=== PATIENT | male | born 1935 | race Caucasian/White ===

== ENCOUNTER 2016-04-28 08:12 | Inpatient (IN) | payer MEDICARE, OTHER ==
[~2016-04-28] VITALS: Ht 182.9 cm; Wt 115.0 kg
[2016-04-28] VITALS (12 sets, daily range): BP systolic 90–122; BP diastolic 45–64; PULSE 76–130; RESP 22–26; TEMP 98.2–99.9; O2SAT 93–100
[~2016-04-28 08:12] MED LIST: ATEN100T7 PO; BACL10TA PO; GLIP5TAB8 PO
[2016-04-28] MEDS ORDERED: SODIUM CHLOR 0.9% 1000 ML INJ 700 ML IV ONE (08:19)
[2016-04-28] MEDS ORDERED: VANCOMYCIN INJ 1,250 MG in SODIUM CHLOR 0.9% 250 ML INJ 250 ML IV STA (08:19)
[2016-04-28] MEDS ORDERED: SODIUM CHLOR 0.9% 1000 ML INJ 1,000 ML IV ONE ×4 (08:19→21:00)
[2016-04-28] MEDS ORDERED: PIPERACIL-TAZO 4.5 GM PREMIX 100 ML IV STA (08:19)
[2016-04-28] MEDS ORDERED: DIGO0.12 PO (08:24)
[2016-04-28] MEDS ORDERED: HYDR2.5%T RECTAL (08:24)
--- NOTE | 2016-04-28 08:36 | PD ---
HPI Chief Complaint: General Weakness Time Seen by Provider: 08:19 Travel History International Travel<30 days: No Contact w/Intl Traveler<30days: No Traveled to known affect area: No History of Present Illness HPI 80-year-old male came to the emergency room with history of dizziness, lightheadedness, generalized weakness and right buttock pain. Patient says that he fell one week ago and since then his right buttock is hurting. He did go to see his primary care about 5 days ago for weakness and his medications were changed. Couple of his oral medications were stopped and he was started on couple new medications. He has been taking all his medications like he supposed to. Patient is a diabetic. Denies any fever or chills. Today he called 911 since he was very lightheaded when he stood up. As per EMS his blood pressure was below 90 upon their arrival. He received 1 L of normal saline bolus en route after which his blood pressure has stayed above 90. He is awake and answering questions appropriately but is in significant discomfort when he tries to move. He prefers to lay on his left side due to the pain in his right buttock. His rectal temperature was 99.9. [facility] Past Medical History Narrative Medical List of his past medical history is reviewed from the nursing note. Atrial Fibrillation: Yes Diabetes: Yes Patient Takes Glucophage: No Hypertension: Yes Past Surgical History Joint Replacement: Yes (HIP REPLACEMENT) Neurologic Surgery: Yes (PITUIT[facility] GLAND) Social History Alcohol Use: Yes (FEW TIMES PER WEEK) Tobacco Use: No Substance Use: No Allergies-Medications (Allergen,Severity, Reaction): Coded Allergies: No Known Allergies (Verified , 03/09/16) Comments No known drug allergies. Reported Meds & Prescriptions Reported Meds & Active Scripts Active Reported Digoxin 0.125 Mg Tab 0.125 Mg PO DAILY Anusol-Hc Rectal (Hydrocortisone Rectal) 2.5% Cream 1 Applic RECTAL BID PRN Glipizide 5 Mg Tab 5 Mg PO BID Take 30 minutes before a meal Narrative Medication List of his home medications reviewed from the nursing note. Review of Systems Except as stated in HPI: all other systems reviewed are Neg Physical Exam Narrative GENERAL: Awake, alert, obese, moderate distress SKIN: Warm and dry. Right gluteus janny indurated and tender and warm to touch. No significant fluctuance is felt. Crepitus was felt. Right groin has erythematous rash and poor skin hygiene. HEAD: Atraumatic. Normocephalic. EYES: Pupils equal and round. No scleral icterus. No injection or drainage. ENT: No nasal bleeding or discharge. Mucous membranes pink and moist. NECK: Trachea midline. No JVD. CARDIOVASCULAR: Regular rate and rhythm. No murmur appreciated. RESPIRATORY: No accessory muscle use. Clear to auscultation. Breath sounds equal bilaterally. GASTROINTESTINAL: Abdomen soft, non-tender, nondistended. Hepatic and splenic margins not palpable. MUSCULOSKELETAL: No obvious deformities. No clubbing. No cyanosis. No edema. NEUROLOGICAL: Awake and alert. No obvious cranial nerve deficits. Motor grossly within normal limits. Normal speech. PSYCHIATRIC: Appropriate mood and affect; insight and judgment normal. Data Data Last Documented VS Vital Signs Date Time Temp Pulse Resp B/P Pulse Ox O2 Delivery O2 Flow Rate FiO2 04/28/16 09:30 85 26 105/63 93 Nasal Cannula 3 04/28/16 08:16 99.9 Orders Complete Blood Count With Diff (04/28/16 08:19) Comprehensive Metabolic Panel (04/28/16 08:19) Lactic Acid Sepsis Protocol (04/28/16 08:19) Urinalysis - C+S If Indicated (04/28/16 08:19) Blood Culture (04/28/16 08:19) Chest, Single Ap (04/28/16 08:19) Blood Glucose (04/28/16 08:19) Ecg Monitoring (04/28/16 08:19) Iv Access Insert/Monitor (04/28/16 08:19) Oximetry (04/28/16 08:19) Oxygen Administration (04/28/16 08:19) Ct Abd/Pel W/O Iv Contrast (04/28/16 08:19) Piperacil-Tazo 4.5 Gm Premix (Zosyn 4.5 (04/28/16 08:19) Vancomycin Inj (Vancomycin Inj) (04/28/16 08:19) Sodium Chlor 0.9% 1000 Ml Inj (Ns 1000 M (04/28/16 08:19) Sodium Chlor 0.9% 1000 Ml Inj (Ns 1000 M (04/28/16 08:19) Sodium Chlor 0.9% 1000 Ml Inj (Ns 1000 M (04/28/16 08:19) Digoxin (04/28/16 08:54) Urinary Catheter Insert/Apply (04/28/16 08:58) Potassium Chloride (Kcl) (04/28/16 09:15) Ct Femur W/O Iv Contrast (04/28/16 ) Urine Culture (04/28/16 09:01) Admit Order (Ed Use Only) (04/28/16 09:38) Labs Laboratory Tests Test 04/28/16 04/28/16 08:25 09:01 White Blood Count 23.7 TH/MM3 Red Blood Count 3.64 MIL/MM3 Hemoglobin 11.2 GM/DL Hematocrit 33.3 % Mean Corpuscular Volume 91.6 FL Mean Corpuscular Hemoglobin 30.8 PG Mean Corpuscular Hemoglobin 33.6 % Concent Red Cell Distribution Width 14.1 % Platelet Count 168 TH/MM3 Mean Platelet Volume 10.3 FL Neutrophils (%) (Auto) % Lymphocytes (%) (Auto) % Monocytes (%) (Auto) % Eosinophils (%) (Auto) % Basophils (%) (Auto) % Neutrophils # (Auto) TH/MM3 Lymphocytes # (Auto) TH/MM3 Monocytes # (Auto) TH/MM3 Eosinophils # (Auto) TH/MM3 Basophils # (Auto) TH/MM3 CBC Comment AUTO DIFF Differential Total Cells 100 Counted Neutrophils % (Manual) 72 % Band Neutrophils % 17 % Lymphocytes % 2 % Monocytes % 6 % Basophils % 1 % Neutrophils # (Manual) 21.6 TH/MM3 Metamyelocytes 1 % Myelocytes 1 % Differential Comment FINAL DIFF MANUAL Platelet Estimate NORMAL Platelet Morphology Comment NORMAL Red Cell Morphology Comment NORMAL Sodium Level 131 MEQ/L Potassium Level 3.4 MEQ/L Chloride Level 95 MEQ/L Carbon Dioxide Level 22.4 MEQ/L Anion Gap 14 MEQ/L Blood Urea Nitrogen 46 MG/DL Creatinine 2.34 MG/DL Estimat Glomerular Filtration 27 ML/MIN Rate Random Glucose 174 MG/DL Lactic Acid Level 3.9 mmol/L Calcium Level 7.8 MG/DL Total Bilirubin 0.6 MG/DL Aspartate Amino Transf 32 U/L (AST/SGOT) Alanine Aminotransferase 25 U/L (ALT/SGPT) Alkaline Phosphatase 76 U/L Total Creatine Kinase 440 U/L Creatine Kinase MB 4.5 NG/ML Creatine Kinase MB % 1.0 % Total Protein 6.4 GM/DL Albumin 2.4 GM/DL Digoxin Level 0.2 NG/ML Urine Color YELLOW Urine Turbidity HAZY Urine pH 5.0 Urine Specific [place] 1.019 Urine Protein TRACE mg/dL Urine Glucose (UA) TRACE mg/dL Urine Ketones NEG mg/dL Urine Occult Blood SMALL Urine Nitrite NEG Urine Bilirubin NEG Urine Urobilinogen LESS THAN 2.0 MG/DL Urine Leukocyte Esterase NEG Urine RBC 4 /hpf Urine WBC 3 /hpf Urine Squamous Epithelial <1 /hpf Cells Urine Bacteria RARE /hpf Urine Hyaline Casts 22 /lpf Urine Mucus FEW /lpf Microscopic Urinalysis Comment CATH-CULTURE IND MDM Medical Decision Making Medical Screen Exam Complete: Yes Emergency Medical Condition: Yes Medical Record Reviewed: Yes Differential Diagnosis Sepsis, Nikhil's gangrene, cellulitis, abscess, necrotizing fasciitis Narrative Course 8:53 AM awaiting for the blood test results and the CAT scan to be done and resulted. I started the patient on sepsis protocol for the fluid and antibiotic. Patient definitely will require admission and I would prefer him to be admitted to the ICU given the potential of deterioration of his condition. 9:17 AM blood test results are back and patient's white count is significantly elevated with bandemia. His potassium is slightly low which I have ordered for a replacement but his lactic acid is significantly elevated as well. I was just called from CT and they wanted me to include a CT of his right femur since they noticed gas in the soft tissue. I put a call out for the surgeon since the patient needs to go stat to the OR for debridement given this finding. Patient is getting IV fluid and antibiotics. I put a call out for the shovel handle assembler as well. He has a Han catheter that I had ordered. I've updated his regarding his condition and the fact that he will require to go to the OR. She confirmed that his fall was 2-3 days ago and mostly because of the weakness. 9:41 AM I looked at the CT and there is gas all the way from the gluteus till the lower thigh into the deep tissue and muscles. I've expressed to the surgeon that patient will need to go to the OR as soon as possible for debridement. The shovel handle assembler Dr. Collins is down here seeing the patient and will admit him. 9:53 AM I discussed the case with Dr. Pena from orthopedics upon general surgeon Dr. Marcos this request and he said it would be general surgery who needs to take the patient to the OR and debride him. However if there is any orthopedic issue in the operating room general surgery can consult him and he' ll be happy to see the patient. Critical Care Narrative Aggregate critical care time was 60 minutes. Time to perform other separately billable procedures was not included in the critical care time. My time did not include minutes spent treating any other patients simultaneously or on activities that did not directly contribute to the patient's treatment. The services I provided to this patient were to treat and/or prevent clinically significant deterioration that could result in: Severe sepsis, gas gangrene, acute renal failure I provided critical care services requiring my management, as noted below: Chart data review, documentation time, medication orders and management, vital sign assessments/reviewing monitor data, ordering and reviewing lab tests, ordering and interpreting/reviewing x-rays and diagnostic studies, care of the patient and discussion of the patient with the admitting physicians. Procedures EKG Prior to Arrival: No Sepsis Criteria SIRS Criteria (2 or more): WBC > 97492, < 4000 or > 10% bands Sepsis Criteria (SIRS+source): Infect source susp/known Severe Sepsis (+one): Organ Dysfunction, Hypotension, Lactate >2 Physician Communication Physician Communication Dr. Marcos, Dr. Collins, Dr. Dey Diagnosis Primary Impression: Severe sepsis Additional Impressions: Gas gangrene of lower extremity Acute renal failure Qualified Code: N17.9 - Acute renal failure, unspecified acute renal failure type Admitting Information Admitting Physician Requests: it Emanuel Oquendo MD Apr 28, 2016 08:35
[2016-04-28 08:37] LABS: HEMATOCRIT 33.3 % (39.0-51.0); MEAN CELL VOLUME 91.6 FL (80.0-100.0); MEAN CORPUSCULAR HEMOGLOBIN 30.8 PG (27.0-34.0); MEAN CORPUSCULAR HGB CONC 33.6 % (32.0-36.0); PLATELET COUNT 168 TH/MM3 (150-450); RED BLOOD COUNT 3.64 MIL/MM3 (4.50-5.90); RED CELL DISTRIBUTION WIDTH 14.1 % (11.6-17.2); WHITE BLOOD COUNT 23.7 TH/MM3 (4.0-11.0)
[2016-04-28 08:39] LABS: HEMO FLAGS AUTO DIFF
--- NOTE | 2016-04-28 08:50 | RADRPT ---
EXAM DATE/TIME: 04/28/2016 08:21 [facility] COMPARISON: No previous studies available for comparison. INDICATIONS : Short of Breath, Cough. MEDICAL HISTORY : None. SURGICAL HISTORY : None. ENCOUNTER: Initial ACUITY: 1 day PAIN SCORE: 0/10 LOCATION: Bilateral chest FINDINGS: A single view of the chest demonstrates the lungs to be symmetrically aerated without evidence of mas s, infiltrate or effusion. The cardiomediastinal contours are unremarkable. Osseous structures are intact. CONCLUSION: Normal examination. Lawson Howard MD on April 28, 2016 at 8:49 Board Certified Radiologist. This report was verified electronically.
[2016-04-28 09:03] LABS: ALKALINE PHOSPHATASE 76 U/L (45-117); ALT (GPT) 25 U/L (12-78); ANION GAP 14 MEQ/L (5-15); AST (GOT) 32 U/L (15-37); BICARBONATE 22.4 MEQ/L (21.0-32.0); BLOOD UREA NITROGEN 46 MG/DL (7-18); CHLORIDE 95 MEQ/L (98-107); GLOMERULAR FILTRATION RATE 27 ML/MIN (>89); POTASSIUM 3.4 MEQ/L (3.5-5.1); SODIUM (NA) 131 MEQ/L (136-145); TOTAL BILIRUBIN ADULT 0.6 MG/DL (0.2-1.0)
[2016-04-28 09:07] LABS: BANDS 17 % (0-6); BASOPHILS 1 % (0-2); METAMYELOCYTES 1 % (0-1); MYELOCYTES 1 % (0-0); NEUTROPHIL # MANUAL DIFF 21.6 TH/MM3 (1.8-7.7); PLATELET ESTIMATE SMEAR NORMAL (NORMAL); PLATELET MORPHOLOGY NORMAL (NORMAL); POLYS (SEG NEUTROPHILS) 72 % (16-70); WBC DIFF SAMPLE 100
[2016-04-28 09:08] LABS: SCAN/DIFF FINAL DIFF MANUAL
[2016-04-28] MEDS ORDERED: POTASSIUM CHLORIDE 10 MEQ CONTROLLED RELEASE TAB PO ONE (09:15)
[2016-04-28 09:16] LABS: BACTERIA, URINE RARE /hpf; BLOOD, URINE SMALL (NEG); COMMENT (UR) CATH-CULTURE IND; CULTURE IF INDICATED CATH CULTURE IND; GLUCOSE,URINE TRACE mg/dL (NEG); HYALINE CAST, URINE 22 /lpf (RARE); KETONE, URINE NEG (NEG); MUCUS URINE FEW /lpf (OCC); NITRITE,URINE NEG (NEG); SQUAMOUS EPITHELIAL CELL URINE <1 /hpf (0-5); URINE COLOR YELLOW (YELLW/STRAW)
--- NOTE | 2016-04-28 09:39 | RADRPT ---
EXAM DATE/TIME: 04/28/2016 09:05 [facility] COMPARISON: No previous studies available for comparison. INDICATIONS : Large right buttock induration, pelvic pain, right hip pain. RADIATION DOSE: 10.73 CTDIvol (mGy) MEDICAL HISTORY : Diabetes mellitus type 2. Cardiovascular disease SURGICAL HISTORY : Left hip replacement. ENCOUNTER: Initial ACUITY: 1 day PAIN SCALE: 8/10 LOCATION: Left hip TECHNIQUE: Volumetric scanning of the femur was performed. Using automated exposure control and adjustment of t he mA and/or kV according to patient size, radiation dose was kept as low as reasonably achievable to obtain optimal diagnostic quality images. FINDINGS: BONES: No evidence of fracture. Alignment is within normal limits. JOINTS: No evidence of joint narrowing or effusion. SOFT TISSUES: There is extensive dissecting air throughout the gluteus janny muscle also dissecting into the lowe r posterior thigh. There is air within the semi-tendinosis semimembranosus and biceps femoris muscles . There is also tiny amount of air along the abductor longus muscle. I don't see any drainable absces s or fluid collection. There is a small amount of fluid between the subcutaneous fat in the muscular fascia not an unusual finding in patient's with soft tissue edema CONCLUSION: There is extensive dissecting air throughout the gluteus janny muscle also dissecting into the lowe r posterior RIGHT thigh. There is air within the semi-tendinosis, semimembranosus, and biceps femori s muscles. There is also tiny amount of air along the abductor longus muscle. I don't see any drainab le abscess or fluid collection. There is a small amount of fluid between the subcutaneous fat in the muscular fascia not an unusual finding in patient's with soft tissue edema. Lawson Howard MD on April 28, 2016 at 9:36 Board Certified Radiologist. This report was verified electronically.
--- NOTE | 2016-04-28 09:47 | RADRPT ---
EXAM DATE/TIME: 04/28/2016 09:05 [facility] COMPARISON: No previous studies available for comparison. INDICATIONS : Large right buttock induration, pelvic pain, right hip pain. ORAL CONTRAST: No oral contrast ingested. RADIATION DOSE: 17.03 CTDIvol (mGy) MEDICAL HISTORY : Diabetes mellitus type 2. Hypertension. Cardiovascular disease SURGICAL HISTORY : None. Left hip replacement. ENCOUNTER: Initial ACUITY: 3 days PAIN SCALE: 8/10 LOCATION: Right buttock TECHNIQUE: Volumetric scanning of the abdomen and pelvis was performed. Using automated exposure control and adjustment of the mA and/or kV according to patient size, radiation dose was kept as low as reasonably achievable to obtain optimal diagnostic quality images. FINDINGS: CT of the abdomen and pelvis was performed without contrast. There is a significant amount of air and inflammation in the right buttock region. The tiny locules of air extended to the ischiorectal fossa. There is a collection in the ischiorectal fossa on the ri ght measuring approximately 2.3 cm x 4.6 cm. It could be a perirectal abscess. More posterolaterall y on the left, there is an additional small collection with fluid and air measuring 3.3 cm x 1.7 cm a cross. The tiny locules of air also extend just lateral to the rectum anterior to the iliococcygeal ligaments. The right side of the perirectal fat is indurated even superiorly. There is some sludge or small stones within the gallbladder without evidence of acute gallbladder wal l thickening. The unenhanced liver, spleen, adrenal glands and pancreas are unremarkable. Large cys ts lower pole right kidney. There is no evidence of bowel obstruction. There is a Han catheter wi thin the bladder. The tiny locules of air extend throughout the gluteus janny muscle. CONCLUSION: 1. Significant inflammation, presumed infection, in the right gluteal region including numerous tiny locules of air not only in the gluteus janny muscle but extending anterior into the ischiorectal f eduard on the right. There are two distinct collections around the rectum suspicious for a perirectal abscess both right anteriorly and left posterolaterally. 2. Gallstones versus sludge. Lawson Howard MD on April 28, 2016 at 9:32 Board Certified Radiologist. This report was verified electronically.
[2016-04-28] MEDS ORDERED: METOCLOPRAMIDE HCL 10 MG/2 ML VIAL IV PRN (10:00)
[2016-04-28] MEDS ORDERED: ONDANSETRON HCL 4 MG/2 ML VIAL IV PRN (10:00)
[2016-04-28] MEDS ORDERED: ACETAMINOPHEN 325 MG TAB PO PRN (10:00)
[2016-04-28] MEDS ORDERED: LORazepam 2 MG/ML VIAL IV PRN (10:00)
[2016-04-28] MEDS ORDERED: MISCELLANEOUS NURSING INFORMATION XX SCH (10:00)
[2016-04-28] MEDS ORDERED: RESP: ALBUTEROL 2.5 MG/3 ML NEB (PRN) INH (10:00)
[2016-04-28] MEDS ORDERED: MORPHINE SULFATE 4 MG/ML INJ IV PRN (10:00)
[2016-04-28] MEDS: SODIUM CHLORIDE 0.9% FLUSH 5 ML FLUSH IV FLUSH SCH ×2 (10:00→20:23)
[2016-04-28] MEDS ORDERED: CHLORHEXIDINE GLUCONATE 2 % 1 PACK (2 CLOTHS) TOP PRN (10:00)
[2016-04-28 10:31] LABS: LACTIC ACID GHOST NOT REPORTABLE
[2016-04-28] MEDS: PANTOPRAZOLE SODIUM 40 MG VIAL IV SCH (12:00)
[2016-04-28] MEDS: SODIUM CHLOR 0.9% 1000 ML INJ 1,000 ML IV SCH ×3 (12:00→22:05)
[2016-04-28] MEDS ORDERED: PHENYLEPH/NS 1000 MCG/10 ML SYR IV ONE (12:00)
[2016-04-28] MEDS ORDERED: LACTATED RINGER'S 1000 ML INJ 2,000 ML IV ONE (12:00)
[2016-04-28] MEDS: HEPARIN SODIUM - SQ 10,000 UNITS/ML VIAL SQ SCH ×2 (12:00→22:29)
[2016-04-28] MEDS: DOCUSATE SODIUM 100 MG/10 ML UDC G-TUBE SCH ×2 (12:00→22:29)
[2016-04-28] MEDS ORDERED: VASOPRESSIN INJ 20 UNITS/ML VIAL IV ONE (12:00)
[2016-04-28] MEDS ORDERED: ePHEDrine/NS 50 MG/5 ML SYR IV ONE (12:00)
[2016-04-28] MEDS ORDERED: PROPOFOL 200 MG/20 ML AMP IV ONE (12:00)
[2016-04-28 12:28] LABS: LACTIC ACID GHOST NOT REPORTABLE
[2016-04-28 13:36] LABS: CKMB 4.5 NG/ML (0.5-3.6)
[2016-04-28] MEDS ORDERED: PIPERACIL-TAZO 3.375 GM PREMIX 50 ML IV ONE (14:00)
[2016-04-28] MEDS ORDERED: GENTAMICIN SULFATE 80 MG/2 ML VIAL ONE (14:24)
[2016-04-28] MEDS ORDERED: ceFAZolin INJ 1,000 MG VIAL ONE (14:24)
--- NOTE | 2016-04-28 14:58 | EKG ---
Date Performed: 04/28/2016 Time Performed: 08:27:03 PTAGE: 80 years EKG: ATRIAL FIBRILLATION NONSPECIFIC T-WAVE ABNORMALITY Atrial fibrillation is new since prior t racing ABNORMAL RHYTHM ECG PREVIOUS TRACING : 04/28/2016 08.23 DOCTOR: Yakov Vásquez Interpretating Date/Time 04/28/2016 14:57:37
[2016-04-28] MEDS ORDERED: PROPOFOL 1000 MG/100 ML INJ 100 ML ONE (15:14)
[2016-04-28] MEDS ORDERED: Vancomycin Consult Pharmacy 1 EA IV SCH (15:15)
--- NOTE | 2016-04-28 15:16 | HHI.PR ---
Immediate Post Op Note Procedure Date: Apr 28, 2016 Pre Op Diagnosis: necrotic soft tissues infection of right buttock and right posterior thigh Post Op Diagnosis: same Surgeon: Trey Marcos MD Supervisor Quilting(s): Dr. Fitch Procedure: incision and wide debridement of right buttock and right posterior thigh with vac placement Findings: necrotic muscle and fascia, perirectal tracking Complications: none Specimen(s) removed: tissues, purulent fluid Estimated blood loss: 350 Anesthesia: General Drains: Other (vac) IVF (1600) Patient to: PACU Patient Condition: Critical Trey Marcos MD Apr 28, 2016 15:16
[2016-04-28] MEDS ORDERED: PHENYLEPHRINE HCL 10 MG/ML VIAL ONE ×2 (15:35→15:40)
--- NOTE | 2016-04-28 15:37 | PD.ID.CON ---
History of Present Illness Service ID Consult Requested By Dr Collins Reason for Consult perirectal abscess and gas gangrene Primary Care Physician Wade Shaikh MD Diagnoses: History of Present Illness Pt was seen in ER around 1200 before surgery 80 yo diabetic male developped malaise , R bottock and perirectal pain , fivers and chills for almost 2 weeks (since April 16) He presented to the hospital today after he got dizzy and fell on his bottom He was hypotensive, febrile tachycardic in ER with WBC of 23 K+ and bands of 17% His CT showed Significant inflammation, presumed infection, in the right gluteal region including numerous tiny locules of air not only in the gluteus janny muscle but extending anterior into the ischiorectal fossa on the right with two distinct collections around the rectum suspicious for a perirectal abscess both right anteriorly and left posterolaterally Review of Systems Constitutional: COMPLAINS OF: Fatigue, Fever, Chills, Dizziness, Change in appetite Gastrointestinal: COMPLAINS OF: Constipation, Diarrhea Neurologic: COMPLAINS OF: Poor Balance Other as per history of present illness, the rest of 12 point review is otherwise negative Past Family Social History Allergies: Coded Allergies: *MDRO Multi-Drug Resistant Organism (Verified Adverse Reaction, Unknown, ) MRSA PCR Screeen POSITIVE - 04/28/2016 Past Medical History DM HTN Past Surgical History hip replacement pituatry grland sx Active Ordered Medications Medications where reviewed in EMR Antibiotics Include: zosyn vanco Family History Non-Contributory. Social History No Tobacco. social ETOH. No Illicit Drugs. Physical Exam Vital Signs Vital Signs Date Time Temp Pulse Resp B/P Pulse Ox O2 Delivery O2 Flow Rate FiO2 04/28/16 12:28 99 22 100/59 97 Nasal Cannula 3 04/28/16 10:30 98.2 92 24 122/64 97 Nasal Cannula 3 04/28/16 09:30 85 26 105/63 93 Nasal Cannula 3 04/28/16 08:44 76 26 90/50 94 Nasal Cannula 2 04/28/16 08:16 99.9 97 26 117/62 96 Physical Exam CONSTITUTIONAL/GENERAL: ill appearing elderly male in mild apparent distress. TUBES/LINES/DRAINS: SKIN: No jaundice, rashes.Skin temperature appropriate. Not diaphoretic. STATUS LOCALIS: severe erythema, edema induration and severe tenderness of R buttock and upper thigh and R perirectal area no crepitus on pllpation, no fluctuance HEAD: Atraumatic. Normocephalic. EYES: Pupils equal and round and reactive. Extraocular motions intact. No scleral icterus. No injection or drainage. Fundi not examined. ENT: Hearing grossly normal. Nose without bleeding or purulent drainage. Oral mucossae very dry NECK: Trachea midline. Supple, nontender. CARDIOVASCULAR: Regular rate and rhythm without murmurs, gallops, or rubs. No JVD. Peripheral pulses symmetric. RESPIRATORY/CHEST: Symmetric, unlabored respirations. Clear to auscultation. Breath sounds equal bilaterally. No wheezes, rales, or rhonchi. GASTROINTESTINAL: Abdomen soft, non-tender,mildly distended. No hepato- splenomegaly, or palpable masses. No guarding. Bowel sounds present. GENITOURINARY: Without palpable bladder distension. Some erythema of R inguinal fold cw superficial fungal inx No edema or skin changes of penis or scrotum MUSCULOSKELETAL: Extremities without clubbing, + mild cyanosis, + trace edema. + mottling b/l feet LYMPHATICS: No palpable cervical or supraclavicular adenopathy. NEUROLOGICAL: Awake and alert. Motor and sensory grossly within normal limits. Follows commands. Normal speech. Moves all extremities. PSYCHIATRIC: calm, cooperative Laboratory Laboratory Tests Test 04/28/16 04/28/16 04/28/16 04/28/16 08:25 09:01 10:25 12:45 White Blood Count 23.7 Red Blood Count 3.64 Hemoglobin 11.2 Hematocrit 33.3 Mean Corpuscular Volume 91.6 Mean Corpuscular Hemoglobin 30.8 Mean Corpuscular Hemoglobin 33.6 Concent Red Cell Distribution Width 14.1 Platelet Count 168 Mean Platelet Volume 10.3 Neutrophils (%) (Auto) Lymphocytes (%) (Auto) Monocytes (%) (Auto) Eosinophils (%) (Auto) Basophils (%) (Auto) Neutrophils # (Auto) Lymphocytes # (Auto) Monocytes # (Auto) Eosinophils # (Auto) Basophils # (Auto) CBC Comment AUTO DIFF Differential Total Cells 100 Counted Neutrophils % (Manual) 72 Band Neutrophils % 17 Lymphocytes % 2 Monocytes % 6 Basophils % 1 Neutrophils # (Manual) 21.6 Metamyelocytes 1 Myelocytes 1 Differential Comment FINAL DIFF MANUAL Platelet Estimate NORMAL Platelet Morphology Comment NORMAL Red Cell Morphology Comment NORMAL Sodium Level 131 Potassium Level 3.4 Chloride Level 95 Carbon Dioxide Level 22.4 Anion Gap 14 Blood Urea Nitrogen 46 Creatinine 2.34 Estimat Glomerular Filtration 27 Rate Random Glucose 174 Lactic Acid Level 3.9 2.8 4.0 Calcium Level 7.8 Total Bilirubin 0.6 Aspartate Amino Transf 32 (AST/SGOT) Alanine Aminotransferase 25 (ALT/SGPT) Alkaline Phosphatase 76 Total Creatine Kinase 440 Creatine Kinase MB 4.5 Creatine Kinase MB % 1.0 Total Protein 6.4 Albumin 2.4 Digoxin Level 0.2 Urine Color YELLOW Urine Turbidity HAZY Urine pH 5.0 Urine Specific [place] 1.019 Urine Protein TRACE Urine Glucose (UA) TRACE Urine Ketones NEG Urine Occult Blood SMALL Urine Nitrite NEG Urine Bilirubin NEG Urine Urobilinogen LESS THAN 2.0 Urine Leukocyte Esterase NEG Urine RBC 4 Urine WBC 3 Urine Squamous Epithelial <1 Cells Urine Bacteria RARE Urine Hyaline Casts 22 Urine Mucus FEW Microscopic Urinalysis Comment CATH-CULTURE IND Test 04/28/16 14:16 Blood Type A POSITIVE Date/Time Procedure Status Source Growth 04/28/16 09:01 Urine Culture Received Urine Catheterized Urine Pending 04/28/16 08:25 Aerobic Blood Culture Received Blood Peripheral Pending 04/28/16 08:25 Anaerobic Blood Culture Received Blood Peripheral Pending Result Diagram: 04/28/1682404/28/16824 Imaging Last Impressions Chest X-Ray 04/28/16818 Signed Impressions: Service Date/Time: Thursday, April 28, 2016 08:21 - CONCLUSION: Normal examination. Lawson Howard MD Abdomen/Pelvis CT 04/28/16818 Signed Impressions: Service Date/Time: Thursday, April 28, 2016 09:05 - CONCLUSION: 1. Significant inflammation, presumed infection, in the right gluteal region including numerous tiny locules of air not only in the gluteus janny muscle but extending anterior into the ischiorectal fossa on the right. There are two distinct collections around the rectum suspicious for a perirectal abscess both right anteriorly and left posterolaterally. 2. Gallstones versus sludge. Lawson Howard MD Lower Extremity CT 04/28/16 0000 Signed Impressions: Service Date/Time: Thursday, April 28, 2016 09:05 - CONCLUSION: There is extensive dissecting air throughout the gluteus janny muscle also dissecting into the lower posterior RIGHT thigh. There is air within the semi-tendinosis , semimembranosus, and biceps femoris muscles. There is also tiny amount of air along the abductor longus muscle. I don't see any drainable abscess or fluid collection. There is a small amount of fluid between the subcutaneous fat in the muscular fascia not an unusual finding in patient's with soft tissue edema. Lawson Howard MD Course Shortly after I examined the pt he was taken to OR and underwent extensive debridement by Dr Jaime. I dw him the pop findings: extensive necrosis extending to popliteal fossa Assessment and Plan Assessment and Plan perirectal abscess and gas gangrene R buttock Necrotising fascitis R buttock Sepsis 2/2 above: leukocytosis, bandemia, fever, lactic acidosis (4.0), hypotension, tachycardia and ARF Critically ill - sp debridement - cont vanco, zosyn - both need to be renally adjusted - fu op cultures Discussed Condition With Addison Dey Alexandra A. MD Apr 28, 2016 15:37
[2016-04-28] MEDS: PIPERACIL-TAZO 2.25 GM PREMIX 50 ML IV SCH (15:49)
[2016-04-28] MEDS ORDERED: fentaNYL CITRATE 250 MCG/5 ML AMP ONE (15:50)
[2016-04-28] MEDS ORDERED: MORPHINE SULFATE 4 MG/ML INJ ONE (15:51)
[2016-04-28] MEDS ORDERED: TERBUTALINE INJ 1 MG/ML AMP SQ PRN (16:00)
[2016-04-28] MEDS ORDERED: DO NOT ADM ANY ANTICOAGULANT DRUGS XX PRN (16:15)
[2016-04-28] MEDS ORDERED: MIDAZOLAM HCL 5 MG/ML VIAL (1 ML) ONE (16:22)
[2016-04-28] MEDS ORDERED: MIDAZOLAM HCL 2 MG/2 ML VIAL IV PUSH ONE (16:30)
--- NOTE | 2016-04-28 16:31 | RADRPT ---
EXAM DATE/TIME: 04/28/2016 15:44 [facility] COMPARISON: CT ABDOMEN & PELVIS W/O CONTRAST, April 28, 2016, 9:05. CHEST SINGLE AP, J anuary 2016, 8:21. INDICATIONS : Post intubation. MEDICAL HISTORY : None. SURGICAL HISTORY : None. ENCOUNTER: Initial ACUITY: 1 day PAIN SCORE: Non-responsive. LOCATION: Bilateral chest FINDINGS: ET tube and nasogastric tube are in good position. There are increasing bibasilar parenchymal change s evident, worse on the left than right. The heart is enlarged. CONCLUSION: 1. Support apparatus in good position. 2. Nasogastric tube is across the GE junction. Chandan Foley MD FACR on April 28, 2016 at 16:28 Board Certified Radiologist. This report was verified electronically.
[2016-04-28] MEDS ORDERED: NOREPINEPHRINE-DEXTROSE DRIP 250 ML IV ONE (16:44)
[2016-04-28] MEDS ORDERED: PHENYLEPHRINE 40 MG/D5W 496 ML ADMIX IV SCH ×2 (17:00)
[2016-04-28] MEDS ORDERED: VANCOMYCIN 0 MG/NS 250 ML IV ONE ×2 (17:00)
--- NOTE | 2016-04-28 17:13 | RADRPT ---
EXAM DATE/TIME: 04/28/2016 16:50 [facility] COMPARISON: CHEST SINGLE AP, April 28, 2016, 15:44. INDICATIONS : Right sided central placement. MEDICAL HISTORY : None. SURGICAL HISTORY : None. ENCOUNTER: Initial ACUITY: 1 day PAIN SCORE: Non-responsive. LOCATION: Bilateral chest FINDINGS: ET tube nasogastric tube in good position. Right-sided central line in good position of pneumothorax . The heart is enlarged. Mild interstitial edema is present. CONCLUSION: Line in good position without pneumothorax. Chandan Foley MD FACR on April 28, 2016 at 17:10 Board Certified Radiologist. This report was verified electronically.
--- NOTE | 2016-04-28 17:27 | HHI.HP ---
HPI Service Critical Care Medicine Primary Care Physician Wade Shaikh MD Admission Diagnosis sepsis, gas gangrene Diagnosis: Travel History International Travel<30 Days: No Contact w/Intl Traveler <30 Da: No Traveled to Known Affected Are: No History of Present Illness 80-year-old male came to the emergency room with history of dizziness, lightheadedness, generalized weakness and right buttock pain. CT scan revealed soft tissue gas gangrene originated most probably as a perirectal abscess. He wa taken emergently to OR for debridement. Review of Systems ROS Unable to obtain, patient is sedated and intubated Past Family Social History Allergies: Coded Allergies: No Known Allergies (Verified , 03/09/16) Past Medical History Atrial Fibrillation: Yes Diabetes: Yes Hypertension: Yes Past Surgical History Joint Replacement: Yes (HIP REPLACEMENT) Neurologic Surgery: Yes (PIT[facility] GLAND) Reported Medications Digoxin 0.125 Mg Tab 0.125 Mg PO DAILY Anusol-Hc Rectal (Hydrocortisone Rectal) 2.5% Cream 1 Applic RECTAL BID PRN Glipizide 5 Mg Tab 5 Mg PO BID Active Ordered Medications Current Medications Medications (Trade) Dose Ordered Sig/Jeff Route PRN Reason Start Time Stop Time Status Last Admin Dose Admin Sodium Chloride (NS 1000 ml Inj) 1,000 ml @ 150 mls/hr Q6H40M IV 04/28/16 11:00 04/28/16 15:40 IV Flush (NS Flush) 2 ml UNSCH PRN IV FLUSH FLUSH AFTER USING IV ACCESS 04/28/16 10:00 IV Flush (NS Flush) 2 ml BID IV FLUSH 04/28/16 10:00 Acetaminophen (Tylenol) 650 mg Q6H PRN PO PAIN 1-10 AND/OR FEVER >101F 04/28/16 10:00 Oxycodone/ Acetaminophen (Percocet 5-325 Mg) 1 tab Q4H PRN PO PAIN SCALE 1 TO 5 04/28/16 10:00 Morphine Sulfate (Morphine Inj) 2 mg Q2H PRN IV PAIN SCALE 6 TO 10 04/28/16 10:00 Pantoprazole Sodium (Protonix Inj) 40 mg DAILY IV 04/28/16 12:00 04/28/16 12:00 Lorazepam (Ativan Inj) 1 mg Q1H PRN IV Agitation/Sedation 04/28/16 10:00 Ondansetron HCl (Zofran Inj) 4 mg Q6H PRN IV NAUSEA OR VOMITING 04/28/16 10:00 Metoclopramide HCl (Reglan Inj) 10 mg Q6H PRN IV NAUSEA OR VOMITING 04/28/16 10:00 Docusate Sodium (Colace Liq) 100 mg Q12H G-TUBE 04/28/16 12:00 Heparin Sodium (Porcine) (Heparin Inj) 5,000 units Q12H SQ 04/28/16 12:00 Miscellaneous Information 1 Q361D XX 04/28/16 10:00 Chlorhexidine Gluconate (Chlorhexidine 2% Cloth) 3 pack Taper DAILY@04 TOP 04/29/16 04:00 04/25/17 03:59 Chlorhexidine Gluconate 3 pack 3 pack UNSCH PRN TOP HYGIENIC CARE 04/28/16 10:00 Piperacillin Sod/ Tazobactam Sod 50 ml @ 100 mls/hr Q6H IV 04/28/16 16:00 04/28/16 15:49 Pharmacy Profile Note (Vancomycin Consult Pharmacy) 0 ml @ 0 mls/hr UNSCH IV 04/28/16 15:15 Terbutaline Sulfate (Brethine Inj) 1 mg UNSCH PRN SQ FOR EXTRAVASATION PROTOCOL 04/28/16 16:00 Miscellaneous Information ALL NURSING DEPARTME... UNSCH PRN XX SEE LABEL COMMENTS 04/28/16 16:15 04/29/16 16:14 Norepinephrine Bitartrate 250 ml @ 0 mls/hr TITRATE IV 04/28/16 17:15 04/28/16 17:50 Phenylephrine HCl 40 mg/Dextrose 500 ml @ 0 mls/hr TITRATE IV 04/28/16 18:45 Dobutamine HCl/ Dextrose 250 ml @ 0 mls/hr TITRATE IV 04/28/16 18:45 04/28/16 19:26 Fentanyl Citrate (fentaNYL DRIP) 250 ml @ 0 mls/hr TITRATE IV 04/28/16 18:45 04/28/16 19:00 Morphine Sulfate (Morphine Inj) 4 mg Q3H PRN IV PUSH any pain 04/28/16 18:45 Family History Noncontributory Social History Alcohol Use: Yes (FEW TIMES PER WEEK) Tobacco Use: No Substance Use: No Physical Exam Vital Signs Vital Signs Date Time Temp Pulse Resp B/P Pulse Ox O2 Delivery O2 Flow Rate FiO2 04/28/16 15:50 116 19 86/49 99 Mechanical Ventilator 40 04/28/16 15:40 113 19 152/72 97 Mechanical Ventilator 40 04/28/16 15:39 97 60 04/28/16 15:30 129 19 82/54 97 Mechanical Ventilator 40 04/28/16 15:25 97.0 122 19 79/43 98 Mechanical Ventilator 60 04/28/16 15:19 Nasal Cannula 3.00 04/28/16 12:28 99 22 100/59 97 Nasal Cannula 3 04/28/16 10:30 98.2 92 24 122/64 97 Nasal Cannula 3 04/28/16 09:30 85 26 105/63 93 Nasal Cannula 3 04/28/16 08:44 76 26 90/50 94 Nasal Cannula 2 04/28/16 08:16 99.9 97 26 117/62 96 Physical Exam GENERAL: Well-nourished, well-developed patient. SKIN: Warm and dry. HEAD: Normocephalic. EYES: No scleral icterus. No injection or drainage. NECK: Supple, trachea midline. No JVD or lymphadenopathy. CARDIOVASCULAR: Regular rate and rhythm without murmurs, gallops, or rubs. RESPIRATORY: Breath sounds equal bilaterally. No accessory muscle use. GASTROINTESTINAL: Abdomen soft, non-tender, nondistended. MUSCULOSKELETAL: No cyanosis, or edema. BACK: Nontender without obvious deformity. No CVA tenderness. Laboratory Laboratory Tests Test 04/28/16 04/28/16 04/28/16 04/28/16 08:25 09:01 10:25 12:45 White Blood Count 23.7 Red Blood Count 3.64 Hemoglobin 11.2 Hematocrit 33.3 Mean Corpuscular Volume 91.6 Mean Corpuscular Hemoglobin 30.8 Mean Corpuscular Hemoglobin 33.6 Concent Red Cell Distribution Width 14.1 Platelet Count 168 Mean Platelet Volume 10.3 Neutrophils (%) (Auto) Lymphocytes (%) (Auto) Monocytes (%) (Auto) Eosinophils (%) (Auto) Basophils (%) (Auto) Neutrophils # (Auto) Lymphocytes # (Auto) Monocytes # (Auto) Eosinophils # (Auto) Basophils # (Auto) CBC Comment AUTO DIFF Differential Total Cells 100 Counted Neutrophils % (Manual) 72 Band Neutrophils % 17 Lymphocytes % 2 Monocytes % 6 Basophils % 1 Neutrophils # (Manual) 21.6 Metamyelocytes 1 Myelocytes 1 Differential Comment FINAL DIFF MANUAL Platelet Estimate NORMAL Platelet Morphology Comment NORMAL Red Cell Morphology Comment NORMAL Sodium Level 131 Potassium Level 3.4 Chloride Level 95 Carbon Dioxide Level 22.4 Anion Gap 14 Blood Urea Nitrogen 46 Creatinine 2.34 Estimat Glomerular Filtration 27 Rate Random Glucose 174 Lactic Acid Level 3.9 2.8 4.0 Calcium Level 7.8 Total Bilirubin 0.6 Aspartate Amino Transf 32 (AST/SGOT) Alanine Aminotransferase 25 (ALT/SGPT) Alkaline Phosphatase 76 Total Creatine Kinase 440 Creatine Kinase MB 4.5 Creatine Kinase MB % 1.0 Total Protein 6.4 Albumin 2.4 Digoxin Level 0.2 Urine Color YELLOW Urine Turbidity HAZY Urine pH 5.0 Urine Specific [place] 1.019 Urine Protein TRACE Urine Glucose (UA) TRACE Urine Ketones NEG Urine Occult Blood SMALL Urine Nitrite NEG Urine Bilirubin NEG Urine Urobilinogen LESS THAN 2.0 Urine Leukocyte Esterase NEG Urine RBC 4 Urine WBC 3 Urine Squamous Epithelial <1 Cells Urine Bacteria RARE Urine Hyaline Casts 22 Urine Mucus FEW Microscopic Urinalysis Comment CATH-CULTURE IND Test 04/28/16 04/28/16 14:16 14:40 Blood Type A POSITIVE A POSITIVE Antibody Screen NEGATIVE Crossmatch Leukocyte-Reduced Red Blood Cells Blood Bank Comment Date/Time Procedure Status Source Growth 04/28/16 14:30 Gram Stain Received Wound Buttock Pending 04/28/16 14:30 Wound Culture Received Wound Buttock Pending 04/28/16 14:30 Fungal Smear Received Wound Buttock Pending 04/28/16 14:30 Fungal Culture Received Wound Buttock Pending 04/28/16 14:30 Acid Fast Stain Received Wound Buttock Pending 04/28/16 14:30 Mycobacterial Culture Received Wound Buttock Pending 04/28/16 09:01 Urine Culture Received Urine Catheterized Urine Pending 04/28/16 08:25 Aerobic Blood Culture Received Blood Peripheral Pending 04/28/16 08:25 Anaerobic Blood Culture Received Blood Peripheral Pending Result Diagram: 04/28/1682404/28/16824 Imaging Last 24 hours Impressions Chest X-Ray 04/28/16818 Signed Impressions: Service Date/Time: Thursday, April 28, 2016 08:21 - CONCLUSION: Normal examination. Lawson Howard MD Abdomen/Pelvis CT 04/28/16818 Signed Impressions: Service Date/Time: Thursday, April 28, 2016 09:05 - CONCLUSION: 1. Significant inflammation, presumed infection, in the right gluteal region including numerous tiny locules of air not only in the gluteus janny muscle but extending anterior into the ischiorectal fossa on the right. There are two distinct collections around the rectum suspicious for a perirectal abscess both right anteriorly and left posterolaterally. 2. Gallstones versus sludge. Lawson Howard MD Lower Extremity CT 04/28/16 0000 Signed Impressions: Service Date/Time: Thursday, April 28, 2016 09:05 - CONCLUSION: There is extensive dissecting air throughout the gluteus janny muscle also dissecting into the lower posterior RIGHT thigh. There is air within the semi-tendinosis , semimembranosus, and biceps femoris muscles. There is also tiny amount of air along the abductor longus muscle. I don't see any drainable abscess or fluid collection. There is a small amount of fluid between the subcutaneous fat in the muscular fascia not an unusual finding in patient's with soft tissue edema. Lawson Howard MD Assessment and Plan Problem List: (1) Severe sepsis ICD Code: A41.9 Status: Acute (2) Gas gangrene of lower extremity ICD Code: A48.0 Status: Acute (3) Acute renal failure ICD Code: N17.9 Status: Acute Assessment and Plan Sepsis - due to perirectal abscess - debridement in the OR - broad spectrum TWYLA - ID consult - aggressive fluid resuscitation Soft tissue gas gangrene - due to above - broad spectrum ATB - debridement Perirectal abscess - ATB per ID - surgical intervention per GS Respiratory failure - post op - return to OR today - will attempt to wean and extubate if hemodynamically stable BRAYDON - dehydration - volume loss - aggressive i.v. fluids resuscitation - strict I&O DM - hold p.o. meds while in the ICU - ISS if needed A.Fib - rate controlled - telemetry Critical Care: The total critical care time was 35 minutes. Time to perform other separately billable procedures was not included in the critical care time. Problem Qualifiers (1) Acute renal failure: Qualified Code: N17.9 - Acute renal failure, unspecified acute renal failure type Den Collins MD Apr 28, 2016 17:27
[2016-04-28] MEDS: NOREPINEPHRINE 4 MG/D5W 250 ML IV SCH ×2 (17:50→20:23)
[2016-04-28] MEDS ORDERED: SODIUM BICARBONATE 8.4% INJ 50 ML ONE (18:39)
[2016-04-28 18:43] LABS: BLOOD GAS VENOUS BASE EXCESS -8.4 mmol/L (-2-2); BLOOD GAS VENOUS HCO3 17 mmol/L (22-26); BLOOD GAS VENOUS O2 CONTENT 11.9 Vol % (9.0-17.0); BLOOD GAS VENOUS O2 HGB SAT 74 % (70-76); BLOOD GAS VENOUS PCO2 35 mmHg (44-48); BLOOD GAS VENOUS PO2 49 mmHg (35-40); BLOOD GAS VENOUS pH 7.31 (7.360-7.400); TEMP CORR TO 98.6
[2016-04-28 18:44] LABS: CRITICAL VALUE YES; OXYGEN DEVICE VENTILATOR; VENT SETTINGS 500/16/+7/10PS
[2016-04-28 18:45] LABS: DRAW SITE LINE; FIO2 40 %; STAT NO
[2016-04-28] MEDS ORDERED: MORPHINE SULFATE 4 MG/ML INJ IV PUSH PRN (18:45)
[2016-04-28] MEDS ORDERED: DIGOXIN 0.5 MG/2 ML VIAL IV PUSH ONE (18:45)
[2016-04-28] MEDS ORDERED: SODIUM BICARBONATE 8.4% INJ 50 MEQ/50 ML SYR IV PUSH ONE (18:45)
[2016-04-28] MEDS: fentaNYL DRIP 250 ML IV SCH (19:00)
[2016-04-28] MEDS: DOBUTamine PREMIX DRIP 250 ML IV SCH ×2 (19:26→20:23)
--- NOTE | 2016-04-28 20:14 | MB ---
cc: BING ESCALONA MD DATE OF CONSULTATION: 04/28/2016. REASON FOR CONSULTATION: Necrotizing soft tissue infection of the right buttock and right thigh. HISTORY OF PRESENT ILLNESS: The patient is a 80-year-old male who presented with complaints of right buttock and right thigh pain. The patient has noted recent dizziness, lightheadedness, and weakness and underwent a fall approximately one week ago and complained of pain to this area. He was seen by his primary care physician and given pain medications and sent home. He came to the emergency department due to progressive worsening pain. He did have evaluation including a CT scan showing significant gas in his soft tissues and muscle compartments and fascia. Therefore, general surgery was called for further evaluation. On my exam the patient is resting. He is stating 8/10 pain to the right buttock area that is sharp, radiating down his leg and worse with movement and better with lying still. He has some subjective low grade fever of 99.9 and states this has gotten progressive worse. He has never had anything quite like this before. The patient is diabetic. He states poor compliance with medications. PAST MEDICAL HISTORY: 1. Diabetes. 2. Atrial fibrillation. 3. Hypertension. PAST SURGICAL HISTORY: 1. Left hip replacement. 2. Pituitary brain surgery. SOCIAL HISTORY: Occasional EtOH and denies smoking or IV drug abuse. ALLERGIES: The patient has no known drug allergies. MEDICATIONS: See EMR. FAMILY HISTORY: The patient denies hypertension, diabetes in parents. REVIEW OF SYSTEMS: GENERAL: Low grade fevers. HEAD, EYES, EARS, NOSE, THROAT: Denies eye pain, ear pain. NECK: Denies pain or swelling. RESPIRATORY: Denies cough or wheeze. CHEST: Denies palpitations. Complained of low blood pressure. GASTROINTESTINAL: Denies nausea or vomiting. MUSCULOSKELETAL: Complains of right buttock and right thigh pain. NEUROLOGIC: Denies any numbness or tingling. PSYCHIATRIC: Denies altered mood and affect. GENITOURINARY: Denies dysuria or hematuria. PHYSICAL EXAMINATION: GENERAL: The patient in mild distress. VITAL SIGNS: Temperature 98.3, pulse 113, respiration 19, saturation 97% on room air blood pressure of 152/72. HEAD, EYES, EARS, NOSE, THROAT: Pupils equal, round and reactive to light and accommodation. Extraocular muscles intact. Dry mucous membranes. NECK: The neck is supple and nontender. HEART: S1 and S2 regular rhythm. LUNGS: Bilateral expansion. Clear. ABDOMEN: The abdomen is soft, nontender and nondistended. BACK: Right buttock area with significant diffuse erythema and crepitus to posterior thigh and right buttock 2+. EXTREMITIES: Pulses all extremities. NEUROLOGIC: GCS of 15. Alert and oriented times four. Moving all extremities with difficulty and pain with the right side. SKIN: As above with erythema and crepitus. GENITOURINARY: Han in place within normal limits. LABORATORY AND DIAGNOSTIC DATA: WBCs 23.7, hemoglobin 11.2, hematocrit 33.3, platelets 168,000. Sodium 131, potassium 2.4, chloride 95, BUN 46, creatinine 2.3, total bilirubin 0.6, AST 32, ALT 25, alkaline phosphatase 76, creatinine 440. Albumin 2.4. IMAGING STUDIES: CT scan of the abdomen and pelvis reviewed by myself showing extensive marked gas, significant inflammation right gluteal region, numerous tiny gas bubbles in gluteus janny extending into ischial fossa on the right. Collections of the rectum and perirectal abscess noted. CT lower extremity right: Extensive area dissecting through gluteus janny as above, semimembranous biceps femoris, adductor longus. ASSESSMENT: 80-year-old with poorly controlled diabetes and necrotizing soft tissue infection of right buttock and posterior thigh. PLAN: After full radiologic, clinical and laboratory workup, the patient with above-named issue including necrotizing soft tissue infection. We will plan for emergent operative intervention including wide debridement, irrigation and incision of all necrotic tissue involved. We will likely placed a VAC to this area. The patient will likely need multiple operative debridements and VAC changes. This was discussed with the patient and family including at bedside and they state understanding, agree and would like to proceed. Will keep the patient n.p.o. The patient will maybe go to the ICU postoperatively with IV antibiotics, pain control and fluid resuscitation. MD ARUN Jenkins/MADDIE /7:43 PM /7:57 PM CLIFF
[2016-04-28] MEDS: PHENYLEPHRINE INJ 40 MG in DEXTROSE 5% IN WATE 500 ML INJ 496 ML IV SCH ×4 (20:23→23:50)
[2016-04-28] MEDS: PROPOFOL 1000 MG/100 ML IV SCH ×2 (20:52→23:42)
[2016-04-29] VITALS (18 sets, daily range): BP systolic 100–137; BP diastolic 53–66; PULSE 92–169; RESP 16–24; TEMP 97.5–99.1; O2SAT 95–100
[2016-04-29] MEDS: CHLORHEXIDINE GLUCONATE 2 % 1 PACK (2 CLOTHS) TOP SCH (02:22)
[2016-04-29] MEDS: NOREPINEPHRINE 4 MG/D5W 250 ML IV SCH (02:22)
[2016-04-29] MEDS: PROPOFOL 1000 MG/100 ML IV SCH ×4 (02:22→20:43)
[2016-04-29] MEDS: SODIUM CHLOR 0.9% 1000 ML INJ 1,000 ML IV SCH ×2 (02:22→13:40)
[2016-04-29] MEDS: PHENYLEPHRINE INJ 40 MG in DEXTROSE 5% IN WATE 500 ML INJ 496 ML IV SCH ×12 (02:32→22:08)
--- NOTE | 2016-04-29 05:03 | RADRPT ---
EXAM DATE/TIME: 04/29/2016 04:12 [facility] COMPARISON: CHEST SINGLE AP, April 28, 2016, 16:50. INDICATIONS : Respiratory failure. MEDICAL HISTORY : None. SURGICAL HISTORY : None. ENCOUNTER: Subsequent ACUITY: 2 days PAIN SCORE: Non-responsive. LOCATION: Bilateral chest FINDINGS: The cardiac silhouette is enlarged in transverse diameter. Support lines and tubes are in satisfactor y position. There is subsegmental atelectasis in the left base. The right lung is free of acute paren chymal opacity. CONCLUSION: 1. Cardiomegaly. Subsegmental atelectasis left base. There has been no significant change when compar ed to the prior exam. Ezio Hatfield MD on April 29, 2016 at 5:01 Board Certified Radiologist. This report was verified electronically.
[2016-04-29 05:11] LABS: BLOOD GAS BASE EXCESS -7.7 mmol/L (-2-2); BLOOD GAS CARBOXYHEMOGLOBIN 0.6 % (0-4); BLOOD GAS HCO3 16 mmol/L (22-26); BLOOD GAS METHEMOGLOBIN 0.9 % (0-2); BLOOD GAS O2 HGB SATURATION 97 % (90-100); BLOOD GAS OXYGEN CONTENT 17.3 Vol % (12.0-20.0); BLOOD GAS PCO2 28 mmHg (38-42); BLOOD GAS PO2 165 mmHg (61-120); BLOOD GAS TOTAL HGB 12.5 G/DL (12.0-16.0); TEMP CORR TO 98.6
[2016-04-29 05:12] LABS: OXYGEN DEVICE VENTILATOR
[2016-04-29 05:15] LABS: CRITICAL VALUE YES
[2016-04-29 05:16] LABS: DRAW SITE ART LINE; FIO2 40 %; VENT SETTINGS SIMV/IMV
[2016-04-29 05:17] LABS: STAT NO
[2016-04-29] MEDS: PIPERACIL-TAZO 2.25 GM PREMIX 50 ML IV SCH ×5 (05:28→22:01)
[2016-04-29] MEDS ORDERED: SODIUM BICARBONATE 8.4% SOLN 50 MEQ/50 ML VIAL SLOW IVP ONE (05:45)
[2016-04-29 05:48] LABS: HEMATOCRIT 28.3 % (39.0-51.0); MEAN CORPUSCULAR HEMOGLOBIN 31.3 PG (27.0-34.0); MEAN CORPUSCULAR HGB CONC 33.6 % (32.0-36.0); PLATELET COUNT 133 TH/MM3 (150-450); RED BLOOD COUNT 3.04 MIL/MM3 (4.50-5.90); RED CELL DISTRIBUTION WIDTH 14.2 % (11.6-17.2); WHITE BLOOD COUNT 20.4 TH/MM3 (4.0-11.0)
[2016-04-29 05:57] LABS: HEMO FLAGS AUTO DIFF
[2016-04-29 05:58] LABS: APTT (PATIENT) 36.5 SEC (24.3-30.1); INTERNATIONAL NORMALIZED RATIO 1.3 RATIO
[2016-04-29 06:12] LABS: BICARBONATE 18.3 MEQ/L (21.0-32.0); CALCIUM-PROTEIN CORRECTED 7.6 MG/DL (8.5-10.1); MAGNESIUM 1.4 MG/DL (1.5-2.5); POTASSIUM 3.3 MEQ/L (3.5-5.1); TOTAL BILIRUBIN ADULT 0.4 MG/DL (0.2-1.0)
[2016-04-29] MEDS: CHLORHEXIDINE 0.12% (ORAL KIT) 15 ML CUP MT SCH ×2 (08:00→20:44)
[2016-04-29] MEDS: DOBUTamine PREMIX DRIP 250 ML IV SCH ×3 (08:23→20:42)
[2016-04-29] MEDS: PANTOPRAZOLE SODIUM 40 MG VIAL IV SCH (08:23)
--- NOTE | 2016-04-29 08:24 | HHI.CCPN ---
Subjective Remarks/Hospital Course 80-year-old male came to the emergency room with history of dizziness, lightheadedness, generalized weakness and right buttock pain. CT scan revealed soft tissue gas gangrene originated most probably as a perirectal abscess. He wa taken emergently to OR for debridement. Objective Vital Signs Date Time Temp Pulse Resp B/P Pulse Ox O2 Delivery O2 Flow Rate FiO2 04/29/16 07:41 99 40 04/29/16 06:00 107 04/29/16 04:00 98.8 20 116/55 04/28/16 15:50 Mechanical Ventilator 04/28/16 15:19 3.00 Intake and Output 04/28/16 04/28/16 04/29/16 08:00 16:00 00:00 Intake Total 2000 ml 4953 ml Output Total 1050 ml 450 ml Balance 950 ml 4503 ml Result Diagram: 04/29/16 0530 04/29/16 0530 Other Results Laboratory Tests Test 04/28/16 04/29/16 18:29 05:02 Blood Gas Puncture Site LINE ART LINE Blood Gas Patient Temperature 98.6 98.6 Venous Blood pH 7.31 (7.360-7.400) Venous Blood Partial Pressure 35 mmHg (44-48) CO2 Venous Blood Partial Pressure 49 mmHg (35-40) O2 Venous Blood HCO3 17 mmol/L (22-26) Venous Blood Oxygen Saturation 74 % (70-76) Venous Blood Oxygen Content 11.9 Vol % (9.0-17.0) Venous Blood Base Excess -8.4 mmol/L (-2-2) Oxygen Delivery Device VENTILATOR VENTILATOR Blood Gas Ventilator Setting 500/16/+7/10PS SIMV/IMV Blood Gas Inspired Oxygen 40 % 40 % Blood Gas HCO3 16 mmol/L (22-26) Blood Gas Base Excess -7.7 mmol/L (-2-2) Blood Gas Oxygen Saturation 97 % (90-100) Arterial Blood pH 7.38 (7.380-7.420) Arterial Blood Partial 28 mmHg (38-42) Pressure CO2 Arterial Blood Partial 165 mmHg Pressure O2 (61-120) Arterial Blood Oxygen Content 17.3 Vol % (12.0-20.0) Arterial Blood 0.6 % (0-4) Carboxyhemoglobin Arterial Blood Methemoglobin 0.9 % (0-2) Blood Gas Hemoglobin 12.5 G/DL (12.0-16.0) Imaging Last 24 hours Impressions Chest X-Ray 04/28/16818 Signed Impressions: Service Date/Time: Thursday, April 28, 2016 08:21 - CONCLUSION: Normal examination. Lawson Howard MD Abdomen/Pelvis CT 04/28/16818 Signed Impressions: Service Date/Time: Thursday, April 28, 2016 09:05 - CONCLUSION: 1. Significant inflammation, presumed infection, in the right gluteal region including numerous tiny locules of air not only in the gluteus janny muscle but extending anterior into the ischiorectal fossa on the right. There are two distinct collections around the rectum suspicious for a perirectal abscess both right anteriorly and left posterolaterally. 2. Gallstones versus sludge. Lawson Howard MD Lower Extremity CT 04/28/16 0000 Signed Impressions: Service Date/Time: Thursday, April 28, 2016 09:05 - CONCLUSION: There is extensive dissecting air throughout the gluteus janny muscle also dissecting into the lower posterior RIGHT thigh. There is air within the semi-tendinosis , semimembranosus, and biceps femoris muscles. There is also tiny amount of air along the abductor longus muscle. I don't see any drainable abscess or fluid collection. There is a small amount of fluid between the subcutaneous fat in the muscular fascia not an unusual finding in patient's with soft tissue edema. Lawson Hoawrd MD Objective Remarks GENERAL: Well-nourished, well-developed patient. SKIN: Warm and dry. HEAD: Normocephalic. EYES: No scleral icterus. No injection or drainage. NECK: Supple, trachea midline. No JVD or lymphadenopathy. CARDIOVASCULAR: Regular rate and rhythm without murmurs, gallops, or rubs. RESPIRATORY: Breath sounds equal bilaterally. No accessory muscle use. GASTROINTESTINAL: Abdomen soft, non-tender, nondistended. MUSCULOSKELETAL: No cyanosis, or edema. BACK: Nontender without obvious deformity. No CVA tenderness. A/P Problem List: (1) Severe sepsis ICD Code: A41.9 Status: Acute (2) Gas gangrene of lower extremity ICD Code: A48.0 Status: Acute (3) Acute renal failure ICD Code: N17.9 Status: Acute Assessment and Plan Sepsis - due to perirectal abscess - debridement in the OR - broad spectrum vanco, zosyn - ID consult - aggressive fluid resuscitation Soft tissue gas gangrene - due to above - broad spectrum ATB - vanco, zosyn - debridement Perirectal abscess - ATB per ID - surgical intervention per GS Respiratory failure - post op - return to OR today - will attempt to wean and extubate if hemodynamically stable post op today BRAYDON - dehydration - volume loss - aggressive i.v. fluids resuscitation - strict I&O - Dobutamine renal dose DM - hold p.o. meds while in the ICU - ISS if needed A.Fib - rate controlled - telemetry Critical Care: The total critical care time was 35 minutes. Time to perform other separately billable procedures was not included in the critical care time. Problem Qualifiers (1) Acute renal failure: Qualified Code: N17.9 - Acute renal failure, unspecified acute renal failure type Den Collins MD Apr 29, 2016 08:24
[2016-04-29] MEDS ORDERED: VANCOMYCIN INJ 2,000 MG in SODIUM CHLORID 0.9% 500 ML INJ 500 ML IV SCH (10:00)
[2016-04-29 10:23] LABS: BANDS 29 % (0-6); METAMYELOCYTES 3 % (0-1); NEUTROPHIL # MANUAL DIFF 18.8 TH/MM3 (1.8-7.7); POLYS (SEG NEUTROPHILS) 60 % (16-70); WBC DIFF SAMPLE 100
[2016-04-29 10:24] LABS: DOHLE BODIES PRESENT (NONE SEEN); PLATELET ESTIMATE SMEAR LOW (NORMAL); PLATELET MORPHOLOGY NORMAL (NORMAL); SCAN/DIFF FINAL DIFF MANUAL
[2016-04-29] MEDS ORDERED: DEXTROSE 50% IN WATER 50 ML VIAL(D50) IV PUSH PRN ×2 (11:45→18:00)
[2016-04-29] MEDS ORDERED: GLUCAGON 1 MG/ML VIAL OTHER PRN (11:45)
[2016-04-29] MEDS: DOCUSATE SODIUM 100 MG/10 ML UDC G-TUBE SCH ×2 (12:00→22:07)
[2016-04-29] MEDS: HEPARIN SODIUM - SQ 10,000 UNITS/ML VIAL SQ SCH ×2 (12:00→22:07)
[2016-04-29 13:19] LABS: BICARBONATE 21.5 MEQ/L (21.0-32.0)
[2016-04-29 13:37] LABS: CALCIUM-PROTEIN CORRECTED 7.5 MG/DL (8.5-10.1)
[2016-04-29] MEDS ORDERED: ceFAZolin INJ 1,000 MG VIAL ONE (14:05)
[2016-04-29] MEDS ORDERED: MIDAZOLAM HCL 2 MG/2 ML VIAL ONE (15:13)
--- NOTE | 2016-04-29 15:34 | HHI.PR ---
cc: Lior Carmona MD Immediate Post Op Note Procedure Date: Apr 29, 2016 Pre Op Diagnosis: Necrotizing fasciitis Post Op Diagnosis: Same Surgeon: Lior Carmona Utility System Operator(s): Socrates Navarro CFA Procedure: Irrigation and debridement perirectal and right posterior thigh, 25 cm2 Complications: None Specimen(s) removed: Tiisue debrided and discarded Estimated blood loss: 50 ml Anesthesia: General Drains: None IVF (300 ml) Patient to: ISC Patient Condition: Fair Date/Time of Procedure: SEE SURGICAL CARE RECORD Lior Carmona MD Apr 29, 2016 15:34
[2016-04-29] MEDS ORDERED: MAGNESIUM SULFATE 1 GM PREMIX 100 ML ONE (15:48)
[2016-04-29] MEDS ORDERED: POTASSIUM CHLOR 40 MEQ PREMIX 100 ML IV ONE (16:00)
[2016-04-29] MEDS ORDERED: MAGNESIUM SULFATE 1 GM PREMIX 100 ML IV SCH (16:00)
[2016-04-29] MEDS ORDERED: LACTATED RINGER'S 1000 ML INJ 1,000 ML IV ONE ×2 (16:00)
[2016-04-29] MEDS ORDERED: ALBUMIN HUMAN 5% 25 GM/500 ML BOTTLE IV ONE (17:15)
[2016-04-29 17:28] LABS: BLOOD GAS CARBOXYHEMOGLOBIN 0.7 % (0-4); BLOOD GAS HCO3 20 mmol/L (22-26); BLOOD GAS METHEMOGLOBIN 0.8 % (0-2); BLOOD GAS O2 HGB SATURATION 94 % (90-100); BLOOD GAS OXYGEN CONTENT 11.7 Vol % (12.0-20.0); BLOOD GAS PCO2 44 mmHg (38-42); BLOOD GAS PO2 90 mmHg (61-120); BLOOD GAS TOTAL HGB 8.8 G/DL (12.0-16.0); CRITICAL VALUE YES; DRAW SITE ALINE; FIO2 40 %; OXYGEN DEVICE VENTILATOR; STAT YES; TEMP CORR TO 98.6; VENT SETTINGS SIMV16/500/+7/PS10
--- NOTE | 2016-04-29 17:48 | PD.PROCEDR ---
Procedure Note Procedure Central Venous Catheter (CVC, Central Line) Placement Date: 04/28 Time: 1545 Indication: Hemodynamic monitoring/Intravenous access A time-out was completed verifying correct patient, procedure, site, positioning , and special equipment if applicable. The patient was placed in a dependent position appropriate for central line placement based on the vein to be cannulated. The patients <right shoulder was prepped and draped in sterile fashion. 1% Lidocaine was used to anesthetize the surrounding skin area. A triple lumen <9-Green[place]ic> Cordis catheter was introduced into the the <subclavian/ vein> using the Seldinger technique>. The catheter was threaded smoothly over the guide wire and appropriate blood return was obtained. Each lumen of the catheter was evacuated of air and flushed with sterile saline. The catheter was then sutured in place to the skin and a sterile dressing applied. Perfusion to the extremity distal to the point of catheter insertion was checked and found to be adequate. <Attending/Resident> was present for the entire procedure. Estimated Blood Loss: 5 ml The patient tolerated the procedure well and there were no complications. Den Collins MD Apr 29, 2016 17:48
--- NOTE | 2016-04-29 17:49 | PD.PROCEDR ---
Procedure Note Procedure ARTERIAL LINE (A-Line) PLACEMENT Date: 04/28 Time: 1625 Indication: Hemodynamic monitoring A time-out was completed verifying correct patient, procedure, site, positioning , and special equipment if applicable. Allens test was performed to ensure adequate perfusion. The patients <right/left> wrist was prepped and draped in sterile fashion. 1% Lidocaine was used to anesthetize the area. A <18G Arrow arterial line was introduced into the <brachiall> artery. The catheter was threaded over the guide wire and the needle was removed with appropriate pulsatile blood return. The catheter was then sutured in place to the skin and a sterile dressing applied. Perfusion to the extremity distal to the point of catheter insertion was checked and found to be adequate. Estimated Blood Loss: <5ml> The patient tolerated the procedure well and there were no complications. Den Collins MD Apr 29, 2016 17:49
[2016-04-29] MEDS ORDERED: INSULIN REGULAR (IV INFUSION) 100 UNITS in SODIUM CHLORIDE 0.9% INJ 99 ML IV SCH (18:00)
[2016-04-29] MEDS ORDERED: MISC INFORMATION XX ONE (18:00)
[2016-04-29] MEDS ORDERED: SODIUM BICARBONATE 8.4% INJ 50 MEQ/50 ML SYR IV PUSH ONE (18:00)
[2016-04-29] MEDS: SODIUM BICARBONATE 8.4% INJ 150 MEQ in SODIUM CHLOR 0.45% 1000 ML INJ 1,000 ML IV SCH (20:01)
[2016-04-29] MEDS: SODIUM CHLORIDE 0.9% FLUSH 5 ML FLUSH IV FLUSH SCH (20:43)
[2016-04-29] MEDS: INSULIN ASPART SUPPLEMENTAL SCALE SQ SCH (22:01)
[2016-04-30] VITALS (19 sets, daily range): BP systolic 107–128; BP diastolic 44–70; PULSE 99–130; RESP 15–21; TEMP 97.5–98.5; O2SAT 95–100
[2016-04-30] MEDS: PROPOFOL 1000 MG/100 ML IV SCH ×6 (01:06→22:34)
[2016-04-30] MEDS: NOREPINEPHRINE 4 MG/D5W 250 ML IV SCH ×5 (01:06→22:35)
--- NOTE | 2016-04-30 01:31 | PD.PROCEDR ---
Procedure Note Procedure DX: Severe Sepsis. OP: Insertion Left radial Artery Line (11846) Procedure: Allent test intact left hand. Left wrist supinated, prepped and draped. Left radial artery cannulated with 20 gauge needle and cannula advanced into artery. Good waveform observed. Dressing applied. CXR intact left hand after procedure. Zi Mustafa MD Apr 30, 2016 01:31
[2016-04-30] MEDS: PHENYLEPHRINE INJ 40 MG in DEXTROSE 5% IN WATE 500 ML INJ 496 ML IV SCH ×4 (02:33→22:37)
[2016-04-30] MEDS: CHLORHEXIDINE GLUCONATE 2 % 1 PACK (2 CLOTHS) TOP SCH (02:33)
[2016-04-30] MEDS: SODIUM BICARBONATE 8.4% INJ 150 MEQ in SODIUM CHLOR 0.45% 1000 ML INJ 1,000 ML IV SCH ×2 (02:33→14:24)
[2016-04-30] MEDS: PIPERACIL-TAZO 2.25 GM PREMIX 50 ML IV SCH ×4 (04:20→20:43)
[2016-04-30] MEDS: DOBUTamine PREMIX DRIP 250 ML IV SCH ×2 (04:20→19:52)
[2016-04-30 04:21] LABS: BLOOD GAS BASE EXCESS -0.2 mmol/L (-2-2); BLOOD GAS CARBOXYHEMOGLOBIN 0.7 % (0-4); BLOOD GAS HCO3 24 mmol/L (22-26); BLOOD GAS METHEMOGLOBIN 1.1 % (0-2); BLOOD GAS O2 HGB SATURATION 96 % (90-100); BLOOD GAS OXYGEN CONTENT 17.7 Vol % (12.0-20.0); BLOOD GAS PCO2 39 mmHg (38-42); BLOOD GAS PO2 112 mmHg (61-120); CRITICAL VALUE NO; OXYGEN DEVICE VENTILATOR; TEMP CORR TO 98.6
[2016-04-30 04:23] LABS: DRAW SITE ALINE; FIO2 40 %; STAT NO; VENT SETTINGS SEE COMMENTS
--- NOTE | 2016-04-30 05:18 | RADRPT ---
EXAM DATE/TIME: 04/30/2016 04:11 [facility] COMPARISON: CHEST SINGLE AP, April 29, 2016, 4:12. INDICATIONS : Please evaluate after respiratory failure. MEDICAL HISTORY : None. SURGICAL HISTORY : None. ENCOUNTER: Subsequent ACUITY: 3 days PAIN SCORE: Non-responsive. LOCATION: Bilateral chest FINDINGS: Endotracheal tube is present with tip 4-5 cm above the eloise. Nasogastric tube descends into the sto mach area right subclavian central line is present in satisfactory position with tip overlying SVC. T here has been slight worsening in left base aeration with increasing confluence of airspace disease. Mild perihilar parenchymal opacities present on the right. CONCLUSION: Satisfactory support line and tube positioning. Slight interval worsening in aeration Davon Stokes MD on April 30, 2016 at 5:15 Board Certified Radiologist. This report was verified electronically.
[2016-04-30 05:29] LABS: HEMATOCRIT 24.9 % (39.0-51.0); MEAN CELL VOLUME 92.5 FL (80.0-100.0); MEAN CORPUSCULAR HEMOGLOBIN 30.9 PG (27.0-34.0); MEAN CORPUSCULAR HGB CONC 33.5 % (32.0-36.0); PLATELET COUNT 90 TH/MM3 (150-450); RED BLOOD COUNT 2.69 MIL/MM3 (4.50-5.90); WHITE BLOOD COUNT 14.7 TH/MM3 (4.0-11.0)
[2016-04-30 05:32] LABS: HEMO FLAGS AUTO DIFF
[2016-04-30 05:38] LABS: BICARBONATE 25.4 MEQ/L (21.0-32.0); CALCIUM-PROTEIN CORRECTED 7.9 MG/DL (8.5-10.1); MAGNESIUM 1.6 MG/DL (1.5-2.5); TOTAL BILIRUBIN ADULT 0.5 MG/DL (0.2-1.0)
[2016-04-30 05:44] LABS: POTASSIUM 2.7 MEQ/L (3.5-5.1)
[2016-04-30] MEDS ORDERED: POTASSIUM CHLOR 40 MEQ PREMIX 100 ML IV ONE (06:00)
[2016-04-30] MEDS ORDERED: SODIUM BICARBONATE 8.4% INJ 50 MEQ/50 ML SYR IV ONE (06:00)
[2016-04-30] MEDS ORDERED: SODIUM BICARBONATE 8.4% INJ 50 ML ONE (06:02)
[2016-04-30] MEDS: INSULIN ASPART SUPPLEMENTAL SCALE SQ SCH ×4 (06:04→20:44)
[2016-04-30 07:26] LABS: BANDS 7 % (0-6); CORRECTED NUCLEATED RBC 1 /100 WBC (0-0); METAMYELOCYTES 4 % (0-1); MYELOCYTES 1 % (0-0); NEUTROPHIL # MANUAL DIFF 12.9 TH/MM3 (1.8-7.7); POLYS (SEG NEUTROPHILS) 76 % (16-70); WBC DIFF SAMPLE 100
[2016-04-30 07:27] LABS: PLATELET ESTIMATE SMEAR LOW (NORMAL); PLATELET MORPHOLOGY NORMAL (NORMAL); SCAN/DIFF FINAL DIFF MANUAL
[2016-04-30] MEDS: fentaNYL DRIP 250 ML IV SCH ×2 (08:02→14:32)
[2016-04-30] MEDS: SODIUM CHLORIDE 0.9% FLUSH 5 ML FLUSH IV FLUSH SCH ×2 (08:03→19:53)
[2016-04-30] MEDS: CHLORHEXIDINE 0.12% (ORAL KIT) 15 ML CUP MT SCH ×2 (08:03→19:53)
[2016-04-30] MEDS: PANTOPRAZOLE SODIUM 40 MG VIAL IV SCH (08:03)
[2016-04-30] MEDS ORDERED: POTASSIUM PHOSPHATE MONOBASIC 500 MG TAB PO/TUBE PRN (08:30)
[2016-04-30] MEDS ORDERED: POTASSIUM PHOSPHATE MONOBASIC 500 MG TAB PO PRN (08:30)
[2016-04-30] MEDS ORDERED: POTASSIUM CHLOR 20 MEQ PREMIX 100 ML IV PRN ×2 (08:30→09:00)
[2016-04-30] MEDS ORDERED: SODIUM PHOSPHATE INJ 30 MMOL in SODIUM CHLOR 0.9% 250 ML INJ 240 ML IV PRN (08:30)
[2016-04-30] MEDS ORDERED: POTASSIUM CL 40 MEQ/30 ML LIQ UDC PO/TUBE PRN (08:30)
[2016-04-30] MEDS ORDERED: MAGNESIUM SULFATE INJ 4 GM in SODIUM CHLORIDE 0.9% INJ 92 ML IV PRN (08:30)
[2016-04-30] MEDS ORDERED: MAGNESIUM OXIDE 400 MG TAB PO PRN (08:30)
--- NOTE | 2016-04-30 08:31 | HHI.CCPN ---
Subjective Remarks/Hospital Course 80-year-old male came to the emergency room with history of dizziness, lightheadedness, generalized weakness and right buttock pain. CT scan revealed soft tissue gas gangrene originated most probably as a perirectal abscess. He was taken emergently to OR for debridement. Objective Vital Signs Date Time Temp Pulse Resp B/P Pulse Ox O2 Delivery O2 Flow Rate FiO2 04/30/16 07:34 98 Ventilator 40 04/30/16 06:00 104 04/30/16 04:00 97.5 17 118/46 04/28/16 15:19 3.00 Intake and Output 04/29/16 04/29/16 04/30/16 08:00 16:00 00:00 Intake Total 3153 ml 4200 ml 5119 ml Output Total 1950 ml 2550 ml 2525 ml Balance 1203 ml 1650 ml 2594 ml Result Diagram: 04/30/16 0445 04/30/16 0445 Other Results Laboratory Tests Test 04/29/16 04/30/16 17:18 04:11 Blood Gas Puncture Site [facility] Blood Gas Patient Temperature 98.6 98.6 Blood Gas HCO3 20 mmol/L 24 mmol/L (22-26) (22-26) Blood Gas Base Excess -6.0 mmol/L -0.2 mmol/L (-2-2) (-2-2) Blood Gas Oxygen Saturation 94 % (90-100) 96 % (90-100) Arterial Blood pH 7.27 7.40 (7.380-7.420) (7.380-7.420) Arterial Blood Partial 44 mmHg (38-42) 39 mmHg (38-42) Pressure CO2 Arterial Blood Partial 90 mmHg 112 mmHg Pressure O2 (61-120) (61-120) Arterial Blood Oxygen Content 11.7 Vol % 17.7 Vol % (12.0-20.0) (12.0-20.0) Arterial Blood 0.7 % (0-4) 0.7 % (0-4) Carboxyhemoglobin Arterial Blood Methemoglobin 0.8 % (0-2) 1.1 % (0-2) Blood Gas Hemoglobin 8.8 G/DL 13.0 G/DL (12.0-16.0) (12.0-16.0) Oxygen Delivery Device VENTILATOR VENTILATOR Blood Gas Ventilator Setting SIMV16/500/+7/PS10 SEE COMMENTS Blood Gas Inspired Oxygen 40 % 40 % Imaging Last 24 hours Impressions Chest X-Ray 04/28/16818 Signed Impressions: Service Date/Time: Thursday, April 28, 2016 08:21 - CONCLUSION: Normal examination. Lawson Howard MD Abdomen/Pelvis CT 04/28/16818 Signed Impressions: Service Date/Time: Thursday, April 28, 2016 09:05 - CONCLUSION: 1. Significant inflammation, presumed infection, in the right gluteal region including numerous tiny locules of air not only in the gluteus janny muscle but extending anterior into the ischiorectal fossa on the right. There are two distinct collections around the rectum suspicious for a perirectal abscess both right anteriorly and left posterolaterally. 2. Gallstones versus sludge. Lawson Howard MD Lower Extremity CT 04/28/16 0000 Signed Impressions: Service Date/Time: Thursday, April 28, 2016 09:05 - CONCLUSION: There is extensive dissecting air throughout the gluteus janny muscle also dissecting into the lower posterior RIGHT thigh. There is air within the semi-tendinosis , semimembranosus, and biceps femoris muscles. There is also tiny amount of air along the abductor longus muscle. I don't see any drainable abscess or fluid collection. There is a small amount of fluid between the subcutaneous fat in the muscular fascia not an unusual finding in patient's with soft tissue edema. Lawson Howard MD Objective Remarks GENERAL: Well-nourished, well-developed patient. SKIN: Warm and dry. HEAD: Normocephalic. EYES: No scleral icterus. No injection or drainage. NECK: Supple, trachea midline. No JVD or lymphadenopathy. CARDIOVASCULAR: Regular rate and rhythm without murmurs, gallops, or rubs. RESPIRATORY: Breath sounds equal bilaterally. No accessory muscle use. GASTROINTESTINAL: Abdomen soft, non-tender, nondistended. MUSCULOSKELETAL: No cyanosis, or edema. BACK: Nontender without obvious deformity. No CVA tenderness. A/P Problem List: (1) Severe sepsis ICD Code: A41.9 Status: Acute (2) Gas gangrene of lower extremity ICD Code: A48.0 Status: Acute (3) Acute renal failure ICD Code: N17.9 Status: Acute Assessment and Plan Sepsis - perirectal abscess - debridement in the OR 04/28, 04/29 - broad spectrum vanco, zosyn - ID consult appreciated - aggressive fluid resuscitation Soft tissue gas gangrene - due to above - broad spectrum ATB - vanco, zosyn - debridement per Gen Surg Perirectal abscess - ATB per ID - surgical debridement Respiratory failure - post op - may return to OR today - will attempt to wean and extubate when hemodynamically more stable and off pressors BRAYDON - dehydration - volume loss - aggressive i.v. fluids resuscitation - strict I&O - Dobutamine renal dose - Good urine output - Electrolyte protocol DM - hold p.o. meds while in the ICU - ISS - Insulin gtt A.Fib - rate controlled - telemetry Critical Care: The total critical care time was 35 minutes. Time to perform other separately billable procedures was not included in the critical care time. Problem Qualifiers (1) Acute renal failure: Qualified Code: N17.9 - Acute renal failure, unspecified acute renal failure type Den Collins MD Apr 30, 2016 08:31
[2016-04-30] MEDS ORDERED: LACTATED RINGER'S 1000 ML INJ 1,000 ML IV ONE ×2 (09:00→10:00)
[2016-04-30] MEDS: POTASSIUM PHOSPHATE INJ 30 MMOL in SODIUM CHLOR 0.9% 250 ML INJ 250 ML IV PRN (09:36)
[2016-04-30] MEDS: MAGNESIUM SULFATE INJ 2 GM in SODIUM CHLORIDE 0.9% INJ 96 ML IV PRN (09:36)
[2016-04-30] MEDS: HEPARIN SODIUM - SQ 10,000 UNITS/ML VIAL SQ SCH (11:20)
[2016-04-30] MEDS: DOCUSATE SODIUM 100 MG/10 ML UDC G-TUBE SCH ×2 (11:20→22:35)
[2016-04-30] MEDS ORDERED: VANCOMYCIN INJ 2,000 MG in SODIUM CHLORID 0.9% 500 ML INJ 500 ML IV SCH (12:00)
--- NOTE | 2016-04-30 16:15 | HHI.PR ---
Subjective Subjective Notes Intubated/Sedated Objective Vitals/I&O Vital Signs Date Time Temp Pulse Resp B/P Pulse Ox O2 Delivery O2 Flow Rate FiO2 04/30/16 14:00 110 04/30/16 12:00 40 04/30/16 12:00 97.6 15 107/57 99 115/44 04/30/16 07:34 Ventilator 04/28/16 15:19 3.00 Labs Laboratory Tests Test 04/29/16 04/30/16 04/30/16 17:18 04:11 04:45 Blood Gas Puncture Site [facility] Blood Gas Patient Temperature 98.6 98.6 Blood Gas HCO3 20 24 Blood Gas Base Excess -6.0 -0.2 Blood Gas Oxygen Saturation 94 96 Arterial Blood pH 7.27 7.40 Arterial Blood Partial 44 39 Pressure CO2 Arterial Blood Partial 90 112 Pressure O2 Arterial Blood Oxygen Content 11.7 17.7 Arterial Blood 0.7 0.7 Carboxyhemoglobin Arterial Blood Methemoglobin 0.8 1.1 Blood Gas Hemoglobin 8.8 13.0 Oxygen Delivery Device VENTILATOR VENTILATOR Blood Gas Ventilator Setting SIMV16/500/+7/PS10 SEE COMMENTS Blood Gas Inspired Oxygen 40 40 White Blood Count 14.7 Red Blood Count 2.69 Hemoglobin 8.3 Hematocrit 24.9 Mean Corpuscular Volume 92.5 Mean Corpuscular Hemoglobin 30.9 Mean Corpuscular Hemoglobin 33.5 Concent Red Cell Distribution Width 14.0 Platelet Count 90 Mean Platelet Volume 10.5 Neutrophils (%) (Auto) Lymphocytes (%) (Auto) Monocytes (%) (Auto) Eosinophils (%) (Auto) Basophils (%) (Auto) Neutrophils # (Auto) Lymphocytes # (Auto) Monocytes # (Auto) Eosinophils # (Auto) Basophils # (Auto) CBC Comment AUTO DIFF Differential Total Cells 100 Counted Neutrophils % (Manual) 76 Band Neutrophils % 7 Lymphocytes % 8 Monocytes % 4 Neutrophils # (Manual) 12.9 Metamyelocytes 4 Myelocytes 1 Nucleated Red Blood Cells 1 Differential Comment FINAL DIFF MANUAL Platelet Estimate LOW Platelet Morphology Comment NORMAL Sodium Level 138 Potassium Level 2.7 Chloride Level 103 Carbon Dioxide Level 25.4 Anion Gap 10 Blood Urea Nitrogen 19 Creatinine 1.55 Estimat Glomerular Filtration 43 Rate Random Glucose 301 Calcium Level 6.5 Protein Corrected Calcium 7.9 Phosphorus Level 1.4 Magnesium Level 1.6 Total Bilirubin 0.5 Aspartate Amino Transf 35 (AST/SGOT) Alanine Aminotransferase 34 (ALT/SGPT) Alkaline Phosphatase 56 Total Protein 4.4 Albumin 1.6 Random Vancomycin Level 16.4 Date/Time Procedure Status Source Growth 04/28/16 14:30 Gram Stain - Final Complete Wound Buttock 04/28/16 14:30 Wound Culture - Final Complete Escherichia Coli Strep Not A,B D 04/28/16 14:30 Fungal Smear - Final Resulted Wound Buttock NO FUNGAL ELEMENTS SEEN. 04/28/16 14:30 Fungal Culture Resulted Wound Buttock Pending 04/28/16 14:30 Acid Fast Stain Received Wound Buttock Pending 04/28/16 14:30 Mycobacterial Culture Received Wound Buttock Pending 04/28/16 09:01 Urine Culture - Final Complete Urine Catheterized Urine NO GROWTH IN 48 HOURS. 04/28/16 08:25 Aerobic Blood Culture - Preliminary Resulted Blood Peripheral NO GROWTH IN 2 DAYS 04/28/16 08:25 Anaerobic Blood Culture - Preliminary Resulted Blood Peripheral NO GROWTH IN 2 DAYS Cardiovascular: Regular Lungs: Clear Abdomen: Other (obese, soft ) Narrative Exam perirectal and right posterior thigh wound vac in place with good seal A/P Assessment and Plan 80 year old male with NF with soft tissue gas gangrene; ?? origin perirectal abscess -POD1 Irrigation and debridement perirectal and right posterior thigh, 25 cm2 -Start TF today; NPO after MN -Signed consents on chart by Dr. Marcos for OR tomorrow -Vent per CCM -Continue antibiotics Attending Statement Patient see at bedside or tomorrow discussed with family Attestation The exam, history, and the medical decision-making described in the above note were completed with the assistance of the mid-level provider. I reviewed and agree with the findings presented. I attest that I had a [id number] encounter with the patient on the same day, and personally performed and documented my assessment and findings in the medical record. Roula Grayson Apr 30, 2016 16:15 Trey Marcos MD May 08, 2016 10:59
[2016-05-01] VITALS (18 sets, daily range): BP systolic 101–152; BP diastolic 52–92; PULSE 72–126; RESP 8–17; TEMP 97.7–98.5; O2SAT 95–100
[2016-05-01] MEDS: PHENYLEPHRINE INJ 40 MG in DEXTROSE 5% IN WATE 500 ML INJ 496 ML IV SCH ×6 (01:25→20:37)
[2016-05-01] MEDS: SODIUM BICARBONATE 8.4% INJ 150 MEQ in SODIUM CHLOR 0.45% 1000 ML INJ 1,000 ML IV SCH ×2 (01:26→08:20)
[2016-05-01] MEDS: DOBUTamine PREMIX DRIP 250 ML IV SCH (01:32)
[2016-05-01] MEDS: PROPOFOL 1000 MG/100 ML IV SCH ×6 (01:32→23:49)
[2016-05-01] MEDS: NOREPINEPHRINE 4 MG/D5W 250 ML IV SCH ×4 (01:32→20:07)
[2016-05-01] MEDS: CHLORHEXIDINE GLUCONATE 2 % 1 PACK (2 CLOTHS) TOP SCH (02:22)
[2016-05-01] MEDS: PIPERACIL-TAZO 2.25 GM PREMIX 50 ML IV SCH ×4 (02:22→20:06)
[2016-05-01] MEDS: INSULIN ASPART SUPPLEMENTAL SCALE SQ SCH ×4 (05:03→22:12)
[2016-05-01 05:20] LABS: BLOOD GAS BASE EXCESS 3.2 mmol/L (-2-2); BLOOD GAS CARBOXYHEMOGLOBIN 0.8 % (0-4); BLOOD GAS HCO3 28 mmol/L (22-26); BLOOD GAS METHEMOGLOBIN 0.8 % (0-2); BLOOD GAS O2 HGB SATURATION 97 % (90-100); BLOOD GAS OXYGEN CONTENT 12.5 Vol % (12.0-20.0); BLOOD GAS PCO2 45 mmHg (38-42); BLOOD GAS PO2 135 mmHg (61-120); CRITICAL VALUE NO; OXYGEN DEVICE VENTILATOR; TEMP CORR TO 98.6
[2016-05-01 05:21] LABS: DRAW SITE ART LINE; FIO2 40 %; NUMBER OF ARTERIAL PUNCTURES 0
[2016-05-01 05:22] LABS: STAT NO; ULNAR PULSE PRESENT
[2016-05-01 05:54] LABS: HEMATOCRIT 27.5 % (39.0-51.0); MEAN CELL VOLUME 92.5 FL (80.0-100.0); MEAN CORPUSCULAR HEMOGLOBIN 31.7 PG (27.0-34.0); MEAN CORPUSCULAR HGB CONC 34.3 % (32.0-36.0); PLATELET COUNT 78 TH/MM3 (150-450); RED BLOOD COUNT 2.97 MIL/MM3 (4.50-5.90); RED CELL DISTRIBUTION WIDTH 14.1 % (11.6-17.2); WHITE BLOOD COUNT 21.5 TH/MM3 (4.0-11.0)
[2016-05-01 05:58] LABS: HEMO FLAGS AUTO DIFF
[2016-05-01 06:07] LABS: BICARBONATE 30.3 MEQ/L (21.0-32.0); CALCIUM-PROTEIN CORRECTED 7.6 MG/DL (8.5-10.1); MAGNESIUM 1.6 MG/DL (1.5-2.5); POTASSIUM 3.1 MEQ/L (3.5-5.1); TOTAL BILIRUBIN ADULT 0.9 MG/DL (0.2-1.0)
--- NOTE | 2016-05-01 06:28 | RADRPT ---
EXAM DATE/TIME: 05/01/2016 05:35 [facility] COMPARISON: CHEST SINGLE AP, April 30, 2016, 4:11. INDICATIONS : Respiratory failure. MEDICAL HISTORY : None. SURGICAL HISTORY : None. ENCOUNTER: Subsequent ACUITY: 4 - 6 days PAIN SCORE: Non-responsive. LOCATION: Bilateral chest FINDINGS: Endotracheal tube, nasogastric tube right subclavian central line are stable. Dense consolidation at the left base is grossly stable. Slight improvement in right base aeration. Cardiac contours are unch anged. CONCLUSION: Slight improvement in aeration. Davon Stokes MD on May 01, 2016 at 6:26 Board Certified Radiologist. This report was verified electronically.
--- NOTE | 2016-05-01 06:30 | HHI.CCPN ---
Subjective Remarks/Hospital Course 80-year-old male came to the emergency room with history of dizziness, lightheadedness, generalized weakness and right buttock pain. CT scan revealed soft tissue gas gangrene originated most probably as a perirectal abscess. He was taken emergently to OR for debridement. 05/01: Ongoing septic shock. Requires additional debridement today for source control. Objective Vital Signs Date Time Temp Pulse Resp B/P Pulse Ox O2 Delivery O2 Flow Rate FiO2 05/01/16 06:00 124 05/01/16 04:02 97 40 05/01/16 04:00 98.5 17 112/52 04/30/16 07:34 Ventilator 04/28/16 15:19 3.00 Intake and Output 04/30/16 04/30/16 05/01/16 08:00 16:00 00:00 Intake Total 2258 ml 5202 ml 1774 ml Output Total 2325 ml 2250 ml 650 ml Balance -67 ml 2952 ml 1124 ml Result Diagram: 05/01/16 0540 05/01/16 0540 Other Results Microbiology Date/Time Procedure Status Source Growth 04/28/16 09:01 Urine Culture - Final Complete Urine Catheterized Urine NO GROWTH IN 48 HOURS. 04/28/16 14:00 Gram Stain - Final Complete Wound Buttock 04/28/16 14:00 Wound Culture - Final Complete Escherichia Coli Strep Not A,B D 04/28/16 14:30 Gram Stain - Final Complete Wound Buttock 04/28/16 14:30 Wound Culture - Final Complete Escherichia Coli Strep Not A,B D Laboratory Tests Test 05/01/16 05:08 Blood Gas Puncture Site [facility] Blood Gas Patient Temperature 98.6 Blood Gas HCO3 28 mmol/L (22-26) Blood Gas Base Excess 3.2 mmol/L (-2-2) Blood Gas Oxygen Saturation 97 % (90-100) Arterial Blood pH 7.40 (7.380-7.420) Arterial Blood Partial 45 mmHg (38-42) Pressure CO2 Arterial Blood Partial 135 mmHg Pressure O2 (61-120) Arterial Blood Oxygen Content 12.5 Vol % (12.0-20.0) Arterial Blood 0.8 % (0-4) Carboxyhemoglobin Arterial Blood Methemoglobin 0.8 % (0-2) Blood Gas Hemoglobin 9.0 G/DL (12.0-16.0) Oxygen Delivery Device VENTILATOR Blood Gas Ventilator Setting [facility]/AC16/500/5/1.0 Blood Gas Inspired Oxygen 40 % Imaging Last 24 hours Impressions Chest X-Ray 04/28/16818 Signed Impressions: Service Date/Time: Thursday, April 28, 2016 08:21 - CONCLUSION: Normal examination. Lawson Howard MD Abdomen/Pelvis CT 04/28/16818 Signed Impressions: Service Date/Time: Thursday, April 28, 2016 09:05 - CONCLUSION: 1. Significant inflammation, presumed infection, in the right gluteal region including numerous tiny locules of air not only in the gluteus janny muscle but extending anterior into the ischiorectal fossa on the right. There are two distinct collections around the rectum suspicious for a perirectal abscess both right anteriorly and left posterolaterally. 2. Gallstones versus sludge. Lawson Howard MD Lower Extremity CT 04/28/16 0000 Signed Impressions: Service Date/Time: Thursday, April 28, 2016 09:05 - CONCLUSION: There is extensive dissecting air throughout the gluteus janny muscle also dissecting into the lower posterior RIGHT thigh. There is air within the semi-tendinosis , semimembranosus, and biceps femoris muscles. There is also tiny amount of air along the abductor longus muscle. I don't see any drainable abscess or fluid collection. There is a small amount of fluid between the subcutaneous fat in the muscular fascia not an unusual finding in patient's with soft tissue edema. Lawson Howard MD Objective Remarks GENERAL: Ill-appearing, poorly perfused. SKIN: Damp HEAD: Normocephalic. NECK: Supple, No JVD. Orally intubated. CARDIOVASCULAR: Irreg Irreg, rate 120s RESPIRATORY: Good adriel air entry on vent. Few crackles. GASTROINTESTINAL: Abdomen soft, non-tender, nondistended. BS quiet. MUSCULOSKELETAL: Tepid, marginal perfusion toes. NEURO: Largely obtunded, mode sedation. A/P Problem List: (1) Septic shock ICD Code: A41.9 Status: Acute (2) Gas gangrene of lower extremity ICD Code: A48.0 Status: Acute (3) Acute renal failure ICD Code: N17.9 Status: Acute (4) Encephalopathy, metabolic ICD Code: G93.41 Status: Acute Assessment and Plan Sepsis - perirectal abscess with extension to thigh - debridement in the OR 04/28, 04/29 - broad spectrum vanco, zosyn - ID consult appreciated - aggressive fluid resuscitation -still don't have source control as of 05/01 Soft tissue gas gangrene - due to above - broad spectrum ATB - vanco, zosyn - debridement today per Gen Surg Perirectal abscess - ATB per ID - surgical debridement repeat 05/01 Respiratory failure - post op - may return to OR today - unable to wean ventilator. BRAYDON - dehydration resolved - volume loss - aggressive i.v. fluids resuscitation - strict I&O - Dobutamine - Good urine output - Electrolyte protocol NUTRITION - Start Glucerna, add benepro TFs DM - hold p.o. meds while in the ICU - ISS - Insulin gtt A.Fib - rate poorly controlled - telemetry -Add digoxin for rate control Overall impression: Remains critically ill with overwhelming septic shock and incomplete infection source control. Increasing doses of neosynephrine and levophed nilda poorly for survival. Critical Care 38 mins Problem Qualifiers (1) Acute renal failure: Qualified Code: N17.9 - Acute renal failure, unspecified acute renal failure type Zi Mustafa MD May 01, 2016 06:30
[2016-05-01] MEDS ORDERED: DIGOXIN 0.5 MG/2 ML VIAL IV PUSH ONE (06:45)
[2016-05-01] MEDS: MAGNESIUM SULFATE INJ 2 GM in SODIUM CHLORIDE 0.9% INJ 96 ML IV PRN (08:07)
[2016-05-01] MEDS: POTASSIUM PHOSPHATE INJ 30 MMOL in SODIUM CHLOR 0.9% 250 ML INJ 250 ML IV PRN (08:10)
[2016-05-01] MEDS: PANTOPRAZOLE SODIUM 40 MG VIAL IV SCH (08:17)
[2016-05-01] MEDS: SODIUM CHLORIDE 0.9% FLUSH 5 ML FLUSH IV FLUSH SCH ×2 (08:20→20:07)
[2016-05-01] MEDS: fentaNYL DRIP 250 ML IV SCH (08:22)
[2016-05-01] MEDS ORDERED: DIGOXIN 0.5 MG/2 ML VIAL IV PUSH SCH (09:00)
[2016-05-01] MEDS: BENEPROTEIN POWDER 1 PACK G-TUBE SCH ×3 (09:00→18:00)
[2016-05-01 09:07] LABS: BANDS 22 % (0-6); METAMYELOCYTES 5 % (0-1); MYELOCYTES 7 % (0-0); NEUTROPHIL # MANUAL DIFF 18.3 TH/MM3 (1.8-7.7); POLYS (SEG NEUTROPHILS) 51 % (16-70); WBC DIFF SAMPLE 100
[2016-05-01] MEDS: CHLORHEXIDINE 0.12% (ORAL KIT) 15 ML CUP MT SCH ×2 (09:08→20:07)
[2016-05-01 09:09] LABS: PLATELET ESTIMATE SMEAR LOW (NORMAL); PLATELET MORPHOLOGY NORMAL (NORMAL); SCAN/DIFF FINAL DIFF MANUAL
[2016-05-01] MEDS ORDERED: LACTATED RINGER'S 1000 ML INJ 1,000 ML IV ONE (10:40)
[2016-05-01] MEDS: DOCUSATE SODIUM 100 MG/10 ML UDC G-TUBE SCH ×2 (11:28→22:12)
[2016-05-01] MEDS ORDERED: ePHEDrine/NS 50 MG/5 ML SYR IV ONE (12:00)
[2016-05-01] MEDS ORDERED: PROPOFOL 200 MG/20 ML AMP IV ONE (12:00)
[2016-05-01] MEDS ORDERED: PHENYLEPHRINE HCL 10 MG/ML VIAL IV ONE (12:00)
[2016-05-01] MEDS ORDERED: PHENYLEPHRINE HCL 10 MG/ML VIAL ONE (12:15)
[2016-05-01] MEDS ORDERED: EPINEPHrine HCL (1:10,000) 1 MG/10 ML SYRINGE ONE (12:17)
[2016-05-01] MEDS ORDERED: ATROPINE SULFATE 1 MG/10 ML SYRINGE ONE (12:17)
[2016-05-01] MEDS ORDERED: LIDOCAINE HCL 2% 100 MG/5 ML SYRINGE ONE (12:18)
[2016-05-01] MEDS ORDERED: ceFAZolin INJ 1,000 MG VIAL ONE (13:59)
[2016-05-01] MEDS ORDERED: GENTAMICIN SULFATE 80 MG/2 ML VIAL ONE (13:59)
--- NOTE | 2016-05-01 14:48 | HHI.PR ---
Addendum to Inpatient Note Additional Information Ateptepted to see the pt He is in OR Records reviewed cont current abx Cici Espinoza MD May 01, 2016 14:48
--- NOTE | 2016-05-01 15:07 | HHI.PR ---
Immediate Post Op Note Procedure Date: May 01, 2016 Pre Op Diagnosis: necrotizing soft tissues infection of the right buttock and leg Post Op Diagnosis: same Surgeon: Trey Marcos MD Scientific Database Curator(s): Roula Grayson Procedure: I and Wide debridement of right buttock and right thigh with vac change Findings: scant necrotic debris, fluid in dependent sides Complications: none Specimen(s) removed: none Estimated blood loss: 20cc Anesthesia: General Drains: None IVF (300) Patient to: [facility] Patient Condition: Fair Trey Marcos MD May 01, 2016 15:07
[2016-05-02] VITALS (18 sets, daily range): BP systolic 114–138; BP diastolic 55–74; PULSE 65–78; RESP 16; TEMP 97.6–98.3; O2SAT 96–100
[2016-05-02] MEDS: NOREPINEPHRINE 4 MG/D5W 250 ML IV SCH ×3 (02:13→13:12)
[2016-05-02] MEDS: PROPOFOL 1000 MG/100 ML IV SCH ×7 (02:13→23:36)
[2016-05-02] MEDS: PHENYLEPHRINE INJ 40 MG in DEXTROSE 5% IN WATE 500 ML INJ 496 ML IV SCH ×8 (02:13→18:32)
[2016-05-02] MEDS: PIPERACIL-TAZO 2.25 GM PREMIX 50 ML IV SCH ×2 (02:16→10:08)
[2016-05-02] MEDS: CHLORHEXIDINE GLUCONATE 2 % 1 PACK (2 CLOTHS) TOP SCH (02:16)
[2016-05-02] MEDS: INSULIN ASPART SUPPLEMENTAL SCALE SQ SCH ×4 (05:08→21:00)
--- NOTE | 2016-05-02 06:07 | HHI.CCPN ---
Subjective Remarks/Hospital Course 80-year-old male came to the emergency room with history of dizziness, lightheadedness, generalized weakness and right buttock pain. CT scan revealed soft tissue gas gangrene originated most probably as a perirectal abscess. He was taken emergently to OR for debridement. 05/01: Ongoing septic shock. Requires additional debridement today for source control. 05/02: Back from OR after debridement right buttocks and thigh last night. Minimal necrotic tissue found. Vac in place. Clearly still septic, but vasopresors requirements are decreasing. Objective Vital Signs Date Time Temp Pulse Resp B/P Pulse Ox O2 Delivery O2 Flow Rate FiO2 05/02/16 04:00 40 05/02/16 04:00 97.6 68 16 126/55 98 05/01/16 08:01 Ventilator 04/28/16 15:19 3.00 Intake and Output 05/01/16 05/01/16 05/02/16 08:00 16:00 00:00 Intake Total 2679 ml 2344 ml 2143 ml Output Total 900 ml 1350 ml 2850 ml Balance 1779 ml 994 ml -707 ml Result Diagram: 05/01/16 0540 05/01/16 0540 Imaging Last 24 hours Impressions Chest X-Ray 04/28/16818 Signed Impressions: Service Date/Time: Thursday, April 28, 2016 08:21 - CONCLUSION: Normal examination. Lawson Howard MD Abdomen/Pelvis CT 04/28/1619 Signed Impressions: Service Date/Time: Thursday, April 28, 2016 09:05 - CONCLUSION: 1. Significant inflammation, presumed infection, in the right gluteal region including numerous tiny locules of air not only in the gluteus janny muscle but extending anterior into the ischiorectal fossa on the right. There are two distinct collections around the rectum suspicious for a perirectal abscess both right anteriorly and left posterolaterally. 2. Gallstones versus sludge. Lawson Howard MD Lower Extremity CT 04/28/16 0000 Signed Impressions: Service Date/Time: Thursday, April 28, 2016 09:05 - CONCLUSION: There is extensive dissecting air throughout the gluteus janny muscle also dissecting into the lower posterior RIGHT thigh. There is air within the semi-tendinosis , semimembranosus, and biceps femoris muscles. There is also tiny amount of air along the abductor longus muscle. I don't see any drainable abscess or fluid collection. There is a small amount of fluid between the subcutaneous fat in the muscular fascia not an unusual finding in patient's with soft tissue edema. Lawson Howard MD Objective Remarks GENERAL: Ill-appearing, edematous. SKIN: Warm. HEAD: Normocephalic. NECK: Supple, Orally intubated. CARDIOVASCULAR: Irreg Irreg, rate 70s. No JVD. RESPIRATORY: Good adriel air entry on vent. Few crackles. Vent dependent. GASTROINTESTINAL: Abdomen soft, non-tender, nondistended. BS quiet. MUSCULOSKELETAL: Warm, acceptable perfusion toes. NEURO: Largely obtunded, moderate sedation. A/P Problem List: (1) Septic shock ICD Code: A41.9 Status: Acute (2) Gas gangrene of lower extremity ICD Code: A48.0 Status: Acute (3) Acute renal failure ICD Code: N17.9 Status: Acute (4) Encephalopathy, metabolic ICD Code: G93.41 Status: Acute Assessment and Plan Sepsis - perirectal abscess with extension to right thigh - debridement in the OR 04/28, 04/29 - broad spectrum vanco, zosyn - adjust per ID. - ID consult appreciated - maintain fluid resuscitation -improved source control as of 05/02 -Add stress dose steroids Soft tissue gas gangrene - due to above - broad spectrum ATB - vanco, zosyn - debridement again 05/01 per Gen Surg Perirectal abscess - ATB per ID - surgical debridement repeat 05/01 Respiratory failure - post op - unable to wean ventilator. BRAYDON - dehydration resolved - volume loss - aggressive i.v. fluids resuscitation - strict I&O - d/c Dobutamine - Good urine output - Electrolyte protocol NUTRITION - Start Glucerna and benepro TFs DM - hold p.o. meds while in the ICU - ISS - Insulin gtt A.Fib - rate now controlled with digoxin - telemetry Overall impression: Remains critically ill with overwhelming septic shock but improved infection source control. Unable to wean neosynephrine. Fails vent weaning. Critical Care 35 mins Problem Qualifiers (1) Acute renal failure: Qualified Code: N17.9 - Acute renal failure, unspecified acute renal failure type Zi Mustafa MD May 02, 2016 06:07
[2016-05-02 06:17] LABS: HEMATOCRIT 30.2 % (39.0-51.0); MEAN CELL VOLUME 93.5 FL (80.0-100.0); MEAN CORPUSCULAR HEMOGLOBIN 30.4 PG (27.0-34.0); MEAN CORPUSCULAR HGB CONC 32.5 % (32.0-36.0); PLATELET COUNT 63 TH/MM3 (150-450); RED BLOOD COUNT 3.23 MIL/MM3 (4.50-5.90); RED CELL DISTRIBUTION WIDTH 14.3 % (11.6-17.2); WHITE BLOOD COUNT 28.3 TH/MM3 (4.0-11.0)
[2016-05-02 06:20] LABS: HEMO FLAGS AUTO DIFF
[2016-05-02 06:45] LABS: BICARBONATE 29.6 MEQ/L (21.0-32.0); POTASSIUM 3.2 MEQ/L (3.5-5.1)
[2016-05-02 06:58] LABS: CALCIUM-PROTEIN CORRECTED 7.9 MG/DL (8.5-10.1); DIGOXIN 0.9 NG/ML (0.8-2.0)
[2016-05-02] MEDS: CHLORHEXIDINE 0.12% (ORAL KIT) 15 ML CUP MT SCH ×2 (08:00→19:45)
[2016-05-02 08:01] LABS: BANDS 10 % (0-6); METAMYELOCYTES 1 % (0-1); MYELOCYTES 5 % (0-0); NEUTROPHIL # MANUAL DIFF 25.5 TH/MM3 (1.8-7.7); PLATELET ESTIMATE SMEAR LOW (NORMAL); PLATELET MORPHOLOGY NORMAL (NORMAL); POLYS (SEG NEUTROPHILS) 74 % (16-70); SCAN/DIFF FINAL DIFF MANUAL; WBC DIFF SAMPLE 100
--- NOTE | 2016-05-02 08:03 | HHI.PR ---
Subjective Subjective Notes Intubated/Sedated Objective Vitals/I&O Vital Signs Date Time Temp Pulse Resp B/P Pulse Ox O2 Delivery O2 Flow Rate FiO2 05/02/16 07:12 100 40 05/02/16 06:00 74 05/02/16 04:00 97.6 16 126/55 05/01/16 08:01 Ventilator 04/28/16 15:19 3.00 Labs Laboratory Tests Test 05/01/16 05/01/16 05/02/16 09:45 12:00 05:55 Blood Bank Comment Blood Type A POSITIVE Antibody Screen NEGATIVE White Blood Count 28.3 Red Blood Count 3.23 Hemoglobin 9.8 Hematocrit 30.2 Mean Corpuscular Volume 93.5 Mean Corpuscular Hemoglobin 30.4 Mean Corpuscular Hemoglobin 32.5 Concent Red Cell Distribution Width 14.3 Platelet Count 63 Mean Platelet Volume 10.9 Neutrophils (%) (Auto) Lymphocytes (%) (Auto) Monocytes (%) (Auto) Eosinophils (%) (Auto) Basophils (%) (Auto) Neutrophils # (Auto) Lymphocytes # (Auto) Monocytes # (Auto) Eosinophils # (Auto) Basophils # (Auto) CBC Comment AUTO DIFF Sodium Level 139 Potassium Level 3.2 Chloride Level 100 Carbon Dioxide Level 29.6 Anion Gap 9 Blood Urea Nitrogen 10 Creatinine 1.47 Estimat Glomerular Filtration 46 Rate Random Glucose 290 Calcium Level 6.6 Protein Corrected Calcium 7.9 Total Protein 4.6 Digoxin Level 0.9 Date/Time Procedure Status Source Growth 04/28/16 14:30 Gram Stain - Final Complete Wound Buttock 04/28/16 14:30 Wound Culture - Final Complete Escherichia Coli Strep Not A,B D 04/28/16 14:30 Fungal Smear - Final Resulted Wound Buttock NO FUNGAL ELEMENTS SEEN. 04/28/16 14:30 Fungal Culture Resulted Wound Buttock Pending 04/28/16 14:30 Acid Fast Stain - Final Resulted Wound Buttock NO ACID FAST BACILLI SEEN 04/28/16 14:30 Mycobacterial Culture Resulted Wound Buttock Pending 04/28/16 09:01 Urine Culture - Final Complete Urine Catheterized Urine NO GROWTH IN 48 HOURS. 04/28/16 08:25 Aerobic Blood Culture - Preliminary Resulted Blood Peripheral NO GROWTH IN 3 DAYS 04/28/16 08:25 Anaerobic Blood Culture - Preliminary Resulted Blood Peripheral NO GROWTH IN 3 DAYS Cardiovascular: Regular Lungs: Clear Abdomen: Non-distended, Non-tender Extremities: Other (generalized edema ) Narrative Exam perirectal and right posterior thigh wound vac in place with good seal A/P Assessment and Plan 80 year old male with NF with soft tissue gas gangrene; ?? origin perirectal abscess -POD1 Irrigation and wide debridement of right buttock and right thigh with vac change -Tolerating TF -Vent per CCM -Continue antibiotics -Seal check on Wound Vac shows no leak -Plan for repeat I&D and wound vac change on Saturday Attending Statement Patient see at bedside intubated sedated pt will need continued debridements with progressive closure Attestation The exam, history, and the medical decision-making described in the above note were completed with the assistance of the mid-level provider. I reviewed and agree with the findings presented. I attest that I had a [id number] encounter with the patient on the same day, and personally performed and documented my assessment and findings in the medical record. Roula Grayson May 02, 2016 08:03 Trey Marcos MD May 08, 2016 11:13
[2016-05-02] MEDS: BENEPROTEIN POWDER 1 PACK G-TUBE SCH ×3 (09:00→17:31)
[2016-05-02] MEDS: SODIUM CHLORIDE 0.9% FLUSH 5 ML FLUSH IV FLUSH SCH ×2 (09:00→21:00)
[2016-05-02] MEDS: PANTOPRAZOLE SODIUM 40 MG VIAL IV SCH (09:44)
[2016-05-02] MEDS: DIGOXIN 0.5 MG/2 ML VIAL IV PUSH SCH (09:45)
[2016-05-02] MEDS: HYDROCORTISONE SOD SUCCINATE 100 MG VIAL IV PUSH SCH ×4 (10:08→23:37)
[2016-05-02] MEDS: DOCUSATE SODIUM 100 MG/10 ML UDC G-TUBE SCH ×2 (13:12→23:37)
[2016-05-02] MEDS: fentaNYL DRIP 250 ML IV SCH ×2 (13:13→20:59)
[2016-05-02] MEDS: POTASSIUM CHLOR 40 MEQ PREMIX 100 ML IV PRN ×2 (13:14→16:37)
--- NOTE | 2016-05-02 13:17 | MP ---
cc: BING MARCOS MD DATE OF SURGERY: 04/28/2016 PREOPERATIVE DIAGNOSIS Necrotizing soft tissue infection of the right buttock and right posterior thigh. POSTOPERATIVE DIAGNOSIS Necrotizing soft tissue infection of the right buttock and right posterior thigh. PROCEDURE PERFORMED Incision and wide debridement of right buttock and right posterior thigh and ischiorectal fossa with negative pressure VAC placement. SURGEON Dr. Bing Marcos ATTENDING SURGEON Dr. Harvey Jaime ANESTHESIA General endotracheal. IV FLUIDS 1600 cc. URINE OUTPUT 600 cc. ESTIMATED BLOOD LOSS 350 cc. DRAINS VAC. WOUND CLASSIFICATION Dirty, contaminated. FINDINGS Severely necrotic soft tissues with infected and necrotic gluteus janny and gluteal musculature along with necrotic fascia. Dimensions of the wound were 45 cm x 16 cm. SPECIMENS 1. Infected purulent drainage sent for cultures. 2. Tissue biopsy sent for cultures. COMPLICATIONS None. INDICATION The patient is a 80-year-old with uncontrolled diabetes who presented after a reported fall on the right buttock. He complained of severe pain and difficulty ambulating due to pain in the right buttock area. He was noted to have erythema and crepitus to this area. He underwent CT scan showing necrotizing soft tissue in connection with gas within the posterior buttock and posterior thigh fascia and ischiorectal fossa along with gluteal muscle bellies. The decision was made for emergent operative intervention including incision and wide debridement of this area. DETAILS OF PROCEDURE The patient was taken to the operating suite, placed in the prone position. He was prepped and draped in the usual sterile fashion after induction of general endotracheal anesthesia. A brief timeout was done stating correct patient, procedure and surgical site, and all were in agreement. Attention was directed to the right buttock area. A vertical incision was made starting about the level of the coccyx laterally and continued down past the posterior thigh before the popliteal fossa. This was done with a 10 blade scalpel. Further dissection was done with Bovie electrocautery. On dissecting down there was noted to be black/mai necrotic infected tissue. This had an extremely foul odor. This tissue was dissected down to the fascial and muscle bellies. The fascia was noted again to be frankly necrotic and infected. Flaps were mobilized both medially and laterally in attempt to conserve some subcutaneous and skin. The muscle was debrided sharply to all necrotic areas that were noted. Also some deep fascial muscle did appear viable which was left intact. Medially exploration was done and noted dissection down to ischiorectal fascia and near rectum. There was noted to be perirectal cavities extending. Also the cavity appeared to extend past the midline to the medial left side. Pulse lavage irrigation was obtained and the entire wound was thoroughly pulse lavaged with six liters of normal saline with antibiotic solution. Hemostasis was obtained with Bovie electrocautery. VAC sponges were obtained and placed deep in the perirectal area and transverse across midline deep to the subcutaneous tissues. Further sponge was cut to appropriate dimension and placed in the wound bed. [place] were done to help secure the sponge in place and for tissue approximation. A plastic drape was placed over the wound. Track pad was then placed. The patient tolerated the procedure. The patient is in critical condition. The patient will be taken to [facility] for further resuscitation and management. All lap and instrument counts were correct at the end of the procedure. MD ARUN Jenkins/WARNER /6:35 AM /12:52 PM MTDSocrates
[2016-05-02 14:04] LABS: HEPARIN AB OD 0.105 O.D. (0.000-0.300); HEPARIN INDUCED PLATELET AB NEGATIVE (NEGATIVE)
[2016-05-02] MEDS: PIPERACIL-TAZO 3.375 GM PREMIX 50 ML IV SCH ×2 (16:00→21:00)
--- NOTE | 2016-05-02 16:19 | MP ---
cc: CISCO CARMONA M.D. DATE OF SURGERY: 04/29/2016 PROCEDURE: Irrigation and debridement of right perirectal and posterior thigh wound, with excision of 25 square cm, subcutaneous tissue and muscle. PREOPERATIVE DIAGNOSIS: Necrotizing fasciitis, right perirectal and posterior thigh area. POSTOPERATIVE DIAGNOSIS: Necrotizing fasciitis, right perirectal and posterior thigh area. ANESTHESIA: General endotracheal anesthesia SURGEON: Zoraida Carmona MD. ESTIMATED BLOOD LOSS: 50 mL FLUIDS: 300 mL Crystalloid COMPLICATIONS: None. DRAINS: None. SPECIMEN: None. PROCEDURE IN DETAIL: The patient was taken to the operating room and placed on the operating room table in the prone position directly from intensive care. The previous wound dressing was removed and the patient had the posterior thigh and perirectal region prepped and draped in usual fashion. Time-out was taken confirming the correct patient, site and procedure to be performed. The wound was examined and three areas were debrided. An area in the upper thigh had muscle and subcutaneous tissue that was sharply excised. An area in the upper thigh laterally was debrided with fatty tissue removed and the perirectal region was further debrided as was the skin on the medial side of the wound. The subcutaneous tissue and muscular tissue was debrided from these areas as well sharply. When this was accomplished, a total of approximately 25 square centimeters of tissue was removed and two small bleeding points were controlled with electrocautery. The ischiorectal region had a sponge reapplied within it after a total of six liters of irrigation was utilized with three liters of saline and three liters of antibiotic irrigation. When this had been completed, the wound was redressed with a Vac dressing. The patient was taken back to intensive care in critical but stable condition. The patient tolerated the procedure well. Sponge, needle and instrument counts were reported to be correct. Cisco Carmona MD [facility]/KJ /3:24 PM /3:58 PM
--- NOTE | 2016-05-02 18:09 | HHI.IDPN ---
Subjective Subjective Remarks Still critical Sp debridement of necrotic R buttock x 3 still on pressors on vent afebrile + UOP adequate Growing gram viaribale org in 2/ admission clx, anaerobic bottles only Antibiotics zosyn Past Medical History morbid obesity and diebetes Allergies: Coded Allergies: *MDRO Multi-Drug Resistant Organism (Verified Adverse Reaction, Unknown, ) MRSA PCR Screeen POSITIVE - 04/28/2016 Objective . Vital Signs Date Time Temp Pulse Resp B/P Pulse Ox O2 Delivery O2 Flow Rate FiO2 05/02/16 16:11 97 40 05/02/16 16:00 40 05/02/16 16:00 77 05/02/16 16:00 98.3 77 16 119/63 98 05/02/16 14:00 66 05/02/16 12:00 97.8 78 16 122/58 98 05/02/16 12:00 40 05/02/16 12:00 74 05/02/16 11:18 97 40 05/02/16 10:00 71 05/02/16 08:00 40 05/02/16 08:00 72 05/02/16 08:00 98.3 74 16 114/56 100 05/02/16 07:12 100 40 05/02/16 06:00 74 05/02/16 04:23 98 40 05/02/16 04:00 40 05/02/16 04:00 97.6 68 16 126/55 98 05/02/16 04:00 68 05/02/16 02:00 72 05/02/16 01:18 98 40 05/02/16 00:00 72 05/02/16 00:00 97.7 72 16 124/58 98 05/02/16 00:00 40 05/01/16 22:00 72 05/01/16 20:32 98 40 05/01/16 20:00 40 05/01/16 20:00 76 05/01/16 20:00 97.8 76 16 119/71 98 134/56 05/01/16 18:00 73 05/01/16 05/01/16 05/02/16 15:00 23:00 07:00 Intake Total 2344 ml 2143 ml 1625 ml Output Total 1350 ml 2850 ml 2100 ml Balance 994 ml -707 ml -475 ml Intake Oral 0 ml IV Total 2118 ml 2143 ml 1501 ml Tube Feeding 74 ml Platelets 226 ml Tube Irrigant 50 ml Output Urine Total 1100 ml 2200 ml 1500 ml Stool Total 0 ml 0 ml 0 ml Drainage Total 250 ml 650 ml 600 ml . Laboratory Tests Test 05/01/16 05/02/16 05:40 05:55 White Blood Count 21.5 TH/MM3 28.3 TH/MM3 Red Blood Count 2.97 MIL/MM3 3.23 MIL/MM3 Hemoglobin 9.4 GM/DL 9.8 GM/DL Hematocrit 27.5 % 30.2 % Mean Corpuscular Volume 92.5 FL 93.5 FL Mean Corpuscular Hemoglobin 31.7 PG 30.4 PG Mean Corpuscular Hemoglobin 34.3 % 32.5 % Concent Red Cell Distribution Width 14.1 % 14.3 % Platelet Count 78 TH/MM3 63 TH/MM3 Mean Platelet Volume 11.0 FL 10.9 FL Neutrophils (%) (Auto) % % Lymphocytes (%) (Auto) % % Monocytes (%) (Auto) % % Eosinophils (%) (Auto) % % Basophils (%) (Auto) % % Neutrophils # (Auto) TH/MM3 TH/MM3 Lymphocytes # (Auto) TH/MM3 TH/MM3 Monocytes # (Auto) TH/MM3 TH/MM3 Eosinophils # (Auto) TH/MM3 TH/MM3 Basophils # (Auto) TH/MM3 TH/MM3 CBC Comment AUTO DIFF AUTO DIFF Differential Total Cells 100 100 Counted Neutrophils % (Manual) 51 % 74 % Band Neutrophils % 22 % 10 % Lymphocytes % 3 % 5 % Monocytes % 12 % 5 % Neutrophils # (Manual) 18.3 TH/MM3 25.5 TH/MM3 Metamyelocytes 5 % 1 % Myelocytes 7 % 5 % Differential Comment FINAL DIFF FINAL DIFF MANUAL MANUAL Platelet Estimate LOW LOW Platelet Morphology Comment NORMAL NORMAL Red Cell Morphology Comment NORMAL Laboratory Tests Test 05/01/16 05/02/16 05:40 05:55 Sodium Level 138 MEQ/L 139 MEQ/L Potassium Level 3.1 MEQ/L 3.2 MEQ/L Chloride Level 99 MEQ/L 100 MEQ/L Carbon Dioxide Level 30.3 MEQ/L 29.6 MEQ/L Anion Gap 9 MEQ/L 9 MEQ/L Blood Urea Nitrogen 13 MG/DL 10 MG/DL Creatinine 1.50 MG/DL 1.47 MG/DL Estimat Glomerular Filtration 45 ML/MIN 46 ML/MIN Rate Random Glucose 306 MG/DL 290 MG/DL Calcium Level 6.4 MG/DL 6.6 MG/DL Protein Corrected Calcium 7.6 MG/DL 7.9 MG/DL Phosphorus Level 1.9 MG/DL Magnesium Level 1.6 MG/DL Total Bilirubin 0.9 MG/DL Aspartate Amino Transf 35 U/L (AST/SGOT) Alanine Aminotransferase 35 U/L (ALT/SGPT) Alkaline Phosphatase 73 U/L Total Protein 4.6 GM/DL 4.6 GM/DL Albumin 1.5 GM/DL Imaging Last Impressions Chest X-Ray 05/01/16 0600 Signed Impressions: Service Date/Time: Sunday, May 01, 2016 05:35 - CONCLUSION: Slight improvement in aeration. Davon Stokes MD Abdomen/Pelvis CT 04/28/16 0819 Signed Impressions: Service Date/Time: Thursday, April 28, 2016 09:05 - CONCLUSION: 1. Significant inflammation, presumed infection, in the right gluteal region including numerous tiny locules of air not only in the gluteus janny muscle but extending anterior into the ischiorectal fossa on the right. There are two distinct collections around the rectum suspicious for a perirectal abscess both right anteriorly and left posterolaterally. 2. Gallstones versus sludge. Lawson Howard MD Lower Extremity CT 04/28/16 0000 Signed Impressions: Service Date/Time: Thursday, April 28, 2016 09:05 - CONCLUSION: There is extensive dissecting air throughout the gluteus janny muscle also dissecting into the lower posterior RIGHT thigh. There is air within the semi-tendinosis , semimembranosus, and biceps femoris muscles. There is also tiny amount of air along the abductor longus muscle. I don't see any drainable abscess or fluid collection. There is a small amount of fluid between the subcutaneous fat in the muscular fascia not an unusual finding in patient's with soft tissue edema. Lawson Howard MD Physical Exam CONSTITUTIONAL/GENERAL: ill appearing elderly male sedated, int'd an d on vent TUBES/LINES/DRAINS: SKIN: No jaundice, rashes.Skin temperature appropriate. Not diaphoretic. VAC in place R buttock with serosang dc EYES: No scleral icterus. ENT: Oral mucossae mioit orally intubated CARDIOVASCULAR: Regular rate and rhythm without murmurs, gallops, or rubs. No JVD. Peripheral pulses symmetric. RESPIRATORY/CHEST:Clear to auscultation. Breath sounds equal bilaterally. No wheezes, rales, or rhonchi. GASTROINTESTINAL: Abdomen soft, non-tender,mildly distended. No hepato- splenomegaly, or palpable masses. No guarding. Bowel sounds present. GENITOURINARY: baxter in place with clear yellow urine MUSCULOSKELETAL: Extremities without clubbing, + 4+ edema NEUROLOGICAL: sedated and intubated Assessment & Plan Remarks perirectal abscess and gas gangrene R buttock Necrotising fascitis R buttock Sepsis 2/2 above: leukocytosis, bandemia, fever, lactic acidosis (4.0), hypotension, tachycardia and ARF Critically ill - sp multiplwe debridements ? ANaerobic sepsis - from presenting condition - cont , zosyn - fu blood cultures Cici Espinoza MD May 02, 2016 18:09
[2016-05-03] VITALS (18 sets, daily range): BP systolic 117–135; BP diastolic 58–65; PULSE 54–86; RESP 16; TEMP 97.5–98.1; O2SAT 95–100
[2016-05-03] MEDS: CHLORHEXIDINE GLUCONATE 2 % 1 PACK (2 CLOTHS) TOP SCH (04:00)
[2016-05-03] MEDS: PIPERACIL-TAZO 3.375 GM PREMIX 50 ML IV SCH ×4 (04:25→21:11)
[2016-05-03] MEDS: PROPOFOL 1000 MG/100 ML IV SCH ×4 (04:25→20:00)
[2016-05-03] MEDS: HYDROCORTISONE SOD SUCCINATE 100 MG VIAL IV PUSH SCH ×4 (05:44→23:06)
[2016-05-03] MEDS: INSULIN ASPART SUPPLEMENTAL SCALE SQ SCH ×2 (05:45→11:00)
[2016-05-03] MEDS: PHENYLEPHRINE INJ 40 MG in DEXTROSE 5% IN WATE 500 ML INJ 496 ML IV SCH ×4 (05:46→10:06)
[2016-05-03 06:02] LABS: HEMATOCRIT 28.3 % (39.0-51.0); MEAN CORPUSCULAR HEMOGLOBIN 30.5 PG (27.0-34.0); MEAN CORPUSCULAR HGB CONC 32.5 % (32.0-36.0); PLATELET COUNT 46 TH/MM3 (150-450); RED BLOOD COUNT 3.01 MIL/MM3 (4.50-5.90); WHITE BLOOD COUNT 25.7 TH/MM3 (4.0-11.0)
[2016-05-03 06:19] LABS: BICARBONATE 28.7 MEQ/L (21.0-32.0); POTASSIUM 4.1 MEQ/L (3.5-5.1)
[2016-05-03 06:22] LABS: HEMO FLAGS AUTO DIFF
[2016-05-03 06:36] LABS: CALCIUM-PROTEIN CORRECTED 7.9 MG/DL (8.5-10.1)
[2016-05-03] MEDS: CHLORHEXIDINE 0.12% (ORAL KIT) 15 ML CUP MT SCH ×2 (08:01→20:00)
[2016-05-03 08:29] LABS: BANDS 14 % (0-6); METAMYELOCYTES 6 % (0-1); MYELOCYTES 9 % (0-0); NEUTROPHIL # MANUAL DIFF 23.1 TH/MM3 (1.8-7.7); POLYS (SEG NEUTROPHILS) 61 % (16-70); WBC DIFF SAMPLE 100
[2016-05-03 08:32] LABS: PLATELET ESTIMATE SMEAR LOW (NORMAL); PLATELET MORPHOLOGY ENLARGED (NORMAL); SCAN/DIFF FINAL DIFF MANUAL
[2016-05-03] MEDS: DIGOXIN 0.5 MG/2 ML VIAL IV PUSH SCH (09:00)
[2016-05-03] MEDS: SODIUM CHLORIDE 0.9% FLUSH 5 ML FLUSH IV FLUSH SCH ×2 (09:00→21:00)
[2016-05-03] MEDS: PANTOPRAZOLE SODIUM 40 MG VIAL IV SCH (09:54)
[2016-05-03] MEDS: BENEPROTEIN POWDER 1 PACK G-TUBE SCH ×3 (09:54→17:03)
--- NOTE | 2016-05-03 10:43 | HHI.PR ---
Subjective Subjective Notes Intubated/Sedated Family at bedside Objective Vitals/I&O Vital Signs Date Time Temp Pulse Resp B/P Pulse Ox O2 Delivery O2 Flow Rate FiO2 05/03/16 07:51 97 40 05/03/16 06:00 65 05/03/16 04:00 98.0 16 135/65 05/01/16 08:01 Ventilator Labs Laboratory Tests Test 05/02/16 05/03/16 22:30 05:35 Potassium Level 4.3 4.1 White Blood Count 25.7 Red Blood Count 3.01 Hemoglobin 9.2 Hematocrit 28.3 Mean Corpuscular Volume 94.0 Mean Corpuscular Hemoglobin 30.5 Mean Corpuscular Hemoglobin 32.5 Concent Red Cell Distribution Width 14.0 Platelet Count 46 Mean Platelet Volume 11.5 Neutrophils (%) (Auto) Lymphocytes (%) (Auto) Monocytes (%) (Auto) Eosinophils (%) (Auto) Basophils (%) (Auto) Neutrophils # (Auto) Lymphocytes # (Auto) Monocytes # (Auto) Eosinophils # (Auto) Basophils # (Auto) CBC Comment AUTO DIFF Differential Total Cells 100 Counted Neutrophils % (Manual) 61 Band Neutrophils % 14 Lymphocytes % 10 Neutrophils # (Manual) 23.1 Metamyelocytes 6 Myelocytes 9 Differential Comment FINAL DIFF MANUAL Platelet Estimate LOW Platelet Morphology Comment ENLARGED Red Cell Morphology Comment NORMAL Sodium Level 138 Chloride Level 101 Carbon Dioxide Level 28.7 Anion Gap 8 Blood Urea Nitrogen 12 Creatinine 1.55 Estimat Glomerular Filtration 43 Rate Random Glucose 301 Calcium Level 6.7 Protein Corrected Calcium 7.9 Total Protein 4.7 Date/Time Procedure Status Source Growth 04/28/16 14:30 Gram Stain - Final Complete Wound Buttock 04/28/16 14:30 Wound Culture - Final Complete Escherichia Coli Strep Not A,B D 04/28/16 14:30 Fungal Smear - Final Resulted Wound Buttock NO FUNGAL ELEMENTS SEEN. 04/28/16 14:30 Fungal Culture Resulted Wound Buttock Pending 04/28/16 14:30 Acid Fast Stain - Final Resulted Wound Buttock NO ACID FAST BACILLI SEEN 04/28/16 14:30 Mycobacterial Culture Resulted Wound Buttock Pending Cardiovascular: Regular Lungs: Clear Abdomen: Non-distended, Non-tender Narrative Exam perirectal and right posterior thigh wound vac in place with good seal A/P Assessment and Plan 80 year old male with NF with soft tissue gas gangrene; ?? origin perirectal abscess -POD2 Irrigation and wide debridement of right buttock and right thigh with vac change -Tolerating TF; NPO after MN for OR tomorrow -Vent per CCM -Continue antibiotics -Seal check on Wound Vac shows no leak -Plan for repeat I&D and wound vac change on tomorrow Attending Statement patient seen at bedside vac change tomorrow Attestation The exam, history, and the medical decision-making described in the above note were completed with the assistance of the mid-level provider. I reviewed and agree with the findings presented. I attest that I had a [id number] encounter with the patient on the same day, and personally performed and documented my assessment and findings in the medical record. Roula Grayson May 03, 2016 10:43 Trey Marcos MD May 12, 2016 21:25
[2016-05-03] MEDS: DOCUSATE SODIUM 100 MG/10 ML UDC G-TUBE SCH ×2 (11:37→23:06)
[2016-05-03] MEDS ORDERED: PHARMACY ORDERED LAB XX ONE (11:45)
--- NOTE | 2016-05-03 11:51 | HHI.IDPN ---
Note Infectious Disease Note ID COVERAGE: Still critical Sp debridement of necrotic R buttock x 3 still on pressors. Levophed. on vent afebrile D/W RN and family at bedside. Growing gram viaribale org in 2/ admission clx, anaerobic bottles only Antibiotics zosyn Past Medical History morbid obesity and diebetes Allergies: Coded Allergies: *MDRO Multi-Drug Resistant Organism (Verified Adverse Reaction, Unknown, ) MRSA PCR Screeen POSITIVE - 04/28/2016 Objective Vital Signs Date Time Temp Pulse Resp B/P Pulse Ox O2 Delivery O2 Flow Rate FiO2 05/03/16 07:51 97 40 05/03/16 06:00 65 05/03/16 04:32 98 40 05/03/16 04:00 55 05/03/16 04:00 98.0 56 16 135/65 97 05/03/16 04:00 40 05/03/16 02:00 56 05/03/16 01:01 97 40 05/03/16 00:00 40 05/03/16 00:00 62 05/03/16 00:00 98.1 62 16 117/62 97 05/02/16 22:00 65 05/02/16 20:00 40 05/02/16 20:00 65 05/02/16 20:00 97.9 65 16 138/74 96 05/02/16 19:36 99 40 05/02/16 18:00 69 05/02/16 16:11 97 40 05/02/16 16:00 40 05/02/16 16:00 77 05/02/16 16:00 98.3 77 16 119/63 98 05/02/16 14:00 66 05/02/16 12:00 97.8 78 16 122/58 98 05/02/16 12:00 40 05/02/16 12:00 74 05/02/16 05/02/16 05/03/16 15:00 23:00 07:00 Intake Total 2225 ml 1664 ml 1544 ml Output Total 1950 ml 1250 ml 1400 ml Balance 275 ml 414 ml 144 ml IV Total 2076 ml 1512 ml 1400 ml Tube Feeding 89 ml 92 ml 84 ml Tube Irrigant 60 ml 60 ml 60 ml Output Urine Total 1300 ml 900 ml 950 ml Stool Total 0 ml 0 ml Drainage Total 650 ml 350 ml 450 ml Laboratory Tests Test 05/02/16 05/03/16 05:55 05:35 White Blood Count 28.3 TH/MM3 25.7 TH/MM3 Red Blood Count 3.23 MIL/MM3 3.01 MIL/MM3 Hemoglobin 9.8 GM/DL 9.2 GM/DL Hematocrit 30.2 % 28.3 % Mean Corpuscular Volume 93.5 FL 94.0 FL Mean Corpuscular Hemoglobin 30.4 PG 30.5 PG Mean Corpuscular Hemoglobin 32.5 % 32.5 % Concent Red Cell Distribution Width 14.3 % 14.0 % Platelet Count 63 TH/MM3 46 TH/MM3 Mean Platelet Volume 10.9 FL 11.5 FL Neutrophils (%) (Auto) % % Lymphocytes (%) (Auto) % % Monocytes (%) (Auto) % % Eosinophils (%) (Auto) % % Basophils (%) (Auto) % % Neutrophils # (Auto) TH/MM3 TH/MM3 Lymphocytes # (Auto) TH/MM3 TH/MM3 Monocytes # (Auto) TH/MM3 TH/MM3 Eosinophils # (Auto) TH/MM3 TH/MM3 Basophils # (Auto) TH/MM3 TH/MM3 CBC Comment AUTO DIFF AUTO DIFF Differential Total Cells 100 100 Counted Neutrophils % (Manual) 74 % 61 % Band Neutrophils % 10 % 14 % Lymphocytes % 5 % 10 % Monocytes % 5 % Neutrophils # (Manual) 25.5 TH/MM3 23.1 TH/MM3 Metamyelocytes 1 % 6 % Myelocytes 5 % 9 % Differential Comment FINAL DIFF FINAL DIFF MANUAL MANUAL Platelet Estimate LOW LOW Platelet Morphology Comment NORMAL ENLARGED Red Cell Morphology Comment NORMAL Laboratory Tests Test 05/02/16 05/02/16 05/03/16 05:55 22:30 05:35 Sodium Level 139 MEQ/L 138 MEQ/L Potassium Level 3.2 MEQ/L 4.3 MEQ/L 4.1 MEQ/L Chloride Level 100 MEQ/L 101 MEQ/L Carbon Dioxide Level 29.6 MEQ/L 28.7 MEQ/L Anion Gap 9 MEQ/L 8 MEQ/L Blood Urea Nitrogen 10 MG/DL 12 MG/DL Creatinine 1.47 MG/DL 1.55 MG/DL Estimat Glomerular Filtration 46 ML/MIN 43 ML/MIN Rate Random Glucose 290 MG/DL 301 MG/DL Calcium Level 6.6 MG/DL 6.7 MG/DL Protein Corrected Calcium 7.9 MG/DL 7.9 MG/DL Total Protein 4.6 GM/DL 4.7 GM/DL Imaging Chest X-Ray 05/01/16 0600 Signed Impressions: Service Date/Time: Sunday, May 01, 2016 05:35 - CONCLUSION: Slight improvement in aeration. Davon Stokes MD Abdomen/Pelvis CT 04/28/16 0819 Signed Impressions: Service Date/Time: Thursday, April 28, 2016 09:05 - CONCLUSION: 1. Significant inflammation, presumed infection, in the right gluteal region including numerous tiny locules of air not only in the gluteus janny muscle but extending anterior into the ischiorectal fossa on the right. There are two distinct collections around the rectum suspicious for a perirectal abscess both right anteriorly and left posterolaterally. 2. Gallstones versus sludge. Lawson Howard MD Lower Extremity CT 04/28/16 0000 Signed Impressions: Service Date/Time: Thursday, April 28, 2016 09:05 - CONCLUSION: There is extensive dissecting air throughout the gluteus janny muscle also dissecting into the lower posterior RIGHT thigh. There is air within the semi-tendinosis , semimembranosus, and biceps femoris muscles. There is also tiny amount of air along the abductor longus muscle. I don't see any drainable abscess or fluid collection. There is a small amount of fluid between the subcutaneous fat in the muscular fascia not an unusual finding in patient's with soft tissue edema. Lawson Howard MD Physical Exam CONSTITUTIONAL/GENERAL: Sedated and unresponsive on the vent. VAC in place R buttock with serosang dc EYES: No scleral icterus. ENT: Oral mucosa moist. CARDIOVASCULAR: Regular rate and rhythm without murmurs, gallops, or rubs. RESPIRATORY/CHEST: Clear to auscultation. Breath sounds equal bilaterally, decreased. GASTROINTESTINAL: Abdomen soft, non-tender,mildly distended. No hepato- splenomegaly, or palpable masses. No guarding. Bowel sounds present. GENITOURINARY: baxter in place with clear yellow urine MUSCULOSKELETAL: Extremities without clubbing, 4+ edema SKIN: No jaundice, rashes. Warm and moist. NEUROLOGICAL: sedated and intubated Assessment & Plan Assessment & Plan Remarks Perirectal abscess and gas gangrene R buttock Necrotizing fascitis R buttock Severe sepsis - leukocytosis, bandemia, fever, lactic acidosis (4.0), hypotension, tachycardia and ARF, Source abscess, gas gangrene. Critically ill - sp multiple debridements ? Anaerobic sepsis - from presenting condition - Continue Zosyn - Fu blood cultures. ID of organism. - Obtain new blood cultures. Ordered. Ha Pelaez MD May 03, 2016 11:51
--- NOTE | 2016-05-03 12:16 | HHI.CCPN ---
Subjective Remarks/Hospital Course 80-year-old male came to the emergency room with history of dizziness, lightheadedness, generalized weakness and right buttock pain. CT scan revealed soft tissue gas gangrene originated most probably as a perirectal abscess. He was taken emergently to OR for debridement. 05/01: Ongoing septic shock. Requires additional debridement today for source control. 05/02: Back from OR after debridement right buttocks and thigh last night. Minimal necrotic tissue found. Vac in place. Clearly still septic, but vasopresors requirements are decreasing. 05/03: Persistent septic picture. Objective Vital Signs Date Time Temp Pulse Resp B/P Pulse Ox O2 Delivery O2 Flow Rate FiO2 05/03/16 07:51 97 40 05/03/16 06:00 65 05/03/16 04:00 98.0 16 135/65 05/01/16 08:01 Ventilator Intake and Output 05/02/16 05/02/16 05/03/16 08:00 16:00 00:00 Intake Total 1625 ml 2225 ml 1664 ml Output Total 2100 ml 1950 ml 1250 ml Balance -475 ml 275 ml 414 ml Result Diagram: 05/03/16 0535 05/03/16 0535 Imaging Last 24 hours Impressions Chest X-Ray 04/28/16818 Signed Impressions: Service Date/Time: Thursday, April 28, 2016 08:21 - CONCLUSION: Normal examination. Lawson Howard MD Abdomen/Pelvis CT 04/28/16 0819 Signed Impressions: Service Date/Time: Thursday, April 28, 2016 09:05 - CONCLUSION: 1. Significant inflammation, presumed infection, in the right gluteal region including numerous tiny locules of air not only in the gluteus janny muscle but extending anterior into the ischiorectal fossa on the right. There are two distinct collections around the rectum suspicious for a perirectal abscess both right anteriorly and left posterolaterally. 2. Gallstones versus sludge. Lawson Howard MD Lower Extremity CT 04/28/16 0000 Signed Impressions: Service Date/Time: Thursday, April 28, 2016 09:05 - CONCLUSION: There is extensive dissecting air throughout the gluteus janny muscle also dissecting into the lower posterior RIGHT thigh. There is air within the semi-tendinosis , semimembranosus, and biceps femoris muscles. There is also tiny amount of air along the abductor longus muscle. I don't see any drainable abscess or fluid collection. There is a small amount of fluid between the subcutaneous fat in the muscular fascia not an unusual finding in patient's with soft tissue edema. Lawson Howard MD Objective Remarks GENERAL: Ill-appearing, edematous. SKIN: Warm. HEAD: Normocephalic. NECK: Supple, Orally intubated. CARDIOVASCULAR: Irreg Irreg, rate 50s. No JVD. RESPIRATORY: Good adriel air entry on vent. Few crackles. Vent dependent. GASTROINTESTINAL: Abdomen soft, non-tender, nondistended. BS active. MUSCULOSKELETAL: Warm, acceptable perfusion toes. NEURO: Largely obtunded, moderate sedation. A/P Problem List: (1) Septic shock ICD Code: A41.9 Status: Acute (2) Gas gangrene of lower extremity ICD Code: A48.0 Status: Acute (3) Acute renal failure ICD Code: N17.9 Status: Acute (4) Encephalopathy, metabolic ICD Code: G93.41 Status: Acute Assessment and Plan Sepsis - perirectal abscess with extension to right thigh - debridement in the OR 04/28, 04/29 - broad spectrum vanco, zosyn - adjust per ID. - ID consult appreciated - maintain fluid resuscitation -improved source control as of 05/02 -Add stress dose steroids Soft tissue gas gangrene - due to above - broad spectrum ATB - vanco, zosyn - debridement again 05/01 per Gen Surg Perirectal abscess - ATB per ID - surgical debridement repeat 05/01 Respiratory failure - post op - unable to wean ventilator. BRAYDON - dehydration resolved - volume loss - aggressive i.v. fluids resuscitation - strict I&O - d/c Dobutamine - Good urine output - Electrolyte protocol NUTRITION - Start Glucerna and benepro TFs DM - hold p.o. meds while in the ICU - ISS - Insulin gtt A.Fib - rate now controlled with digoxin - telemetry Overall impression: Remains critically ill with overwhelming septic shock but improved infection source control. Unable to wean neosynephrine and levophed. Fails vent weaning. Critical Care 37 mins Problem Qualifiers (1) Acute renal failure: Qualified Code: N17.9 - Acute renal failure, unspecified acute renal failure type Zi Mustafa MD 19, 2017 12:16
[2016-05-03] MEDS ORDERED: DOBUTamine PREMIX DRIP 250 ML ONE (12:53)
[2016-05-03] MEDS: DOBUTamine 250 MG/D5W 250 ML PREMIX DRIP IV SCH ×2 (13:15→21:10)
[2016-05-03] MEDS ORDERED: GLUCAGON 1 MG/ML VIAL OTHER PRN (13:45)
[2016-05-03] MEDS ORDERED: PLEASE DISCONTINUE PREVIOUS SUPPLEMENTAL SCALE INSULIN ORDERS XX ONE (13:45)
[2016-05-03] MEDS ORDERED: DEXTROSE 50% IN WATER 50 ML VIAL(D50) IV PUSH PRN (13:45)
[2016-05-03] MEDS: NOREPINEPHRINE 4 MG/D5W 250 ML IV SCH (17:02)
[2016-05-03] MEDS: HIGH DOSE INSULIN NOVOLOG SUPPLEMENTAL SCALE SQ SCH ×3 (17:03→23:05)
[2016-05-03] MEDS: RESP: ALBUTEROL 2.5 MG/IPRATROPIUM 0.5 MG NEB (PRN) INH (19:39)
[2016-05-04] VITALS (20 sets, daily range): BP systolic 106–135; BP diastolic 57–65; PULSE 72–116; RESP 16–18; TEMP 95–98.7; O2SAT 88–100
[2016-05-04] MEDS: PROPOFOL 1000 MG/100 ML IV SCH ×6 (00:23→21:01)
[2016-05-04] MEDS: PHENYLEPHRINE INJ 40 MG in DEXTROSE 5% IN WATE 500 ML INJ 496 ML IV SCH ×2 (02:40)
[2016-05-04] MEDS: CHLORHEXIDINE GLUCONATE 2 % 1 PACK (2 CLOTHS) TOP SCH (03:32)
[2016-05-04] MEDS: PIPERACIL-TAZO 3.375 GM PREMIX 50 ML IV SCH ×4 (03:32→21:01)
[2016-05-04] MEDS: HIGH DOSE INSULIN NOVOLOG SUPPLEMENTAL SCALE SQ SCH ×6 (04:00→23:23)
[2016-05-04 04:36] LABS: AUTOMATED NEUTROPHIL # 16.3 TH/MM3 (1.8-7.7); BASOPHIL # 0.1 TH/MM3 (0-0.2); BASOPHIL % 0.4 % (0.0-2.0); HEMATOCRIT 24.8 % (39.0-51.0); LYMPH % 8.2 % (9.0-44.0); LYMPHOCYTE # 1.6 TH/MM3 (1.0-4.8); MEAN CORPUSCULAR HEMOGLOBIN 30.9 PG (27.0-34.0); MEAN CORPUSCULAR HGB CONC 33.2 % (32.0-36.0); MONO % 6.7 % (0.0-8.0); NEUT % 84.7 % (16.0-70.0); PLATELET COUNT 42 TH/MM3 (150-450); RED BLOOD COUNT 2.66 MIL/MM3 (4.50-5.90); WHITE BLOOD COUNT 19.2 TH/MM3 (4.0-11.0)
[2016-05-04 04:40] LABS: HEMO FLAGS AUTO DIFF
[2016-05-04 04:52] LABS: POTASSIUM 3.7 MEQ/L (3.5-5.1)
[2016-05-04] MEDS: HYDROCORTISONE SOD SUCCINATE 100 MG VIAL IV PUSH SCH ×4 (04:56→22:50)
[2016-05-04] MEDS: fentaNYL DRIP 250 ML IV SCH (04:57)
[2016-05-04 05:04] LABS: CALCIUM-PROTEIN CORRECTED 7.6 MG/DL (8.5-10.1)
--- NOTE | 2016-05-04 06:47 | HHI.CCPN ---
Subjective Remarks/Hospital Course 80-year-old male came to the emergency room with history of dizziness, lightheadedness, generalized weakness and right buttock pain. CT scan revealed soft tissue gas gangrene originated most probably as a perirectal abscess. He was taken emergently to OR for debridement. 05/01: Ongoing septic shock. Requires additional debridement today for source control. 05/02: Back from OR after debridement right buttocks and thigh last night. Minimal necrotic tissue found. Vac in place. Clearly still septic, but vasopresors requirements are decreasing. 05/03: Persistent septic picture. 05/04: Vasopressor requirements now declining finally. Gas exchange acceptable. Objective Vital Signs Date Time Temp Pulse Resp B/P Pulse Ox O2 Delivery O2 Flow Rate FiO2 05/04/16 06:00 72 05/04/16 04:10 98 40 05/04/16 04:00 98.0 16 125/58 05/01/16 08:01 Ventilator Intake and Output 05/03/16 05/03/16 05/04/16 08:00 16:00 00:00 Intake Total 1544 ml 1492 ml 1157 ml Output Total 1400 ml 1275 ml 1050 ml Balance 144 ml 217 ml 107 ml Result Diagram: 05/04/16 0410 05/04/16 0410 Imaging Last 24 hours Impressions Chest X-Ray 04/28/16818 Signed Impressions: Service Date/Time: Thursday, April 28, 2016 08:21 - CONCLUSION: Normal examination. Lawson Howard MD Abdomen/Pelvis CT 04/28/16818 Signed Impressions: Service Date/Time: Thursday, April 28, 2016 09:05 - CONCLUSION: 1. Significant inflammation, presumed infection, in the right gluteal region including numerous tiny locules of air not only in the gluteus janny muscle but extending anterior into the ischiorectal fossa on the right. There are two distinct collections around the rectum suspicious for a perirectal abscess both right anteriorly and left posterolaterally. 2. Gallstones versus sludge. Lawson Howard MD Lower Extremity CT 04/28/16 0000 Signed Impressions: Service Date/Time: Thursday, April 28, 2016 09:05 - CONCLUSION: There is extensive dissecting air throughout the gluteus janny muscle also dissecting into the lower posterior RIGHT thigh. There is air within the semi-tendinosis , semimembranosus, and biceps femoris muscles. There is also tiny amount of air along the abductor longus muscle. I don't see any drainable abscess or fluid collection. There is a small amount of fluid between the subcutaneous fat in the muscular fascia not an unusual finding in patient's with soft tissue edema. Lawson Howard MD Objective Remarks GENERAL: Ill-appearing, edematous. SKIN: Warm. HEAD: Normocephalic. NECK: Supple, Orally intubated. CARDIOVASCULAR: Irreg Irreg, rate 60s. No JVD. RESPIRATORY: Good adriel air entry on vent. Vent dependent. GASTROINTESTINAL: Abdomen soft, non-tender, nondistended. BS active. MUSCULOSKELETAL: Warm, well perfused. Generalized edema. NEURO: Largely obtunded, moderate sedation. Opens eyes. A/P Problem List: (1) Septic shock ICD Code: A41.9 Status: Acute (2) Gas gangrene of lower extremity ICD Code: A48.0 Status: Acute (3) Acute renal failure ICD Code: N17.9 Status: Acute (4) Encephalopathy, metabolic ICD Code: G93.41 Status: Acute Assessment and Plan Sepsis - perirectal abscess with extension to right thigh - debridement in the OR 04/28, 04/29, 05/04 - broad spectrum vanco, zosyn - adjust per ID. - ID consult appreciated - maintain fluid resuscitation -improved source control as of 05/02 -Stress dose steroids Soft tissue gas gangrene - due to above - broad spectrum ATB - vanco, zosyn - debridement again 05/04 per Gen Surg Perirectal abscess - ATB per ID - surgical debridement X 3 Respiratory failure - post op - unable to wean ventilator. BRAYDON - dehydration resolved - volume loss - aggressive i.v. fluids resuscitation - strict I&O - Dobutamine - Good urine output - Electrolyte protocol NUTRITION - Start Glucerna and benepro TFs DM - hold p.o. meds while in the ICU - ISS - Insulin gtt A.Fib - rate now controlled with digoxin - telemetry Overall impression: Remains critically ill with continued septic shock. Improved infection source control. Unable to wean off neosynephrine and levophed. Fails vent weaning. To OR for debridement today. Critical Care 34 mins Problem Qualifiers (1) Acute renal failure: Qualified Code: N17.9 - Acute renal failure, unspecified acute renal failure type Zi Mustafa MD May 04, 2016 06:47
[2016-05-04 07:06] LABS: BANDS 5 % (0-6); METAMYELOCYTES 12 % (0-1); MYELOCYTES 4 % (0-0); NEUTROPHIL # MANUAL DIFF 16.3 TH/MM3 (1.8-7.7); POLYS (SEG NEUTROPHILS) 64 % (16-70); WBC DIFF SAMPLE 100
[2016-05-04 07:07] LABS: PLATELET ESTIMATE SMEAR LOW (NORMAL); PLATELET MORPHOLOGY NORMAL (NORMAL); SCAN/DIFF FINAL DIFF MANUAL
[2016-05-04] MEDS: BENEPROTEIN POWDER 1 PACK G-TUBE SCH ×3 (07:37→16:54)
--- NOTE | 2016-05-04 08:22 | MP ---
cc: BING MARCOS MD DATE OF SURGERY: 05/01/2016 PREOPERATIVE DIAGNOSIS Necrotizing soft tissue of the right buttock/posterior thigh. POSTOPERATIVE DIAGNOSIS Necrotizing soft tissue of the right buttock/posterior thigh. PROCEDURE PERFORMED Incision and wide debridement of right buttock/thigh VAC change. SURGEON Dr. Bing Marcos [employer] ANTONIO Gee ANESTHESIA General endotracheal. IV FLUIDS 300 cc. ESTIMATED BLOOD LOSS 20 cc. DRAINS None. COMPLICATIONS None. WOUND CLASSIFICATION Dirty. FINDINGS Healthy viable muscle, some areas of necrotic debris, improvement. INDICATION The patient is a 80-year-old male with uncontrolled diabetes who presented with a necrotizing soft tissue infection. He underwent wide debridement of this area with findings of gas gangrene and necrotizing soft tissue infection. He had a VAC placed and had this twice changed. He presents for his third change of VAC and further debridement. DETAILS OF PROCEDURE The patient was taken to the operating suite, placed in a prone position. He was prepped and draped in the usual sterile fashion after induction of general endotracheal anesthesia. A brief timeout was taken, stating the correct patient, procedure and surgical site, and all were in agreement with this. Attention was directed to the right buttock/thigh area. The VAC was removed. Observation of the tissue noted to be dependent fluid collections on lateral aspect of the thigh. This was irrigated thoroughly. Some debridement was done to muscle and fascia and skin. Pulse lavage was done with antibiotic irrigation with six liters. There was noted to be some healthy bleeding muscle following this. The Bovie electrocautery was used for hemostasis. Next, the VAC sponge was cut to size and fashioned, especially to the dependent area of the gutters, double VAC placement deep. A perirectal VAC was placed and one sponge placed across the midline. The sponge was stapled in place, plastic dressing then placed. VAC pads x2 placed both at the inferior dependent portion and medial portion, connected to the VAC without evidence of leak. The patient tolerated the procedure. There was no intraoperative complication. The patient was taken to [facility]. MD ARUN Jenkins/WARNER /3:11 PM /7:59 AM
[2016-05-04] MEDS: CHLORHEXIDINE 0.12% (ORAL KIT) 15 ML CUP MT SCH ×2 (08:38→22:43)
[2016-05-04] MEDS: SODIUM CHLORIDE 0.9% FLUSH 5 ML FLUSH IV FLUSH SCH ×2 (08:39→21:00)
[2016-05-04] MEDS: PANTOPRAZOLE SODIUM 40 MG VIAL IV SCH (08:39)
[2016-05-04] MEDS: DOCUSATE SODIUM 100 MG/10 ML UDC G-TUBE SCH ×2 (12:00→22:49)
[2016-05-04] MEDS ORDERED: PHENYLEPH/NS 1000 MCG/10 ML SYR IV ONE (12:00)
[2016-05-04] MEDS ORDERED: PROPOFOL 200 MG/20 ML AMP IV ONE (12:00)
--- NOTE | 2016-05-04 12:17 | HHI.IDPN ---
Note Infectious Disease Note ID COVERAGE: Patient is on warming blanket for hypothermia. Sp debridement of necrotic R buttock x 3. Planned debridement today. Still on pressors. Levophed. on vent afebrile D/W RN and family at bedside. Growing gram viarible org in 2/2 admission clx, anaerobic bottles only Antibiotics zosyn Past Medical History morbid obesity and diebetes Allergies: Coded Allergies: *MDRO Multi-Drug Resistant Organism (Verified Adverse Reaction, Unknown, ) MRSA PCR Screeen POSITIVE - 04/28/2016 Objective Vital Signs Date Time Temp Pulse Resp B/P Pulse Ox O2 Delivery O2 Flow Rate FiO2 05/04/16 11:53 93 40 05/04/16 10:00 78 05/04/16 08:00 77 05/04/16 08:00 95.0 05/04/16 08:00 95.0 77 16 124/58 99 05/04/16 08:00 40 05/04/16 07:35 99 40 05/04/16 06:00 72 05/04/16 04:10 98 40 05/04/16 04:00 98.0 77 16 125/58 99 05/04/16 04:00 40 05/04/16 04:00 77 05/04/16 02:00 75 05/04/16 01:03 100 40 05/04/16 00:00 97.8 75 16 120/65 95 05/04/16 00:00 83 05/04/16 00:00 40 05/03/16 22:00 77 05/03/16 20:00 97.8 75 16 120/65 95 05/03/16 20:00 40 05/03/16 20:00 75 05/03/16 19:29 100 40 05/03/16 18:00 86 05/03/16 16:07 96 40 05/03/16 16:00 77 05/03/16 16:00 97.5 77 16 120/62 95 05/03/16 16:00 40 05/03/16 14:00 78 05/03/16 12:30 100 40 05/03/16 05/03/16 05/04/16 15:00 23:00 07:00 Intake Total 1492 ml 1157 ml 1088 ml Output Total 1275 ml 1050 ml 1050 ml Balance 217 ml 107 ml 38 ml IV Total 1096 ml 1011 ml 1028 ml Tube Feeding 96 ml 86 ml Tube Irrigant 60 ml 60 ml Other 300 ml Output Urine Total 825 ml 550 ml 600 ml Stool Total 0 ml 0 ml 0 ml Drainage Total 450 ml 500 ml 450 ml Laboratory Tests Test 05/03/16 05/04/16 05:35 04:10 White Blood Count 25.7 TH/MM3 19.2 TH/MM3 Red Blood Count 3.01 MIL/MM3 2.66 MIL/MM3 Hemoglobin 9.2 GM/DL 8.2 GM/DL Hematocrit 28.3 % 24.8 % Mean Corpuscular Volume 94.0 FL 93.0 FL Mean Corpuscular Hemoglobin 30.5 PG 30.9 PG Mean Corpuscular Hemoglobin 32.5 % 33.2 % Concent Red Cell Distribution Width 14.0 % 14.0 % Platelet Count 46 TH/MM3 42 TH/MM3 Mean Platelet Volume 11.5 FL 10.9 FL Neutrophils (%) (Auto) % 84.7 % Lymphocytes (%) (Auto) % 8.2 % Monocytes (%) (Auto) % 6.7 % Eosinophils (%) (Auto) % 0.0 % Basophils (%) (Auto) % 0.4 % Neutrophils # (Auto) TH/MM3 16.3 TH/MM3 Lymphocytes # (Auto) TH/MM3 1.6 TH/MM3 Monocytes # (Auto) TH/MM3 1.3 TH/MM3 Eosinophils # (Auto) TH/MM3 0.0 TH/MM3 Basophils # (Auto) TH/MM3 0.1 TH/MM3 CBC Comment AUTO DIFF AUTO DIFF Differential Total Cells 100 100 Counted Neutrophils % (Manual) 61 % 64 % Band Neutrophils % 14 % 5 % Lymphocytes % 10 % 11 % Neutrophils # (Manual) 23.1 TH/MM3 16.3 TH/MM3 Metamyelocytes 6 % 12 % Myelocytes 9 % 4 % Differential Comment FINAL DIFF FINAL DIFF MANUAL MANUAL Platelet Estimate LOW LOW Platelet Morphology Comment ENLARGED NORMAL Red Cell Morphology Comment NORMAL Monocytes % 4 % Laboratory Tests Test 05/02/16 05/03/16 05/04/16 22:30 05:35 04:10 Potassium Level 4.3 MEQ/L 4.1 MEQ/L 3.7 MEQ/L Sodium Level 138 MEQ/L 137 MEQ/L Chloride Level 101 MEQ/L 99 MEQ/L Carbon Dioxide Level 28.7 MEQ/L 30.0 MEQ/L Anion Gap 8 MEQ/L 8 MEQ/L Blood Urea Nitrogen 12 MG/DL 19 MG/DL Creatinine 1.55 MG/DL 1.48 MG/DL Estimat Glomerular Filtration 43 ML/MIN 46 ML/MIN Rate Random Glucose 301 MG/DL 204 MG/DL Calcium Level 6.7 MG/DL 6.5 MG/DL Protein Corrected Calcium 7.9 MG/DL 7.6 MG/DL Total Protein 4.7 GM/DL 4.9 GM/DL Microbiology Date/Time Procedure Status Source Growth 05/03/16 13:25 Aerobic Blood Culture - Preliminary Resulted Blood Peripheral NO GROWTH IN 1 DAY 05/03/16 13:25 Anaerobic Blood Culture - Preliminary Resulted Blood Peripheral NO GROWTH IN 1 DAY Imaging Chest X-Ray 05/01/16 0600 Signed Impressions: Service Date/Time: Sunday, May 01, 2016 05:35 - CONCLUSION: Slight improvement in aeration. Davon Stokes MD Abdomen/Pelvis CT 04/28/16 0819 Signed Impressions: Service Date/Time: Thursday, April 28, 2016 09:05 - CONCLUSION: 1. Significant inflammation, presumed infection, in the right gluteal region including numerous tiny locules of air not only in the gluteus janny muscle but extending anterior into the ischiorectal fossa on the right. There are two distinct collections around the rectum suspicious for a perirectal abscess both right anteriorly and left posterolaterally. 2. Gallstones versus sludge. Lawson Howard MD Lower Extremity CT 04/28/16 0000 Signed Impressions: Service Date/Time: Thursday, April 28, 2016 09:05 - CONCLUSION: There is extensive dissecting air throughout the gluteus janny muscle also dissecting into the lower posterior RIGHT thigh. There is air within the semi-tendinosis , semimembranosus, and biceps femoris muscles. There is also tiny amount of air along the abductor longus muscle. I don't see any drainable abscess or fluid collection. There is a small amount of fluid between the subcutaneous fat in the muscular fascia not an unusual finding in patient's with soft tissue edema. Lawson Howard MD Physical Exam CONSTITUTIONAL/GENERAL: Sedated and unresponsive on the vent. VAC in place R buttock with serous sanguinous drainage. EYES: No scleral icterus. ENT: Oral mucosa moist. CARDIOVASCULAR: Regular rate and rhythm without murmurs, gallops, or rubs. RESPIRATORY/CHEST: Clear to auscultation. Breath sounds equal bilaterally, decreased. GASTROINTESTINAL: Abdomen soft, non-tender,mildly distended. No hepato- splenomegaly, or palpable masses. No guarding. Bowel sounds present. GENITOURINARY: baxter in place with clear yellow urine MUSCULOSKELETAL: Extremities without clubbing, 4+ edema SKIN: No rash. Warm and moist. NEUROLOGICAL: sedated and intubated Assessment & Plan Remarks Perirectal abscess and gas gangrene R buttock Necrotizing fascitis R buttock Severe sepsis - leukocytosis, bandemia, fever, lactic acidosis (4.0), hypotension, tachycardia and ARF, Source abscess, gas gangrene. Critically ill - sp multiple debridement. ? Anaerobic sepsis - from presenting condition - Continue Zosyn - Follow blood cultures. ID of organism. - Follow new blood cultures. Ordered. Ha Pelaez MD May 04, 2016 12:17
[2016-05-04] MEDS ORDERED: LIDOCAINE 1%/EPINEPHrine 1:100,000 SOLN 20 ML VIAL ONE (13:34)
[2016-05-04] MEDS: DOBUTamine 250 MG/D5W 250 ML PREMIX DRIP IV SCH ×2 (13:53→22:50)
--- NOTE | 2016-05-04 14:04 | HHI.PR ---
Subjective Subjective Notes intubated sedated, npo tf on hold Objective Vitals/I&O Vital Signs Date Time Temp Pulse Resp B/P Pulse Ox O2 Delivery O2 Flow Rate FiO2 05/04/16 12:00 40 05/04/16 12:00 90 05/04/16 12:00 96.6 17 106/57 99 05/01/16 08:01 Ventilator Labs Laboratory Tests Test 05/04/16 04:10 White Blood Count 19.2 Red Blood Count 2.66 Hemoglobin 8.2 Hematocrit 24.8 Mean Corpuscular Volume 93.0 Mean Corpuscular Hemoglobin 30.9 Mean Corpuscular Hemoglobin 33.2 Concent Red Cell Distribution Width 14.0 Platelet Count 42 Mean Platelet Volume 10.9 Neutrophils (%) (Auto) 84.7 Lymphocytes (%) (Auto) 8.2 Monocytes (%) (Auto) 6.7 Eosinophils (%) (Auto) 0.0 Basophils (%) (Auto) 0.4 Neutrophils # (Auto) 16.3 Lymphocytes # (Auto) 1.6 Monocytes # (Auto) 1.3 Eosinophils # (Auto) 0.0 Basophils # (Auto) 0.1 CBC Comment AUTO DIFF Differential Total Cells 100 Counted Neutrophils % (Manual) 64 Band Neutrophils % 5 Lymphocytes % 11 Monocytes % 4 Neutrophils # (Manual) 16.3 Metamyelocytes 12 Myelocytes 4 Differential Comment FINAL DIFF MANUAL Platelet Estimate LOW Platelet Morphology Comment NORMAL Sodium Level 137 Potassium Level 3.7 Chloride Level 99 Carbon Dioxide Level 30.0 Anion Gap 8 Blood Urea Nitrogen 19 Creatinine 1.48 Estimat Glomerular Filtration 46 Rate Random Glucose 204 Calcium Level 6.5 Protein Corrected Calcium 7.6 Total Protein 4.9 Date/Time Procedure Status Source Growth 05/03/16 13:25 Aerobic Blood Culture - Preliminary Resulted Blood Peripheral NO GROWTH IN 1 DAY 05/03/16 13:25 Anaerobic Blood Culture - Preliminary Resulted Blood Peripheral NO GROWTH IN 1 DAY Cardiovascular: Regular Lungs: Rhonchi Abdomen: Non-distended Extremities: Other (vac in place no leak) A/P Assessment and Plan 80 year old male with NF with soft tissue gas gangrene; ?? origin perirectal abscess -POD3 Irrigation and wide debridement of right buttock and right thigh with vac change - NPO -Vent per CCM -Continue antibiotics -Seal check on Wound Vac shows no leak -Plan for repeat I&D and wound vac change on today Trey Marcos MD May 04, 2016 14:04
[2016-05-04] MEDS ORDERED: ceFAZolin INJ 1,000 MG VIAL ONE (15:23)
--- NOTE | 2016-05-04 16:01 | HHI.PR ---
Immediate Post Op Note Procedure Date: May 04, 2016 Pre Op Diagnosis: necrotic soft tissue infection of right buttock right posterior thigh Post Op Diagnosis: same Surgeon: Trey Marcos MD Blow Pit Helper(s): see or sheet Procedure: I and D right buttock with vac change Findings: better healing tissue, scant necrotic tissue, bleeding muscle healthier Complications: none Specimen(s) removed: none Anesthesia: General Drains: Other (vac) IVF (400) Patient to: PACU Patient Condition: Critical Trey Marcos MD May 04, 2016 16:01
[2016-05-04] MEDS ORDERED: fentaNYL CITRATE 250 MCG/5 ML AMP ONE (16:13)
[2016-05-04] MEDS: RESP: ALBUTEROL 2.5 MG/IPRATROPIUM 0.5 MG NEB (PRN) INH (19:50)
[2016-05-05] VITALS (19 sets, daily range): BP systolic 113–136; BP diastolic 59–78; PULSE 77–111; RESP 16–18; TEMP 98.2–99.1; O2SAT 94–99
[2016-05-05] MEDS: PROPOFOL 1000 MG/100 ML IV SCH ×6 (00:27→19:45)
[2016-05-05] MEDS: CHLORHEXIDINE GLUCONATE 2 % 1 PACK (2 CLOTHS) TOP SCH (04:00)
[2016-05-05] MEDS: HIGH DOSE INSULIN NOVOLOG SUPPLEMENTAL SCALE SQ SCH ×5 (04:00→19:44)
[2016-05-05 04:12] LABS: BLOOD GAS BASE EXCESS 3.7 mmol/L (-2-2); BLOOD GAS CARBOXYHEMOGLOBIN 0.8 % (0-4); BLOOD GAS HCO3 27 mmol/L (22-26); BLOOD GAS O2 HGB SATURATION 97 % (90-100); BLOOD GAS OXYGEN CONTENT 12.6 Vol % (12.0-20.0); BLOOD GAS PCO2 37 mmHg (38-42); BLOOD GAS PO2 134 mmHg (61-120); BLOOD GAS TOTAL HGB 9.1 G/DL (12.0-16.0); CRITICAL VALUE NO; DRAW SITE LT RADIAL; FIO2 60 %; NUMBER OF ARTERIAL PUNCTURES 1; OXYGEN DEVICE VENTILATOR; STAT NO; TEMP CORR TO 98.6; ULNAR PULSE PRESENT; VENT SETTINGS PRVC/16/550/1.0/+8
[2016-05-05] MEDS: PIPERACIL-TAZO 3.375 GM PREMIX 50 ML IV SCH ×4 (04:38→21:07)
[2016-05-05 06:31] LABS: BICARBONATE 29.5 MEQ/L (21.0-32.0)
[2016-05-05 06:33] LABS: POTASSIUM 3.9 MEQ/L (3.5-5.1)
[2016-05-05] MEDS: HYDROCORTISONE SOD SUCCINATE 100 MG VIAL IV PUSH SCH ×3 (06:39→17:44)
--- NOTE | 2016-05-05 06:46 | HHI.CCPN ---
Subjective Remarks/Hospital Course 80-year-old male came to the emergency room with history of dizziness, lightheadedness, generalized weakness and right buttock pain. CT scan revealed soft tissue gas gangrene originated most probably as a perirectal abscess. He was taken emergently to OR for debridement. 05/01: Ongoing septic shock. Requires additional debridement today for source control. 05/02: Back from OR after debridement right buttocks and thigh last night. Minimal necrotic tissue found. Vac in place. Clearly still septic, but vasopresors requirements are decreasing. 05/03: Persistent septic picture. 05/04: Vasopressor requirements now declining finally. Gas exchange acceptable. 05/05: Gas exchange a little better after desaturation last evening. Objective Vital Signs Date Time Temp Pulse Resp B/P Pulse Ox O2 Delivery O2 Flow Rate FiO2 05/05/16 06:00 93 05/05/16 04:00 98.4 16 129/61 99 05/05/16 04:00 70 05/01/16 08:01 Ventilator Intake and Output 05/04/16 05/04/16 05/05/16 08:00 16:00 00:00 Intake Total 1088 ml 718 ml 822 ml Output Total 1050 ml 1375 ml 1500 ml Balance 38 ml -657 ml -678 ml Result Diagram: 05/04/16 0410 05/05/16 0520 Other Results Laboratory Tests Test 05/05/16 04:02 Blood Gas Puncture Site LT RADIAL Blood Gas Patient Temperature 98.6 Blood Gas HCO3 27 mmol/L (22-26) Blood Gas Base Excess 3.7 mmol/L (-2-2) Blood Gas Oxygen Saturation 97 % (90-100) Arterial Blood pH 7.48 (7.380-7.420) Arterial Blood Partial 37 mmHg (38-42) Pressure CO2 Arterial Blood Partial 134 mmHg Pressure O2 (61-120) Arterial Blood Oxygen Content 12.6 Vol % (12.0-20.0) Arterial Blood 0.8 % (0-4) Carboxyhemoglobin Arterial Blood Methemoglobin 1.0 % (0-2) Blood Gas Hemoglobin 9.1 G/DL (12.0-16.0) Oxygen Delivery Device VENTILATOR Blood Gas Ventilator Setting PRVC/16/550/1.0/+8 Blood Gas Inspired Oxygen 60 % Imaging Last 24 hours Impressions Chest X-Ray 1/14/17 0819 Signed Impressions: Service Date/Time: Thursday, April 28, 2016 08:21 - CONCLUSION: Normal examination. Lawson Howard MD Abdomen/Pelvis CT 04/28/16818 Signed Impressions: Service Date/Time: Thursday, April 28, 2016 09:05 - CONCLUSION: 1. Significant inflammation, presumed infection, in the right gluteal region including numerous tiny locules of air not only in the gluteus janny muscle but extending anterior into the ischiorectal fossa on the right. There are two distinct collections around the rectum suspicious for a perirectal abscess both right anteriorly and left posterolaterally. 2. Gallstones versus sludge. Lawson Howard MD Lower Extremity CT 04/28/16 0000 Signed Impressions: Service Date/Time: Thursday, April 28, 2016 09:05 - CONCLUSION: There is extensive dissecting air throughout the gluteus janny muscle also dissecting into the lower posterior RIGHT thigh. There is air within the semi-tendinosis , semimembranosus, and biceps femoris muscles. There is also tiny amount of air along the abductor longus muscle. I don't see any drainable abscess or fluid collection. There is a small amount of fluid between the subcutaneous fat in the muscular fascia not an unusual finding in patient's with soft tissue edema. Lawson Howard MD Objective Remarks GENERAL: Ill-appearing, remains edematous. SKIN: Warm. HEAD: Normocephalic. NECK: Supple, Orally intubated. CARDIOVASCULAR: Irreg Irreg, rate 70s. No JVD. RESPIRATORY: Good adriel air entry on vent. Vent dependent. GASTROINTESTINAL: Abdomen soft, non-tender, nondistended. BS active. MUSCULOSKELETAL: Warm, well perfused. Generalized edema. NEURO: Largely obtunded, moderate sedation. Opens eyes. A/P Problem List: (1) Septic shock ICD Code: A41.9 Status: Acute (2) Gas gangrene of lower extremity ICD Code: A48.0 Status: Acute (3) Acute renal failure ICD Code: N17.9 Status: Acute (4) Encephalopathy, metabolic ICD Code: G93.41 Status: Acute Assessment and Plan Sepsis - perirectal abscess with extension to right thigh - debridement in the OR 04/28, 04/29, 05/04 - broad spectrum vanco, zosyn - adjust per ID. - ID consult appreciated - maintain fluid resuscitation -improved source control as of 05/02 -Stress dose steroids Soft tissue gas gangrene - due to above - broad spectrum ATB - vanco, zosyn - debridement again 05/04 per Gen Surg Perirectal abscess - ATB per ID - surgical debridement X 3 Respiratory failure - post op - unable to wean ventilator. BRAYDON - dehydration resolved - volume loss - aggressive i.v. fluids resuscitation - strict I&O - Dobutamine - Good urine output - Electrolyte protocol NUTRITION - Start Glucerna and benepro TFs DM - hold p.o. meds while in the ICU - ISS - Insulin gtt A.Fib - rate now controlled with digoxin - telemetry Overall impression: Remains critically ill with continued septic shock. Improved infection source control. Fails vent weaning. Remains septic. Critical Care 36 mins Problem Qualifiers (1) Acute renal failure: Qualified Code: N17.9 - Acute renal failure, unspecified acute renal failure type Zi Mustafa MD May 05, 2016 06:46
[2016-05-05 06:50] LABS: CALCIUM-PROTEIN CORRECTED 8.5 MG/DL (8.5-10.1)
[2016-05-05 07:01] LABS: AUTOMATED NEUTROPHIL # 17.1 TH/MM3 (1.8-7.7); BASOPHIL # 0.1 TH/MM3 (0-0.2); BASOPHIL % 0.5 % (0.0-2.0); HEMATOCRIT 23.3 % (39.0-51.0); LYMPH % 7.7 % (9.0-44.0); LYMPHOCYTE # 1.6 TH/MM3 (1.0-4.8); MEAN CELL VOLUME 92.4 FL (80.0-100.0); MEAN CORPUSCULAR HEMOGLOBIN 30.9 PG (27.0-34.0); MEAN CORPUSCULAR HGB CONC 33.4 % (32.0-36.0); NEUT % 82.8 % (16.0-70.0); PLATELET COUNT 51 TH/MM3 (150-450); RED BLOOD COUNT 2.52 MIL/MM3 (4.50-5.90); RED CELL DISTRIBUTION WIDTH 14.3 % (11.6-17.2); WHITE BLOOD COUNT 20.7 TH/MM3 (4.0-11.0)
[2016-05-05 07:34] LABS: HEMO FLAGS AUTO DIFF
[2016-05-05] MEDS: SODIUM CHLORIDE 0.9% FLUSH 5 ML FLUSH IV FLUSH SCH ×2 (08:03→21:07)
[2016-05-05] MEDS: RESP: ALBUTEROL 2.5 MG/IPRATROPIUM 0.5 MG NEB (PRN) INH (08:24)
[2016-05-05] MEDS: BENEPROTEIN POWDER 1 PACK G-TUBE SCH ×6 (08:39→17:44)
[2016-05-05] MEDS: fentaNYL DRIP 250 ML IV SCH (08:51)
[2016-05-05] MEDS: PANTOPRAZOLE SODIUM 40 MG VIAL IV SCH (08:51)
[2016-05-05] MEDS: CHLORHEXIDINE 0.12% (ORAL KIT) 15 ML CUP MT SCH ×2 (08:52→19:44)
[2016-05-05 09:08] LABS: BANDS 17 % (0-6); METAMYELOCYTES 2 % (0-1); MYELOCYTES 14 % (0-0); NEUTROPHIL # MANUAL DIFF 17.8 TH/MM3 (1.8-7.7); PLATELET ESTIMATE SMEAR LOW (NORMAL); PLATELET MORPHOLOGY ENLARGED (NORMAL); POLYS (SEG NEUTROPHILS) 53 % (16-70); WBC DIFF SAMPLE 100
[2016-05-05 09:09] LABS: SCAN/DIFF FINAL DIFF MANUAL
[2016-05-05] MEDS: DOBUTamine 250 MG/D5W 250 ML PREMIX DRIP IV SCH (11:25)
[2016-05-05] MEDS: DOCUSATE SODIUM 100 MG/10 ML UDC G-TUBE SCH (11:25)
--- NOTE | 2016-05-05 21:13 | HHI.PR ---
Subjective Subjective Notes intubated Objective Vitals/I&O Vital Signs Date Time Temp Pulse Resp B/P Pulse Ox O2 Delivery O2 Flow Rate FiO2 05/05/16 20:20 97 40 05/05/16 20:00 98.2 98 16 136/62 05/01/16 08:01 Ventilator Labs Laboratory Tests Test 05/05/16 05/05/16 04:02 05:20 Blood Gas Puncture Site LT RADIAL Blood Gas Patient Temperature 98.6 Blood Gas HCO3 27 Blood Gas Base Excess 3.7 Blood Gas Oxygen Saturation 97 Arterial Blood pH 7.48 Arterial Blood Partial 37 Pressure CO2 Arterial Blood Partial 134 Pressure O2 Arterial Blood Oxygen Content 12.6 Arterial Blood 0.8 Carboxyhemoglobin Arterial Blood Methemoglobin 1.0 Blood Gas Hemoglobin 9.1 Oxygen Delivery Device VENTILATOR Blood Gas Ventilator Setting PRVC/16/550/1.0/+8 Blood Gas Inspired Oxygen 60 White Blood Count 20.7 Red Blood Count 2.52 Hemoglobin 7.8 Hematocrit 23.3 Mean Corpuscular Volume 92.4 Mean Corpuscular Hemoglobin 30.9 Mean Corpuscular Hemoglobin 33.4 Concent Red Cell Distribution Width 14.3 Platelet Count 51 Mean Platelet Volume 10.3 Neutrophils (%) (Auto) 82.8 Lymphocytes (%) (Auto) 7.7 Monocytes (%) (Auto) 9.0 Eosinophils (%) (Auto) 0.0 Basophils (%) (Auto) 0.5 Neutrophils # (Auto) 17.1 Lymphocytes # (Auto) 1.6 Monocytes # (Auto) 1.9 Eosinophils # (Auto) 0.0 Basophils # (Auto) 0.1 CBC Comment AUTO DIFF Differential Total Cells 100 Counted Neutrophils % (Manual) 53 Band Neutrophils % 17 Lymphocytes % 11 Monocytes % 3 Neutrophils # (Manual) 17.8 Metamyelocytes 2 Myelocytes 14 Differential Comment FINAL DIFF MANUAL Platelet Estimate LOW Platelet Morphology Comment ENLARGED Red Cell Morphology Comment NORMAL Sodium Level 140 Potassium Level 3.9 Chloride Level 102 Carbon Dioxide Level 29.5 Anion Gap 9 Blood Urea Nitrogen 23 Creatinine 1.51 Estimat Glomerular Filtration 45 Rate Random Glucose 148 Calcium Level 7.3 Protein Corrected Calcium 8.5 Total Protein 4.9 Date/Time Procedure Status Source Growth 05/05/16 08:10 Aerobic Blood Culture Received Blood Peripheral Pending 05/05/16 08:10 Anaerobic Blood Culture Received Blood Peripheral Pending 05/03/16 13:25 Aerobic Blood Culture - Preliminary Resulted Blood Peripheral NO GROWTH IN 2 DAYS 05/03/16 13:25 Anaerobic Blood Culture - Preliminary Resulted Blood Peripheral NO GROWTH IN 2 DAYS Narrative Exam VAC intact with no cellulitis or leak A/P Assessment and Plan 80yo male with buttock abscess s/p ID, VAC in place, continue VAC and medical care, Diane NEWELL Andrew W. MD May 05, 2016 21:13
[2016-05-06] VITALS (21 sets, daily range): BP systolic 116–161; BP diastolic 57–72; PULSE 68–112; RESP 15–17; TEMP 98–98.8; O2SAT 93–99
[2016-05-06] MEDS: PROPOFOL 1000 MG/100 ML IV SCH ×3 (00:14→19:53)
[2016-05-06] MEDS: DOCUSATE SODIUM 100 MG/10 ML UDC G-TUBE SCH ×3 (00:14→23:57)
[2016-05-06] MEDS: HYDROCORTISONE SOD SUCCINATE 100 MG VIAL IV PUSH SCH ×5 (00:15→23:56)
[2016-05-06] MEDS: CHLORHEXIDINE GLUCONATE 2 % 1 PACK (2 CLOTHS) TOP SCH (04:00)
[2016-05-06] MEDS: HIGH DOSE INSULIN NOVOLOG SUPPLEMENTAL SCALE SQ SCH ×7 (04:46→23:57)
[2016-05-06] MEDS: PIPERACIL-TAZO 3.375 GM PREMIX 50 ML IV SCH ×4 (04:47→22:41)
[2016-05-06] MEDS: DOBUTamine 250 MG/D5W 250 ML PREMIX DRIP IV SCH ×3 (04:55→19:53)
[2016-05-06 05:33] LABS: HEMATOCRIT 22.6 % (39.0-51.0); MEAN CORPUSCULAR HEMOGLOBIN 31.1 PG (27.0-34.0); MEAN CORPUSCULAR HGB CONC 33.8 % (32.0-36.0); PLATELET COUNT 66 TH/MM3 (150-450); RED BLOOD COUNT 2.46 MIL/MM3 (4.50-5.90); RED CELL DISTRIBUTION WIDTH 14.6 % (11.6-17.2); WHITE BLOOD COUNT 21.5 TH/MM3 (4.0-11.0)
[2016-05-06 05:42] LABS: HEMO FLAGS AUTO DIFF
[2016-05-06 05:50] LABS: BICARBONATE 30.5 MEQ/L (21.0-32.0); POTASSIUM 3.4 MEQ/L (3.5-5.1)
[2016-05-06 06:02] LABS: CALCIUM-PROTEIN CORRECTED 8.3 MG/DL (8.5-10.1)
--- NOTE | 2016-05-06 06:03 | HHI.CCPN ---
Subjective Remarks/Hospital Course 80-year-old male came to the emergency room with history of dizziness, lightheadedness, generalized weakness and right buttock pain. CT scan revealed soft tissue gas gangrene originated most probably as a perirectal abscess. He was taken emergently to OR for debridement. 05/01: Ongoing septic shock. Requires additional debridement today for source control. 05/02: Back from OR after debridement right buttocks and thigh last night. Minimal necrotic tissue found. Vac in place. Clearly still septic, but vasopresors requirements are decreasing. 05/03: Persistent septic picture. 05/04: Vasopressor requirements now declining finally. Gas exchange acceptable. 05/05: Gas exchange a little better after desaturation last evening. 05/06: Start more ambitious weaning trials. TFs to goal. General perfusion improved. Objective Vital Signs Date Time Temp Pulse Resp B/P Pulse Ox O2 Delivery O2 Flow Rate FiO2 05/06/16 04:30 99 40 05/06/16 02:00 90 05/06/16 00:00 98.1 16 126/65 Intake and Output 05/05/16 05/05/16 05/06/16 08:00 16:00 00:00 Intake Total 1588 ml 892 ml 796 ml Output Total 1300 ml 1702 ml 1276 ml Balance 288 ml -810 ml -480 ml Result Diagram: 05/06/1615 05/06/16 0515 Imaging Last 24 hours Impressions Chest X-Ray 04/28/16818 Signed Impressions: Service Date/Time: Thursday, April 28, 2016 08:21 - CONCLUSION: Normal examination. Lawson Howard MD Abdomen/Pelvis CT 04/28/16818 Signed Impressions: Service Date/Time: Thursday, April 28, 2016 09:05 - CONCLUSION: 1. Significant inflammation, presumed infection, in the right gluteal region including numerous tiny locules of air not only in the gluteus janny muscle but extending anterior into the ischiorectal fossa on the right. There are two distinct collections around the rectum suspicious for a perirectal abscess both right anteriorly and left posterolaterally. 2. Gallstones versus sludge. Lawson Howard MD Lower Extremity CT 04/28/16 0000 Signed Impressions: Service Date/Time: Thursday, April 28, 2016 09:05 - CONCLUSION: There is extensive dissecting air throughout the gluteus janny muscle also dissecting into the lower posterior RIGHT thigh. There is air within the semi-tendinosis , semimembranosus, and biceps femoris muscles. There is also tiny amount of air along the abductor longus muscle. I don't see any drainable abscess or fluid collection. There is a small amount of fluid between the subcutaneous fat in the muscular fascia not an unusual finding in patient's with soft tissue edema. Lawson Howard MD Objective Remarks GENERAL: Ill-appearing, persistently edematous. SKIN: Warm. Well perfused. HEAD: Normocephalic. Atraumatic. NECK: Supple, Orally intubated. CARDIOVASCULAR: Irreg Irreg, rate 70-80s. No JVD. RESPIRATORY: Good adriel air entry on vent. Vent dependent. Few crackles, gen clear. GASTROINTESTINAL: Abdomen soft, non-tender, nondistended. BS active. MUSCULOSKELETAL: Warm, well perfused. Generalized edema. NEURO: Largely obtunded, moderate sedation. Opens eyes. A/P Problem List: (1) Septic shock ICD Code: A41.9 Status: Acute (2) Gas gangrene of lower extremity ICD Code: A48.0 Status: Acute (3) Acute renal failure ICD Code: N17.9 Status: Acute (4) Encephalopathy, metabolic ICD Code: G93.41 Status: Acute Assessment and Plan Sepsis - perirectal abscess with extension to right thigh - debridement in the OR 04/28, 04/29, 05/04 - broad spectrum vanco, zosyn - adjust per ID. - ID consult appreciated - maintain fluid resuscitation -improved source control as of 05/02 -Wean off stress dose steroids Soft tissue gas gangrene - due to above - broad spectrum ATB - vanco, zosyn - debridement again 05/04 per Gen Surg Perirectal abscess - ATB per ID - surgical debridement X 3 Respiratory failure - post op - unable to wean ventilator. BRAYDON - dehydration resolved - volume loss - aggressive i.v. fluids resuscitation - strict I&O - Dobutamine - Good urine output - Electrolyte protocol NUTRITION - Start Glucerna and benepro TFs DM - hold p.o. meds while in the ICU - ISS - Insulin gtt A.Fib - rate now controlled with digoxin - telemetry Overall impression: Remains critically ill with continued septic shock but improved peripheral resistance. . Improved infection source control. Fails vent weaning. Anemic. Critical Care 35 mins Problem Qualifiers (1) Acute renal failure: Qualified Code: N17.9 - Acute renal failure, unspecified acute renal failure type Zi Mustafa MD May 06, 2016 06:03
[2016-05-06] MEDS: BENEPROTEIN POWDER 1 PACK G-TUBE SCH ×6 (07:33→16:33)
[2016-05-06 08:42] LABS: BANDS 11 % (0-6); CORRECTED NUCLEATED RBC 1 /100 WBC (0-0); METAMYELOCYTES 7 % (0-1); MYELOCYTES 11 % (0-0); NEUTROPHIL # MANUAL DIFF 17.6 TH/MM3 (1.8-7.7); PLATELET ESTIMATE SMEAR LOW (NORMAL); PLATELET MORPHOLOGY ENLARGED (NORMAL); POLYS (SEG NEUTROPHILS) 53 % (16-70); SCAN/DIFF FINAL DIFF MANUAL; WBC DIFF SAMPLE 100
[2016-05-06] MEDS: LACTULOSE SYRUP 20 GM/30 ML CUP PO SCH (09:00)
[2016-05-06] MEDS: SODIUM CHLORIDE 0.9% FLUSH 5 ML FLUSH IV FLUSH SCH ×2 (09:07→19:54)
[2016-05-06] MEDS: CHLORHEXIDINE 0.12% (ORAL KIT) 15 ML CUP MT SCH ×2 (09:07→19:11)
[2016-05-06] MEDS: PANTOPRAZOLE SODIUM 40 MG VIAL IV SCH (09:07)
[2016-05-06] MEDS: POTASSIUM CL 40 MEQ/30 ML LIQ UDC PO/TUBE PRN (09:17)
[2016-05-06] MEDS ORDERED: FUROSEMIDE 40 MG/4 ML VIAL IV PUSH PRN (11:00)
[2016-05-06] MEDS: fentaNYL DRIP 250 ML IV SCH ×2 (12:40→19:53)
--- NOTE | 2016-05-06 12:53 | HHI.PR ---
Subjective Subjective Notes intubated and sedated on vent, tolerating TF, RN reports no problems with VAC Objective Vitals/I&O Vital Signs Date Time Temp Pulse Resp B/P Pulse Ox O2 Delivery O2 Flow Rate FiO2 05/06/16 12:00 87 05/06/16 12:00 98.5 15 145/66 96 05/06/16 12:00 40 Labs Laboratory Tests Test 05/06/16 05/06/16 05:15 07:35 White Blood Count 21.5 Red Blood Count 2.46 Hemoglobin 7.6 Hematocrit 22.6 Mean Corpuscular Volume 92.0 Mean Corpuscular Hemoglobin 31.1 Mean Corpuscular Hemoglobin 33.8 Concent Red Cell Distribution Width 14.6 Platelet Count 66 Mean Platelet Volume 10.3 Neutrophils (%) (Auto) Lymphocytes (%) (Auto) Monocytes (%) (Auto) Eosinophils (%) (Auto) Basophils (%) (Auto) Neutrophils # (Auto) Lymphocytes # (Auto) Monocytes # (Auto) Eosinophils # (Auto) Basophils # (Auto) CBC Comment AUTO DIFF Differential Total Cells 100 Counted Neutrophils % (Manual) 53 Band Neutrophils % 11 Lymphocytes % 14 Monocytes % 4 Neutrophils # (Manual) 17.6 Metamyelocytes 7 Myelocytes 11 Nucleated Red Blood Cells 1 Differential Comment FINAL DIFF MANUAL Platelet Estimate LOW Platelet Morphology Comment ENLARGED Sodium Level 140 Potassium Level 3.4 Chloride Level 102 Carbon Dioxide Level 30.5 Anion Gap 8 Blood Urea Nitrogen 27 Creatinine 1.42 Estimat Glomerular Filtration 48 Rate Random Glucose 142 Calcium Level 7.3 Protein Corrected Calcium 8.3 Total Protein 5.3 Blood Type A POSITIVE Antibody Screen NEGATIVE Crossmatch Leukocyte-Reduced Red Blood Cells Blood Bank Comment Date/Time Procedure Status Source Growth 05/05/16 08:10 Aerobic Blood Culture - Preliminary Resulted Blood Peripheral NO GROWTH IN 1 DAY 05/05/16 08:10 Anaerobic Blood Culture - Preliminary Resulted Blood Peripheral NO GROWTH IN 1 DAY Narrative Exam VAC intact, no leak, no drainage. A/P Assessment and Plan s/p ID buttock/flank, placement of VAC plan VAC change saturday in OR with Dr. Hemant Ramírez,Joshua Sifuentes MD May 06, 2016 12:53
[2016-05-06] MEDS: RESP: ALBUTEROL 2.5 MG/IPRATROPIUM 0.5 MG NEB (PRN) INH (15:38)
[2016-05-06] MEDS: SODIUM CHLORIDE 0.9% FLUSH 5 ML FLUSH IV FLUSH PRN (23:56)
[2016-05-07] VITALS (19 sets, daily range): BP systolic 108–183; BP diastolic 56–83; PULSE 61–112; RESP 14–19; TEMP 97.9–98.5; O2SAT 93–98
[2016-05-07] MEDS: PIPERACIL-TAZO 3.375 GM PREMIX 50 ML IV SCH ×4 (03:49→21:05)
[2016-05-07] MEDS: HIGH DOSE INSULIN NOVOLOG SUPPLEMENTAL SCALE SQ SCH ×6 (03:50→23:40)
[2016-05-07] MEDS: CHLORHEXIDINE GLUCONATE 2 % 1 PACK (2 CLOTHS) TOP SCH (03:50)
[2016-05-07 04:43] LABS: MEAN CELL VOLUME 89.5 FL (80.0-100.0); MEAN CORPUSCULAR HEMOGLOBIN 30.9 PG (27.0-34.0); MEAN CORPUSCULAR HGB CONC 34.5 % (32.0-36.0); PLATELET COUNT 101 TH/MM3 (150-450); RED BLOOD COUNT 3.24 MIL/MM3 (4.50-5.90); RED CELL DISTRIBUTION WIDTH 15.1 % (11.6-17.2); WHITE BLOOD COUNT 23.9 TH/MM3 (4.0-11.0)
[2016-05-07 04:44] LABS: HEMO FLAGS AUTO DIFF
[2016-05-07 05:19] LABS: BICARBONATE 30.3 MEQ/L (21.0-32.0); POTASSIUM 3.6 MEQ/L (3.5-5.1)
[2016-05-07 05:35] LABS: CALCIUM-PROTEIN CORRECTED 8.2 MG/DL (8.5-10.1)
[2016-05-07] MEDS: HYDROCORTISONE SOD SUCCINATE 100 MG VIAL IV PUSH SCH ×3 (05:38→23:40)
--- NOTE | 2016-05-07 07:42 | HHI.CCPN ---
Subjective Remarks/Hospital Course 80-year-old male came to the emergency room with history of dizziness, lightheadedness, generalized weakness and right buttock pain. CT scan revealed soft tissue gas gangrene originated most probably as a perirectal abscess. He was taken emergently to OR for debridement. 05/01: Ongoing septic shock. Requires additional debridement today for source control. 05/02: Back from OR after debridement right buttocks and thigh last night. Minimal necrotic tissue found. Vac in place. Clearly still septic, but vasopresors requirements are decreasing. 05/03: Persistent septic picture. 05/04: Vasopressor requirements now declining finally. Gas exchange acceptable. 05/05: Gas exchange a little better after desaturation last evening. 05/06: Start more ambitious weaning trials. TFs to goal. General perfusion improved. 05/07: Persistent leukocytosis, likely from necrotic wound. Will replace CVL after OR today just to be cautious. Objective Vital Signs Date Time Temp Pulse Resp B/P Pulse Ox O2 Delivery O2 Flow Rate FiO2 05/07/16 06:00 86 05/07/16 04:18 94 40 05/07/16 04:15 124/58 05/07/16 04:00 98.5 17 Intake and Output 05/06/16 05/06/16 05/07/16 08:00 16:00 00:00 Intake Total 2092 ml 1743 ml 750 ml Output Total 2201 ml 3353 ml 1751 ml Balance -109 ml -1610 ml -1001 ml Result Diagram: 05/07/16 0432 05/07/16 0432 Imaging Last 24 hours Impressions Chest X-Ray 04/28/16818 Signed Impressions: Service Date/Time: Thursday, April 28, 2016 08:21 - CONCLUSION: Normal examination. Lawson Howard MD Abdomen/Pelvis CT 04/28/16818 Signed Impressions: Service Date/Time: Thursday, April 28, 2016 09:05 - CONCLUSION: 1. Significant inflammation, presumed infection, in the right gluteal region including numerous tiny locules of air not only in the gluteus janny muscle but extending anterior into the ischiorectal fossa on the right. There are two distinct collections around the rectum suspicious for a perirectal abscess both right anteriorly and left posterolaterally. 2. Gallstones versus sludge. Lawson Howard MD Lower Extremity CT 04/28/16 0000 Signed Impressions: Service Date/Time: Thursday, April 28, 2016 09:05 - CONCLUSION: There is extensive dissecting air throughout the gluteus janny muscle also dissecting into the lower posterior RIGHT thigh. There is air within the semi-tendinosis , semimembranosus, and biceps femoris muscles. There is also tiny amount of air along the abductor longus muscle. I don't see any drainable abscess or fluid collection. There is a small amount of fluid between the subcutaneous fat in the muscular fascia not an unusual finding in patient's with soft tissue edema. Lawson Howard MD Objective Remarks GENERAL: Persistently edematous. SKIN: Warm. Well perfused. HEAD: Normocephalic. Atraumatic. NECK: Supple, Orally intubated. CARDIOVASCULAR: Irreg Irreg, rate controlled 70-80s. No JVD. RESPIRATORY: Good adriel air entry on vent. Remains vent dependent. Few crackles GASTROINTESTINAL: Abdomen soft, non-tender, nondistended. BS active. No peritoneal irritation. MUSCULOSKELETAL: Warm, well perfused. Generalized edema. NEURO: Largely obtunded, moderate sedation. Opens eyes. A/P Problem List: (1) Septic shock ICD Code: A41.9 Status: Acute (2) Gas gangrene of lower extremity ICD Code: A48.0 Status: Acute (3) Acute renal failure ICD Code: N17.9 Status: Acute (4) Encephalopathy, metabolic ICD Code: G93.41 Status: Acute Assessment and Plan Sepsis - perirectal abscess with extension to right thigh - debridement in the OR 04/28, 04/29, 05/04 - broad spectrum vanco, zosyn - adjust per ID. - ID consult appreciated - maintain fluid resuscitation -improved source control as of 05/02 Soft tissue gas gangrene - due to above - broad spectrum ATB - vanco, zosyn - debridement again 05/04 per Gen Surg Perirectal abscess - ATB per ID - surgical debridement X 3 Respiratory failure - post op - unable to wean ventilator. BRAYDON - dehydration resolved - volume loss - aggressive i.v. fluids resuscitation - strict I&O - Dobutamine - Good urine output - Electrolyte protocol NUTRITION - Start Glucerna and benepro TFs DM - hold p.o. meds while in the ICU - ISS - Insulin gtt A.Fib - rate now controlled with digoxin - telemetry Overall impression: Remains critically ill with continued septic shock but improved peripheral resistance. Will taper off steroids. Improved infection source control. Fails vent weaning. Critical Care 36 mins Problem Qualifiers (1) Acute renal failure: Qualified Code: N17.9 - Acute renal failure, unspecified acute renal failure type Zi Mustafa MD May 07, 2016 07:42 Zi Mustafa MD May 07, 2016 07:42
[2016-05-07 07:53] LABS: BANDS 9 % (0-6); METAMYELOCYTES 8 % (0-1); MYELOCYTES 13 % (0-0); NEUTROPHIL # MANUAL DIFF 20.1 TH/MM3 (1.8-7.7); POLYS (SEG NEUTROPHILS) 53 % (16-70); PROMYELOCYTES 1 % (0-0); WBC DIFF SAMPLE 100
[2016-05-07 07:54] LABS: PLATELET ESTIMATE SMEAR LOW (NORMAL); PLATELET MORPHOLOGY NORMAL (NORMAL); SCAN/DIFF FINAL DIFF MANUAL
[2016-05-07] MEDS: CHLORHEXIDINE 0.12% (ORAL KIT) 15 ML CUP MT SCH ×2 (07:59→21:04)
[2016-05-07] MEDS: PANTOPRAZOLE SODIUM 40 MG VIAL IV SCH (08:00)
[2016-05-07] MEDS: LACTULOSE SYRUP 20 GM/30 ML CUP PO SCH (08:00)
[2016-05-07] MEDS: PROPOFOL 1000 MG/100 ML IV SCH ×3 (08:00→23:41)
[2016-05-07] MEDS: fentaNYL DRIP 250 ML IV SCH ×2 (08:00→23:41)
[2016-05-07] MEDS: BENEPROTEIN POWDER 1 PACK G-TUBE SCH ×7 (08:00→17:08)
[2016-05-07] MEDS: DOBUTamine 250 MG/D5W 250 ML PREMIX DRIP IV SCH ×2 (08:01→14:07)
[2016-05-07] MEDS: SODIUM CHLORIDE 0.9% FLUSH 5 ML FLUSH IV FLUSH SCH ×2 (08:01→21:05)
[2016-05-07] MEDS ORDERED: SODIUM CHLOR 0.9% 250 ML INJ 250 ML IV ONE (12:00)
[2016-05-07] MEDS: DOCUSATE SODIUM 100 MG/10 ML UDC G-TUBE SCH ×2 (12:00→23:41)
[2016-05-07] MEDS ORDERED: PHENYLEPH/NS 1000 MCG/10 ML SYR IV ONE (12:00)
--- NOTE | 2016-05-07 12:32 | HHI.IDPN ---
Note Infectious Disease Note ID COVERAGE: Patient on vent. Sp debridement of necrotic R buttock x 3. Afebrile Wound vac in place. Growing gram viarible org in 2/ admission clx, anaerobic bottles only Repeat blood culture has no growth. Current Medications Medications (Trade) Dose Ordered Sig/Jeff Route PRN Reason Start Time Stop Time Status Last Admin Dose Admin IV Flush (NS Flush) 2 ml UNSCH PRN IV FLUSH FLUSH AFTER USING IV ACCESS 04/28/16 10:00 05/06/16 23:56 IV Flush (NS Flush) 2 ml BID IV FLUSH 04/28/16 10:00 05/06/16 19:54 Acetaminophen (Tylenol) 650 mg Q6H PRN PO PAIN 1-10 AND/OR FEVER >101F 04/28/16 10:00 Oxycodone/ Acetaminophen (Percocet 5-325 Mg) 1 tab Q4H PRN PO PAIN SCALE 1 TO 5 04/28/16 10:00 Morphine Sulfate (Morphine Inj) 2 mg Q2H PRN IV PAIN SCALE 6 TO 10 04/28/16 10:00 Pantoprazole Sodium (Protonix Inj) 40 mg DAILY IV 04/28/16 12:00 05/07/16 08:00 Lorazepam (Ativan Inj) 1 mg Q1H PRN IV Agitation/Sedation 04/28/16 10:00 Ondansetron HCl (Zofran Inj) 4 mg Q6H PRN IV NAUSEA OR VOMITING 04/28/16 10:00 Metoclopramide HCl (Reglan Inj) 10 mg Q6H PRN IV NAUSEA OR VOMITING 04/28/16 10:00 Docusate Sodium (Colace Liq) 100 mg Q12H G-TUBE 04/28/16 12:00 05/06/16 00:14 Heparin Sodium (Porcine) (Heparin Inj) 5,000 units Q12H SQ 04/28/16 12:00 Hold 04/30/16 11:20 Miscellaneous Information 1 [id number] XX 04/28/16 10:00 Chlorhexidine Gluconate (Chlorhexidine 2% Cloth) Taper DAILY@04 TOP 04/29/16 04:00 04/25/17 03:59 05/07/16 03:50 Chlorhexidine Gluconate (Chlorhexidine 2% Cloth) 3 pack UNSCH PRN TOP HYGIENIC CARE 04/28/16 10:00 Terbutaline Sulfate 1 mg 1 mg UNSCH PRN SQ FOR EXTRAVASATION PROTOCOL 04/28/16 16:00 Norepinephrine Bitartrate 250 ml @ 0 mls/hr TITRATE IV 04/28/16 17:15 05/03/16 17:02 Phenylephrine HCl 40 mg/Dextrose 500 ml @ 0 mls/hr TITRATE IV 04/28/16 18:45 05/04/16 02:40 Fentanyl Citrate (fentaNYL DRIP) 250 ml @ 0 mls/hr TITRATE IV 04/28/16 18:45 05/07/16 08:00 Morphine Sulfate 4 mg 4 mg Q3H PRN IV PUSH any pain 04/28/16 18:45 Propofol (Diprivan 1000 Mg/100ml Inj) 100 ml @ 0 mls/hr TITRATE IV 04/28/16 20:45 05/07/16 08:00 Chlorhexidine Gluconate 15 ml 15 ml BID@08,20 MT 04/29/16 08:00 05/07/16 07:59 Potassium Chloride 100 ml @ 50 mls/hr Q2H PRN IV For Potassium 2.8 - 3.2 mEq/L 04/30/16 09:00 05/02/16 16:37 Potassium Chloride (KCl 20 Meq Premix Inj) 100 ml @ 50 mls/hr Q2H PRN IV For Potassium 2.8 - 3.2 mEq/L 04/30/16 09:00 Potassium Chloride 40 meq 40 meq UNSCH PRN PO/TUBE For Potassium 3.3 - 3.5 mEq/L 04/30/16 08:30 05/06/16 09:17 Potassium Chloride 100 ml @ 25 mls/hr UNSCH PRN IV For Potassium 3.3 - 3.5 mEq/L 04/30/16 08:30 Potassium Chloride 100 ml @ 50 mls/hr Q2H PRN IV For Potassium 3.3 - 3.5 mEq/L 04/30/16 08:30 Magnesium Sulfate/ Sodium Chloride (Magnesium Sulfate Inj/NS Inj) 100 ml @ 50 mls/hr UNSCH PRN IV For Magnesium 0.9 - 1.1 mg/dL 04/30/16 08:30 Magnesium Oxide 800 mg 800 mg UNSCH PRN PO For Magnesium 1.2 - 1.6 mg/dL 04/30/16 08:30 Magnesium Sulfate/ Sodium Chloride (Magnesium Sulfate Inj/NS Inj) 100 ml @ 50 mls/hr UNSCH PRN IV For Magnesium 1.2 - 1.6 mg/dL 04/30/16 08:30 05/01/16 08:07 Potassium Phosphate 2000 mg 2,000 mg Q4H PRN PO For Phosphorus < 2.5 mg/dL 04/30/16 08:30 Sodium Phosphate/ Sodium Chloride (Sodium Phosphate Inj/NS 250 ml Inj) 250 ml @ 42 mls/hr UNSCH PRN IV For Phosphorus < 2.5 mg/dL 04/30/16 08:30 Potassium Chloride (KCl 40 Meq/30 ml Liq) 40 meq UNSCH PRN PO/TUBE SEE LABEL COMMENTS 04/30/16 08:30 Potassium Phosphate 2000 mg 2,000 mg UNSCH PRN PO/TUBE SEE LABEL COMMENTS 04/30/16 08:30 Potassium Phosphate/Sodium Chloride (Potassium Phosphate Inj/NS 250 ml Inj) 260 ml @ 42 mls/hr UNSCH PRN IV SEE LABEL COMMENTS 04/30/16 08:30 05/01/16 08:10 Protein 1 pack 1 pack TID G-TUBE 05/01/16 09:00 05/06/16 16:33 Piperacillin Sod/ Tazobactam Sod 50 ml @ 100 mls/hr Q6H IV 05/02/16 16:00 05/07/16 10:04 Dobutamine HCl/ Dextrose (DOBUTamine PREMIX DRIP) 250 ml @ 22.005 mls/ hr [id number] IV 05/03/16 13:30 05/07/16 08:01 Dextrose (D50w (Vial) Inj) 25 ml UNSCH PRN IV PUSH HYPOGLYCEMIA - SEE COMMENTS 05/03/16 13:45 Glucagon (Glucagon Inj) 1 mg UNSCH PRN OTHER HYPOGLYCEMIA-SEE COMMENTS 05/03/16 13:45 Insulin Aspart (NovoLOG SUPPLEMENTAL SCALE) 1 Q4HR SQ 05/03/16 16:00 05/07/16 03:50 Protein (Beneprotein Powder) 1 pack TID G-TUBE 05/05/16 09:00 Lactulose (Lactulose Liq) 30 ml DAILY PO 05/06/16 09:00 Hydrocortisone Sodium Succinate (SoluCORTEF INJ) 50 mg Q12H IV PUSH 05/07/16 12:00 05/08/16 12:00 Past Medical History morbid obesity and diebetes Allergies: Coded Allergies: *MDRO Multi-Drug Resistant Organism (Verified Adverse Reaction, Unknown, ) MRSA PCR Screeen POSITIVE - 04/28/2016 Objective Vital Signs Date Time Temp Pulse Resp B/P Pulse Ox O2 Delivery O2 Flow Rate FiO2 05/07/16 12:00 40 05/07/16 12:00 98.0 65 14 172/77 95 05/07/16 12:00 65 05/07/16 10:00 70 05/07/16 08:00 87 05/07/16 08:00 98.3 87 14 133/65 96 05/07/16 08:00 40 05/07/16 07:32 97 40 05/07/16 06:00 86 05/07/16 04:18 94 40 05/07/16 04:15 124/58 05/07/16 04:00 40 05/07/16 04:00 98.5 90 17 183/83 93 05/07/16 04:00 90 05/07/16 02:00 93 05/07/16 01:02 94 40 05/07/16 00:00 106 05/07/16 00:00 40 05/07/16 00:00 98.2 106 19 108/56 95 05/06/16 22:00 104 05/06/16 20:25 93 40 05/06/16 20:25 40 05/06/16 20:00 108 05/06/16 20:00 98.8 108 17 161/72 94 05/06/16 20:00 40 05/06/16 16:00 112 05/06/16 16:00 40 05/06/16 16:00 98.4 112 17 135/72 94 05/06/16 15:39 96 40 05/06/16 14:00 98 05/06/16 13:44 99 40 05/06/16 05/06/16 05/07/16 15:00 23:00 07:00 Intake Total 1743 ml 750 ml 679 ml Output Total 3353 ml 1751 ml 1151 ml Balance -1610 ml -1001 ml -472 ml IV Total 564 ml 327 ml 525 ml Tube Feeding 379 ml 303 ml 94 ml Packed Cells 500 ml Tube Irrigant 300 ml 120 ml 60 ml Output Urine Total 2850 ml 1250 ml 900 ml Stool Total 3 ml 1 ml 1 ml Drainage Total 500 ml 500 ml 250 ml Laboratory Tests Test 05/06/16 05/07/16 05:15 04:32 White Blood Count 21.5 TH/MM3 23.9 TH/MM3 Red Blood Count 2.46 MIL/MM3 3.24 MIL/MM3 Hemoglobin 7.6 GM/DL 10.0 GM/DL Hematocrit 22.6 % 29.0 % Mean Corpuscular Volume 92.0 FL 89.5 FL Mean Corpuscular Hemoglobin 31.1 PG 30.9 PG Mean Corpuscular Hemoglobin 33.8 % 34.5 % Concent Red Cell Distribution Width 14.6 % 15.1 % Platelet Count 66 TH/MM3 101 TH/MM3 Mean Platelet Volume 10.3 FL 10.5 FL Neutrophils (%) (Auto) % % Lymphocytes (%) (Auto) % % Monocytes (%) (Auto) % % Eosinophils (%) (Auto) % % Basophils (%) (Auto) % % Neutrophils # (Auto) TH/MM3 TH/MM3 Lymphocytes # (Auto) TH/MM3 TH/MM3 Monocytes # (Auto) TH/MM3 TH/MM3 Eosinophils # (Auto) TH/MM3 TH/MM3 Basophils # (Auto) TH/MM3 TH/MM3 CBC Comment AUTO DIFF AUTO DIFF Differential Total Cells 100 100 Counted Neutrophils % (Manual) 53 % 53 % Band Neutrophils % 11 % 9 % Lymphocytes % 14 % 8 % Monocytes % 4 % 8 % Neutrophils # (Manual) 17.6 TH/MM3 20.1 TH/MM3 Metamyelocytes 7 % 8 % Myelocytes 11 % 13 % Nucleated Red Blood Cells 1 /100 WBC Differential Comment FINAL DIFF FINAL DIFF MANUAL MANUAL Platelet Estimate LOW LOW Platelet Morphology Comment ENLARGED NORMAL Promyelocytes 1 % Red Cell Morphology Comment NORMAL Laboratory Tests Test 05/06/16 05/07/16 05:15 04:32 Sodium Level 140 MEQ/L 140 MEQ/L Potassium Level 3.4 MEQ/L 3.6 MEQ/L Chloride Level 102 MEQ/L 101 MEQ/L Carbon Dioxide Level 30.5 MEQ/L 30.3 MEQ/L Anion Gap 8 MEQ/L 9 MEQ/L Blood Urea Nitrogen 27 MG/DL 29 MG/DL Creatinine 1.42 MG/DL 1.53 MG/DL Estimat Glomerular Filtration 48 ML/MIN 44 ML/MIN Rate Random Glucose 142 MG/DL 187 MG/DL Calcium Level 7.3 MG/DL 7.4 MG/DL Protein Corrected Calcium 8.3 MG/DL 8.2 MG/DL Total Protein 5.3 GM/DL 5.7 GM/DL Microbiology Date/Time Procedure Status Source Growth 05/05/16 08:10 Aerobic Blood Culture - Preliminary Resulted Blood Peripheral NO GROWTH IN 2 DAYS 05/05/16 08:10 Anaerobic Blood Culture - Preliminary Resulted Blood Peripheral NO GROWTH IN 2 DAYS Imaging Chest X-Ray 05/01/16 0600 Signed Impressions: Service Date/Time: Sunday, May 01, 2016 05:35 - CONCLUSION: Slight improvement in aeration. Davon Stokes MD Abdomen/Pelvis CT 04/28/16 0819 Signed Impressions: Service Date/Time: Thursday, April 28, 2016 09:05 - CONCLUSION: 1. Significant inflammation, presumed infection, in the right gluteal region including numerous tiny locules of air not only in the gluteus janny muscle but extending anterior into the ischiorectal fossa on the right. There are two distinct collections around the rectum suspicious for a perirectal abscess both right anteriorly and left posterolaterally. 2. Gallstones versus sludge. Lawson Howard MD Lower Extremity CT 04/28/16 0000 Signed Impressions: Service Date/Time: Thursday, April 28, 2016 09:05 - CONCLUSION: There is extensive dissecting air throughout the gluteus janny muscle also dissecting into the lower posterior RIGHT thigh. There is air within the semi-tendinosis , semimembranosus, and biceps femoris muscles. There is also tiny amount of air along the abductor longus muscle. I don't see any drainable abscess or fluid collection. There is a small amount of fluid between the subcutaneous fat in the muscular fascia not an unusual finding in patient's with soft tissue edema. Lawson Howard MD Physical Exam GENERAL: Sedated and unresponsive on the vent. VAC in place R buttock has serous sanguinous drainage. EYES: No scleral icterus. ENT: Oral mucosa moist. CARDIOVASCULAR: Regular rate and rhythm without murmurs, gallops, or rubs. RESPIRATORY/CHEST: Clear to auscultation. Breath sounds equal bilaterally, decreased. GASTROINTESTINAL: Abdomen soft, mildly distended. GENITOURINARY: baxter in place with clear yellow urine MUSCULOSKELETAL: Extremities without clubbing, 4+ edema SKIN: No rash. Warm and moist. NEUROLOGICAL: sedated and intubated Assessment & Plan Remarks Perirectal abscess and gas gangrene R buttock Necrotizing fascitis R buttock Severe sepsis - leukocytosis, bandemia, fever, lactic acidosis (4.0), hypotension, tachycardia and ARF, Source abscess, gas gangrene. Leukocytosis related to fascitis. Critically ill - Post multiple debridement. ? Anaerobic sepsis - from presenting condition. Repeat blood culture negative. - Continue Zosyn - Follow blood cultures. ID of organism. - Follow new blood cultures. - Monitor WBC. Ha Pelaez MD May 07, 2016 12:32
[2016-05-07] MEDS ORDERED: fentaNYL CITRATE 250 MCG/5 ML AMP ONE (16:54)
[2016-05-07] MEDS ORDERED: MIDAZOLAM HCL 2 MG/2 ML VIAL ONE ×2 (16:55→16:56)
--- NOTE | 2016-05-07 20:49 | HHI.PR ---
Immediate Post Op Note Procedure Date: May 07, 2016 Pre Op Diagnosis: necrotizing soft tissue infection right buttock and right thigh Post Op Diagnosis: same Surgeon: Trey Marcos MD Oncology Consultant(s): see or sheet Procedure: I and debridement of right buttock and right with partial closure and vac placement Findings: healing tissues, medial necrotic skin Complications: none Specimen(s) removed: none Estimated blood loss: 20cc Anesthesia: General Drains: None, Other (vac) IVF (100cc) Patient to: [facility] Patient Condition: Fair Trey Marcos MD May 07, 2016 20:49
[2016-05-08] VITALS (20 sets, daily range): BP systolic 111–139; BP diastolic 57–63; PULSE 63–112; RESP 14–20; TEMP 97.9–98.9; O2SAT 94–98
[2016-05-08] MEDS: PROPOFOL 1000 MG/100 ML IV SCH ×5 (03:58→23:55)
[2016-05-08] MEDS: PIPERACIL-TAZO 3.375 GM PREMIX 50 ML IV SCH ×4 (03:58→21:43)
[2016-05-08] MEDS: CHLORHEXIDINE GLUCONATE 2 % 1 PACK (2 CLOTHS) TOP SCH (04:00)
[2016-05-08] MEDS: HIGH DOSE INSULIN NOVOLOG SUPPLEMENTAL SCALE SQ SCH ×6 (04:00→23:55)
[2016-05-08] MEDS: DOBUTamine 250 MG/D5W 250 ML PREMIX DRIP IV SCH ×3 (05:12→16:00)
[2016-05-08 06:23] LABS: AUTOMATED NEUTROPHIL # 14.6 TH/MM3 (1.8-7.7); BASOPHIL # 0.1 TH/MM3 (0-0.2); BASOPHIL % 0.3 % (0.0-2.0); HEMATOCRIT 28.9 % (39.0-51.0); LYMPH % 13.3 % (9.0-44.0); LYMPHOCYTE # 2.6 TH/MM3 (1.0-4.8); MEAN CELL VOLUME 91.7 FL (80.0-100.0); MEAN CORPUSCULAR HGB CONC 32.7 % (32.0-36.0); MONO % 12.4 % (0.0-8.0); PLATELET COUNT 119 TH/MM3 (150-450); RED BLOOD COUNT 3.15 MIL/MM3 (4.50-5.90); WHITE BLOOD COUNT 19.7 TH/MM3 (4.0-11.0)
[2016-05-08 06:24] LABS: HEMO FLAGS AUTO DIFF
[2016-05-08 06:38] LABS: POTASSIUM 3.1 MEQ/L (3.5-5.1)
[2016-05-08 07:03] LABS: BANDS 17 % (0-6); METAMYELOCYTES 11 % (0-1); MYELOCYTES 7 % (0-0); NEUTROPHIL # MANUAL DIFF 14.8 TH/MM3 (1.8-7.7); POLYS (SEG NEUTROPHILS) 40 % (16-70); WBC DIFF SAMPLE 100
[2016-05-08 07:06] LABS: PLATELET ESTIMATE SMEAR LOW (NORMAL); PLATELET MORPHOLOGY ENLARGED (NORMAL)
[2016-05-08 07:07] LABS: SCAN/DIFF FINAL DIFF MANUAL
[2016-05-08] MEDS: BENEPROTEIN POWDER 1 PACK G-TUBE SCH ×6 (08:06→17:18)
[2016-05-08] MEDS: CHLORHEXIDINE 0.12% (ORAL KIT) 15 ML CUP MT SCH ×2 (08:06→19:39)
[2016-05-08] MEDS: SODIUM CHLORIDE 0.9% FLUSH 5 ML FLUSH IV FLUSH SCH ×2 (08:06→21:40)
[2016-05-08] MEDS: LACTULOSE SYRUP 20 GM/30 ML CUP PO SCH (08:07)
[2016-05-08] MEDS: PANTOPRAZOLE SODIUM 40 MG VIAL IV SCH (08:07)
[2016-05-08] MEDS: POTASSIUM CHLOR 40 MEQ PREMIX 100 ML IV PRN ×2 (09:06→11:05)
--- NOTE | 2016-05-08 09:17 | HHI.CCPN ---
Subjective Remarks/Hospital Course 80-year-old male came to the emergency room with history of dizziness, lightheadedness, generalized weakness and right buttock pain. CT scan revealed soft tissue gas gangrene originated most probably as a perirectal abscess. He was taken emergently to OR for debridement. 05/01: Ongoing septic shock. Requires additional debridement today for source control. 05/02: Back from OR after debridement right buttocks and thigh last night. Minimal necrotic tissue found. Vac in place. Clearly still septic, but vasopresors requirements are decreasing. 05/03: Persistent septic picture. 05/04: Vasopressor requirements now declining finally. Gas exchange acceptable. 05/05: Gas exchange a little better after desaturation last evening. 05/06: Start more ambitious weaning trials. TFs to goal. General perfusion improved. 05/07: Persistent leukocytosis, likely from necrotic wound. Will replace CVL after OR just to be cautious. 05/08: Extensive peripheral edema. Should tolerate gentle diuresis at this point. Objective Vital Signs Date Time Temp Pulse Resp B/P Pulse Ox O2 Delivery O2 Flow Rate FiO2 05/08/16 07:40 96 40 05/08/16 06:00 82 05/08/16 04:00 98.0 14 111/57 Intake and Output 05/07/16 05/07/16 05/08/16 08:00 16:00 00:00 Intake Total 679 ml 448 ml 761 ml Output Total 1151 ml 650 ml 800 ml Balance -472 ml -202 ml -39 ml Result Diagram: 05/08/16 0600 05/08/16 0600 Imaging Last 24 hours Impressions Chest X-Ray 04/28/16818 Signed Impressions: Service Date/Time: Thursday, April 28, 2016 08:21 - CONCLUSION: Normal examination. Lawson Howard MD Abdomen/Pelvis CT 04/28/16818 Signed Impressions: Service Date/Time: Thursday, April 28, 2016 09:05 - CONCLUSION: 1. Significant inflammation, presumed infection, in the right gluteal region including numerous tiny locules of air not only in the gluteus janny muscle but extending anterior into the ischiorectal fossa on the right. There are two distinct collections around the rectum suspicious for a perirectal abscess both right anteriorly and left posterolaterally. 2. Gallstones versus sludge. Lawson Howard MD Lower Extremity CT 04/28/16 0000 Signed Impressions: Service Date/Time: Thursday, April 28, 2016 09:05 - CONCLUSION: There is extensive dissecting air throughout the gluteus janny muscle also dissecting into the lower posterior RIGHT thigh. There is air within the semi-tendinosis , semimembranosus, and biceps femoris muscles. There is also tiny amount of air along the abductor longus muscle. I don't see any drainable abscess or fluid collection. There is a small amount of fluid between the subcutaneous fat in the muscular fascia not an unusual finding in patient's with soft tissue edema. Lawson Howard MD Objective Remarks GENERAL: Persistently edematous. SKIN: Warm. Well perfused. HEAD: Normocephalic. Atraumatic. NECK: Supple, Orally intubated. CARDIOVASCULAR: Irreg Irreg, rate controlled 80-90s. No JVD. RESPIRATORY: Good adriel air entry on vent. Remains vent dependent. GASTROINTESTINAL: Abdomen soft, non-tender, nondistended. BS active. No peritoneal irritation. MUSCULOSKELETAL: Warm, well perfused. Generalized edema. NEURO: Largely obtunded, moderate sedation. Opens eyes. Agitated when light but not purposeful. A/P Problem List: (1) Septic shock ICD Code: A41.9 Status: Acute (2) Acute hypoxemic respiratory failure ICD Code: J96.01 Status: Acute (3) Gas gangrene of lower extremity ICD Code: A48.0 Status: Acute (4) Acute renal failure ICD Code: N17.9 Status: Acute (5) Encephalopathy, metabolic ICD Code: G93.41 Status: Acute Assessment and Plan Sepsis - perirectal abscess with extension to right thigh - debridement in the OR 04/28, 04/29, 05/04 - broad spectrum vanco, zosyn - adjust per ID. - ID consult appreciated - maintain fluid resuscitation -improved source control as of 05/02 Soft tissue gas gangrene - due to above - broad spectrum ATB - vanco, zosyn - debridement again 05/04 per Gen Surg Perirectal abscess - ATB per ID - surgical debridement X 4 Respiratory failure - post op - unable to wean ventilator. BRAYDON - dehydration resolved - volume loss - aggressive i.v. fluids resuscitation - strict I&O - Dobutamine - Good urine output - Electrolyte protocol - Start diuresis. NUTRITION - Start Glucerna and benepro TFs DM - hold p.o. meds while in the ICU - ISS - Insulin gtt A.Fib - rate now controlled with digoxin - telemetry Overall impression: Remains critically ill with resolving septic shock but improved peripheral resistance. Improved infection source control. Fails vent weaning again today. Critical Care 33 mins Problem Qualifiers (1) Acute renal failure: Qualified Code: N17.9 - Acute renal failure, unspecified acute renal failure type Zi Mustafa MD May 08, 2016 09:17
--- NOTE | 2016-05-08 09:33 | HHI.PR ---
Subjective Subjective Notes Intubated/Sedated Objective Vitals/I&O Vital Signs Date Time Temp Pulse Resp B/P Pulse Ox O2 Delivery O2 Flow Rate FiO2 05/08/16 07:40 96 40 05/08/16 06:00 82 05/08/16 04:00 98.0 14 111/57 Labs Laboratory Tests Test 05/08/16 06:00 White Blood Count 19.7 Red Blood Count 3.15 Hemoglobin 9.5 Hematocrit 28.9 Mean Corpuscular Volume 91.7 Mean Corpuscular Hemoglobin 30.0 Mean Corpuscular Hemoglobin 32.7 Concent Red Cell Distribution Width 15.0 Platelet Count 119 Mean Platelet Volume 10.2 Neutrophils (%) (Auto) 74.0 Lymphocytes (%) (Auto) 13.3 Monocytes (%) (Auto) 12.4 Eosinophils (%) (Auto) 0.0 Basophils (%) (Auto) 0.3 Neutrophils # (Auto) 14.6 Lymphocytes # (Auto) 2.6 Monocytes # (Auto) 2.4 Eosinophils # (Auto) 0.0 Basophils # (Auto) 0.1 CBC Comment AUTO DIFF Differential Total Cells 100 Counted Neutrophils % (Manual) 40 Band Neutrophils % 17 Lymphocytes % 16 Monocytes % 9 Neutrophils # (Manual) 14.8 Metamyelocytes 11 Myelocytes 7 Differential Comment FINAL DIFF MANUAL Atypical Lymphocytes Platelet Estimate LOW Platelet Morphology Comment ENLARGED Sodium Level 142 Potassium Level 3.1 Chloride Level 103 Carbon Dioxide Level 30.0 Anion Gap 9 Blood Urea Nitrogen 27 Creatinine 1.25 Estimat Glomerular Filtration 56 Rate Random Glucose 110 Calcium Level 7.8 Date/Time Procedure Status Source Growth 05/05/16 08:10 Aerobic Blood Culture - Preliminary Resulted Blood Peripheral NO GROWTH IN 2 DAYS 05/05/16 08:10 Anaerobic Blood Culture - Preliminary Resulted Blood Peripheral NO GROWTH IN 2 DAYS Cardiovascular: Regular Lungs: Clear Abdomen: Non-distended, Non-tender Extremities: Other (generalized edema ) Narrative Exam perirectal and right posterior thigh wound vac in place with good seal Flexiseal in place A/P Assessment and Plan 80 year old male with NF with soft tissue gas gangrene; ?? origin perirectal abscess -POD1 Irrigation and wide debridement of right buttock and right thigh with vac change -Plan to return to OR -Tolerating TF -Vent per CCM -Continue antibiotics -Seal check on Wound Vac shows no leak -Continue Flexiseal to keep wound clean Attending Statement patient seen at bedside S/P vac change in OR currently good seal will plan vac change in a few days Attestation The exam, history, and the medical decision-making described in the above note were completed with the assistance of the mid-level provider. I reviewed and agree with the findings presented. I attest that I had a [id number] encounter with the patient on the same day, and personally performed and documented my assessment and findings in the medical record. Roula Grayson May 08, 2016 09:33 Trey Marcos MD May 17, 2016 12:54
[2016-05-08] MEDS: FUROSEMIDE 40 MG/4 ML VIAL IV PUSH SCH ×2 (11:05→21:43)
[2016-05-08] MEDS: HYDROCORTISONE SOD SUCCINATE 100 MG VIAL IV PUSH SCH (11:05)
[2016-05-08] MEDS: DOCUSATE SODIUM 100 MG/10 ML UDC G-TUBE SCH ×2 (11:05→23:55)
--- NOTE | 2016-05-08 12:03 | HHI.IDPN ---
Note Infectious Disease Note ID COVERAGE: Patient on vent. CPAP trial. Reportedly was agitated earlier and give sedation. Went for debridement of buttock yesterday 05/07/16. Wound vac in place. Prior debridement of necrotic R buttock x 3. Afebrile WBC elevated. HR elevated. Growing gram variable org in 2/2 admission clx, anaerobic bottles only Repeat blood culture has no growth. ANTIBIOTICS: Zosyn. Current Medications Medications (Trade) Dose Ordered Sig/Jeff Route PRN Reason Start Time Stop Time Status Last Admin Dose Admin IV Flush (NS Flush) 2 ml UNSCH PRN IV FLUSH FLUSH AFTER USING IV ACCESS 04/28/16 10:00 05/06/16 23:56 IV Flush (NS Flush) 2 ml BID IV FLUSH 04/28/16 10:00 05/08/16 08:06 Acetaminophen (Tylenol) 650 mg Q6H PRN PO PAIN 1-10 AND/OR FEVER >101F 04/28/16 10:00 Oxycodone/ Acetaminophen (Percocet 5-325 Mg) 1 tab Q4H PRN PO PAIN SCALE 1 TO 5 04/28/16 10:00 Morphine Sulfate (Morphine Inj) 2 mg Q2H PRN IV PAIN SCALE 6 TO 10 04/28/16 10:00 Pantoprazole Sodium (Protonix Inj) 40 mg DAILY IV 04/28/16 12:00 05/08/16 08:07 Lorazepam (Ativan Inj) 1 mg Q1H PRN IV Agitation/Sedation 04/28/16 10:00 Ondansetron HCl (Zofran Inj) 4 mg Q6H PRN IV NAUSEA OR VOMITING 04/28/16 10:00 Metoclopramide HCl (Reglan Inj) 10 mg Q6H PRN IV NAUSEA OR VOMITING 04/28/16 10:00 Docusate Sodium (Colace Liq) 100 mg Q12H G-TUBE 04/28/16 12:00 05/08/16 11:05 Heparin Sodium (Porcine) (Heparin Inj) 5,000 units Q12H SQ 04/28/16 12:00 Hold 04/30/16 11:20 Miscellaneous Information 1 [id number] XX 04/28/16 10:00 Chlorhexidine Gluconate (Chlorhexidine 2% Cloth) Taper DAILY@04 TOP 04/29/16 04:00 04/25/17 03:59 05/08/16 04:00 Chlorhexidine Gluconate (Chlorhexidine 2% Cloth) 3 pack UNSCH PRN TOP HYGIENIC CARE 04/28/16 10:00 Terbutaline Sulfate 1 mg 1 mg UNSCH PRN SQ FOR EXTRAVASATION PROTOCOL 04/28/16 16:00 Norepinephrine Bitartrate 250 ml @ 0 mls/hr TITRATE IV 04/28/16 17:15 05/03/16 17:02 Phenylephrine HCl 40 mg/Dextrose 500 ml @ 0 mls/hr TITRATE IV 04/28/16 18:45 05/04/16 02:40 Fentanyl Citrate (fentaNYL DRIP) 250 ml @ 0 mls/hr TITRATE IV 04/28/16 18:45 05/07/16 23:41 Morphine Sulfate 4 mg 4 mg Q3H PRN IV PUSH any pain 04/28/16 18:45 Propofol (Diprivan 1000 Mg/100ml Inj) 100 ml @ 0 mls/hr TITRATE IV 04/28/16 20:45 05/08/16 08:06 Chlorhexidine Gluconate 15 ml 15 ml BID@08,20 MT 04/29/16 08:00 05/08/16 08:06 Potassium Chloride 100 ml @ 50 mls/hr Q2H PRN IV For Potassium 2.8 - 3.2 mEq/L 04/30/16 09:00 05/08/16 11:05 Potassium Chloride (KCl 20 Meq Premix Inj) 100 ml @ 50 mls/hr Q2H PRN IV For Potassium 2.8 - 3.2 mEq/L 04/30/16 09:00 Potassium Chloride 40 meq 40 meq UNSCH PRN PO/TUBE For Potassium 3.3 - 3.5 mEq/L 04/30/16 08:30 05/06/16 09:17 Potassium Chloride 100 ml @ 25 mls/hr UNSCH PRN IV For Potassium 3.3 - 3.5 mEq/L 04/30/16 08:30 Potassium Chloride 100 ml @ 50 mls/hr Q2H PRN IV For Potassium 3.3 - 3.5 mEq/L 04/30/16 08:30 Magnesium Sulfate/ Sodium Chloride (Magnesium Sulfate Inj/NS Inj) 100 ml @ 50 mls/hr UNSCH PRN IV For Magnesium 0.9 - 1.1 mg/dL 04/30/16 08:30 Magnesium Oxide 800 mg 800 mg UNSCH PRN PO For Magnesium 1.2 - 1.6 mg/dL 04/30/16 08:30 Magnesium Sulfate/ Sodium Chloride (Magnesium Sulfate Inj/NS Inj) 100 ml @ 50 mls/hr UNSCH PRN IV For Magnesium 1.2 - 1.6 mg/dL 04/30/16 08:30 05/01/16 08:07 Potassium Phosphate 2000 mg 2,000 mg Q4H PRN PO For Phosphorus < 2.5 mg/dL 04/30/16 08:30 Sodium Phosphate/ Sodium Chloride (Sodium Phosphate Inj/NS 250 ml Inj) 250 ml @ 42 mls/hr UNSCH PRN IV For Phosphorus < 2.5 mg/dL 04/30/16 08:30 Potassium Chloride (KCl 40 Meq/30 ml Liq) 40 meq UNSCH PRN PO/TUBE SEE LABEL COMMENTS 04/30/16 08:30 Potassium Phosphate 2000 mg 2,000 mg UNSCH PRN PO/TUBE SEE LABEL COMMENTS 04/30/16 08:30 Potassium Phosphate/Sodium Chloride (Potassium Phosphate Inj/NS 250 ml Inj) 260 ml @ 42 mls/hr UNSCH PRN IV SEE LABEL COMMENTS 04/30/16 08:30 05/01/16 08:10 Protein 1 pack 1 pack TID G-TUBE 05/01/16 09:00 05/08/16 08:08 Piperacillin Sod/ Tazobactam Sod 50 ml @ 100 mls/hr Q6H IV 05/02/16 16:00 05/08/16 11:04 Dobutamine HCl/ Dextrose (DOBUTamine PREMIX DRIP) 250 ml @ 22.005 mls/ hr [id number] IV 05/03/16 13:30 05/08/16 05:12 Dextrose (D50w (Vial) Inj) 25 ml UNSCH PRN IV PUSH HYPOGLYCEMIA - SEE COMMENTS 05/03/16 13:45 Glucagon (Glucagon Inj) 1 mg UNSCH PRN OTHER HYPOGLYCEMIA-SEE COMMENTS 05/03/16 13:45 Insulin Aspart (NovoLOG SUPPLEMENTAL SCALE) 1 Q4HR SQ 05/03/16 16:00 05/07/16 23:40 Protein (Beneprotein Powder) 1 pack TID G-TUBE 05/05/16 09:00 Lactulose (Lactulose Liq) 30 ml DAILY PO 05/06/16 09:00 Hydrocortisone Sodium Succinate (SoluCORTEF INJ) 50 mg Q12H IV PUSH 05/07/16 12:00 05/08/16 12:00 05/08/16 11:05 Furosemide (Lasix Inj) 40 mg BID@10, IV PUSH 05/08/16 10:00 05/10/16 10:00 05/08/16 11:05 Past Medical History morbid obesity and diebetes Allergies: Coded Allergies: *MDRO Multi-Drug Resistant Organism (Verified Adverse Reaction, Unknown, ) MRSA PCR Screeen POSITIVE - 04/28/2016 Objective Vital Signs Date Time Temp Pulse Resp B/P Pulse Ox O2 Delivery O2 Flow Rate FiO2 05/08/16 11:52 40 05/08/16 07:40 96 40 05/08/16 06:00 82 05/08/16 04:01 97 40 05/08/16 04:00 98.0 70 14 111/57 97 05/08/16 04:00 72 05/08/16 04:00 50 05/08/16 02:00 69 05/08/16 00:28 97 50 05/08/16 00:00 97.9 67 14 117/57 97 05/08/16 00:00 50 05/08/16 00:00 63 05/07/16 22:00 91 05/07/16 20:00 50 05/07/16 20:00 80 05/07/16 20:00 97.9 80 14 156/75 98 05/07/16 19:49 96 50 05/07/16 18:00 61 05/07/16 16:00 98.0 71 14 142/67 93 05/07/16 16:00 40 05/07/16 16:00 71 05/07/16 14:00 112 05/07/16 13:41 96 40 05/07/16 12:24 95 40 05/07/16 12:00 40 05/07/16 12:00 98.0 65 14 172/77 95 05/07/16 12:00 65 05/07/16 05/07/16 05/08/16 15:00 23:00 07:00 Intake Total 448 ml 761 ml 1031 ml Output Total 650 ml 800 ml 750 ml Balance -202 ml -39 ml 281 ml IV Total 448 ml 621 ml 616 ml Tube Feeding 80 ml 355 ml Tube Irrigant 60 ml 60 ml Output Urine Total 475 ml 650 ml 500 ml Stool Total 0 ml 0 ml 0 ml Drainage Total 175 ml 150 ml 250 ml Laboratory Tests Test 05/07/16 05/08/16 04:32 06:00 White Blood Count 23.9 TH/MM3 19.7 TH/MM3 Red Blood Count 3.24 MIL/MM3 3.15 MIL/MM3 Hemoglobin 10.0 GM/DL 9.5 GM/DL Hematocrit 29.0 % 28.9 % Mean Corpuscular Volume 89.5 FL 91.7 FL Mean Corpuscular Hemoglobin 30.9 PG 30.0 PG Mean Corpuscular Hemoglobin 34.5 % 32.7 % Concent Red Cell Distribution Width 15.1 % 15.0 % Platelet Count 101 TH/MM3 119 TH/MM3 Mean Platelet Volume 10.5 FL 10.2 FL Neutrophils (%) (Auto) % 74.0 % Lymphocytes (%) (Auto) % 13.3 % Monocytes (%) (Auto) % 12.4 % Eosinophils (%) (Auto) % 0.0 % Basophils (%) (Auto) % 0.3 % Neutrophils # (Auto) TH/MM3 14.6 TH/MM3 Lymphocytes # (Auto) TH/MM3 2.6 TH/MM3 Monocytes # (Auto) TH/MM3 2.4 TH/MM3 Eosinophils # (Auto) TH/MM3 0.0 TH/MM3 Basophils # (Auto) TH/MM3 0.1 TH/MM3 CBC Comment AUTO DIFF AUTO DIFF Differential Total Cells 100 100 Counted Neutrophils % (Manual) 53 % 40 % Band Neutrophils % 9 % 17 % Lymphocytes % 8 % 16 % Monocytes % 8 % 9 % Neutrophils # (Manual) 20.1 TH/MM3 14.8 TH/MM3 Metamyelocytes 8 % 11 % Myelocytes 13 % 7 % Promyelocytes 1 % Differential Comment FINAL DIFF FINAL DIFF MANUAL MANUAL Platelet Estimate LOW LOW Platelet Morphology Comment NORMAL ENLARGED Red Cell Morphology Comment NORMAL Atypical Lymphocytes % Laboratory Tests Test 05/07/16 05/08/16 04:32 06:00 Sodium Level 140 MEQ/L 142 MEQ/L Potassium Level 3.6 MEQ/L 3.1 MEQ/L Chloride Level 101 MEQ/L 103 MEQ/L Carbon Dioxide Level 30.3 MEQ/L 30.0 MEQ/L Anion Gap 9 MEQ/L 9 MEQ/L Blood Urea Nitrogen 29 MG/DL 27 MG/DL Creatinine 1.53 MG/DL 1.25 MG/DL Estimat Glomerular Filtration 44 ML/MIN 56 ML/MIN Rate Random Glucose 187 MG/DL 110 MG/DL Calcium Level 7.4 MG/DL 7.8 MG/DL Protein Corrected Calcium 8.2 MG/DL Total Protein 5.7 GM/DL Imaging Chest X-Ray 05/01/16 0600 Signed Impressions: Service Date/Time: Sunday, May 01, 2016 05:35 - CONCLUSION: Slight improvement in aeration. Davon Stokes MD Abdomen/Pelvis CT 04/28/16 0819 Signed Impressions: Service Date/Time: Thursday, April 28, 2016 09:05 - CONCLUSION: 1. Significant inflammation, presumed infection, in the right gluteal region including numerous tiny locules of air not only in the gluteus janny muscle but extending anterior into the ischiorectal fossa on the right. There are two distinct collections around the rectum suspicious for a perirectal abscess both right anteriorly and left posterolaterally. 2. Gallstones versus sludge. Lawson Howard MD Lower Extremity CT 04/28/16 0000 Signed Impressions: Service Date/Time: Thursday, April 28, 2016 09:05 - CONCLUSION: There is extensive dissecting air throughout the gluteus janny muscle also dissecting into the lower posterior RIGHT thigh. There is air within the semi-tendinosis , semimembranosus, and biceps femoris muscles. There is also tiny amount of air along the abductor longus muscle. I don't see any drainable abscess or fluid collection. There is a small amount of fluid between the subcutaneous fat in the muscular fascia not an unusual finding in patient's with soft tissue edema. Lawson Howard MD Physical Exam GENERAL: Sedated and unresponsive on the vent. Eyes open. VAC in place R buttock has serous sanguinous drainage. EYES: Mild scleral icterus. ENT: Oral mucosa moist. CARDIOVASCULAR: Regular S1S2 without murmurs, gallops, or rubs. RESPIRATORY/CHEST: Clear to auscultation. Breath sounds equal bilaterally, decreased BS. GASTROINTESTINAL: Abdomen soft, mildly distended. GENITOURINARY: Han in place with clear yellow urine MUSCULOSKELETAL: Extremities has 4+ edema. SKIN: No rash. Warm and moist. NEUROLOGICAL: sedated and intubated Assessment & Plan Remarks Perirectal abscess and gas gangrene R buttock. E. coli and step. Necrotizing fascitis R buttock Severe sepsis - leukocytosis, bandemia, fever, lactic acidosis (4.0), hypotension, tachycardia and ARF, Source abscess, gas gangrene. Leukocytosis related to fascitis. WBC still elevated but lower. Critically ill - Post multiple debridement. ? Anaerobic sepsis - from presenting condition. Repeat blood culture negative. - Continue Zosyn - Monitor WBC. Discussed with and RN. Ha Pelaez MD May 08, 2016 12:03
[2016-05-09] VITALS (19 sets, daily range): BP systolic 113–148; BP diastolic 56–77; PULSE 87–112; RESP 14–23; TEMP 98–99.4; O2SAT 93–97
[2016-05-09] MEDS: HIGH DOSE INSULIN NOVOLOG SUPPLEMENTAL SCALE SQ SCH ×6 (04:00→23:27)
[2016-05-09] MEDS: PIPERACIL-TAZO 3.375 GM PREMIX 50 ML IV SCH ×4 (04:00→20:50)
[2016-05-09] MEDS: CHLORHEXIDINE GLUCONATE 2 % 1 PACK (2 CLOTHS) TOP SCH (04:00)
[2016-05-09] MEDS: fentaNYL DRIP 250 ML IV SCH (05:19)
[2016-05-09] MEDS: DOBUTamine 250 MG/D5W 250 ML PREMIX DRIP IV SCH ×2 (05:19→17:16)
[2016-05-09] MEDS: PROPOFOL 1000 MG/100 ML IV SCH (05:19)
[2016-05-09 06:46] LABS: AUTOMATED NEUTROPHIL # 14.6 TH/MM3 (1.8-7.7); BASOPHIL # 0.1 TH/MM3 (0-0.2); BASOPHIL % 0.3 % (0.0-2.0); HEMATOCRIT 29.5 % (39.0-51.0); LYMPH % 11.5 % (9.0-44.0); LYMPHOCYTE # 2.2 TH/MM3 (1.0-4.8); MEAN CELL VOLUME 92.4 FL (80.0-100.0); MEAN CORPUSCULAR HEMOGLOBIN 30.5 PG (27.0-34.0); MONO % 12.1 % (0.0-8.0); NEUT % 76.1 % (16.0-70.0); PLATELET COUNT 130 TH/MM3 (150-450); RED BLOOD COUNT 3.19 MIL/MM3 (4.50-5.90); RED CELL DISTRIBUTION WIDTH 14.6 % (11.6-17.2); WHITE BLOOD COUNT 19.2 TH/MM3 (4.0-11.0)
[2016-05-09 07:07] LABS: HEMO FLAGS AUTO DIFF
--- NOTE | 2016-05-09 07:10 | HHI.CCPN ---
Subjective Remarks/Hospital Course 80-year-old male came to the emergency room with history of dizziness, lightheadedness, generalized weakness and right buttock pain. CT scan revealed soft tissue gas gangrene originated most probably as a perirectal abscess. He was taken emergently to OR for debridement. 05/01: Ongoing septic shock. Requires additional debridement today for source control. 05/02: Back from OR after debridement right buttocks and thigh last night. Minimal necrotic tissue found. Vac in place. Clearly still septic, but vasopresors requirements are decreasing. 05/03: Persistent septic picture. 05/04: Vasopressor requirements now declining finally. Gas exchange acceptable. 05/05: Gas exchange a little better after desaturation last evening. 05/06: Start more ambitious weaning trials. TFs to goal. General perfusion improved. 05/07: Persistent leukocytosis, likely from necrotic wound. Will replace CVL after OR just to be cautious. 05/08: Extensive peripheral edema. Should tolerate gentle diuresis at this point. 05/09: Mobilizing excess water well. Souce control of sepsis presently appears adequate. Objective Vital Signs Date Time Temp Pulse Resp B/P Pulse Ox O2 Delivery O2 Flow Rate FiO2 05/09/16 06:00 100 05/09/16 04:12 96 40 05/09/16 04:00 98.0 14 121/57 Intake and Output 05/08/16 05/08/16 05/09/16 08:00 16:00 00:00 Intake Total 1031 ml 1360 ml 843 ml Output Total 750 ml 2300 ml 1150 ml Balance 281 ml -940 ml -307 ml Result Diagram: 05/08/16 0600 05/08/16 1700 Imaging Last 24 hours Impressions Chest X-Ray 04/28/16818 Signed Impressions: Service Date/Time: Thursday, April 28, 2016 08:21 - CONCLUSION: Normal examination. Lawson Howard MD Abdomen/Pelvis CT 04/28/16818 Signed Impressions: Service Date/Time: Thursday, April 28, 2016 09:05 - CONCLUSION: 1. Significant inflammation, presumed infection, in the right gluteal region including numerous tiny locules of air not only in the gluteus janny muscle but extending anterior into the ischiorectal fossa on the right. There are two distinct collections around the rectum suspicious for a perirectal abscess both right anteriorly and left posterolaterally. 2. Gallstones versus sludge. Lawson Howard MD Lower Extremity CT 04/28/16 0000 Signed Impressions: Service Date/Time: Thursday, April 28, 2016 09:05 - CONCLUSION: There is extensive dissecting air throughout the gluteus janny muscle also dissecting into the lower posterior RIGHT thigh. There is air within the semi-tendinosis , semimembranosus, and biceps femoris muscles. There is also tiny amount of air along the abductor longus muscle. I don't see any drainable abscess or fluid collection. There is a small amount of fluid between the subcutaneous fat in the muscular fascia not an unusual finding in patient's with soft tissue edema. Lawson Howard MD Objective Remarks GENERAL: Persistently edematous but less so. SKIN: Warm. Well perfused. HEAD: Normocephalic. Atraumatic. NECK: Supple, Orally intubated. CARDIOVASCULAR: Irreg Irreg, rate controlled 70-80s. No JVD. RESPIRATORY: Good adriel air entry on vent. Remains vent dependent. Few mobile secretions. GASTROINTESTINAL: Abdomen soft, non-tender, nondistended. BS active. No peritoneal irritation. MUSCULOSKELETAL: Warm, well perfused. Generalized 2+ edema. NEURO: Opens eyes. Moves 4 limbs when agitated. Agitated when light but not purposeful. A/P Problem List: (1) Septic shock ICD Code: A41.9 Status: Acute (2) Acute hypoxemic respiratory failure ICD Code: J96.01 Status: Acute (3) Gas gangrene of lower extremity ICD Code: A48.0 Status: Acute (4) Acute renal failure ICD Code: N17.9 Status: Acute (5) Encephalopathy, metabolic ICD Code: G93.41 Status: Acute Assessment and Plan Sepsis - perirectal abscess with extension to right thigh - debridement in the OR 04/28, 04/29, 05/04 - broad spectrum vanco, zosyn - adjust per ID. - ID consult appreciated - maintain fluid resuscitation -improved source control as of 05/08 Soft tissue gas gangrene - due to above - broad spectrum ATB - vanco, zosyn - debridement again 05/04 per Gen Surg Perirectal abscess - ATB per ID - surgical debridement X 4 Respiratory failure - post op - unable to wean ventilator. -Continue daily SBTs. BRAYDON - dehydration resolved - volume loss - aggressive i.v. fluids resuscitation - strict I&O - Dobutamine to keep P > 60 - Good urine output - Electrolyte protocol - Continue diuresis. NUTRITION - Increase Glucerna and benepro TFs DM - hold p.o. meds while in the ICU - ISS - Insulin gtt prn A.Fib - rate now controlled with occasional digoxin - telemetry Overall impression: Resolving septic shock but improved peripheral resistance. Improved infection source control. Fails vent weaning again today. Problem Qualifiers (1) Acute renal failure: Qualified Code: N17.9 - Acute renal failure, unspecified acute renal failure type Zi Mustafa MD May 09, 2016 07:10
[2016-05-09 07:15] LABS: BICARBONATE 31.1 MEQ/L (21.0-32.0); MAGNESIUM 1.7 MG/DL (1.5-2.5); POTASSIUM 3.2 MEQ/L (3.5-5.1)
[2016-05-09] MEDS ORDERED: MAGNESIUM SULFATE 1 GM PREMIX 100 ML ONE (07:42)
[2016-05-09] MEDS: LACTULOSE SYRUP 20 GM/30 ML CUP PO SCH (07:52)
[2016-05-09] MEDS: PANTOPRAZOLE SODIUM 40 MG VIAL IV SCH (07:52)
[2016-05-09] MEDS: CHLORHEXIDINE 0.12% (ORAL KIT) 15 ML CUP MT SCH ×2 (07:52→20:49)
[2016-05-09] MEDS: SODIUM CHLORIDE 0.9% FLUSH 5 ML FLUSH IV FLUSH SCH ×2 (07:52→20:50)
[2016-05-09 07:59] LABS: BANDS 2 % (0-6); METAMYELOCYTES 5 % (0-1); MYELOCYTES 5 % (0-0); NEUTROPHIL # MANUAL DIFF 16.5 TH/MM3 (1.8-7.7); POLYS (SEG NEUTROPHILS) 74 % (16-70); WBC DIFF SAMPLE 100
[2016-05-09 08:00] LABS: PLATELET ESTIMATE SMEAR LOW (NORMAL); PLATELET MORPHOLOGY NORMAL (NORMAL); SCAN/DIFF FINAL DIFF MANUAL
--- NOTE | 2016-05-09 08:21 | MP ---
cc: TREY MARCOS MD DATE OF SURGERY 05/04/2016 PREOPERATIVE DIAGNOSIS Right buttock soft tissue fasciitis, right posterior thigh soft tissue fasciitis. POSTOPERATIVE DIAGNOSIS Right buttock soft tissue fasciitis, right posterior thigh soft tissue fasciitis. PROCEDURE PERFORMED Incision wide debridement of right posterior thigh and right buttock with Vac change and placement. SURGEON Dr. Trey Marcos ANIMAL CRUELTY INVESTIGATOR See OR sheet ANESTHESIA GETA IV FLUIDS 400 cc ESTIMATED BLOOD LOSS 25 cc DRAINS Vac COMPLICATIONS None WOUND CLASSIFICATION Dirty FINDINGS Healthier bleeding muscle, scant necrotic tissue, Vac with good seal. SPECIMEN None INDICATIONS The patient is a 40-year-old male who presented with a necrotizing soft tissue infection of the right buttock and right thigh. He has undergone multiple debridements with Vac change with progressive improvement. He is in critical status on the vent and is in need of further debridement with Vac change. DETAILS OF THE PROCEDURE The patient was taken to the operative suite, placed in the prone position, prepped and draped in the usual sterile fashion after induction of general tracheal anesthesia. A brief time-out done stating correct patient, procedure and surgical site. We were all in agreement with this. Attention first directed to the a right buttock and right thigh. The Vac was removed. Sponge was removed. On cursory inspection, there was noted to be better healing viable muscle and tissue. There were scant necrotic areas. Some scant necrotic skin as well. The lateral portion of the wound bed was incised 2 cm from the skin. This was done to healthier bleeding tissue and skin. Electro Bovie cautery used for hemostasis. Pulse lavage irrigation with antibiotic solution was used for debridement and lavage. Again, electro Bovie cautery used for hemostasis. Next, the wound Vac was obtained. The sponge cut to appropriate size and diameter. This was placed in the wound bed. A small cylinder sponge was placed deep perirectally. Next, the wound edges were wiped and cleaned. Mastisol used and the sponge was stapled to the skin. A plastic dressing was placed and the track pads were placed x2 with a Y connector. The Vac initiated without evidence of leaking. The patient tolerated procedure. There were no intraoperative complications. All lap and instrument counts were correct at the end of the procedure. The patient was guarded, taken to the ICU. MD ARUN Jenkins/SHLOMO /4:05 PM /8:03 AM
[2016-05-09] MEDS: BENEPROTEIN POWDER 1 PACK G-TUBE SCH ×6 (09:00→17:18)
[2016-05-09] MEDS: POTASSIUM CL 40 MEQ/30 ML LIQ UDC PO/TUBE PRN (09:35)
[2016-05-09] MEDS: POTASSIUM CHLOR 40 MEQ PREMIX 100 ML IV PRN (09:35)
[2016-05-09] MEDS: FUROSEMIDE 40 MG/4 ML VIAL IV PUSH SCH (11:12)
[2016-05-09] MEDS: DOCUSATE SODIUM 100 MG/10 ML UDC G-TUBE SCH ×2 (12:00→23:27)
--- NOTE | 2016-05-09 16:28 | HHI.PR ---
Subjective Subjective Notes Intubated/Sedated at bedside Objective Vitals/I&O Vital Signs Date Time Temp Pulse Resp B/P Pulse Ox O2 Delivery O2 Flow Rate FiO2 05/09/16 16:03 94 40 05/09/16 16:00 99.0 102 23 118/75 Labs Laboratory Tests Test 05/08/16 05/09/16 17:00 06:20 Potassium Level 3.8 3.2 White Blood Count 19.2 Red Blood Count 3.19 Hemoglobin 9.7 Hematocrit 29.5 Mean Corpuscular Volume 92.4 Mean Corpuscular Hemoglobin 30.5 Mean Corpuscular Hemoglobin 33.0 Concent Red Cell Distribution Width 14.6 Platelet Count 130 Mean Platelet Volume 10.0 Neutrophils (%) (Auto) 76.1 Lymphocytes (%) (Auto) 11.5 Monocytes (%) (Auto) 12.1 Eosinophils (%) (Auto) 0.0 Basophils (%) (Auto) 0.3 Neutrophils # (Auto) 14.6 Lymphocytes # (Auto) 2.2 Monocytes # (Auto) 2.3 Eosinophils # (Auto) 0.0 Basophils # (Auto) 0.1 CBC Comment AUTO DIFF Differential Total Cells 100 Counted Neutrophils % (Manual) 74 Band Neutrophils % 2 Lymphocytes % 8 Monocytes % 6 Neutrophils # (Manual) 16.5 Metamyelocytes 5 Myelocytes 5 Differential Comment FINAL DIFF MANUAL Platelet Estimate LOW Platelet Morphology Comment NORMAL Red Cell Morphology Comment NORMAL Sodium Level 140 Chloride Level 101 Carbon Dioxide Level 31.1 Anion Gap 8 Blood Urea Nitrogen 27 Creatinine 1.37 Estimat Glomerular Filtration 50 Rate Random Glucose 162 Calcium Level 8.1 Magnesium Level 1.7 Date/Time Procedure Status Source Growth 05/05/16 08:10 Aerobic Blood Culture - Preliminary Resulted Blood Peripheral NO GROWTH IN 4 DAYS 05/05/16 08:10 Anaerobic Blood Culture - Preliminary Resulted Blood Peripheral NO GROWTH IN 4 DAYS Cardiovascular: Regular Lungs: Clear Abdomen: Other (obese abdomen; non tender ) Narrative Exam perirectal and right posterior thigh wound vac in place with good seal Flexiseal in place A/P Assessment and Plan 80 year old male with NF with soft tissue gas gangrene; ?? origin perirectal abscess -POD2 Irrigation and wide debridement of right buttock and right thigh with vac change -Plan to return to OR tomorrow with Dr. Carmona -Obtain consents -Tolerating TF; NPO after MN -Vent per CCM -Continue antibiotics -Seal check on Wound Vac shows no leak -Continue Flexiseal to keep wound clean -Updated at bedside -Discussed plan of care with RN Pia Attending Statement patient seen at bedside intubated to OR tomorrow Attestation The exam, history, and the medical decision-making described in the above note were completed with the assistance of the mid-level provider. I reviewed and agree with the findings presented. I attest that I had a [id number] encounter with the patient on the same day, and personally performed and documented my assessment and findings in the medical record. Roula Grayson May 09, 2016 16:28 Trey Marcos MD May 21, 2016 21:55
[2016-05-10] VITALS (18 sets, daily range): BP systolic 111–136; BP diastolic 56–71; PULSE 85–106; RESP 14–17; TEMP 98.5–99.8; O2SAT 93–100
[2016-05-10] MEDS: FUROSEMIDE 40 MG/4 ML VIAL IV PUSH SCH ×2 (00:29→10:48)
[2016-05-10] MEDS: CHLORHEXIDINE GLUCONATE 2 % 1 PACK (2 CLOTHS) TOP SCH (04:00)
[2016-05-10] MEDS: HIGH DOSE INSULIN NOVOLOG SUPPLEMENTAL SCALE SQ SCH ×6 (04:00→23:34)
[2016-05-10] MEDS: DOBUTamine 250 MG/D5W 250 ML PREMIX DRIP IV SCH ×2 (04:38→16:00)
[2016-05-10] MEDS: PIPERACIL-TAZO 3.375 GM PREMIX 50 ML IV SCH ×4 (04:42→22:19)
[2016-05-10 06:27] LABS: HEMATOCRIT 29.9 % (39.0-51.0); MEAN CELL VOLUME 91.5 FL (80.0-100.0); MEAN CORPUSCULAR HEMOGLOBIN 30.2 PG (27.0-34.0); PLATELET COUNT 134 TH/MM3 (150-450); RED BLOOD COUNT 3.26 MIL/MM3 (4.50-5.90); RED CELL DISTRIBUTION WIDTH 14.9 % (11.6-17.2); REVIEW FLAG FINAL; WHITE BLOOD COUNT 18.2 TH/MM3 (4.0-11.0)
[2016-05-10 06:41] LABS: BICARBONATE 30.7 MEQ/L (21.0-32.0); MAGNESIUM 1.7 MG/DL (1.5-2.5); POTASSIUM 3.3 MEQ/L (3.5-5.1)
[2016-05-10] MEDS: BENEPROTEIN POWDER 1 PACK G-TUBE SCH ×6 (07:56→18:00)
[2016-05-10] MEDS: CHLORHEXIDINE 0.12% (ORAL KIT) 15 ML CUP MT SCH ×2 (07:56→19:59)
[2016-05-10] MEDS: PANTOPRAZOLE SODIUM 40 MG VIAL IV SCH (07:56)
[2016-05-10] MEDS: LACTULOSE SYRUP 20 GM/30 ML CUP PO SCH (07:57)
[2016-05-10] MEDS: SODIUM CHLORIDE 0.9% FLUSH 5 ML FLUSH IV FLUSH SCH ×2 (07:57→21:00)
[2016-05-10] MEDS: POTASSIUM CHLOR 40 MEQ PREMIX 100 ML IV PRN (08:11)
--- NOTE | 2016-05-10 10:54 | HHI.IDPN ---
Note Infectious Disease Note ID COVERAGE: Patient on vent. More awake with eyes open. Went for debridement of buttock yesterday 05/07/16. Wound vac in place. To go for debridement again today. Prior debridement of necrotic R buttock x 3. Low grade fever. WBC elevated. Grew gram variable org in 2/2 admission clx, anaerobic bottles only Repeat blood culture has no growth. ANTIBIOTICS: Zosyn. Past Medical History Diabetes Mellitus. Allergies: Coded Allergies: *MDRO Multi-Drug Resistant Organism (Verified Adverse Reaction, Unknown, ) MRSA PCR Screeen POSITIVE - 04/28/2016 Objective Vital Signs Date Time Temp Pulse Resp B/P Pulse Ox O2 Delivery O2 Flow Rate FiO2 05/10/16 08:03 100 40 05/10/16 08:00 40 05/10/16 08:00 98.7 106 17 136/67 97 05/10/16 08:00 104 05/10/16 06:00 96 05/10/16 04:25 100 40 05/10/16 04:00 99.8 101 14 136/69 93 05/10/16 04:00 40 05/10/16 04:00 101 05/10/16 02:00 90 05/10/16 01:30 98 40 05/10/16 00:00 99.0 94 14 130/71 94 05/10/16 00:00 40 05/10/16 00:00 91 05/09/16 23:18 97 40 05/09/16 22:00 91 05/09/16 20:16 97 40 05/09/16 20:00 99.4 103 14 148/77 95 05/09/16 20:00 100 05/09/16 20:00 40 05/09/16 18:00 100 05/09/16 16:03 94 40 05/09/16 16:00 99.0 102 23 118/75 95 05/09/16 16:00 40 05/09/16 16:00 109 05/09/16 14:00 92 05/09/16 12:00 112 05/09/16 12:00 99.0 98 20 116/67 94 05/09/16 05/09/16 05/10/16 15:00 23:00 07:00 Intake Total 970 ml 580 ml 235 ml Output Total 1800 ml 1100 ml 1050 ml Balance -830 ml -520 ml -815 ml IV Total 552 ml 125 ml 235 ml Tube Feeding 358 ml 395 ml Tube Irrigant 60 ml 60 ml Output Urine Total 1650 ml 800 ml 900 ml Stool Total 150 ml 100 ml Drainage Total 150 ml 150 ml 50 ml Laboratory Tests Test 05/09/16 05/10/16 06:20 06:15 White Blood Count 19.2 TH/MM3 18.2 TH/MM3 Red Blood Count 3.19 MIL/MM3 3.26 MIL/MM3 Hemoglobin 9.7 GM/DL 9.9 GM/DL Hematocrit 29.5 % 29.9 % Mean Corpuscular Volume 92.4 FL 91.5 FL Mean Corpuscular Hemoglobin 30.5 PG 30.2 PG Mean Corpuscular Hemoglobin 33.0 % 33.0 % Concent Red Cell Distribution Width 14.6 % 14.9 % Platelet Count 130 TH/MM3 134 TH/MM3 Mean Platelet Volume 10.0 FL 10.0 FL Neutrophils (%) (Auto) 76.1 % Lymphocytes (%) (Auto) 11.5 % Monocytes (%) (Auto) 12.1 % Eosinophils (%) (Auto) 0.0 % Basophils (%) (Auto) 0.3 % Neutrophils # (Auto) 14.6 TH/MM3 Lymphocytes # (Auto) 2.2 TH/MM3 Monocytes # (Auto) 2.3 TH/MM3 Eosinophils # (Auto) 0.0 TH/MM3 Basophils # (Auto) 0.1 TH/MM3 CBC Comment AUTO DIFF Differential Total Cells 100 Counted Neutrophils % (Manual) 74 % Band Neutrophils % 2 % Lymphocytes % 8 % Monocytes % 6 % Neutrophils # (Manual) 16.5 TH/MM3 Metamyelocytes 5 % Myelocytes 5 % Differential Comment FINAL DIFF MANUAL Platelet Estimate LOW Platelet Morphology Comment NORMAL Red Cell Morphology Comment NORMAL Laboratory Tests Test 05/08/16 05/09/16 05/10/16 17:00 06:20 06:15 Potassium Level 3.8 MEQ/L 3.2 MEQ/L 3.3 MEQ/L Sodium Level 140 MEQ/L 140 MEQ/L Chloride Level 101 MEQ/L 101 MEQ/L Carbon Dioxide Level 31.1 MEQ/L 30.7 MEQ/L Anion Gap 8 MEQ/L 8 MEQ/L Blood Urea Nitrogen 27 MG/DL 23 MG/DL Creatinine 1.37 MG/DL 1.40 MG/DL Estimat Glomerular Filtration 50 ML/MIN 49 ML/MIN Rate Random Glucose 162 MG/DL 141 MG/DL Calcium Level 8.1 MG/DL 7.9 MG/DL Magnesium Level 1.7 MG/DL 1.7 MG/DL Imaging Chest X-Ray 05/01/16 0600 Signed Impressions: Service Date/Time: Sunday, May 01, 2016 05:35 - CONCLUSION: Slight improvement in aeration. Davon Stokes MD Abdomen/Pelvis CT 04/28/16 0819 Signed Impressions: Service Date/Time: Thursday, April 28, 2016 09:05 - CONCLUSION: 1. Significant inflammation, presumed infection, in the right gluteal region including numerous tiny locules of air not only in the gluteus janny muscle but extending anterior into the ischiorectal fossa on the right. There are two distinct collections around the rectum suspicious for a perirectal abscess both right anteriorly and left posterolaterally. 2. Gallstones versus sludge. Lawson Howard MD Lower Extremity CT 04/28/16 0000 Signed Impressions: Service Date/Time: Thursday, April 28, 2016 09:05 - CONCLUSION: There is extensive dissecting air throughout the gluteus janny muscle also dissecting into the lower posterior RIGHT thigh. There is air within the semi-tendinosis , semimembranosus, and biceps femoris muscles. There is also tiny amount of air along the abductor longus muscle. I don't see any drainable abscess or fluid collection. There is a small amount of fluid between the subcutaneous fat in the muscular fascia not an unusual finding in patient's with soft tissue edema. Lawson Howard MD Physical Exam GENERAL: Awake. Eyes open. HEENT: Mild scleral icterus. Oral mucosa moist. CARDIOVASCULAR: Regular S1S2 without murmurs, gallops, or rubs. RESPIRATORY/CHEST: Slight bibasilar rhonchi. GASTROINTESTINAL: Abdomen soft, mildly distended. GENITOURINARY: Han in place with clear yellow urine MUSCULOSKELETAL: VAC in place at the R buttock has serous sanguinous drainage. Extremities has 4+ edema. SKIN: No rash. Warm and moist. NEUROLOGICAL: sedated. Awake. Assessment & Plan Remarks Perirectal abscess and gas gangrene R buttock. E. coli and step. Necrotizing fascitis R buttock Severe sepsis on admission - leukocytosis, bandemia, fever, lactic acidosis ( 4.0), hypotension, tachycardia and ARF, Source abscess, gas gangrene. Leukocytosis related to fascitis. WBC still elevated but lower. - Post multiple debridement. ? Anaerobic sepsis - from presenting condition. Repeat blood culture negative. Continue Zosyn Monitor WBC. Monitor for new signs of other infection to explain the elevated WBC. D/W at bedside. Ha Pelaez MD May 10, 2016 10:54
[2016-05-10] MEDS: DOCUSATE SODIUM 100 MG/10 ML UDC G-TUBE SCH ×2 (11:20→23:34)
[2016-05-10] MEDS ORDERED: PROPOFOL 200 MG/20 ML AMP IV ONE (12:00)
--- NOTE | 2016-05-10 12:34 | HHI.CCPN ---
Subjective Remarks/Hospital Course 80-year-old male came to the emergency room with history of dizziness, lightheadedness, generalized weakness and right buttock pain. CT scan revealed soft tissue gas gangrene originated most probably as a perirectal abscess. He was taken emergently to OR for debridement. 05/01: Ongoing septic shock. Requires additional debridement today for source control. 05/02: Back from OR after debridement right buttocks and thigh last night. Minimal necrotic tissue found. Vac in place. Clearly still septic, but vasopresors requirements are decreasing. 05/03: Persistent septic picture. 05/04: Vasopressor requirements now declining finally. Gas exchange acceptable. 05/05: Gas exchange a little better after desaturation last evening. 05/06: Start more ambitious weaning trials. TFs to goal. General perfusion improved. 05/07: Persistent leukocytosis, likely from necrotic wound. Will replace CVL after OR just to be cautious. 05/08: Extensive peripheral edema. Should tolerate gentle diuresis at this point. 05/09: Mobilizing excess water well. Source control of sepsis presently appears adequate. 05/10: Stable for return to OR today for ongoing debridement. Objective Vital Signs Date Time Temp Pulse Resp B/P Pulse Ox O2 Delivery O2 Flow Rate FiO2 05/10/16 12:00 98.8 89 16 125/70 98 05/10/16 12:00 40 Intake and Output 05/09/16 05/09/16 05/10/16 08:00 16:00 00:00 Intake Total 1076 ml 970 ml 580 ml Output Total 2050 ml 1800 ml 1100 ml Balance -974 ml -830 ml -520 ml Result Diagram: 05/10/1661405/10/16614 Imaging Last 24 hours Impressions Chest X-Ray 04/28/16818 Signed Impressions: Service Date/Time: Thursday, April 28, 2016 08:21 - CONCLUSION: Normal examination. Lwason Howard MD Abdomen/Pelvis CT 04/28/16818 Signed Impressions: Service Date/Time: Thursday, April 28, 2016 09:05 - CONCLUSION: 1. Significant inflammation, presumed infection, in the right gluteal region including numerous tiny locules of air not only in the gluteus janny muscle but extending anterior into the ischiorectal fossa on the right. There are two distinct collections around the rectum suspicious for a perirectal abscess both right anteriorly and left posterolaterally. 2. Gallstones versus sludge. Lawson Howard MD Lower Extremity CT 04/28/16 0000 Signed Impressions: Service Date/Time: Saturday, April 28, 2016 09:05 - CONCLUSION: There is extensive dissecting air throughout the gluteus janny muscle also dissecting into the lower posterior RIGHT thigh. There is air within the semi-tendinosis , semimembranosus, and biceps femoris muscles. There is also tiny amount of air along the abductor longus muscle. I don't see any drainable abscess or fluid collection. There is a small amount of fluid between the subcutaneous fat in the muscular fascia not an unusual finding in patient's with soft tissue edema. Lawson Howard MD Objective Remarks GENERAL: Less edema. SKIN: Warm. Well perfused. HEAD: Normocephalic. Atraumatic. NECK: Supple, Orally intubated. CARDIOVASCULAR: Irreg Irreg, rate controlled 70-90s. No JVD. RESPIRATORY: Good adriel air entry on vent. Remains vent dependent. Few mobile secretions. GASTROINTESTINAL: Abdomen soft, non-tender, nondistended. BS active. No peritoneal irritation. MUSCULOSKELETAL: Warm, well perfused. Generalized 2+ edema. NEURO: Opens eyes. Moves 4 limbs when agitated. Agitated when light but not purposeful.. A/P Problem List: (1) Septic shock ICD Code: A41.9 Status: Acute (2) Acute hypoxemic respiratory failure ICD Code: J96.01 Status: Acute (3) Gas gangrene of lower extremity ICD Code: A48.0 Status: Acute (4) Acute renal failure ICD Code: N17.9 Status: Acute (5) Encephalopathy, metabolic ICD Code: G93.41 Status: Acute Assessment and Plan Sepsis - perirectal abscess with extension to right thigh - debridement in the OR 04/28, 04/29, 05/04 - broad spectrum vanco, zosyn - adjust per ID. - ID consult appreciated - maintain fluid resuscitation -improved source control as of 05/08 Soft tissue gas gangrene - due to above - broad spectrum ATB - vanco, zosyn - debridement again 05/10 per Gen Surg Perirectal abscess - ATB per ID - surgical debridement X 5 Respiratory failure - post op - unable to wean ventilator. - Continue daily SBTs. BRAYDON - dehydration resolved - volume loss - aggressive i.v. fluids resuscitation - strict I&O - Dobutamine to keep P > 60, d/c now - Good urine output - Electrolyte protocol - Continue diuresis. NUTRITION - Increase Glucerna and benepro TFs DM - hold p.o. meds while in the ICU - ISS - Insulin gtt prn A.Fib - rate now controlled with occasional digoxin - telemetry Overall impression: Resolving septic shock but improved peripheral resistance. Improved infection source control and back today for debridement. Fails vent weaning again today. Problem Qualifiers (1) Acute renal failure: Qualified Code: N17.9 - Acute renal failure, unspecified acute renal failure type Zi Mustafa MD May 10, 2016 12:34
--- NOTE | 2016-05-10 14:27 | RADRPT ---
EXAM DATE/TIME: 05/10/2016 13:58 [facility] COMPARISON: CHEST SINGLE AP, May 01, 2016, 5:35. INDICATIONS : PICC placement, right side. MEDICAL HISTORY : None. SURGICAL HISTORY : None. ENCOUNTER: Initial ACUITY: 1 day PAIN SCORE: Non-responsive. LOCATION: Right chest FINDINGS: The PICC is in good position. Endotracheal tube in good position. There is a left basal effusion and consolidative change in the left lower lobe concerning for pneumon ia. There is a right subclavian central venous catheter as well. The heart is mildly enlarged. CONCLUSION: 1. PICC in good position. 2. Endotracheal tube in good position. 3. Consolidation and effusion at the left lung base. Chase Foley MD on May 10, 2016 at 14:25 Board Certified Radiologist. This report was verified electronically.
[2016-05-10] MEDS ORDERED: ONDANSETRON HCL 4 MG/2 ML VIAL ONE (16:37)
[2016-05-10] MEDS ORDERED: fentaNYL CITRATE 250 MCG/5 ML AMP ONE (16:37)
[2016-05-10] MEDS ORDERED: ceFAZolin INJ 1,000 MG VIAL TOP ONE (17:26)
[2016-05-10] MEDS: fentaNYL DRIP 250 ML IV SCH (19:58)
[2016-05-11] VITALS (17 sets, daily range): BP systolic 94–111; BP diastolic 51–60; PULSE 78–114; RESP 14–26; TEMP 98.6–100.4; O2SAT 95–100
[2016-05-11] MEDS: PIPERACIL-TAZO 3.375 GM PREMIX 50 ML IV SCH ×4 (03:00→21:00)
[2016-05-11] MEDS: CHLORHEXIDINE GLUCONATE 2 % 1 PACK (2 CLOTHS) TOP SCH ×2 (04:00→23:29)
[2016-05-11 04:14] LABS: AUTOMATED NEUTROPHIL # 12.7 TH/MM3 (1.8-7.7); BASOPHIL # 0.1 TH/MM3 (0-0.2); BASOPHIL % 0.5 % (0.0-2.0); EOSINOPHIL % 0.1 % (0.0-4.0); HEMATOCRIT 28.1 % (39.0-51.0); LYMPH % 11.9 % (9.0-44.0); MEAN CELL VOLUME 91.2 FL (80.0-100.0); MEAN CORPUSCULAR HEMOGLOBIN 30.8 PG (27.0-34.0); MEAN CORPUSCULAR HGB CONC 33.8 % (32.0-36.0); MONO % 13.1 % (0.0-8.0); NEUT % 74.4 % (16.0-70.0); PLATELET COUNT 135 TH/MM3 (150-450); RED BLOOD COUNT 3.09 MIL/MM3 (4.50-5.90); RED CELL DISTRIBUTION WIDTH 15.2 % (11.6-17.2)
[2016-05-11] MEDS: HIGH DOSE INSULIN NOVOLOG SUPPLEMENTAL SCALE SQ SCH ×5 (04:20→20:59)
[2016-05-11 04:28] LABS: HEMO FLAGS AUTO DIFF
[2016-05-11 04:37] LABS: BICARBONATE 31.6 MEQ/L (21.0-32.0); POTASSIUM 3.2 MEQ/L (3.5-5.1)
[2016-05-11] MEDS: POTASSIUM CHLOR 40 MEQ PREMIX 100 ML IV PRN (05:22)
[2016-05-11 07:46] LABS: BANDS 1 % (0-6); METAMYELOCYTES 1 % (0-1); MYELOCYTES 3 % (0-0); NEUTROPHIL # MANUAL DIFF 14.1 TH/MM3 (1.8-7.7); POLYS (SEG NEUTROPHILS) 78 % (16-70); SCAN/DIFF FINAL DIFF MANUAL; WBC DIFF SAMPLE 100
[2016-05-11 07:47] LABS: PLATELET ESTIMATE SMEAR LOW (NORMAL); PLATELET MORPHOLOGY ENLARGED (NORMAL)
[2016-05-11] MEDS: PANTOPRAZOLE SODIUM 40 MG VIAL IV SCH (08:29)
[2016-05-11] MEDS: SODIUM CHLORIDE 0.9% FLUSH 5 ML FLUSH IV FLUSH SCH ×2 (08:30→20:59)
[2016-05-11] MEDS: CHLORHEXIDINE 0.12% (ORAL KIT) 15 ML CUP MT SCH ×2 (08:30→20:19)
[2016-05-11] MEDS: LACTULOSE SYRUP 20 GM/30 ML CUP PO SCH ×2 (08:31→10:07)
[2016-05-11] MEDS: BENEPROTEIN POWDER 1 PACK G-TUBE SCH ×5 (08:40→18:00)
[2016-05-11] MEDS: DOCUSATE SODIUM 100 MG/10 ML UDC G-TUBE SCH (10:09)
[2016-05-11] MEDS: DOBUTamine 250 MG/D5W 250 ML PREMIX DRIP IV SCH (11:20)
--- NOTE | 2016-05-11 12:41 | HHI.CCPN ---
Subjective Remarks/Hospital Course 80-year-old male came to the emergency room with history of dizziness, lightheadedness, generalized weakness and right buttock pain. CT scan revealed soft tissue gas gangrene originated most probably as a perirectal abscess. He was taken emergently to OR for debridement. 05/01: Ongoing septic shock. Requires additional debridement today for source control. 05/02: Back from OR after debridement right buttocks and thigh last night. Minimal necrotic tissue found. Vac in place. Clearly still septic, but vasopresors requirements are decreasing. 05/03: Persistent septic picture. 05/04: Vasopressor requirements now declining finally. Gas exchange acceptable. 05/05: Gas exchange a little better after desaturation last evening. 05/06: Start more ambitious weaning trials. TFs to goal. General perfusion improved. 05/07: Persistent leukocytosis, likely from necrotic wound. Will replace CVL after OR just to be cautious. 05/08: Extensive peripheral edema. Should tolerate gentle diuresis at this point. 05/09: Mobilizing excess water well. Source control of sepsis presently appears adequate. 05/10: Stable for return to OR today for ongoing debridement. 05/11: Good response to diuretics. New PICC and CVL removed. Objective Vital Signs Date Time Temp Pulse Resp B/P Pulse Ox O2 Delivery O2 Flow Rate FiO2 05/11/16 12:10 40 05/11/16 12:10 95 05/11/16 10:00 78 05/11/16 08:00 100.4 16 111/58 Intake and Output 05/10/16 05/10/16 05/11/16 08:00 16:00 00:00 Intake Total 235 ml 268 ml 314 ml Output Total 1050 ml 3125 ml 1100 ml Balance -815 ml -2857 ml -786 ml Result Diagram: 05/11/16 0400 05/11/16 0400 Imaging Last 24 hours Impressions Chest X-Ray 04/28/16818 Signed Impressions: Service Date/Time: Thursday, April 28, 2016 08:21 - CONCLUSION: Normal examination. Lawson Howadr MD Abdomen/Pelvis CT 04/28/16818 Signed Impressions: Service Date/Time: Thursday, April 28, 2016 09:05 - CONCLUSION: 1. Significant inflammation, presumed infection, in the right gluteal region including numerous tiny locules of air not only in the gluteus janny muscle but extending anterior into the ischiorectal fossa on the right. There are two distinct collections around the rectum suspicious for a perirectal abscess both right anteriorly and left posterolaterally. 2. Gallstones versus sludge. Lawson Howard MD Lower Extremity CT 04/28/16 0000 Signed Impressions: Service Date/Time: Thursday, April 28, 2016 09:05 - CONCLUSION: There is extensive dissecting air throughout the gluteus janny muscle also dissecting into the lower posterior RIGHT thigh. There is air within the semi-tendinosis , semimembranosus, and biceps femoris muscles. There is also tiny amount of air along the abductor longus muscle. I don't see any drainable abscess or fluid collection. There is a small amount of fluid between the subcutaneous fat in the muscular fascia not an unusual finding in patient's with soft tissue edema. Lawson Howard MD Objective Remarks GENERAL: Muc less edematous. SKIN: Warm. Well perfused. HEAD: Normocephalic. Atraumatic. NECK: Supple, Orally intubated. CARDIOVASCULAR: Irreg Irreg, rate controlled 70-90s. No JVD. RESPIRATORY: Good adriel air entry on vent. Remains vent dependent. Few mobile secretions. GASTROINTESTINAL: Abdomen soft, non-tender, nondistended. BS active. No peritoneal irritation. MUSCULOSKELETAL: Warm, well perfused. Generalized 2+ edema. NEURO: Opens eyes. Moves 4 limbs when agitated. Not purposeful. A/P Problem List: (1) Septic shock ICD Code: A41.9 Status: Acute (2) Acute hypoxemic respiratory failure ICD Code: J96.01 Status: Acute (3) Gas gangrene of lower extremity ICD Code: A48.0 Status: Acute (4) Acute renal failure ICD Code: N17.9 Status: Acute (5) Encephalopathy, metabolic ICD Code: G93.41 Status: Acute Assessment and Plan Sepsis - perirectal abscess with extension to right thigh - debridement in the OR 04/28, 04/29, 05/04 - broad spectrum vanco, zosyn - adjust per ID. - ID consult appreciated - maintain fluid resuscitation -improved source control as of 05/08 Soft tissue gas gangrene - due to above - broad spectrum ATB - vanco, zosyn - debridement again 05/10 per Gen Surg Perirectal abscess - ATB per ID - surgical debridement X 5 Respiratory failure - post op - unable to wean ventilator. - Continue daily SBTs. BRAYDON - dehydration resolved - volume loss - aggressive i.v. fluids resuscitation - strict I&O - Dobutamine to keep P > 60, d/c now - Good urine output - Electrolyte protocol - Continue diuresis. NUTRITION - Increase Glucerna and benepro TFs DM - hold p.o. meds while in the ICU - ISS - Insulin gtt prn A.Fib - rate now controlled with occasional digoxin - telemetry Overall impression: Resolving septic shock and much improved peripheral resistance. Improved infection source control and back yesterday for additional debridement. Fails vent weaning again today. Problem Qualifiers (1) Acute renal failure: Qualified Code: N17.9 - Acute renal failure, unspecified acute renal failure type Zi Mustafa MD May 11, 2016 12:41
[2016-05-11] MEDS ORDERED: DOBUTamine INJ 250 MG in SODIUM CHLOR 0.9% 250 ML INJ 230 ML IV SCH (16:00)
--- NOTE | 2016-05-11 17:32 | HHI.PR ---
Subjective Subjective Notes Intubated/Eyes open Objective Vitals/I&O Vital Signs Date Time Temp Pulse Resp B/P Pulse Ox O2 Delivery O2 Flow Rate FiO2 05/11/16 14:00 114 05/11/16 12:10 40 05/11/16 12:10 95 05/11/16 12:00 99.6 18 111/56 Labs Laboratory Tests Test 05/11/16 04:00 White Blood Count 17.0 Red Blood Count 3.09 Hemoglobin 9.5 Hematocrit 28.1 Mean Corpuscular Volume 91.2 Mean Corpuscular Hemoglobin 30.8 Mean Corpuscular Hemoglobin 33.8 Concent Red Cell Distribution Width 15.2 Platelet Count 135 Mean Platelet Volume 9.8 Neutrophils (%) (Auto) 74.4 Lymphocytes (%) (Auto) 11.9 Monocytes (%) (Auto) 13.1 Eosinophils (%) (Auto) 0.1 Basophils (%) (Auto) 0.5 Neutrophils # (Auto) 12.7 Lymphocytes # (Auto) 2.0 Monocytes # (Auto) 2.2 Eosinophils # (Auto) 0.0 Basophils # (Auto) 0.1 CBC Comment AUTO DIFF Differential Total Cells 100 Counted Neutrophils % (Manual) 78 Band Neutrophils % 1 Lymphocytes % 12 Monocytes % 5 Neutrophils # (Manual) 14.1 Metamyelocytes 1 Myelocytes 3 Differential Comment FINAL DIFF MANUAL Platelet Estimate LOW Platelet Morphology Comment ENLARGED Sodium Level 141 Potassium Level 3.2 Chloride Level 102 Carbon Dioxide Level 31.6 Anion Gap 7 Blood Urea Nitrogen 23 Creatinine 1.36 Estimat Glomerular Filtration 51 Rate Random Glucose 180 Calcium Level 7.8 Cardiovascular: Regular Lungs: Clear Abdomen: Non-distended, Non-tender Narrative Exam perirectal and right posterior thigh wound vac in place with good seal Flexiseal in place A/P Assessment and Plan 80 year old male with NF with soft tissue gas gangrene; ?? origin perirectal abscess -POD21 Irrigation and wide debridement of right buttock and right thigh with vac change -Plan to return to OR likely Saturday -Tolerating TF -Vent per CCM -Continue antibiotics -Seal check on Wound Vac shows no leak -Continue Flexiseal to keep wound clean -Discussed plan of care with AMANDA Jackson Attending note - Dr. Carmona Abdomen soft VAC intact Discussed with Dr. Chavez (medical billing assistant) - maritza rodríguez The exam, history, and the medical decision-making described in the above note were completed with the assistance of the mid-level provider. I reviewed and agree with the findings presented. I attest that I had a [id number] encounter with the patient on the same day, and personally performed and documented my assessment and findings in the medical record. Roula Grayson May 11, 2016 17:32 Lior Carmona MD May 12, 2016 16:43
--- NOTE | 2016-05-11 18:32 | HHI.IDPN ---
Note Infectious Disease Note ID COVERAGE: Patient on vent. More awake with eyes open. Went for debridement of buttock yesterday 05/10/16. Wound vac in place. Prior debridement of necrotic R buttock x 5. Afebrile. WBC elevated. Grew gram variable org in 2/2 admission clx, anaerobic bottles only Repeat blood culture has no growth. ANTIBIOTICS: Zosyn. Past Medical History Diabetes Mellitus. Allergies: Coded Allergies: *MDRO Multi-Drug Resistant Organism (Verified Adverse Reaction, Unknown, ) MRSA PCR Screeen POSITIVE - 04/28/2016 Objective Vital Signs Date Time Temp Pulse Resp B/P Pulse Ox O2 Delivery O2 Flow Rate FiO2 05/11/16 16:00 110 05/11/16 16:00 99.6 110 26 95/60 99 05/11/16 16:00 40 05/11/16 14:00 114 05/11/16 12:10 40 05/11/16 12:10 95 40 05/11/16 12:00 99.6 108 18 111/56 97 05/11/16 12:00 40 05/11/16 12:00 108 05/11/16 10:00 78 05/11/16 08:18 100 40 05/11/16 08:00 100.4 92 16 111/58 100 05/11/16 08:00 40 05/11/16 08:00 92 05/11/16 06:00 101 05/11/16 04:00 40 05/11/16 04:00 101 05/11/16 04:00 98.6 90 14 96/51 99 05/11/16 03:59 97 40 05/11/16 02:00 101 05/11/16 00:00 40 05/11/16 00:00 98 40 05/11/16 00:00 99.4 86 15 94/55 98 05/11/16 00:00 86 05/10/16 22:00 85 05/10/16 20:00 98.5 89 14 113/71 97 05/10/16 20:00 40 05/10/16 20:00 99 40 05/10/16 20:00 89 05/10/16 18:45 103 Laboratory Tests Test 05/10/16 05/11/16 06:15 04:00 White Blood Count 18.2 TH/MM3 17.0 TH/MM3 Red Blood Count 3.26 MIL/MM3 3.09 MIL/MM3 Hemoglobin 9.9 GM/DL 9.5 GM/DL Hematocrit 29.9 % 28.1 % Mean Corpuscular Volume 91.5 FL 91.2 FL Mean Corpuscular Hemoglobin 30.2 PG 30.8 PG Mean Corpuscular Hemoglobin 33.0 % 33.8 % Concent Red Cell Distribution Width 14.9 % 15.2 % Platelet Count 134 TH/MM3 135 TH/MM3 Mean Platelet Volume 10.0 FL 9.8 FL Neutrophils (%) (Auto) 74.4 % Lymphocytes (%) (Auto) 11.9 % Monocytes (%) (Auto) 13.1 % Eosinophils (%) (Auto) 0.1 % Basophils (%) (Auto) 0.5 % Neutrophils # (Auto) 12.7 TH/MM3 Lymphocytes # (Auto) 2.0 TH/MM3 Monocytes # (Auto) 2.2 TH/MM3 Eosinophils # (Auto) 0.0 TH/MM3 Basophils # (Auto) 0.1 TH/MM3 CBC Comment AUTO DIFF Differential Total Cells 100 Counted Neutrophils % (Manual) 78 % Band Neutrophils % 1 % Lymphocytes % 12 % Monocytes % 5 % Neutrophils # (Manual) 14.1 TH/MM3 Metamyelocytes 1 % Myelocytes 3 % Differential Comment FINAL DIFF MANUAL Platelet Estimate LOW Platelet Morphology Comment ENLARGED Laboratory Tests Test 05/10/16 05/11/16 06:15 04:00 Sodium Level 140 MEQ/L 141 MEQ/L Potassium Level 3.3 MEQ/L 3.2 MEQ/L Chloride Level 101 MEQ/L 102 MEQ/L Carbon Dioxide Level 30.7 MEQ/L 31.6 MEQ/L Anion Gap 8 MEQ/L 7 MEQ/L Blood Urea Nitrogen 23 MG/DL 23 MG/DL Creatinine 1.40 MG/DL 1.36 MG/DL Estimat Glomerular Filtration 49 ML/MIN 51 ML/MIN Rate Random Glucose 141 MG/DL 180 MG/DL Calcium Level 7.9 MG/DL 7.8 MG/DL Magnesium Level 1.7 MG/DL 05/10/16 05/10/16 05/11/16 15:00 23:00 07:00 Intake Total 268 ml 314 ml 758 ml Output Total 3125 ml 1100 ml 1250 ml Balance -2857 ml -786 ml -492 ml Intake Oral 0 ml IV Total 268 ml 158 ml 332 ml Tube Feeding 0 ml 96 ml 366 ml Tube Irrigant 60 ml 60 ml Output Urine Total 2900 ml 1000 ml 1200 ml Stool Total 100 ml 0 ml 0 ml Drainage Total 125 ml 100 ml 50 ml Imaging Chest X-Ray 05/10/16 0000 Signed Impressions: Service Date/Time: April 13:58 - CONCLUSION: 1. PICC in good position. 2. Endotracheal tube in good position. 3. Consolidation and effusion at the left lung base. Chase Foley MD Chest X-Ray 05/01/16 0600 Signed Impressions: Service Date/Time: Sunday, May 01, 2016 05:35 - CONCLUSION: Slight improvement in aeration. Davon Stokes MD Abdomen/Pelvis CT 04/28/16 0819 Signed Impressions: Service Date/Time: Thursday, April 28, 2016 09:05 - CONCLUSION: 1. Significant inflammation, presumed infection, in the right gluteal region including numerous tiny locules of air not only in the gluteus janny muscle but extending anterior into the ischiorectal fossa on the right. There are two distinct collections around the rectum suspicious for a perirectal abscess both right anteriorly and left posterolaterally. 2. Gallstones versus sludge. Lawson Howard MD Lower Extremity CT 04/28/16 0000 Signed Impressions: Service Date/Time: Thursday, April 28, 2016 09:05 - CONCLUSION: There is extensive dissecting air throughout the gluteus janny muscle also dissecting into the lower posterior RIGHT thigh. There is air within the semi-tendinosis , semimembranosus, and biceps femoris muscles. There is also tiny amount of air along the abductor longus muscle. I don't see any drainable abscess or fluid collection. There is a small amount of fluid between the subcutaneous fat in the muscular fascia not an unusual finding in patient's with soft tissue edema. Lawson Howard MD Physical Exam GENERAL: Awake. Eyes open. HEENT: Mild scleral icterus. Oral mucosa moist. CARDIOVASCULAR: Regular S1S2 without murmurs, gallops, or rubs. RESPIRATORY/CHEST: Bibasilar rhonchi. GASTROINTESTINAL: Abdomen soft, mildly distended. Decreased bowel sounds. GENITOURINARY: Han in place with clear yellow urine MUSCULOSKELETAL: VAC in place at the R buttock has serous sanguinous drainage. Extremities has 4+ edema. SKIN: No rash. Warm and moist. NEUROLOGICAL: Awake and following commands. Assessment & Plan Remarks Perirectal abscess and gas gangrene R buttock. E. coli and strep. Necrotizing fascitis R buttock Severe sepsis on admission - leukocytosis, bandemia, fever, lactic acidosis ( 4.0), hypotension, tachycardia and ARF, Source abscess, gas gangrene. Leukocytosis related to fascitis. WBC still elevated but decreasing. ? Anaerobic sepsis - from presenting condition. Repeat blood culture negative. Continue Zosyn Follow WBC and temp. Monitor for new signs of other infection to explain the elevated WBC. . Ha Pelaez MD May 11, 2016 18:32
[2016-05-12] VITALS (19 sets, daily range): BP systolic 12–143; BP diastolic 58–70; PULSE 53–141; RESP 14–21; TEMP 98.2–99.3; O2SAT 97–100
[2016-05-12] MEDS: HIGH DOSE INSULIN NOVOLOG SUPPLEMENTAL SCALE SQ SCH ×6 (00:31→20:28)
[2016-05-12] MEDS: PIPERACIL-TAZO 3.375 GM PREMIX 50 ML IV SCH ×4 (03:10→22:54)
--- NOTE | 2016-05-12 07:02 | HHI.CCPN ---
Subjective Remarks/Hospital Course 80-year-old male came to the emergency room with history of dizziness, lightheadedness, generalized weakness and right buttock pain. CT scan revealed soft tissue gas gangrene originated most probably as a perirectal abscess. He was taken emergently to OR for debridement. 05/01: Ongoing septic shock. Requires additional debridement today for source control. 05/02: Back from OR after debridement right buttocks and thigh last night. Minimal necrotic tissue found. Vac in place. Clearly still septic, but vasopresors requirements are decreasing. 05/03: Persistent septic picture. 05/04: Vasopressor requirements now declining finally. Gas exchange acceptable. 05/05: Gas exchange a little better after desaturation last evening. 05/06: Start more ambitious weaning trials. TFs to goal. General perfusion improved. 05/07: Persistent leukocytosis, likely from necrotic wound. Will replace CVL after OR just to be cautious. 05/08: Extensive peripheral edema. Should tolerate gentle diuresis at this point. 05/09: Mobilizing excess water well. Source control of sepsis presently appears adequate. 05/10: Stable for return to OR today for ongoing debridement. 05/11: Good response to diuretics. New PICC placed and CVL removed. 05/12: Alert, tolerates SBT. Try to extubate today. Objective Vital Signs Date Time Temp Pulse Resp B/P Pulse Ox O2 Delivery O2 Flow Rate FiO2 05/12/16 06:55 40 05/12/16 06:00 89 05/12/16 04:00 99.3 14 113/59 98 Intake and Output 05/11/16 05/11/16 05/12/16 08:00 16:00 00:00 Intake Total 758 ml 752 ml 640 ml Output Total 1250 ml 575 ml 675 ml Balance -492 ml 177 ml -35 ml Result Diagram: 05/11/16 0400 05/11/16 040 Imaging Last 24 hours Impressions Chest X-Ray 04/28/16818 Signed Impressions: Service Date/Time: Thursday, April 28, 2016 08:21 - CONCLUSION: Normal examination. Lawson Howard MD Abdomen/Pelvis CT 04/28/16818 Signed Impressions: Service Date/Time: Thursday, April 28, 2016 09:05 - CONCLUSION: 1. Significant inflammation, presumed infection, in the right gluteal region including numerous tiny locules of air not only in the gluteus janny muscle but extending anterior into the ischiorectal fossa on the right. There are two distinct collections around the rectum suspicious for a perirectal abscess both right anteriorly and left posterolaterally. 2. Gallstones versus sludge. Lawson Howard MD Lower Extremity CT 04/28/16 0000 Signed Impressions: Service Date/Time: Thursday, April 28, 2016 09:05 - CONCLUSION: There is extensive dissecting air throughout the gluteus janny muscle also dissecting into the lower posterior RIGHT thigh. There is air within the semi-tendinosis , semimembranosus, and biceps femoris muscles. There is also tiny amount of air along the abductor longus muscle. I don't see any drainable abscess or fluid collection. There is a small amount of fluid between the subcutaneous fat in the muscular fascia not an unusual finding in patient's with soft tissue edema. Lawson Howard MD Objective Remarks GENERAL: Much less edematous. SKIN: Warm. Well perfused. HEAD: Normocephalic. Atraumatic. NECK: Supple, Orally intubated. CARDIOVASCULAR: Irreg Irreg, rate controlled 70-90s. No JVD. RESPIRATORY: Good adriel air entry on vent. Remains vent dependent. Few mobile secretions. Improved spontaneous effort. GASTROINTESTINAL: Abdomen soft, non-tender, nondistended. BS active. No peritoneal irritation. MUSCULOSKELETAL: Warm, well perfused. Generalized 1+ edema. NEURO: Opens eyes. Moves 4 limbs when agitated. Purposeful. A/P Problem List: (1) Septic shock ICD Code: A41.9 Status: Acute (2) Acute hypoxemic respiratory failure ICD Code: J96.01 Status: Acute (3) Gas gangrene of lower extremity ICD Code: A48.0 Status: Acute (4) Acute renal failure ICD Code: N17.9 Status: Acute (5) Encephalopathy, metabolic ICD Code: G93.41 Status: Acute Assessment and Plan Sepsis - perirectal abscess with extension to right thigh - debridement in the OR 04/28, 04/29, 05/04 - broad spectrum vanco, zosyn - adjust per ID. - ID consult appreciated - maintain fluid resuscitation -improved source control as of 01/24 Soft tissue gas gangrene - due to above - broad spectrum ATB - vancsylwia saeedsyn - debridement again 05/10 per Gen Surg Perirectal abscess - ATB per ID - surgical debridement X 5 Respiratory failure - post op - unable to wean ventilator. - Continue daily SBTs. BRAYDON - dehydration resolved - volume loss - aggressive i.v. fluids resuscitation - strict I&O - Dobutamine to keep P > 60, d/c now - Good urine output - Electrolyte protocol - Continue diuresis. NUTRITION - Increase Glucerna and benepro TFs to 65/hr - Check prealbumin DM - hold p.o. meds while in the ICU - ISS - Insulin gtt prn A.Fib - rate now controlled with occasional digoxin - telemetry Overall impression: Resolving septic shock and much improved perfusion. Improved infection source control, wound slowly being closed. Problem Qualifiers (1) Acute renal failure: Qualified Code: N17.9 - Acute renal failure, unspecified acute renal failure type Zi Mustafa MD May 12, 2016 07:02
[2016-05-12] MEDS: CHLORHEXIDINE 0.12% (ORAL KIT) 15 ML CUP MT SCH ×2 (08:25→20:28)
[2016-05-12] MEDS: BENEPROTEIN POWDER 1 PACK G-TUBE SCH ×3 (09:00→17:44)
[2016-05-12] MEDS: PANTOPRAZOLE SODIUM 40 MG VIAL IV SCH (10:05)
[2016-05-12] MEDS: SODIUM CHLORIDE 0.9% FLUSH 5 ML FLUSH IV FLUSH SCH ×2 (10:05→20:28)
[2016-05-12] MEDS: LACTULOSE SYRUP 20 GM/30 ML CUP PO SCH (10:06)
--- NOTE | 2016-05-12 12:25 | HHI.IDPN ---
Note Infectious Disease Note ID COVERAGE: Notes reviewed Sedated on the vent Temps occ low grade Had debridement of buttock 05/10/16. Wound vac in place. Prior debridement of necrotic R buttock x 5. Afebrile. WBC elevated. BC on adm with anaerobes Repeat BC negative ANTIBIOTICS: Zosyn. Past Medical History Diabetes Mellitus. OBJECTIVE Vital Signs Date Time Temp Pulse Resp B/P Pulse Ox O2 Delivery O2 Flow Rate FiO2 05/12/16 10:00 78 05/12/16 08:00 75 05/12/16 08:00 98.8 75 16 115/58 05/12/16 07:34 98 40 05/12/16 06:55 40 05/12/16 06:00 89 05/12/16 04:00 40 05/12/16 04:00 90 05/12/16 04:00 99.3 90 14 113/59 98 05/12/16 03:17 100 40 05/12/16 02:00 75 05/12/16 00:33 99 40 05/12/16 00:00 40 05/12/16 00:00 98.2 90 18 109/60 100 05/12/16 00:00 90 05/11/16 22:00 86 05/11/16 20:00 98.8 102 16 106/59 100 05/11/16 20:00 40 05/11/16 20:00 102 05/11/16 19:37 100 40 05/11/16 18:28 98 40 05/11/16 18:00 88 05/11/16 16:00 110 05/11/16 16:00 99.6 110 26 95/60 99 05/11/16 16:00 40 05/11/16 14:00 114 Vital Signs Date Time Temp Pulse Resp B/P Pulse Ox O2 Delivery O2 Flow Rate FiO2 05/11/16 16:00 110 05/11/16 16:00 99.6 110 26 95/60 99 05/11/16 16:00 40 05/11/16 14:00 114 05/11/16 12:10 40 05/11/16 12:10 95 40 05/11/16 12:00 99.6 108 18 111/56 97 05/11/16 12:00 40 05/11/16 12:00 108 05/11/16 10:00 78 05/11/16 08:18 100 40 05/11/16 08:00 100.4 92 16 111/58 100 05/11/16 08:00 40 05/11/16 08:00 92 05/11/16 06:00 101 05/11/16 04:00 40 05/11/16 04:00 101 05/11/16 04:00 98.6 90 14 96/51 99 05/11/16 03:59 97 40 05/11/16 02:00 101 05/11/16 00:00 40 05/11/16 00:00 98 40 05/11/16 00:00 99.4 86 15 94/55 98 05/11/16 00:00 86 05/10/16 22:00 85 05/10/16 20:00 98.5 89 14 113/71 97 05/10/16 20:00 40 05/10/16 20:00 99 40 05/10/16 20:00 89 05/10/16 18:45 103 Laboratory Tests Test 05/10/16 05/11/16 06:15 04:00 White Blood Count 18.2 TH/MM3 17.0 TH/MM3 Red Blood Count 3.26 MIL/MM3 3.09 MIL/MM3 Hemoglobin 9.9 GM/DL 9.5 GM/DL Hematocrit 29.9 % 28.1 % Mean Corpuscular Volume 91.5 FL 91.2 FL Mean Corpuscular Hemoglobin 30.2 PG 30.8 PG Mean Corpuscular Hemoglobin 33.0 % 33.8 % Concent Red Cell Distribution Width 14.9 % 15.2 % Platelet Count 134 TH/MM3 135 TH/MM3 Mean Platelet Volume 10.0 FL 9.8 FL Neutrophils (%) (Auto) 74.4 % Lymphocytes (%) (Auto) 11.9 % Monocytes (%) (Auto) 13.1 % Eosinophils (%) (Auto) 0.1 % Basophils (%) (Auto) 0.5 % Neutrophils # (Auto) 12.7 TH/MM3 Lymphocytes # (Auto) 2.0 TH/MM3 Monocytes # (Auto) 2.2 TH/MM3 Eosinophils # (Auto) 0.0 TH/MM3 Basophils # (Auto) 0.1 TH/MM3 CBC Comment AUTO DIFF Differential Total Cells 100 Counted Neutrophils % (Manual) 78 % Band Neutrophils % 1 % Lymphocytes % 12 % Monocytes % 5 % Neutrophils # (Manual) 14.1 TH/MM3 Metamyelocytes 1 % Myelocytes 3 % Differential Comment FINAL DIFF MANUAL Platelet Estimate LOW Platelet Morphology Comment ENLARGED Laboratory Tests Test 05/10/16 05/11/16 06:15 04:00 Sodium Level 140 MEQ/L 141 MEQ/L Potassium Level 3.3 MEQ/L 3.2 MEQ/L Chloride Level 101 MEQ/L 102 MEQ/L Carbon Dioxide Level 30.7 MEQ/L 31.6 MEQ/L Anion Gap 8 MEQ/L 7 MEQ/L Blood Urea Nitrogen 23 MG/DL 23 MG/DL Creatinine 1.40 MG/DL 1.36 MG/DL Estimat Glomerular Filtration 49 ML/MIN 51 ML/MIN Rate Random Glucose 141 MG/DL 180 MG/DL Calcium Level 7.9 MG/DL 7.8 MG/DL Magnesium Level 1.7 MG/DL Imaging Chest X-Ray 05/10/16 0000 Signed Impressions: Service Date/Time: April 13:58 - CONCLUSION: 1. PICC in good position. 2. Endotracheal tube in good position. 3. Consolidation and effusion at the left lung base. Chase Foley MD Chest X-Ray 05/01/16 0600 Signed Impressions: Service Date/Time: Sunday, May 01, 2016 05:35 - CONCLUSION: Slight improvement in aeration. Davon Stokes MD Abdomen/Pelvis CT 04/28/16 0819 Signed Impressions: Service Date/Time: Thursday, April 28, 2016 09:05 - CONCLUSION: 1. Significant inflammation, presumed infection, in the right gluteal region including numerous tiny locules of air not only in the gluteus janny muscle but extending anterior into the ischiorectal fossa on the right. There are two distinct collections around the rectum suspicious for a perirectal abscess both right anteriorly and left posterolaterally. 2. Gallstones versus sludge. Lawson Howard MD Lower Extremity CT 04/28/16 0000 Signed Impressions: Service Date/Time: Thursday, April 28, 2016 09:05 - CONCLUSION: There is extensive dissecting air throughout the gluteus janny muscle also dissecting into the lower posterior RIGHT thigh. There is air within the semi-tendinosis , semimembranosus, and biceps femoris muscles. There is also tiny amount of air along the abductor longus muscle. I don't see any drainable abscess or fluid collection. There is a small amount of fluid between the subcutaneous fat in the muscular fascia not an unusual finding in patient's with soft tissue edema. Lawson Howard MD Physical Exam GENERAL: Sedated on the vent HEENT: Mild scleral icterus. Oral mucosa moist. ET in mouth CARDIOVASCULAR: Regular S1S2 without murmurs, gallops, or rubs. RESPIRATORY/CHEST: Bibasilar rhonchi. GASTROINTESTINAL: Abdomen soft, mildly distended. Decreased bowel sounds. GENITOURINARY: Han in place with clear yellow urine MUSCULOSKELETAL: VAC in place at the R buttock has serous sanguinous drainage. Extremities has 4+ edema. SKIN: No rash. Warm and moist. Edematous NEUROLOGICAL: Sedated currently IMPRESSION Perirectal abscess and gas gangrene R buttock. E. coli and strep. Necrotizing fascitis R buttock Severe sepsis on admission - leukocytosis, bandemia, fever, lactic acidosis ( 4.0), hypotension, tachycardia and ARF, - Source abscess, gas gangrene. - BC with anaerobes on admission Leukocytosis related to fascitis. WBC still elevated but decreasing. ? Anaerobic sepsis - from presenting condition. Repeat blood culture negative. PLAN Continue Zosyn Monitor progress Follow temps Follow CBC Remains on the vent. Brandie Gates MD May 12, 2016 12:25 Brandie Gates MD May 12, 2016 12:25
[2016-05-12] MEDS: DOCUSATE SODIUM 100 MG/10 ML UDC G-TUBE SCH ×2 (13:56)
--- NOTE | 2016-05-12 16:46 | HHI.PR ---
Subjective Subjective Notes Resting but responsive Objective Vitals/I&O Vital Signs Date Time Temp Pulse Resp B/P Pulse Ox O2 Delivery O2 Flow Rate FiO2 05/12/16 16:00 40 05/12/16 16:00 98 05/12/16 16:00 99.3 18 99 Lungs: Clear A/P Assessment and Plan 80 year old male with NF with soft tissue gas gangrene; ?? origin perirectal abscess -POD #2 Irrigation and debridement of right buttock and right thigh with vac change -Plan to return to OR likely Saturday -Tolerating TF -Vent per CCM; weaning -Continue antibiotics -Seal check on Wound Vac shows no leak -Continue Flexiseal to keep wound clean -Discussed plan of care with RN Manuel and Dr. Chavez Attending note - Dr. Carmona Abdomen soft VAC intact Discussed with Dr. Cahvez (physiatrist) - wean vent The exam, history, and the medical decision-making described in the above note were completed with the assistance of the mid-level provider. I reviewed and agree with the findings presented. I attest that I had a [id number] encounter with the patient on the same day, and personally performed and documented my assessment and findings in the medical record. Lior Carmona MD May 12, 2016 16:46
--- NOTE | 2016-05-12 19:16 | MP ---
cc: BING MARCOS MD DATE OF SURGERY: 05/07/2016 PREOPERATIVE DIAGNOSIS: Necrotizing soft tissue infection, right buttock, right thigh. POSTOPERATIVE DIAGNOSIS: Necrotizing soft tissue infection, right buttock, right thigh. PROCEDURE PERFORMED: Incision and wide debridement of right buttock, right thigh with partial closure and VAC placement. SURGEON Dr. Bing Marcos. PROFESSOR OF MUSICOLOGY: See OR sheet. ANESTHESIA: GETA. IV FLUIDS: 100 cc. ESTIMATED BLOOD LOSS: 20 cc. DRAINS: VAC placement. WOUND CLASSIFICATION: Dirty. COMPLICATIONS: None. SPECIMENS: None. FINDINGS: Minimal medial necrotic skin, well healing muscle, scant fibropurulent debris. INDICATIONS FOR THE PROCEDURE: The patient is a 80-year-old male who presented with necrotizing soft tissue infection right buttock, right thigh. He underwent initial wide debridement with VAC placement and has undergone several successive debridements with VAC changes. He is here for further debridement, VAC change and possible closure. The plan was discussed in detail with family. DESCRIPTION OF THE PROCEDURE IN DETAIL: The patient was taken to operating suite, placed in prone position. He was prepped and draped in the usual sterile fashion after induction of general endotracheal anesthesia. The patient came from [facility] and was already intubated and sedated. The VAC dressing was removed after a brief time out stating correct patient, procedure and surgical site and all were in agreement with this. Lisa removed. Sponge removed. Of note, healthier bleeding tissue was found to the muscle belly. The patient still had residual fibropurulent drainage that was scant. There was evidence of medial skin necrosis near rectum. Bovie electrocautery was used to incise a wedge-shaped skin. Next, pulse lavage was done to irrigate the entire wound with three liters of normal saline. Bovie electrocautery was used for hemostasis and to remove minimal purulent debris. A VAC sponge was obtained. Prior to placement, attempted partial closure was done. At the medial portion, several #1 vertical mattress nylons were placed to reapproximate skin. Also in the superior aspect, several nylons were placed to reapproximate skin. The VAC sponge was placed deep perirectal and a second placed across the midline. Next, mid-wound three other vertical mattress #1 nylons were used to approximate the skin edges. The patient still had a significant wide defect distally. There was still too much edema and tension to bring this distal tissue skin together. Therefore, a VAC sponge was placed, one in the medial portion and then a second one on the distal portion. These were stapled in place to secure them. Next, the skin was wiped clean. Mastisol was used. The plastic drape was placed and two track pads, one distally and one proximally, to each sponge area. The VAC hooked up to suction without evidence of leak. Next, all lap and instrument and sponge counts were correct. The patient tolerated the procedure. The patient remained intubated and was taken to the [facility]. MD ARUN Jenkins/MADDIE /9:53 PM /7:06 PM
[2016-05-12] MEDS: fentaNYL DRIP 250 ML IV SCH (20:29)
[2016-05-12] MEDS: RESP: ALBUTEROL 2.5 MG/IPRATROPIUM 0.5 MG NEB (PRN) INH (22:22)
[2016-05-12] MEDS: CHLORHEXIDINE GLUCONATE 2 % 1 PACK (2 CLOTHS) TOP SCH (23:11)
[2016-05-13] VITALS (20 sets, daily range): BP systolic 106–140; BP diastolic 55–83; PULSE 74–102; RESP 15–18; TEMP 98.3–99.9; O2SAT 95–100
[2016-05-13] MEDS: DOCUSATE SODIUM 100 MG/10 ML UDC G-TUBE SCH ×2 (00:34→12:39)
[2016-05-13] MEDS: HIGH DOSE INSULIN NOVOLOG SUPPLEMENTAL SCALE SQ SCH ×6 (00:35→19:55)
[2016-05-13] MEDS: PIPERACIL-TAZO 3.375 GM PREMIX 50 ML IV SCH ×4 (03:47→21:09)
[2016-05-13 03:52] LABS: AUTOMATED NEUTROPHIL # 10.2 TH/MM3 (1.8-7.7); BASOPHIL # 0.1 TH/MM3 (0-0.2); BASOPHIL % 0.4 % (0.0-2.0); EOSINOPHIL % 0.1 % (0.0-4.0); HEMATOCRIT 26.7 % (39.0-51.0); LYMPH % 11.1 % (9.0-44.0); LYMPHOCYTE # 1.5 TH/MM3 (1.0-4.8); MEAN CELL VOLUME 90.8 FL (80.0-100.0); MEAN CORPUSCULAR HEMOGLOBIN 31.2 PG (27.0-34.0); MEAN CORPUSCULAR HGB CONC 34.3 % (32.0-36.0); MONO % 15.3 % (0.0-8.0); NEUT % 73.1 % (16.0-70.0); PLATELET COUNT 154 TH/MM3 (150-450); RED BLOOD COUNT 2.94 MIL/MM3 (4.50-5.90); RED CELL DISTRIBUTION WIDTH 14.8 % (11.6-17.2); WHITE BLOOD COUNT 13.9 TH/MM3 (4.0-11.0)
[2016-05-13 03:58] LABS: HEMO FLAGS AUTO DIFF
[2016-05-13 03:59] LABS: BICARBONATE 29.9 MEQ/L (21.0-32.0); POTASSIUM 3.3 MEQ/L (3.5-5.1)
[2016-05-13] MEDS: POTASSIUM CL 40 MEQ/30 ML LIQ UDC PO/TUBE PRN (05:36)
[2016-05-13 06:10] LABS: BANDS 29 % (0-6); METAMYELOCYTES 3 % (0-1); NEUTROPHIL # MANUAL DIFF 12.1 TH/MM3 (1.8-7.7); POLYS (SEG NEUTROPHILS) 55 % (16-70); WBC DIFF SAMPLE 100
[2016-05-13 06:11] LABS: PLATELET ESTIMATE SMEAR NORMAL (NORMAL); PLATELET MORPHOLOGY NORMAL (NORMAL); SCAN/DIFF FINAL DIFF MANUAL
[2016-05-13] MEDS: RESP: ALBUTEROL 2.5 MG/IPRATROPIUM 0.5 MG NEB (PRN) INH (08:25)
[2016-05-13] MEDS: SODIUM CHLORIDE 0.9% FLUSH 5 ML FLUSH IV FLUSH SCH ×2 (09:00→21:09)
--- NOTE | 2016-05-13 09:50 | HHI.CCPN ---
Subjective Remarks/Hospital Course 80-year-old male came to the emergency room with history of dizziness, lightheadedness, generalized weakness and right buttock pain. CT scan revealed soft tissue gas gangrene originated most probably as a perirectal abscess. He was taken emergently to OR for debridement. 05/01: Ongoing septic shock. Requires additional debridement today for source control. 05/02: Back from OR after debridement right buttocks and thigh last night. Minimal necrotic tissue found. Vac in place. Clearly still septic, but vasopresors requirements are decreasing. 05/03: Persistent septic picture. 05/04: Vasopressor requirements now declining finally. Gas exchange acceptable. 05/05: Gas exchange a little better after desaturation last evening. 05/06: Start more ambitious weaning trials. TFs to goal. General perfusion improved. 05/07: Persistent leukocytosis, likely from necrotic wound. Will replace CVL after OR just to be cautious. 05/08: Extensive peripheral edema. Should tolerate gentle diuresis at this point. 05/09: Mobilizing excess water well. Source control of sepsis presently appears adequate. 05/10: Stable for return to OR today for ongoing debridement. 05/11: Good response to diuretics. New PICC placed and CVL removed. 05/12: Alert, tolerates SBT. Try to extubate today. 05/13: Remains orally intubated on mechanical ventilation. Possible OR tomorrow. Objective Vital Signs Date Time Temp Pulse Resp B/P Pulse Ox O2 Delivery O2 Flow Rate FiO2 05/13/16 08:30 100 40 05/13/16 06:00 89 05/13/16 04:00 99.9 15 106/58 Intake and Output 05/12/16 05/12/16 05/13/16 08:00 16:00 00:00 Intake Total 895 ml 1045 ml 710 ml Output Total 625 ml 650 ml Balance 270 ml 1045 ml 60 ml Result Diagram: 05/13/1632905/13/16 033 Imaging Last 24 hours Impressions Chest X-Ray 04/28/16818 Signed Impressions: Service Date/Time: Thursday, April 28, 2016 08:21 - CONCLUSION: Normal examination. Lawson Howard MD Abdomen/Pelvis CT 04/28/16818 Signed Impressions: Service Date/Time: Thursday, April 28, 2016 09:05 - CONCLUSION: 1. Significant inflammation, presumed infection, in the right gluteal region including numerous tiny locules of air not only in the gluteus janny muscle but extending anterior into the ischiorectal fossa on the right. There are two distinct collections around the rectum suspicious for a perirectal abscess both right anteriorly and left posterolaterally. 2. Gallstones versus sludge. Lawson Howard MD Lower Extremity CT 04/28/16 0000 Signed Impressions: Service Date/Time: Thursday, April 28, 2016 09:05 - CONCLUSION: There is extensive dissecting air throughout the gluteus janny muscle also dissecting into the lower posterior RIGHT thigh. There is air within the semi-tendinosis , semimembranosus, and biceps femoris muscles. There is also tiny amount of air along the abductor longus muscle. I don't see any drainable abscess or fluid collection. There is a small amount of fluid between the subcutaneous fat in the muscular fascia not an unusual finding in patient's with soft tissue edema. Lawson Howard MD Objective Remarks GENERAL: Much less edematous. SKIN: Warm. Well perfused. HEAD: Normocephalic. Atraumatic. NECK: Supple, Orally intubated. CARDIOVASCULAR: Irreg Irreg, rate controlled 70-90s. No JVD. RESPIRATORY: Good adriel air entry on vent. Remains vent dependent. Few mobile secretions. GASTROINTESTINAL: Abdomen soft, non-tender, nondistended. BS active. No peritoneal irritation. MUSCULOSKELETAL: Warm, well perfused. Generalized 1+ edema. NEURO: Opens eyes. Moves 4 limbs when agitated. Purposeful. A/P Problem List: (1) Septic shock ICD Code: A41.9 Status: Acute (2) Acute hypoxemic respiratory failure ICD Code: J96.01 Status: Acute (3) Gas gangrene of lower extremity ICD Code: A48.0 Status: Acute (4) Acute renal failure ICD Code: N17.9 Status: Acute (5) Encephalopathy, metabolic ICD Code: G93.41 Status: Acute Assessment and Plan Sepsis - perirectal abscess with extension to right thigh - debridement in the OR 04/28, 04/29, 05/04 - broad spectrum vanco, zosyn - adjust per ID. - ID consult appreciated - maintain fluid resuscitation -improved source control as of 05/08 Soft tissue gas gangrene - due to above - broad spectrum ATB - patricia martin - debridement again 05/10 per Gen Surg Perirectal abscess - ATB per ID - surgical debridement X 5. Possible OR 05/14. Respiratory failure - post op - unable to wean ventilator. - Continue daily SBTs. BRAYDON - dehydration resolved - volume loss - aggressive i.v. fluids resuscitation - strict I&O - Dobutamine off. - Good urine output - Electrolyte protocol - Continue diuresis. NUTRITION - Glucerna and benepro TFs 65/hr - Check prealbumin DM - hold p.o. meds while in the ICU - ISS - Insulin gtt prn A.Fib - rate now controlled with occasional digoxin - telemetry Overall impression: Resolving septic shock and much improved perfusion. Improved infection source control, wound slowly being closed. Problem Qualifiers (1) Acute renal failure: Qualified Code: N17.9 - Acute renal failure, unspecified acute renal failure type Jem Zaidi MD May 13, 2016 09:50
[2016-05-13] MEDS: CHLORHEXIDINE 0.12% (ORAL KIT) 15 ML CUP MT SCH ×2 (09:59→19:55)
[2016-05-13] MEDS: BENEPROTEIN POWDER 1 PACK G-TUBE SCH ×3 (09:59→18:00)
[2016-05-13] MEDS: PANTOPRAZOLE SODIUM 40 MG VIAL IV SCH (10:00)
[2016-05-13] MEDS: LACTULOSE SYRUP 20 GM/30 ML CUP PO SCH (10:01)
--- NOTE | 2016-05-13 10:38 | HHI.IDPN ---
Note Infectious Disease Note ID COVERAGE: Notes reviewed Sedated on the vent Temps occ low grade Possibly repeat OR tomorrow 05/14 WBC elevated, improving BC on adm with anaerobes Repeat BC negative ANTIBIOTICS: Zosyn. Past Medical History Diabetes Mellitus. OBJECTIVE Vital Signs Date Time Temp Pulse Resp B/P Pulse Ox O2 Delivery O2 Flow Rate FiO2 05/13/16 08:30 100 40 05/13/16 08:28 100 40 05/13/16 08:21 100 40 05/13/16 06:00 89 05/13/16 04:30 95 40 05/13/16 04:00 97 05/13/16 04:00 99.9 99 15 106/58 99 05/13/16 04:00 40 05/13/16 02:00 100 05/13/16 01:59 98 40 05/13/16 00:00 98.9 99 18 121/59 97 05/13/16 00:00 99 05/13/16 00:00 40 05/12/16 22:26 97 40 05/12/16 22:00 103 05/12/16 20:00 40 05/12/16 20:00 99.1 53 21 107/70 97 05/12/16 20:00 141 05/12/16 19:28 99 40 05/12/16 18:30 75 05/12/16 18:09 100 40 05/12/16 16:00 40 05/12/16 16:00 98 05/12/16 16:00 99.3 99 18 12/62 99 05/12/16 14:00 78 05/12/16 12:25 98 40 05/12/16 12:00 99.3 98 18 143/68 99 05/12/16 12:00 98 05/12/16 12:00 40 Vital Signs Date Time Temp Pulse Resp B/P Pulse Ox O2 Delivery O2 Flow Rate FiO2 05/12/16 10:00 78 05/12/16 08:00 75 05/12/16 08:00 98.8 75 16 115/58 05/12/16 07:34 98 40 05/12/16 06:55 40 05/12/16 06:00 89 05/12/16 04:00 40 05/12/16 04:00 90 05/12/16 04:00 99.3 90 14 113/59 98 05/12/16 03:17 100 40 05/12/16 02:00 75 05/12/16 00:33 99 40 05/12/16 00:00 40 05/12/16 00:00 98.2 90 18 109/60 100 05/12/16 00:00 90 05/11/16 22:00 86 05/11/16 20:00 98.8 102 16 106/59 100 05/11/16 20:00 40 05/11/16 20:00 102 05/11/16 19:37 100 40 05/11/16 18:28 98 40 05/11/16 18:00 88 05/11/16 16:00 110 05/11/16 16:00 99.6 110 26 95/60 99 05/11/16 16:00 40 05/11/16 14:00 114 Laboratory Tests Test 05/13/16 03:30 White Blood Count 13.9 TH/MM3 Red Blood Count 2.94 MIL/MM3 Hemoglobin 9.2 GM/DL Hematocrit 26.7 % Mean Corpuscular Volume 90.8 FL Mean Corpuscular Hemoglobin 31.2 PG Mean Corpuscular Hemoglobin 34.3 % Concent Red Cell Distribution Width 14.8 % Platelet Count 154 TH/MM3 Mean Platelet Volume 9.5 FL Neutrophils (%) (Auto) 73.1 % Lymphocytes (%) (Auto) 11.1 % Monocytes (%) (Auto) 15.3 % Eosinophils (%) (Auto) 0.1 % Basophils (%) (Auto) 0.4 % Neutrophils # (Auto) 10.2 TH/MM3 Lymphocytes # (Auto) 1.5 TH/MM3 Monocytes # (Auto) 2.1 TH/MM3 Eosinophils # (Auto) 0.0 TH/MM3 Basophils # (Auto) 0.1 TH/MM3 CBC Comment AUTO DIFF Differential Total Cells 100 Counted Neutrophils % (Manual) 55 % Band Neutrophils % 29 % Lymphocytes % 8 % Monocytes % 5 % Neutrophils # (Manual) 12.1 TH/MM3 Metamyelocytes 3 % Differential Comment FINAL DIFF MANUAL Platelet Estimate NORMAL Platelet Morphology Comment NORMAL Red Cell Morphology Comment NORMAL Laboratory Tests Test 05/13/16 03:30 Sodium Level 141 MEQ/L Potassium Level 3.3 MEQ/L Chloride Level 104 MEQ/L Carbon Dioxide Level 29.9 MEQ/L Anion Gap 7 MEQ/L Blood Urea Nitrogen 17 MG/DL Creatinine 1.27 MG/DL Estimat Glomerular Filtration 55 ML/MIN Rate Random Glucose 165 MG/DL Calcium Level 7.9 MG/DL Test 05/10/16 05/11/16 06:15 04:00 White Blood Count 18.2 TH/MM3 17.0 TH/MM3 Red Blood Count 3.26 MIL/MM3 3.09 MIL/MM3 Hemoglobin 9.9 GM/DL 9.5 GM/DL Hematocrit 29.9 % 28.1 % Mean Corpuscular Volume 91.5 FL 91.2 FL Mean Corpuscular Hemoglobin 30.2 PG 30.8 PG Mean Corpuscular Hemoglobin 33.0 % 33.8 % Concent Red Cell Distribution Width 14.9 % 15.2 % Platelet Count 134 TH/MM3 135 TH/MM3 Mean Platelet Volume 10.0 FL 9.8 FL Neutrophils (%) (Auto) 74.4 % Lymphocytes (%) (Auto) 11.9 % Monocytes (%) (Auto) 13.1 % Eosinophils (%) (Auto) 0.1 % Basophils (%) (Auto) 0.5 % Neutrophils # (Auto) 12.7 TH/MM3 Lymphocytes # (Auto) 2.0 TH/MM3 Monocytes # (Auto) 2.2 TH/MM3 Eosinophils # (Auto) 0.0 TH/MM3 Basophils # (Auto) 0.1 TH/MM3 CBC Comment AUTO DIFF Differential Total Cells 100 Counted Neutrophils % (Manual) 78 % Band Neutrophils % 1 % Lymphocytes % 12 % Monocytes % 5 % Neutrophils # (Manual) 14.1 TH/MM3 Metamyelocytes 1 % Myelocytes 3 % Differential Comment FINAL DIFF MANUAL Platelet Estimate LOW Platelet Morphology Comment ENLARGED Laboratory Tests Test 05/10/16 05/11/16 06:15 04:00 Sodium Level 140 MEQ/L 141 MEQ/L Potassium Level 3.3 MEQ/L 3.2 MEQ/L Chloride Level 101 MEQ/L 102 MEQ/L Carbon Dioxide Level 30.7 MEQ/L 31.6 MEQ/L Anion Gap 8 MEQ/L 7 MEQ/L Blood Urea Nitrogen 23 MG/DL 23 MG/DL Creatinine 1.40 MG/DL 1.36 MG/DL Estimat Glomerular Filtration 49 ML/MIN 51 ML/MIN Rate Random Glucose 141 MG/DL 180 MG/DL Calcium Level 7.9 MG/DL 7.8 MG/DL Magnesium Level 1.7 MG/DL Imaging Chest X-Ray 05/10/16 0000 Signed Impressions: Service Date/Time: April 13:58 - CONCLUSION: 1. PICC in good position. 2. Endotracheal tube in good position. 3. Consolidation and effusion at the left lung base. Chase Foley MD Chest X-Ray 05/01/16 0600 Signed Impressions: Service Date/Time: Sunday, May 01, 2016 05:35 - CONCLUSION: Slight improvement in aeration. Davon Stokes MD Abdomen/Pelvis CT 04/28/16 0819 Signed Impressions: Service Date/Time: Thursday, April 28, 2016 09:05 - CONCLUSION: 1. Significant inflammation, presumed infection, in the right gluteal region including numerous tiny locules of air not only in the gluteus janny muscle but extending anterior into the ischiorectal fossa on the right. There are two distinct collections around the rectum suspicious for a perirectal abscess both right anteriorly and left posterolaterally. 2. Gallstones versus sludge. Lawson Howard MD Lower Extremity CT 04/28/16 0000 Signed Impressions: Service Date/Time: Thursday, April 28, 2016 09:05 - CONCLUSION: There is extensive dissecting air throughout the gluteus janny muscle also dissecting into the lower posterior RIGHT thigh. There is air within the semi-tendinosis , semimembranosus, and biceps femoris muscles. There is also tiny amount of air along the abductor longus muscle. I don't see any drainable abscess or fluid collection. There is a small amount of fluid between the subcutaneous fat in the muscular fascia not an unusual finding in patient's with soft tissue edema. Lawson Howard MD Physical Exam GENERAL: Sedated on the vent HEENT: Mild scleral icterus. Oral mucosa moist. ET in mouth CARDIOVASCULAR: Regular S1S2 without murmurs, gallops, or rubs. RESPIRATORY/CHEST: Bibasilar rhonchi. GASTROINTESTINAL: Abdomen soft, mildly distended. Decreased bowel sounds. GENITOURINARY: Han in place with clear yellow urine MUSCULOSKELETAL: VAC in place at the R buttock has serous sanguinous drainage. Extremities has 4+ edema. SKIN: No rash. Warm and moist. Edematous NEUROLOGICAL: Sedated currently IMPRESSION Perirectal abscess and gas gangrene R buttock. E. coli and strep. Necrotizing fascitis R buttock Severe sepsis on admission - leukocytosis, bandemia, fever, lactic acidosis ( 4.0), hypotension, tachycardia and ARF, - Source abscess, gas gangrene. - BC with anaerobes on admission Leukocytosis related to fascitis. WBC still elevated but decreasing. ? Anaerobic sepsis - from presenting condition. Repeat blood culture negative. PLAN Continue Zosyn Monitor progress Follow temps Follow CBC Remains on the vent. Possible OR Saturday Brandie Gates MD May 13, 2016 10:38
--- NOTE | 2016-05-13 12:36 | EKG ---
Date Performed: 05/12/2016 Time Performed: 20:49:26 PTAGE: 80 years EKG: Atrial fibrillation with rapid ventricular response with PVC(s) or aberrant ventricular con duction --- Suspect arm lead reversal - only aVF, V1-V6 analyzed --- ST junctional depression is nons pecific Abnormal ECG PREVIOUS TRACING : 04/28/2016 08.27.03 Compared to previous tracing, limb lead reversal is pres ent. Suggest repeat tracing. DOCTOR: Ezio Bashir Interpretating Date/Time 05/13/2016 12:35:09
[2016-05-13] MEDS: CHLORHEXIDINE GLUCONATE 2 % 1 PACK (2 CLOTHS) TOP SCH (19:44)
[2016-05-13] MEDS: oxyCODONE/ACETAMINOPHEN 5 MG/325 MG TAB PO PRN (19:56)
--- NOTE | 2016-05-13 20:04 | HHI.PR ---
Subjective Subjective Notes remains on vent, good seal with vac Objective Vitals/I&O Vital Signs Date Time Temp Pulse Resp B/P Pulse Ox O2 Delivery O2 Flow Rate FiO2 05/13/16 19:34 100 40 05/13/16 18:00 92 05/13/16 16:00 98.3 15 124/57 Labs Laboratory Tests Test 05/13/16 05/13/16 03:30 15:20 White Blood Count 13.9 Red Blood Count 2.94 Hemoglobin 9.2 Hematocrit 26.7 Mean Corpuscular Volume 90.8 Mean Corpuscular Hemoglobin 31.2 Mean Corpuscular Hemoglobin 34.3 Concent Red Cell Distribution Width 14.8 Platelet Count 154 Mean Platelet Volume 9.5 Neutrophils (%) (Auto) 73.1 Lymphocytes (%) (Auto) 11.1 Monocytes (%) (Auto) 15.3 Eosinophils (%) (Auto) 0.1 Basophils (%) (Auto) 0.4 Neutrophils # (Auto) 10.2 Lymphocytes # (Auto) 1.5 Monocytes # (Auto) 2.1 Eosinophils # (Auto) 0.0 Basophils # (Auto) 0.1 CBC Comment AUTO DIFF Differential Total Cells 100 Counted Neutrophils % (Manual) 55 Band Neutrophils % 29 Lymphocytes % 8 Monocytes % 5 Neutrophils # (Manual) 12.1 Metamyelocytes 3 Differential Comment FINAL DIFF MANUAL Platelet Estimate NORMAL Platelet Morphology Comment NORMAL Red Cell Morphology Comment NORMAL Sodium Level 141 Potassium Level 3.3 3.5 Chloride Level 104 Carbon Dioxide Level 29.9 Anion Gap 7 Blood Urea Nitrogen 17 Creatinine 1.27 Estimat Glomerular Filtration 55 Rate Random Glucose 165 Calcium Level 7.9 Cardiovascular: Regular Lungs: Clear Abdomen: Non-distended, Non-tender Wound Wound : Wound Location: Back (vac with good seal) A/P Assessment and Plan 80 year old male with NF with soft tissue gas gangrene; ?? origin perirectal abscess -s/p Irrigation and wide debridement of right buttock and right thigh with vac change - NPO -Vent per CCM -Continue antibiotics -Seal check on Wound Vac shows no leak -Plan for repeat I&D and wound vac change tomorrow Trey Marcos MD May 13, 2016 20:04
[2016-05-14] VITALS (18 sets, daily range): BP systolic 104–118; BP diastolic 58–69; PULSE 82–100; RESP 14–15; TEMP 98.2–99.1; O2SAT 95–100
[2016-05-14] MEDS: DOCUSATE SODIUM 100 MG/10 ML UDC G-TUBE SCH ×3 (00:05→23:56)
[2016-05-14] MEDS: HIGH DOSE INSULIN NOVOLOG SUPPLEMENTAL SCALE SQ SCH ×7 (00:06→23:56)
[2016-05-14] MEDS: fentaNYL DRIP 250 ML IV SCH (04:10)
[2016-05-14] MEDS: PIPERACIL-TAZO 3.375 GM PREMIX 50 ML IV SCH ×3 (04:10→17:48)
[2016-05-14] MEDS: CHLORHEXIDINE 0.12% (ORAL KIT) 15 ML CUP MT SCH ×2 (08:32→21:03)
[2016-05-14] MEDS ORDERED: LIDOCAINE HCL 2% 100 MG/5 ML SYRINGE ONE (08:53)
[2016-05-14] MEDS ORDERED: ATROPINE SULFATE 1 MG/10 ML SYRINGE ONE (08:53)
[2016-05-14] MEDS ORDERED: EPINEPHrine HCL (1:10,000) 1 MG/10 ML SYRINGE ONE (08:53)
[2016-05-14] MEDS: LACTULOSE SYRUP 20 GM/30 ML CUP PO SCH (09:00)
[2016-05-14] MEDS: PANTOPRAZOLE SODIUM 40 MG VIAL IV SCH (09:00)
[2016-05-14] MEDS: SODIUM CHLORIDE 0.9% FLUSH 5 ML FLUSH IV FLUSH SCH ×2 (09:00→21:03)
[2016-05-14] MEDS: BENEPROTEIN POWDER 1 PACK G-TUBE SCH ×3 (09:00→17:48)
--- NOTE | 2016-05-14 09:40 | HHI.CCPN ---
Subjective Remarks/Hospital Course 80-year-old male came to the emergency room with history of dizziness, lightheadedness, generalized weakness and right buttock pain. CT scan revealed soft tissue gas gangrene originated most probably as a perirectal abscess. He was taken emergently to OR for debridement. 05/01: Ongoing septic shock. Requires additional debridement today for source control. 05/02: Back from OR after debridement right buttocks and thigh last night. Minimal necrotic tissue found. Vac in place. Clearly still septic, but vasopresors requirements are decreasing. 05/03: Persistent septic picture. 05/04: Vasopressor requirements now declining finally. Gas exchange acceptable. 05/05: Gas exchange a little better after desaturation last evening. 05/06: Start more ambitious weaning trials. TFs to goal. General perfusion improved. 05/07: Persistent leukocytosis, likely from necrotic wound. Will replace CVL after OR just to be cautious. 05/08: Extensive peripheral edema. Should tolerate gentle diuresis at this point. 05/09: Mobilizing excess water well. Source control of sepsis presently appears adequate. 05/10: Stable for return to OR today for ongoing debridement. 05/11: Good response to diuretics. New PICC placed and CVL removed. 05/12: Alert, tolerates SBT. Try to extubate today. 05/13: Remains orally intubated on mechanical ventilation. Possible OR tomorrow. 05/14: Remains sedated, orally intubated on mechanical ventilation. Scheduled for OR today. Objective Vital Signs Date Time Temp Pulse Resp B/P Pulse Ox O2 Delivery O2 Flow Rate FiO2 05/14/16 07:41 100 40 05/14/16 07:41 Ventilator 05/14/16 06:00 97 05/14/16 04:00 99.1 14 104/58 Intake and Output 05/13/16 05/13/16 05/14/16 08:00 16:00 00:00 Intake Total 656 ml 924 ml 826 ml Output Total 450 ml 500 ml 395 ml Balance 206 ml 424 ml 431 ml Result Diagram: 05/13/16 0330 05/13/16 1520 Imaging Last 24 hours Impressions Chest X-Ray 04/28/16 0819 Signed Impressions: Service Date/Time: Thursday, April 28, 2016 08:21 - CONCLUSION: Normal examination. Lawson Howard MD Abdomen/Pelvis CT 04/28/16 0819 Signed Impressions: Service Date/Time: Thursday, April 28, 2016 09:05 - CONCLUSION: 1. Significant inflammation, presumed infection, in the right gluteal region including numerous tiny locules of air not only in the gluteus janny muscle but extending anterior into the ischiorectal fossa on the right. There are two distinct collections around the rectum suspicious for a perirectal abscess both right anteriorly and left posterolaterally. 2. Gallstones versus sludge. Lawson Howard MD Lower Extremity CT 04/28/16 0000 Signed Impressions: Service Date/Time: Thursday, April 28, 2016 09:05 - CONCLUSION: There is extensive dissecting air throughout the gluteus janny muscle also dissecting into the lower posterior RIGHT thigh. There is air within the semi-tendinosis , semimembranosus, and biceps femoris muscles. There is also tiny amount of air along the abductor longus muscle. I don't see any drainable abscess or fluid collection. There is a small amount of fluid between the subcutaneous fat in the muscular fascia not an unusual finding in patient's with soft tissue edema. Lawson Howard MD Objective Remarks GENERAL: Much less edematous. SKIN: Warm. Well perfused. HEAD: Normocephalic. Atraumatic. NECK: Supple, Orally intubated. CARDIOVASCULAR: Irreg Irreg, rate controlled 70-90s. No JVD. RESPIRATORY: Good adriel air entry on vent. Remains vent dependent. Few mobile secretions. GASTROINTESTINAL: Abdomen soft, non-tender, nondistended. BS active. No peritoneal irritation. MUSCULOSKELETAL: Warm, well perfused. Generalized 1+ edema. NEURO: Opens eyes. Moves 4 limbs when agitated. Purposeful. A/P Problem List: (1) Septic shock ICD Code: A41.9 Status: Acute (2) Acute hypoxemic respiratory failure ICD Code: J96.01 Status: Acute (3) Gas gangrene of lower extremity ICD Code: A48.0 Status: Acute (4) Acute renal failure ICD Code: N17.9 Status: Acute (5) Encephalopathy, metabolic ICD Code: G93.41 Status: Acute Assessment and Plan Sepsis - perirectal abscess with extension to right thigh - debridement in the OR 04/28, 04/29, 05/04, 05/10 - broad spectrum vanco, zosyn - adjust per ID. - ID consult appreciated - maintain fluid resuscitation -improved source control as of 05/08 Soft tissue gas gangrene - due to above - broad spectrum ATB - vanco, zosyn - debridement again 05/14 per Gen Surg Perirectal abscess - ATB per ID - surgical debridement X 5. Possible OR 05/14. Respiratory failure - post op - unable to wean ventilator. - Continue daily SBTs. BRAYDON - dehydration resolved - volume loss - aggressive i.v. fluids resuscitation - strict I&O - Dobutamine off. - Good urine output - Electrolyte protocol - Continue diuresis. NUTRITION - Glucerna and benepro TFs 65/hr - Check prealbumin DM - hold p.o. meds while in the ICU - ISS - Insulin gtt prn A.Fib - rate now controlled with occasional digoxin - telemetry Overall impression: Resolving septic shock and much improved perfusion. Improved infection source control, wound slowly being closed. Problem Qualifiers (1) Acute renal failure: Qualified Code: N17.9 - Acute renal failure, unspecified acute renal failure type Jem Zaidi MD May 14, 2016 09:40
--- NOTE | 2016-05-14 10:38 | HHI.PR ---
Immediate Post Op Note Procedure Date: May 14, 2016 Pre Op Diagnosis: right buttock and thigh soft tissue fascitis Post Op Diagnosis: same Surgeon: Trey Marcos MD Supervisor Powdered Sugar(s): see or sheet Procedure: I and D of right thigh and right buttock fascitis Findings: undrained perimuscular/intramuscular abscess Complications: none Specimen(s) removed: none Estimated blood loss: 15cc Anesthesia: General Drains: Other (vac) IVF (400) Patient to: PACU Patient Condition: Fair Trey Marcos MD May 14, 2016 10:38
[2016-05-14] MEDS ORDERED: fentaNYL CITRATE 250 MCG/5 ML AMP ONE (10:55)
[2016-05-14] MEDS ORDERED: ONDANSETRON HCL 4 MG/2 ML VIAL IV PUSH ONE (12:00)
[2016-05-15] VITALS (18 sets, daily range): BP systolic 104–129; BP diastolic 55–64; PULSE 76–104; RESP 8–15; TEMP 98.1–99.2; O2SAT 100
[2016-05-15] MEDS: PIPERACIL-TAZO 3.375 GM PREMIX 50 ML IV SCH ×4 (00:06→19:00)
[2016-05-15] MEDS: CHLORHEXIDINE GLUCONATE 2 % 1 PACK (2 CLOTHS) TOP SCH (04:00)
[2016-05-15] MEDS: HIGH DOSE INSULIN NOVOLOG SUPPLEMENTAL SCALE SQ SCH ×5 (04:00→21:19)
[2016-05-15 04:34] LABS: HEMATOCRIT 24.7 % (39.0-51.0); MEAN CELL VOLUME 91.8 FL (80.0-100.0); MEAN CORPUSCULAR HEMOGLOBIN 31.4 PG (27.0-34.0); MEAN CORPUSCULAR HGB CONC 34.2 % (32.0-36.0); PLATELET COUNT 170 TH/MM3 (150-450); RED BLOOD COUNT 2.69 MIL/MM3 (4.50-5.90); RED CELL DISTRIBUTION WIDTH 15.2 % (11.6-17.2); WHITE BLOOD COUNT 9.2 TH/MM3 (4.0-11.0)
[2016-05-15 04:58] LABS: BICARBONATE 30.1 MEQ/L (21.0-32.0); POTASSIUM 3.5 MEQ/L (3.5-5.1)
[2016-05-15 05:13] LABS: HEMO FLAGS AUTO DIFF
[2016-05-15 07:25] LABS: BANDS 1 % (0-6); MYELOCYTES 2 % (0-0); NEUTROPHIL # MANUAL DIFF 6.3 TH/MM3 (1.8-7.7); PLATELET ESTIMATE SMEAR NORMAL (NORMAL); PLATELET MORPHOLOGY NORMAL (NORMAL); POLYS (SEG NEUTROPHILS) 65 % (16-70); SCAN/DIFF FINAL DIFF MANUAL; WBC DIFF SAMPLE 100
[2016-05-15 07:26] LABS: KERATOCYTES OCC (NORMAL)
[2016-05-15] MEDS: RESP: ALBUTEROL 2.5 MG/IPRATROPIUM 0.5 MG NEB (PRN) INH (08:14)
[2016-05-15] MEDS: LACTULOSE SYRUP 20 GM/30 ML CUP PO SCH (08:38)
[2016-05-15] MEDS: CHLORHEXIDINE 0.12% (ORAL KIT) 15 ML CUP MT SCH ×2 (08:39→21:18)
[2016-05-15] MEDS: PANTOPRAZOLE SODIUM 40 MG VIAL IV SCH (08:45)
[2016-05-15] MEDS: BENEPROTEIN POWDER 1 PACK G-TUBE SCH ×3 (08:46→18:00)
[2016-05-15] MEDS: SODIUM CHLORIDE 0.9% FLUSH 5 ML FLUSH IV FLUSH SCH ×2 (08:46→21:00)
--- NOTE | 2016-05-15 08:51 | HHI.PR ---
Subjective Subjective Notes stable, intubated Objective Vitals/I&O Vital Signs Date Time Temp Pulse Resp B/P Pulse Ox O2 Delivery O2 Flow Rate FiO2 05/15/16 07:47 100 40 05/15/16 06:00 91 05/15/16 04:00 99.2 14 111/56 05/14/16 07:41 Ventilator Labs Laboratory Tests Test 05/15/16 04:26 White Blood Count 9.2 Red Blood Count 2.69 Hemoglobin 8.5 Hematocrit 24.7 Mean Corpuscular Volume 91.8 Mean Corpuscular Hemoglobin 31.4 Mean Corpuscular Hemoglobin 34.2 Concent Red Cell Distribution Width 15.2 Platelet Count 170 Mean Platelet Volume 9.2 Neutrophils (%) (Auto) Lymphocytes (%) (Auto) Monocytes (%) (Auto) Eosinophils (%) (Auto) Basophils (%) (Auto) Neutrophils # (Auto) Lymphocytes # (Auto) Monocytes # (Auto) Eosinophils # (Auto) Basophils # (Auto) CBC Comment AUTO DIFF Differential Total Cells 100 Counted Neutrophils % (Manual) 65 Band Neutrophils % 1 Lymphocytes % 14 Monocytes % 18 Neutrophils # (Manual) 6.3 Myelocytes 2 Differential Comment FINAL DIFF MANUAL Platelet Estimate NORMAL Platelet Morphology Comment NORMAL Keratocytes OCC Sodium Level 140 Potassium Level 3.5 Chloride Level 105 Carbon Dioxide Level 30.1 Anion Gap 5 Blood Urea Nitrogen 18 Creatinine 1.51 Estimat Glomerular Filtration 45 Rate Random Glucose 123 Calcium Level 8.0 Cardiovascular: Regular Lungs: Clear Abdomen: Non-tender Wound Wound : Wound Location: Back (vac with good seal-serosang drainage ) A/P Assessment and Plan 80 year old male with NF with soft tissue gas gangrene; ?? origin perirectal abscess -s/p Irrigation and wide debridement of right buttock and right thigh with vac change - ok for TF at goal -Vent per CCM- possible extubation if unable may need trach -Continue antibiotics -Seal check on Wound Vac shows no leak -Plan for repeat I&D and wound vac change likely tomorrow or Trey Marcos MD May 15, 2016 08:51
--- NOTE | 2016-05-15 09:37 | HHI.CCPN ---
Subjective Remarks/Hospital Course 80-year-old male came to the emergency room with history of dizziness, lightheadedness, generalized weakness and right buttock pain. CT scan revealed soft tissue gas gangrene originated most probably as a perirectal abscess. He was taken emergently to OR for debridement. 05/01: Ongoing septic shock. Requires additional debridement today for source control. 05/02: Back from OR after debridement right buttocks and thigh last night. Minimal necrotic tissue found. Vac in place. Clearly still septic, but vasopresors requirements are decreasing. 05/03: Persistent septic picture. 05/04: Vasopressor requirements now declining finally. Gas exchange acceptable. 05/05: Gas exchange a little better after desaturation last evening. 05/06: Start more ambitious weaning trials. TFs to goal. General perfusion improved. 05/07: Persistent leukocytosis, likely from necrotic wound. Will replace CVL after OR just to be cautious. 05/08: Extensive peripheral edema. Should tolerate gentle diuresis at this point. 05/09: Mobilizing excess water well. Source control of sepsis presently appears adequate. 05/10: Stable for return to OR today for ongoing debridement. 05/11: Good response to diuretics. New PICC placed and CVL removed. 05/12: Alert, tolerates SBT. Try to extubate today. 05/13: Remains orally intubated on mechanical ventilation. Possible OR tomorrow. 05/14: Remains sedated, orally intubated on mechanical ventilation. Scheduled for OR today. 05/15: Remains sedated, orally intubated on mechanical ventilation. Failed C Pap trial yesterday following surgery. Objective Vital Signs Date Time Temp Pulse Resp B/P Pulse Ox O2 Delivery O2 Flow Rate FiO2 05/15/16 07:47 100 40 05/15/16 06:00 91 05/15/16 04:00 99.2 14 111/56 05/14/16 07:41 Ventilator Intake and Output 05/14/16 05/14/16 05/15/16 08:00 16:00 00:00 Intake Total 371 ml 496 ml 577 ml Output Total 430 ml 475 ml 450 ml Balance -59 ml 21 ml 127 ml Result Diagram: 05/15/16 0426 05/15/16 0426 Imaging Last 24 hours Impressions Chest X-Ray 04/28/16 0819 Signed Impressions: Service Date/Time: Thursday, April 28, 2016 08:21 - CONCLUSION: Normal examination. Lawson Howard MD Abdomen/Pelvis CT 04/28/16 0819 Signed Impressions: Service Date/Time: Thursday, April 28, 2016 09:05 - CONCLUSION: 1. Significant inflammation, presumed infection, in the right gluteal region including numerous tiny locules of air not only in the gluteus janny muscle but extending anterior into the ischiorectal fossa on the right. There are two distinct collections around the rectum suspicious for a perirectal abscess both right anteriorly and left posterolaterally. 2. Gallstones versus sludge. Lawson Howard MD Lower Extremity CT 04/28/16 0000 Signed Impressions: Service Date/Time: Thursday, April 28, 2016 09:05 - CONCLUSION: There is extensive dissecting air throughout the gluteus janny muscle also dissecting into the lower posterior RIGHT thigh. There is air within the semi-tendinosis , semimembranosus, and biceps femoris muscles. There is also tiny amount of air along the abductor longus muscle. I don't see any drainable abscess or fluid collection. There is a small amount of fluid between the subcutaneous fat in the muscular fascia not an unusual finding in patient's with soft tissue edema. Lawson Howard MD Objective Remarks GENERAL: Much less edematous. SKIN: Warm. Well perfused. HEAD: Normocephalic. Atraumatic. NECK: Supple, Orally intubated. CARDIOVASCULAR: Irreg Irreg, rate controlled 70-90s. No JVD. RESPIRATORY: Good adriel air entry on vent. Remains vent dependent. Few mobile secretions. GASTROINTESTINAL: Abdomen soft, non-tender, nondistended. BS active. No peritoneal irritation. MUSCULOSKELETAL: Warm, well perfused. Generalized 1+ edema. NEURO: Opens eyes. Moves 4 limbs when agitated. Purposeful. A/P Problem List: (1) Septic shock ICD Code: A41.9 Status: Acute (2) Acute hypoxemic respiratory failure ICD Code: J96.01 Status: Acute (3) Gas gangrene of lower extremity ICD Code: A48.0 Status: Acute (4) Acute renal failure ICD Code: N17.9 Status: Acute (5) Encephalopathy, metabolic ICD Code: G93.41 Status: Acute Assessment and Plan Sepsis - perirectal abscess with extension to right thigh - debridement in the OR 04/28, 04/29, 05/04, 05/10, 05/14 - broad spectrum vanco, zosyn - adjust per ID. - ID consult appreciated - maintain fluid resuscitation -improved source control as of 05/08 Soft tissue gas gangrene - due to above - broad spectrum ATB - vanco, zosyn - s/p debridement again 05/14 per Gen Surg Perirectal abscess - ATB per ID - surgical debridement X 6 Respiratory failure - post op - unable to wean ventilator. - Continue daily SBTs. BRAYDON - dehydration resolved - s/p aggressive i.v. fluids resuscitation - strict I&O - Dobutamine off. - Good urine output - Electrolyte protocol - Continue diuresis. NUTRITION - Glucerna and benepro TFs 65/hr - Check prealbumin DM - hold p.o. meds while in the ICU - ISS - Insulin gtt prn A.Fib - rate now controlled with occasional digoxin - telemetry Overall impression: Resolving septic shock and much improved perfusion. Improved infection source control, wound slowly being closed. Problem Qualifiers (1) Acute renal failure: Qualified Code: N17.9 - Acute renal failure, unspecified acute renal failure type Jem Zaidi MD May 15, 2016 09:37
--- NOTE | 2016-05-15 10:36 | RADRPT ---
EXAM DATE/TIME: 05/15/2016 09:32 [facility] COMPARISON: Prior study 05/10/2016. INDICATIONS : Respiratory failure. MEDICAL HISTORY : None. SURGICAL HISTORY : None. ENCOUNTER: Subsequent ACUITY: 1 week PAIN SCORE: Non-responsive. LOCATION: Bilateral chest FINDINGS: A single view of the chest demonstrates the ET tube is installed at the level of the clavicles. NG t ube and right-sided PICC line are in good position. There is mild perihilar vascular congestion. Th ere is no visible pneumothorax. Arthritic changes of the left shoulder. CONCLUSION: Tubes and catheters in good position. Lawson Howard MD on May 15, 2016 at 10:06 Board Certified Radiologist. This report was verified electronically.
[2016-05-15] MEDS: DOCUSATE SODIUM 100 MG/10 ML UDC G-TUBE SCH (10:37)
--- NOTE | 2016-05-15 12:08 | HHI.PR ---
Subjective Subjective Notes Intubated/Sedated; eyes open Objective Vitals/I&O Vital Signs Date Time Temp Pulse Resp B/P Pulse Ox O2 Delivery O2 Flow Rate FiO2 05/15/16 10:00 95 05/15/16 09:56 100 40 05/15/16 08:00 98.1 10 129/56 05/14/16 07:41 Ventilator Labs Laboratory Tests Test 05/15/16 04:26 White Blood Count 9.2 Red Blood Count 2.69 Hemoglobin 8.5 Hematocrit 24.7 Mean Corpuscular Volume 91.8 Mean Corpuscular Hemoglobin 31.4 Mean Corpuscular Hemoglobin 34.2 Concent Red Cell Distribution Width 15.2 Platelet Count 170 Mean Platelet Volume 9.2 Neutrophils (%) (Auto) Lymphocytes (%) (Auto) Monocytes (%) (Auto) Eosinophils (%) (Auto) Basophils (%) (Auto) Neutrophils # (Auto) Lymphocytes # (Auto) Monocytes # (Auto) Eosinophils # (Auto) Basophils # (Auto) CBC Comment AUTO DIFF Differential Total Cells 100 Counted Neutrophils % (Manual) 65 Band Neutrophils % 1 Lymphocytes % 14 Monocytes % 18 Neutrophils # (Manual) 6.3 Myelocytes 2 Differential Comment FINAL DIFF MANUAL Platelet Estimate NORMAL Platelet Morphology Comment NORMAL Keratocytes OCC Sodium Level 140 Potassium Level 3.5 Chloride Level 105 Carbon Dioxide Level 30.1 Anion Gap 5 Blood Urea Nitrogen 18 Creatinine 1.51 Estimat Glomerular Filtration 45 Rate Random Glucose 123 Calcium Level 8.0 Cardiovascular: Regular Lungs: Clear Abdomen: Non-distended, Non-tender Narrative Exam perirectal and right posterior thigh wound vac in place with good seal Flexiseal in place A/P Assessment and Plan 80 year old male with NF with soft tissue gas gangrene; ?? origin perirectal abscess -POD1 Irrigation and wide debridement of right buttock and right thigh with vac change -Plan to return to OR likely -Tolerating TF -Vent per CCM; attempting to wean today -Continue antibiotics -Seal check on Wound Vac shows no leak -Continue Flexiseal to keep wound clean - updated at bedside Attending Statement patient seen at bedside no changes repeat vac change Attestation The exam, history, and the medical decision-making described in the above note were completed with the assistance of the mid-level provider. I reviewed and agree with the findings presented. I attest that I had a [id number] encounter with the patient on the same day, and personally performed and documented my assessment and findings in the medical record. Roula Grayson May 15, 2016 12:08 Trey Marcos MD May 22, 2016 11:53
--- NOTE | 2016-05-15 15:47 | HHI.IDPN ---
Note Infectious Disease Note Patient on vent. Very alert. Responsive. Another debridement planned in 2 days. Prior debridement of necrotic R buttock x 5. Afebrile. WBC decreased. Grew gram variable org in 2/ admission clx, anaerobic bottles only. Repeat blood culture has no growth. ANTIBIOTICS: Zosyn. Past Medical History Diabetes Mellitus. Allergies: Coded Allergies: *MDRO Multi-Drug Resistant Organism (Verified Adverse Reaction, Unknown, ) MRSA PCR Screeen POSITIVE - 04/28/2016 Objective Vital Signs Date Time Temp Pulse Resp B/P Pulse Ox O2 Delivery O2 Flow Rate FiO2 05/15/16 13:31 100 40 05/15/16 12:00 40 05/15/16 12:00 98.6 100 9 117/55 100 05/15/16 12:00 95 05/15/16 10:00 95 05/15/16 09:58 40 05/15/16 09:56 100 40 05/15/16 09:56 40 05/15/16 08:00 40 05/15/16 08:00 87 05/15/16 08:00 98.1 98 10 129/56 100 05/15/16 07:47 100 40 05/15/16 06:00 91 05/15/16 04:00 76 05/15/16 04:00 99.2 85 14 111/56 100 05/15/16 04:00 100 40 05/15/16 04:00 40 05/15/16 02:00 81 05/15/16 01:42 100 40 05/15/16 00:00 40 05/15/16 00:00 82 05/15/16 00:00 98.5 83 14 104/55 100 05/14/16 22:27 100 40 05/14/16 22:00 96 05/14/16 20:00 90 05/14/16 20:00 40 05/14/16 20:00 98.3 90 15 105/69 97 05/14/16 19:42 100 40 05/14/16 18:00 89 05/14/16 16:12 95 40 05/14/16 16:10 40 05/14/16 16:00 86 05/14/16 16:00 98.2 86 14 118/59 99 05/14/16 16:00 40 05/14/16 05/14/1617 15:00 23:00 07:00 Intake Total 496 ml 577 ml 774 ml Output Total 475 ml 450 ml 550 ml Balance 21 ml 127 ml 224 ml IV Total 263 ml 173 ml 209 ml Tube Feeding 183 ml 404 ml 505 ml Tube Irrigant 60 ml Other 50 ml Output Urine Total 325 ml 350 ml 450 ml Stool Total 50 ml 0 ml 0 ml Drainage Total 100 ml 100 ml 100 ml Laboratory Tests Test 05/15/16 04:26 White Blood Count 9.2 TH/MM3 Red Blood Count 2.69 MIL/MM3 Hemoglobin 8.5 GM/DL Hematocrit 24.7 % Mean Corpuscular Volume 91.8 FL Mean Corpuscular Hemoglobin 31.4 PG Mean Corpuscular Hemoglobin 34.2 % Concent Red Cell Distribution Width 15.2 % Platelet Count 170 TH/MM3 Mean Platelet Volume 9.2 FL Neutrophils (%) (Auto) % Lymphocytes (%) (Auto) % Monocytes (%) (Auto) % Eosinophils (%) (Auto) % Basophils (%) (Auto) % Neutrophils # (Auto) TH/MM3 Lymphocytes # (Auto) TH/MM3 Monocytes # (Auto) TH/MM3 Eosinophils # (Auto) TH/MM3 Basophils # (Auto) TH/MM3 CBC Comment AUTO DIFF Differential Total Cells 100 Counted Neutrophils % (Manual) 65 % Band Neutrophils % 1 % Lymphocytes % 14 % Monocytes % 18 % Neutrophils # (Manual) 6.3 TH/MM3 Myelocytes 2 % Differential Comment FINAL DIFF MANUAL Platelet Estimate NORMAL Platelet Morphology Comment NORMAL Keratocytes OCC Laboratory Tests Test 05/15/16 04:26 Sodium Level 140 MEQ/L Potassium Level 3.5 MEQ/L Chloride Level 105 MEQ/L Carbon Dioxide Level 30.1 MEQ/L Anion Gap 5 MEQ/L Blood Urea Nitrogen 18 MG/DL Creatinine 1.51 MG/DL Estimat Glomerular Filtration 45 ML/MIN Rate Random Glucose 123 MG/DL Calcium Level 8.0 MG/DL Imaging Chest X-Ray 05/10/16 0000 Signed Impressions: Service Date/Time: April 13:58 - CONCLUSION: 1. PICC in good position. 2. Endotracheal tube in good position. 3. Consolidation and effusion at the left lung base. Chase Foley MD Chest X-Ray 05/01/16 0600 Signed Impressions: Service Date/Time: Sunday, May 01, 2016 05:35 - CONCLUSION: Slight improvement in aeration. Davon Stokes MD Abdomen/Pelvis CT 04/28/16 0819 Signed Impressions: Service Date/Time: Thursday, April 28, 2016 09:05 - CONCLUSION: 1. Significant inflammation, presumed infection, in the right gluteal region including numerous tiny locules of air not only in the gluteus janny muscle but extending anterior into the ischiorectal fossa on the right. There are two distinct collections around the rectum suspicious for a perirectal abscess both right anteriorly and left posterolaterally. 2. Gallstones versus sludge. Lawson Howard MD Lower Extremity CT 04/28/16 0000 Signed Impressions: Service Date/Time: Thursday, April 28, 2016 09:05 - CONCLUSION: There is extensive dissecting air throughout the gluteus janny muscle also dissecting into the lower posterior RIGHT thigh. There is air within the semi-tendinosis , semimembranosus, and biceps femoris muscles. There is also tiny amount of air along the abductor longus muscle. I don't see any drainable abscess or fluid collection. There is a small amount of fluid between the subcutaneous fat in the muscular fascia not an unusual finding in patient's with soft tissue edema. Lawson Howard MD Physical Exam GENERAL: Awake. Alert HEENT: Mild scleral icterus. Oral mucosa moist. CARDIOVASCULAR: Irregular S1S2 without murmurs, gallops, or rubs. RESPIRATORY/CHEST: Bibasilar rhonchi. GASTROINTESTINAL: Abdomen soft, mildly distended. Decreased bowel sounds. GENITOURINARY: Han in place with clear yellow urine MUSCULOSKELETAL: VAC in place at the R buttock - serous sanguinous drainage. Extremities has 4+ at RLE. 3+ at LLE edema. SKIN: No rash. Warm and moist. NEUROLOGICAL: Awake and following commands. Assessment & Plan Remarks Perirectal abscess and gas gangrene R buttock. E. coli and strep. Necrotizing fascitis R buttock Severe sepsis on admission - leukocytosis, bandemia, fever, lactic acidosis ( 4.0), hypotension, tachycardia and ARF, Source abscess, gas gangrene. Leukocytosis related to fascitis. WBC now normal. ? Anaerobic sepsis - from presenting condition. Repeat blood culture negative. Continue Zosyn Follow clinical status. D/W at bedside. Ha Pelaez MD May 15, 2016 15:47
[2016-05-16] VITALS (17 sets, daily range): BP systolic 105–132; BP diastolic 56–71; PULSE 80–113; RESP 14–17; TEMP 97.9–99.2; O2SAT 91–100
[2016-05-16] MEDS: DOCUSATE SODIUM 100 MG/10 ML UDC G-TUBE SCH ×3 (01:27→23:41)
[2016-05-16] MEDS: PIPERACIL-TAZO 3.375 GM PREMIX 50 ML IV SCH ×5 (01:53→23:48)
[2016-05-16] MEDS: HIGH DOSE INSULIN NOVOLOG SUPPLEMENTAL SCALE SQ SCH ×7 (04:00→23:48)
[2016-05-16] MEDS: CHLORHEXIDINE GLUCONATE 2 % 1 PACK (2 CLOTHS) TOP SCH (04:49)
[2016-05-16 05:20] LABS: AUTOMATED NEUTROPHIL # 3.4 TH/MM3 (1.8-7.7); BASOPHIL % 0.7 % (0.0-2.0); EOSINOPHIL % 0.4 % (0.0-4.0); HEMATOCRIT 25.1 % (39.0-51.0); LYMPH % 27.6 % (9.0-44.0); LYMPHOCYTE # 1.9 TH/MM3 (1.0-4.8); MEAN CELL VOLUME 92.1 FL (80.0-100.0); MEAN CORPUSCULAR HEMOGLOBIN 30.6 PG (27.0-34.0); MEAN CORPUSCULAR HGB CONC 33.3 % (32.0-36.0); MONO % 21.3 % (0.0-8.0); PLATELET COUNT 195 TH/MM3 (150-450); RED BLOOD COUNT 2.73 MIL/MM3 (4.50-5.90); RED CELL DISTRIBUTION WIDTH 15.3 % (11.6-17.2); WHITE BLOOD COUNT 6.8 TH/MM3 (4.0-11.0)
[2016-05-16 05:23] LABS: HEMO FLAGS AUTO DIFF
[2016-05-16 05:26] LABS: ANION GAP 8 MEQ/L (5-15); AST (GOT) 19 U/L (15-37); BICARBONATE 28.8 MEQ/L (21.0-32.0); BLOOD UREA NITROGEN 16 MG/DL (7-18); CHLORIDE 104 MEQ/L (98-107); GLOMERULAR FILTRATION RATE 45 ML/MIN (>89); POTASSIUM 3.5 MEQ/L (3.5-5.1); SODIUM (NA) 141 MEQ/L (136-145)
[2016-05-16 05:29] LABS: ALKALINE PHOSPHATASE 48 U/L (45-117); ALT (GPT) 12 U/L (12-78); TOTAL BILIRUBIN ADULT 0.6 MG/DL (0.2-1.0)
[2016-05-16 07:02] LABS: PLATELET ESTIMATE SMEAR NORMAL (NORMAL); PLATELET MORPHOLOGY NORMAL (NORMAL); SCAN/DIFF AUTO DIFF CONFIRMED
--- NOTE | 2016-05-16 07:53 | MP ---
cc: CISCO MEDINA M.D. DATE OF SURGERY: 05/10/2016 PROCEDURE Irrigation and debridement soft tissue right buttocks and posterior thigh, 25 square centimeters subcutaneous tissue and muscle, with partial closure of wound and VAC placement. PREOPERATIVE DIAGNOSIS Necrotizing fasciitis. POSTOPERATIVE DIAGNOSIS Necrotizing fasciitis. ANESTHESIA General endotracheal. SURGEON Mathew GLUING MACHINE OPERATOR AUTOMATIC ANTONIO Gee ESTIMATED BLOOD LOSS 50 mL. FLUIDS 200 mL crystalloid. COMPLICATIONS None. DRAINS None. PROCEDURE IN DETAIL The MECHANICAL SYSTEMS DESIGN ENGINEER was present from beginning to end of the case and assisted in all portions of the procedure. The MECHANICAL SYSTEMS DESIGN ENGINEER presence was necessary for retraction, dissection, visualization and resection during the procedure. The skill set of the MECHANICAL SYSTEMS DESIGN ENGINEER was medically and surgically necessary to safely complete the procedure while the manager surgical was working the instrument table and passing instruments to the attending surgeon and nurse practitioner. The patient was brought to the operating room and placed on the operating table in the prone position. He was already intubated. The previously placed VAC dressing was removed and the sponges were removed as well. The wound was painted and draped. A timeout was taken confirming the correct patient, site and procedure to be performed. The wound was then irrigated with pulse lavage irrigation containing Ancef and after this was accomplished on both portions of the wound nonviable tissue was sharply debrided. This included subcutaneous tissue and muscle. When this had been completed the wound was cleaned with a small amount of peroxide and then rinsed with saline. Remaining tissue was reexamined and any nonviable tissue was once again debrided. This included approximately 25 square centimeters of subcutaneous tissue and a small amount of muscle. When this had been completed, the patient was felt to benefit from a partial closure of his wounds. VAC sponges were placed in the perirectal fossa and the presacral region. This wound and been partially closed down and was not further closed down except for one suture. The thigh wound was then reexamined and this was partially closed down with #1 Prolene sutures. An opening was left in the upper thigh and a sponge also tracked down over the closure where the skin had been partially re-approximated. The VAC dressing was then re-applied and suctioned down with good seal obtained. The patient was then placed supine back on his bed and taken back to intensive care. Sponge and needle and instrument counts were reported to be correct. The patient tolerated the procedure well and was off all pressors at the beginning and end of the procedure. He did not require any pressor agents during the procedure. MD CHAD Goss/WARNER /7:02 PM /7:44 AM
[2016-05-16] MEDS: PANTOPRAZOLE SODIUM 40 MG VIAL IV SCH (08:36)
[2016-05-16] MEDS: LACTULOSE SYRUP 20 GM/30 ML CUP PO SCH (08:36)
[2016-05-16] MEDS: BENEPROTEIN POWDER 1 PACK G-TUBE SCH ×3 (08:37→17:57)
[2016-05-16] MEDS: SODIUM CHLORIDE 0.9% FLUSH 5 ML FLUSH IV FLUSH SCH ×2 (08:37→20:51)
[2016-05-16] MEDS: oxyCODONE/ACETAMINOPHEN 5 MG/325 MG TAB PO PRN (08:39)
[2016-05-16] MEDS: CHLORHEXIDINE 0.12% (ORAL KIT) 15 ML CUP MT SCH ×2 (10:34→20:51)
--- NOTE | 2016-05-16 11:51 | HHI.CCPN ---
Subjective Remarks/Hospital Course 80-year-old male came to the emergency room with history of dizziness, lightheadedness, generalized weakness and right buttock pain. CT scan revealed soft tissue gas gangrene originated most probably as a perirectal abscess. He was taken emergently to OR for debridement. 05/01: Ongoing septic shock. Requires additional debridement today for source control. 05/02: Back from OR after debridement right buttocks and thigh last night. Minimal necrotic tissue found. Vac in place. Clearly still septic, but vasopresors requirements are decreasing. 05/03: Persistent septic picture. 05/04: Vasopressor requirements now declining finally. Gas exchange acceptable. 05/05: Gas exchange a little better after desaturation last evening. 05/06: Start more ambitious weaning trials. TFs to goal. General perfusion improved. 05/07: Persistent leukocytosis, likely from necrotic wound. Will replace CVL after OR just to be cautious. 05/08: Extensive peripheral edema. Should tolerate gentle diuresis at this point. 05/09: Mobilizing excess water well. Source control of sepsis presently appears adequate. 05/10: Stable for return to OR today for ongoing debridement. 05/11: Good response to diuretics. New PICC placed and CVL removed. 05/12: Alert, tolerates SBT. Try to extubate today. 05/13: Remains orally intubated on mechanical ventilation. Possible OR tomorrow. 05/14: Remains sedated, orally intubated on mechanical ventilation. Scheduled for OR today. 05/15: Remains sedated, orally intubated on mechanical ventilation. Failed C Pap trial yesterday following surgery. 05/16: remains intubated. per report, more awake today. Objective Vital Signs Date Time Temp Pulse Resp B/P Pulse Ox O2 Delivery O2 Flow Rate FiO2 05/16/16 11:31 100 40 05/16/16 10:00 89 05/16/16 08:00 98.2 14 121/56 05/14/16 07:41 Ventilator Intake and Output 05/15/16 05/15/16 05/16/16 08:00 16:00 00:00 Intake Total 774 ml 258 ml 188 ml Output Total 550 ml 600 ml 500 ml Balance 224 ml -342 ml -312 ml Result Diagram: 05/16/16 0432 05/16/16431 Imaging Last 24 hours Impressions Chest X-Ray 04/28/16818 Signed Impressions: Service Date/Time: Thursday, April 28, 2016 08:21 - CONCLUSION: Normal examination. Lawson Howard MD Abdomen/Pelvis CT 04/28/16818 Signed Impressions: Service Date/Time: Thursday, April 28, 2016 09:05 - CONCLUSION: 1. Significant inflammation, presumed infection, in the right gluteal region including numerous tiny locules of air not only in the gluteus janny muscle but extending anterior into the ischiorectal fossa on the right. There are two distinct collections around the rectum suspicious for a perirectal abscess both right anteriorly and left posterolaterally. 2. Gallstones versus sludge. Lawson Howard MD Lower Extremity CT 04/28/16 0000 Signed Impressions: Service Date/Time: Thursday, April 28, 2016 09:05 - CONCLUSION: There is extensive dissecting air throughout the gluteus janny muscle also dissecting into the lower posterior RIGHT thigh. There is air within the semi-tendinosis , semimembranosus, and biceps femoris muscles. There is also tiny amount of air along the abductor longus muscle. I don't see any drainable abscess or fluid collection. There is a small amount of fluid between the subcutaneous fat in the muscular fascia not an unusual finding in patient's with soft tissue edema. Lawson Howard MD Objective Remarks GENERAL: critically ill elderly gentleman. SKIN: Warm. Well perfused. HEAD: Normocephalic. Atraumatic. NECK: Supple, Orally intubated. CARDIOVASCULAR: Irreg Irreg, rate controlled 100s. No JVD. RESPIRATORY: Good adriel air entry on vent. Few mobile secretions. GASTROINTESTINAL: Abdomen soft, non-tender, nondistended. BS active. No peritoneal irritation. MUSCULOSKELETAL: Warm, well perfused. Generalized 1+ edema. NEURO: Opens eyes. follows commands. RASS -1. A/P Problem List: (1) Septic shock ICD Code: A41.9 Status: Acute (2) Acute hypoxemic respiratory failure ICD Code: J96.01 Status: Acute (3) Gas gangrene of lower extremity ICD Code: A48.0 Status: Acute (4) Acute renal failure ICD Code: N17.9 Status: Acute (5) Encephalopathy, metabolic ICD Code: G93.41 Status: Acute Assessment and Plan Assessment: 80yM with sacral nec fasc, now with persistent hypoxic respiratory failure. certainly given his age and comorbidities, he is still at high risk for mortality and morbidity. we will work towards extubation today, but he is clearly off pathway and remains critically ill. Sepsis - perirectal abscess with extension to right thigh - debridement in the OR 04/28, 04/29, 05/04, 05/10, 05/14 - broad spectrum vanco, zosyn - adjust per ID. - ID consult appreciated -improved source control as of 05/08 Soft tissue gas gangrene - due to above - broad spectrum ATB - vanco, zosyn - s/p debridement again / per Gen Surg Perirectal abscess - ATB per ID - surgical debridement X 6 Acute Hypoxic Respiratory failure - post op - unable to wean ventilator. - Continue daily SBTs. if he passes, will pursue extubation. he will be at high risk for re-intubation given his age, acute on chronic debilitation. BRAYDON- resolving. - dehydration resolved - s/p aggressive i.v. fluids resuscitation - strict I&O - Dobutamine off. - Good urine output - Electrolyte protocol - Continue diuresis with lasix and diamox today. NUTRITION - Glucerna and benepro TFs 65/hr - Check prealbumin qweek. DM - hold p.o. meds while in the ICU - ISS - Insulin gtt prn A.Fib - rate now controlled with occasional digoxin - telemetry Overall impression: Resolving septic shock and much improved perfusion. Improved infection source control, wound slowly being closed. remains critically ill and very debilitated. high risk for decompensation. cautiously optimistic about slow improvements. Critical care time: 33 minutes exclusive of procedures. Problem Qualifiers (1) Acute renal failure: Qualified Code: N17.9 - Acute renal failure, unspecified acute renal failure type Kiran Mae MD May 16, 2016 11:51
[2016-05-16] MEDS ORDERED: FUROSEMIDE 40 MG/4 ML VIAL IV PUSH ONE (12:00)
[2016-05-16] MEDS: HYDROmorphone HCL PF 1 MG/ML VIAL IV PUSH PRN (13:40)
--- NOTE | 2016-05-16 15:53 | HHI.PR ---
Subjective Subjective Notes Extubated earlier today Doing well; painful Objective Vitals/I&O Vital Signs Date Time Temp Pulse Resp B/P Pulse Ox O2 Delivery O2 Flow Rate FiO2 05/16/16 15:35 100 Nasal Cannula 3 05/16/16 14:00 106 05/16/16 12:30 40 05/16/16 12:00 99.2 17 132/64 Labs Laboratory Tests Test 05/16/16 04:32 White Blood Count 6.8 Red Blood Count 2.73 Hemoglobin 8.3 Hematocrit 25.1 Mean Corpuscular Volume 92.1 Mean Corpuscular Hemoglobin 30.6 Mean Corpuscular Hemoglobin 33.3 Concent Red Cell Distribution Width 15.3 Platelet Count 195 Mean Platelet Volume 9.8 Neutrophils (%) (Auto) 50.0 Lymphocytes (%) (Auto) 27.6 Monocytes (%) (Auto) 21.3 Eosinophils (%) (Auto) 0.4 Basophils (%) (Auto) 0.7 Neutrophils # (Auto) 3.4 Lymphocytes # (Auto) 1.9 Monocytes # (Auto) 1.5 Eosinophils # (Auto) 0.0 Basophils # (Auto) 0.0 CBC Comment AUTO DIFF Differential Comment AUTO DIFF CONFIRMED Platelet Estimate NORMAL Platelet Morphology Comment NORMAL Sodium Level 141 Potassium Level 3.5 Chloride Level 104 Carbon Dioxide Level 28.8 Anion Gap 8 Blood Urea Nitrogen 16 Creatinine 1.49 Estimat Glomerular Filtration 45 Rate Random Glucose 107 Calcium Level 8.3 Magnesium Level 2.0 Total Bilirubin 0.6 Aspartate Amino Transf 19 (AST/SGOT) Alanine Aminotransferase 12 (ALT/SGPT) Alkaline Phosphatase 48 Total Protein 6.2 Albumin 1.5 Cardiovascular: Regular Lungs: Clear Abdomen: Non-distended, Non-tender, Other (obese ) Narrative Exam perirectal and right posterior thigh wound vac in place with good seal Flexiseal in place A/P Assessment and Plan 80 year old male with NF with soft tissue gas gangrene; ?? origin perirectal abscess -POD2 Irrigation and wide debridement of right buttock and right thigh with vac change -Plan to return to OR likely tomorrow afternoon -NPO afte MN -Continue antibiotics -Seal check on Wound Vac shows no leak -Continue Flexiseal to keep wound clean - and patient's sister updated at bedside -AMANDA Foote at bedside Attending Statement pt seen at bedside s/p vac change, good seal will need multiple vac changes Attestation The exam, history, and the medical decision-making described in the above note were completed with the assistance of the mid-level provider. I reviewed and agree with the findings presented. I attest that I had a [id number] encounter with the patient on the same day, and personally performed and documented my assessment and findings in the medical record. Roula Grayson May 16, 2016 15:53 Trey Marcos MD May 23, 2016 12:44
[2016-05-16 19:08] LABS: BICARBONATE 29.4 MEQ/L (21.0-32.0); MAGNESIUM 1.9 MG/DL (1.5-2.5); POTASSIUM 3.1 MEQ/L (3.5-5.1)
[2016-05-16] MEDS: MELATONIN 5 MG TAB PO SCH (21:00)
[2016-05-16] MEDS: POTASSIUM CHLOR 40 MEQ PREMIX 100 ML IV PRN (23:14)
[2016-05-17] VITALS (14 sets, daily range): BP systolic 107–133; BP diastolic 58–75; PULSE 84–111; RESP 15–24; TEMP 97.2–98.8; O2SAT 96–100
[2016-05-17] MEDS: POTASSIUM CHLOR 40 MEQ PREMIX 100 ML IV PRN (02:05)
[2016-05-17] MEDS: HIGH DOSE INSULIN NOVOLOG SUPPLEMENTAL SCALE SQ SCH ×6 (04:00→23:55)
[2016-05-17] MEDS: CHLORHEXIDINE GLUCONATE 2 % 1 PACK (2 CLOTHS) TOP SCH (04:00)
[2016-05-17 04:46] LABS: HEMATOCRIT 26.3 % (39.0-51.0); MEAN CELL VOLUME 93.1 FL (80.0-100.0); MEAN CORPUSCULAR HEMOGLOBIN 31.1 PG (27.0-34.0); MEAN CORPUSCULAR HGB CONC 33.4 % (32.0-36.0); PLATELET COUNT 220 TH/MM3 (150-450); RED BLOOD COUNT 2.83 MIL/MM3 (4.50-5.90); RED CELL DISTRIBUTION WIDTH 15.3 % (11.6-17.2); REVIEW FLAG FINAL
[2016-05-17 05:13] LABS: BICARBONATE 30.3 MEQ/L (21.0-32.0); POTASSIUM 3.7 MEQ/L (3.5-5.1)
[2016-05-17] MEDS: HYDROmorphone HCL PF 1 MG/ML VIAL IV PUSH PRN ×2 (06:19→12:24)
[2016-05-17] MEDS: PIPERACIL-TAZO 3.375 GM PREMIX 50 ML IV SCH ×4 (06:44→23:55)
[2016-05-17] MEDS: BENEPROTEIN POWDER 1 PACK G-TUBE SCH ×3 (07:51→17:42)
[2016-05-17] MEDS: CHLORHEXIDINE 0.12% (ORAL KIT) 15 ML CUP MT SCH ×2 (08:00→19:40)
[2016-05-17] MEDS: SODIUM CHLORIDE 0.9% FLUSH 5 ML FLUSH IV FLUSH SCH ×2 (09:00→19:39)
[2016-05-17] MEDS: LACTULOSE SYRUP 20 GM/30 ML CUP PO SCH (09:18)
[2016-05-17] MEDS: PANTOPRAZOLE SODIUM 40 MG VIAL IV SCH (09:18)
--- NOTE | 2016-05-17 10:54 | HHI.CCPN ---
Subjective Remarks/Hospital Course Hospital Course: 80-year-old male came to the emergency room with history of dizziness, lightheadedness, generalized weakness and right buttock pain. CT scan revealed soft tissue gas gangrene originated most probably as a perirectal abscess. He was taken emergently to OR for debridement. Subjective: 05/01: Ongoing septic shock. Requires additional debridement today for source control. 05/02: Back from OR after debridement right buttocks and thigh last night. Minimal necrotic tissue found. Vac in place. Clearly still septic, but vasopresors requirements are decreasing. 05/03: Persistent septic picture. 05/04: Vasopressor requirements now declining finally. Gas exchange acceptable. 05/05: Gas exchange a little better after desaturation last evening. 05/06: Start more ambitious weaning trials. TFs to goal. General perfusion improved. 05/07: Persistent leukocytosis, likely from necrotic wound. Will replace CVL after OR just to be cautious. 05/08: Extensive peripheral edema. Should tolerate gentle diuresis at this point. 05/09: Mobilizing excess water well. Source control of sepsis presently appears adequate. 05/10: Stable for return to OR today for ongoing debridement. 05/11: Good response to diuretics. New PICC placed and CVL removed. 05/12: Alert, tolerates SBT. Try to extubate today. 05/13: Remains orally intubated on mechanical ventilation. Possible OR tomorrow. 05/14: Remains sedated, orally intubated on mechanical ventilation. Scheduled for OR today. 05/15: Remains sedated, orally intubated on mechanical ventilation. Failed C Pap trial yesterday following surgery. 05/16: remains intubated. per report, more awake today. 05/17: extubated yesterday. doing well on room air today. plan for debridement of wound today in OR. Objective Vital Signs Date Time Temp Pulse Resp B/P Pulse Ox O2 Delivery O2 Flow Rate FiO2 05/17/16 07:47 99 21 05/17/16 06:00 100 05/17/16 04:00 98.7 23 127/70 05/16/16 19:17 Nasal Cannula 3.00 Intake and Output 05/16/16 05/16/16 05/17/16 08:00 16:00 00:00 Intake Total 238 ml 970 ml 139 ml Output Total 400 ml 2050 ml 1850 ml Balance -162 ml -1080 ml -1711 ml Result Diagram: 05/17/1640105/17/16 040 Imaging Last 24 hours Impressions Chest X-Ray 04/28/16818 Signed Impressions: Service Date/Time: Thursday, April 28, 2016 08:21 - CONCLUSION: Normal examination. Lawson Howard MD Abdomen/Pelvis CT 04/28/16818 Signed Impressions: Service Date/Time: Thursday, April 28, 2016 09:05 - CONCLUSION: 1. Significant inflammation, presumed infection, in the right gluteal region including numerous tiny locules of air not only in the gluteus janny muscle but extending anterior into the ischiorectal fossa on the right. There are two distinct collections around the rectum suspicious for a perirectal abscess both right anteriorly and left posterolaterally. 2. Gallstones versus sludge. Lawson Howard MD Lower Extremity CT 04/28/16 0000 Signed Impressions: Service Date/Time: Thursday, April 28, 2016 09:05 - CONCLUSION: There is extensive dissecting air throughout the gluteus janny muscle also dissecting into the lower posterior RIGHT thigh. There is air within the semi-tendinosis , semimembranosus, and biceps femoris muscles. There is also tiny amount of air along the abductor longus muscle. I don't see any drainable abscess or fluid collection. There is a small amount of fluid between the subcutaneous fat in the muscular fascia not an unusual finding in patient's with soft tissue edema. Lawson Howard MD Objective Remarks GENERAL: critically ill elderly gentleman. SKIN: Warm. Well perfused. HEAD: Normocephalic. Atraumatic. NECK: Supple, trachea midline. CARDIOVASCULAR: Irreg Irreg, rate controlled 90s. No JVD. RESPIRATORY: Good adriel air entry on vent. Few mobile secretions. GASTROINTESTINAL: Abdomen soft, non-tender, nondistended. No peritoneal irritation. MUSCULOSKELETAL: Warm, well perfused. Generalized 1+ edema. NEURO: RASS 0. follows commands. A/P Problem List: (1) Septic shock ICD Code: A41.9 Status: Acute (2) Acute hypoxemic respiratory failure ICD Code: J96.01 Status: Acute (3) Gas gangrene of lower extremity ICD Code: A48.0 Status: Acute (4) Acute renal failure ICD Code: N17.9 Status: Acute (5) Encephalopathy, metabolic ICD Code: G93.41 Status: Acute Assessment and Plan Assessment: 80yM with sacral nec fasc. certainly given his age and comorbidities , he is still at high risk for mortality and morbidity. extubated 05/16. repeat debridement today. will require re-intubation for procedure. given deconditioning, he may need to remain intubated post-operatively. Sepsis - perirectal abscess with extension to right thigh - debridement in the OR 04/28, 04/29, 05/04, 05/10, 05/14, plan for 05/17. - broad spectrum vanco, zosyn - adjust per ID. - ID consult appreciated -improved source control as of 05/08 Soft tissue gas gangrene - due to above - broad spectrum ATB - vanco, zosyn - s/p debridement again 05/17 per Gen Surg Perirectal abscess - ATB per ID - surgical debridement X 6 Acute Hypoxic Respiratory failure- resolving. - post op - extubated 05/16, but history of post-op resp failure given deconditioning. may have prolonged post-op mechanical ventilation today. BRAYDON- resolving. - dehydration resolved - s/p aggressive i.v. fluids resuscitation - strict I&O - Dobutamine off. - Good urine output - Electrolyte protocol - continue lasix and diamox today. NUTRITION - Glucerna and benepro TFs 65/hr - Check prealbumin qweek. DM - hold p.o. meds while in the ICU - ISS A.Fib - rate now controlled with occasional digoxin - telemetry Overall impression: Resolving septic shock and much improved perfusion. Improved infection source control, wound slowly being closed. high risk for decompensation. cautiously optimistic about slow improvements. Problem Qualifiers (1) Acute renal failure: Qualified Code: N17.9 - Acute renal failure, unspecified acute renal failure type Kiran Mae MD May 17, 2016 10:54
[2016-05-17] MEDS ORDERED: FUROSEMIDE 40 MG/4 ML VIAL IV PUSH ONE (11:00)
[2016-05-17] MEDS: DOCUSATE SODIUM 100 MG/10 ML UDC G-TUBE SCH ×2 (11:39→23:55)
[2016-05-17] MEDS ORDERED: NEOSTIGMINE 3 MG/3 ML SYR IV ONE (12:00)
[2016-05-17] MEDS ORDERED: ePHEDrine/NS 25 MG/5 ML SYR IV ONE (12:00)
[2016-05-17] MEDS ORDERED: PROPOFOL 200 MG/20 ML AMP IV ONE (12:00)
[2016-05-17] MEDS ORDERED: ONDANSETRON HCL 4 MG/2 ML VIAL IV PUSH ONE (12:00)
[2016-05-17] MEDS ORDERED: PHENYLEPH/NS 1000 MCG/10 ML SYR IV ONE (12:00)
--- NOTE | 2016-05-17 13:56 | HHI.IDPN ---
Note Infectious Disease Note Patient is extubated. Lethargic. Aroused easily. No distress. Afebrile. WBC nl. at bedside. Grew gram variable org in 05/17 admission clx, anaerobic bottles only. Repeat blood culture has no growth. ANTIBIOTICS: Zosyn. Past Medical History Diabetes Mellitus. Allergies: Coded Allergies: *MDRO Multi-Drug Resistant Organism (Verified Adverse Reaction, Unknown, ) MRSA PCR Screeen POSITIVE - 04/28/2016 Objective Vital Signs Date Time Temp Pulse Resp B/P Pulse Ox O2 Delivery O2 Flow Rate FiO2 05/17/16 12:00 98 05/17/16 12:00 97.8 101 18 120/75 99 05/17/16 10:00 85 05/17/16 08:00 97.6 89 22 107/64 100 05/17/16 08:00 89 05/17/16 07:47 99 21 05/17/16 06:00 100 05/17/16 04:00 97 05/17/16 04:00 98.7 97 23 127/70 100 05/17/16 02:00 84 05/17/16 00:00 98.8 98 24 133/64 99 05/17/16 00:00 86 05/16/16 22:00 86 05/16/16 20:00 97.9 102 16 123/57 99 05/16/16 20:00 102 05/16/16 19:17 100 Nasal Cannula 3.00 05/16/16 18:00 96 05/16/16 16:00 99.2 103 16 119/71 100 05/16/16 16:00 103 05/16/16 15:35 100 Nasal Cannula 3 05/16/16 15:35 100 Nasal Cannula 3.00 05/16/16 14:00 106 05/16/16 05/16/16 05/17/16 15:00 23:00 07:00 Intake Total 970 ml 139 ml 320 ml Output Total 750 ml 3150 ml 1850 ml Balance 220 ml -3011 ml -1530 ml IV Total 181 ml 139 ml 320 ml Tube Feeding 389 ml 0 ml 0 ml Tube Irrigant 400 ml Output Urine Total 600 ml 3000 ml 1375 ml Stool Total 0 ml 0 ml 400 ml Drainage Total 150 ml 150 ml 75 ml Laboratory Tests Test 05/16/16 05/17/16 04:32 04:02 White Blood Count 6.8 TH/MM3 7.0 TH/MM3 Red Blood Count 2.73 MIL/MM3 2.83 MIL/MM3 Hemoglobin 8.3 GM/DL 8.8 GM/DL Hematocrit 25.1 % 26.3 % Mean Corpuscular Volume 92.1 FL 93.1 FL Mean Corpuscular Hemoglobin 30.6 PG 31.1 PG Mean Corpuscular Hemoglobin 33.3 % 33.4 % Concent Red Cell Distribution Width 15.3 % 15.3 % Platelet Count 195 TH/MM3 220 TH/MM3 Mean Platelet Volume 9.8 FL 9.5 FL Neutrophils (%) (Auto) 50.0 % Lymphocytes (%) (Auto) 27.6 % Monocytes (%) (Auto) 21.3 % Eosinophils (%) (Auto) 0.4 % Basophils (%) (Auto) 0.7 % Neutrophils # (Auto) 3.4 TH/MM3 Lymphocytes # (Auto) 1.9 TH/MM3 Monocytes # (Auto) 1.5 TH/MM3 Eosinophils # (Auto) 0.0 TH/MM3 Basophils # (Auto) 0.0 TH/MM3 CBC Comment AUTO DIFF Differential Comment AUTO DIFF CONFIRMED Platelet Estimate NORMAL Platelet Morphology Comment NORMAL Laboratory Tests Test 05/16/16 05/16/16 05/17/16 04:32 18:35 04:02 Sodium Level 141 MEQ/L 142 MEQ/L 144 MEQ/L Potassium Level 3.5 MEQ/L 3.1 MEQ/L 3.7 MEQ/L Chloride Level 104 MEQ/L 103 MEQ/L 106 MEQ/L Carbon Dioxide Level 28.8 MEQ/L 29.4 MEQ/L 30.3 MEQ/L Anion Gap 8 MEQ/L 10 MEQ/L 8 MEQ/L Blood Urea Nitrogen 16 MG/DL 16 MG/DL 15 MG/DL Creatinine 1.49 MG/DL 1.61 MG/DL 1.58 MG/DL Estimat Glomerular Filtration 45 ML/MIN 42 ML/MIN 43 ML/MIN Rate Random Glucose 107 MG/DL 198 MG/DL 85 MG/DL Calcium Level 8.3 MG/DL 8.1 MG/DL 8.1 MG/DL Magnesium Level 2.0 MG/DL 1.9 MG/DL Total Bilirubin 0.6 MG/DL Aspartate Amino Transf 19 U/L (AST/SGOT) Alanine Aminotransferase 12 U/L (ALT/SGPT) Alkaline Phosphatase 48 U/L Total Protein 6.2 GM/DL Albumin 1.5 GM/DL Imaging Chest X-Ray 05/10/16 0000 Signed Impressions: Service Date/Time: April 13:58 - CONCLUSION: 1. PICC in good position. 2. Endotracheal tube in good position. 3. Consolidation and effusion at the left lung base. Chase Foley MD Chest X-Ray 05/01/16 0600 Signed Impressions: Service Date/Time: Sunday, May 01, 2016 05:35 - CONCLUSION: Slight improvement in aeration. Davon Stokes MD Abdomen/Pelvis CT 04/28/16 0819 Signed Impressions: Service Date/Time: Thursday, April 28, 2016 09:05 - CONCLUSION: 1. Significant inflammation, presumed infection, in the right gluteal region including numerous tiny locules of air not only in the gluteus janny muscle but extending anterior into the ischiorectal fossa on the right. There are two distinct collections around the rectum suspicious for a perirectal abscess both right anteriorly and left posterolaterally. 2. Gallstones versus sludge. Lawson Howard MD Lower Extremity CT 04/28/16 0000 Signed Impressions: Service Date/Time: Thursday, April 28, 2016 09:05 - CONCLUSION: There is extensive dissecting air throughout the gluteus janny muscle also dissecting into the lower posterior RIGHT thigh. There is air within the semi-tendinosis , semimembranosus, and biceps femoris muscles. There is also tiny amount of air along the abductor longus muscle. I don't see any drainable abscess or fluid collection. There is a small amount of fluid between the subcutaneous fat in the muscular fascia not an unusual finding in patient's with soft tissue edema. Lawson Howard MD Physical Exam GENERAL: Lethargic. HEENT: Mild scleral icterus. Oral mucosa moist. CARDIOVASCULAR: Irregular S1S2 without murmurs, gallops, or rubs. RESPIRATORY/CHEST: Bibasilar rhonchi. GASTROINTESTINAL: Abdomen soft, mildly distended. Non tender. Decreased bowel sounds. GENITOURINARY: Han in place with clear yellow urine MUSCULOSKELETAL: VAC in place at the R buttock - serous sanguinous drainage. Extremities has 4+ at RLE. 3+ at LLE edema. SKIN: No rash. Warm and moist. NEUROLOGICAL: Non focal. Assessment & Plan Remarks Perirectal abscess and gas gangrene R buttock. E. coli and strep. Necrotizing fascitis R buttock Severe sepsis on admission - leukocytosis, bandemia, fever, lactic acidosis ( 4.0), hypotension, tachycardia and ARF, Source abscess, gas gangrene. Leukocytosis related to fascitis. WBC now normal. ? Anaerobic sepsis - from presenting condition. Repeat blood culture negative. Appears stable. Continue Zosyn Follow clinical status. D/W at bedside. Ha Pelaez MD May 17, 2016 13:56
[2016-05-17] MEDS ORDERED: HYDROmorphone HCL PF 2 MG/ML VIAL ONE (14:55)
[2016-05-17] MEDS ORDERED: ACETAMINOPHEN 1000 MG/100 ML VIAL IV ONE (14:55)
[2016-05-17] MEDS ORDERED: fentaNYL CITRATE 250 MCG/5 ML AMP ONE (14:55)
--- NOTE | 2016-05-17 15:41 | HHI.PR ---
Immediate Post Op Note Procedure Date: May 17, 2016 Pre Op Diagnosis: right thigh and buttock soft tissues fascitis Post Op Diagnosis: same Surgeon: Trey Marcos MD Indirect Sales Exec(s): see or sheet Procedure: I and D with vac change Findings: good granulation tissue Complications: none Specimen(s) removed: none Estimated blood loss: 15cc Anesthesia: General Drains: Other (vac) Patient to: [facility] [place] Patient Condition: Fair Trey Marcos MD May 17, 2016 15:41
[2016-05-17] MEDS ORDERED: ceFAZolin INJ 1,000 MG VIAL TOP ONE (16:03)
[2016-05-17] MEDS ORDERED: fentaNYL 2,500 MCG/NS 250 ML IV SCH (17:45)
[2016-05-17] MEDS ORDERED: NOREPINEPHRINE-DEXTROSE DRIP 250 ML IV ONE (18:01)
[2016-05-17] MEDS ORDERED: NOREPINEPHRINE 4 MG/D5W 250 ML IV SCH (18:30)
[2016-05-17] MEDS: MELATONIN 5 MG TAB PO SCH (19:47)
[2016-05-17 22:51] LABS: BICARBONATE 25.1 MEQ/L (21.0-32.0); POTASSIUM 3.5 MEQ/L (3.5-5.1)
[2016-05-18] VITALS (15 sets, daily range): BP systolic 109–122; BP diastolic 58–80; PULSE 75–109; RESP 14–24; TEMP 97.1–97.9; O2SAT 99–100
[2016-05-18] MEDS: HIGH DOSE INSULIN NOVOLOG SUPPLEMENTAL SCALE SQ SCH ×6 (04:00→23:52)
[2016-05-18] MEDS: CHLORHEXIDINE GLUCONATE 2 % 1 PACK (2 CLOTHS) TOP SCH (04:00)
[2016-05-18 05:54] LABS: HEMATOCRIT 27.6 % (39.0-51.0); MEAN CELL VOLUME 94.2 FL (80.0-100.0); MEAN CORPUSCULAR HEMOGLOBIN 30.2 PG (27.0-34.0); MEAN CORPUSCULAR HGB CONC 32.1 % (32.0-36.0); PLATELET COUNT 247 TH/MM3 (150-450); RED BLOOD COUNT 2.93 MIL/MM3 (4.50-5.90); RED CELL DISTRIBUTION WIDTH 15.7 % (11.6-17.2); REVIEW FLAG FINAL; WHITE BLOOD COUNT 5.4 TH/MM3 (4.0-11.0)
[2016-05-18 06:01] LABS: BICARBONATE 26.5 MEQ/L (21.0-32.0); POTASSIUM 3.5 MEQ/L (3.5-5.1)
--- NOTE | 2016-05-18 06:03 | MP ---
cc: TREY MARCOS MD DATE OF SURGERY 05/14/2016 PREOPERATIVE DIAGNOSIS Necrotizing soft tissue infection right buttock, right thigh. POSTOPERATIVE DIAGNOSIS Necrotizing soft tissue infection right buttock, right thigh. PROCEDURE PERFORMED 1. Incision, wide debridement of right buttock, right thigh. 2. VAC change. SURGEON Dr. Trey Marcos RAIL EXPRESS CLERK See OR sheet ANESTHESIA GETA. IV FLUIDS 400 cc. ESTIMATED BLOOD LOSS 15 cc. DRAINS VAC. COMPLICATIONS None. WOUND CLASSIFICATION Dirty. FINDINGS Small purulent pocket intramuscular, perimuscular. Wound improving, better viable tissue. INDICATIONS The patient is a 80-year-old male who presented with necrotizing soft tissue infection right buttock, right thigh. He had questionable perirectal abscess long with recent trauma and poorly controlled diabetes. He presented with posterior buttock and thigh pain that progressed and got worse. He was in critical condition, in septic shock on initial presentation. He has undergone multiple debridements with VAC changes. He is here for a planned re-exploration, VAC change and debridement. DETAILS OF PROCEDURE The patient was taken to the operating suite, placed in the prone position. He was prepped and draped in the usual sterile fashion after induction of general endotracheal anesthesia. Brief time-out done stating correct patient, procedure and surgical site. We were all in agreement with this. Attention was directed to the back and posterior buttock, posterior thigh. The plastic dressing was removed. The sponges were removed. On inspection there was noted to be some purulent drainage under the skin flap on the lateral aspect of the buttock through the incision. Several sutures were removed to expose this area, noted to be a small pocket of purulent drainage within the muscle of the gluteus. This was a interdigitated and opened up, along with exploration of the rest of the posterior buttock and thigh. The distal portion also noted to be a little bit erythematous and therefore three sutures were removed from the distal area. Also used 3 liters of normal saline to thoroughly irrigate and clean the wound. Minimal debridement was done of tissue and purulent tissue. Hemostasis was obtained with electro Bovie cautery. Next, the VAC sponge was obtained, the sponge placed in several places, placed deep perirectally, transverse rectal midline, also placed under the skin flaps and sponge placed in between the two muscle bellies for increased assistance in drainage. Next, the sponge was also placed subcutaneously under the approximated skin and sponge also placed distally. The plastic drape was then placed after cleaning of the skin and Mastisol placed. Sponge also stapled to skin edge. VAC was in place and noted to be without leaking and good suction. Two track pads placed, one proximal, one distal. All lap and instrument counts were correct at the end of the procedure. The patient tolerated the procedure. There was no intraoperative complication. SPECIMEN None. DISPOSITION Condition remained guarded. Taken to [facility]. Remained intubated. MD ARUN Jenkins/SSB /3:57 PM /5:45 AM
[2016-05-18] MEDS: PIPERACIL-TAZO 3.375 GM PREMIX 50 ML IV SCH ×4 (06:06→23:52)
--- NOTE | 2016-05-18 07:05 | HHI.CCPN ---
Subjective Remarks/Hospital Course Hospital Course: 80-year-old male came to the emergency room with history of dizziness, lightheadedness, generalized weakness and right buttock pain. CT scan revealed soft tissue gas gangrene originated most probably as a perirectal abscess. He was taken emergently to OR for debridement. Subjective: 05/01: Ongoing septic shock. Requires additional debridement today for source control. 05/02: Back from OR after debridement right buttocks and thigh last night. Minimal necrotic tissue found. Vac in place. Clearly still septic, but vasopresors requirements are decreasing. 05/03: Persistent septic picture. 05/04: Vasopressor requirements now declining finally. Gas exchange acceptable. 05/05: Gas exchange a little better after desaturation last evening. 05/06: Start more ambitious weaning trials. TFs to goal. General perfusion improved. 05/07: Persistent leukocytosis, likely from necrotic wound. Will replace CVL after OR just to be cautious. 05/08: Extensive peripheral edema. Should tolerate gentle diuresis at this point. 05/09: Mobilizing excess water well. Source control of sepsis presently appears adequate. 05/10: Stable for return to OR today for ongoing debridement. 05/11: Good response to diuretics. New PICC placed and CVL removed. 05/12: Alert, tolerates SBT. Try to extubate today. 05/13: Remains orally intubated on mechanical ventilation. Possible OR tomorrow. 05/14: Remains sedated, orally intubated on mechanical ventilation. Scheduled for OR today. 05/15: Remains sedated, orally intubated on mechanical ventilation. Failed C Pap trial yesterday following surgery. 05/16: remains intubated. per report, more awake today. 2: extubated yesterday. doing well on room air today. plan for debridement of wound today in OR. 05/18: Re intubated in OR for wound debridement/VAC change. Patient is alert awake , takes a while to follow commands. On 2mcg/min of Levophed Objective Vital Signs Date Time Temp Pulse Resp B/P Pulse Ox O2 Delivery O2 Flow Rate FiO2 05/18/16 04:51 100 50 05/18/16 04:00 97.7 75 14 114/67 05/16/16 19:17 Nasal Cannula 3.00 Intake and Output 205/17/16 05/18/16 08:00 16:00 00:00 Intake Total 320 ml 368 ml 232 ml Output Total 1850 ml 1700 ml 650 ml Balance -1530 ml -1332 ml -418 ml Result Diagram: 05/18/16 0520 05/18/16 0520 Imaging Last 24 hours Impressions Chest X-Ray 04/28/16818 Signed Impressions: Service Date/Time: Thursday, April 28, 2016 08:21 - CONCLUSION: Normal examination. Lawson Howard MD Abdomen/Pelvis CT 04/28/16818 Signed Impressions: Service Date/Time: Thursday, April 28, 2016 09:05 - CONCLUSION: 1. Significant inflammation, presumed infection, in the right gluteal region including numerous tiny locules of air not only in the gluteus janny muscle but extending anterior into the ischiorectal fossa on the right. There are two distinct collections around the rectum suspicious for a perirectal abscess both right anteriorly and left posterolaterally. 2. Gallstones versus sludge. Lawson Howard MD Lower Extremity CT 04/28/16 0000 Signed Impressions: Service Date/Time: Thursday, April 28, 2016 09:05 - CONCLUSION: There is extensive dissecting air throughout the gluteus janny muscle also dissecting into the lower posterior RIGHT thigh. There is air within the semi-tendinosis , semimembranosus, and biceps femoris muscles. There is also tiny amount of air along the abductor longus muscle. I don't see any drainable abscess or fluid collection. There is a small amount of fluid between the subcutaneous fat in the muscular fascia not an unusual finding in patient's with soft tissue edema. Lawson Howard MD Objective Remarks GENERAL: critically ill elderly gentleman. Intubated on fentanyl gtt SKIN: Warm. Well perfused. HEAD: Normocephalic. Atraumatic. NECK: Supple, trachea midline. ETT: Orotracheally intubated CARDIOVASCULAR: Irreg Irreg, rate controlled 90s. No JVD. On 2mcg/min of Levophed RESPIRATORY: Good adriel air entry on vent. No wheezes GASTROINTESTINAL: Abdomen soft, non-tender, nondistended. No peritoneal irritation. MUSCULOSKELETAL: Warm, well perfused. Generalized 1+ edema. NEURO: RASS 0. follows commands, but delayed response. On 100mcg/hr of Fentnyl A/P Problem List: (1) Septic shock ICD Code: A41.9 Status: Acute (2) Acute hypoxemic respiratory failure ICD Code: J96.01 Status: Acute (3) Gas gangrene of lower extremity ICD Code: A48.0 Status: Acute (4) Acute renal failure ICD Code: N17.9 Status: Acute (5) Encephalopathy, metabolic ICD Code: G93.41 Status: Acute Assessment and Plan Assessment: 80yM with sacral nec fasc. given his age and comorbidities, he is still at high risk for mortality and morbidity. extubated 05/16. re intubated for repeat debridement in OR for I&D. given deconditioning, he remained intubated post-operatively. Septic shock - perirectal abscess with extension to right thigh - debridement in the OR 04/28, 04/29, 05/04, 05/10, 05/14, 05/17. - broad spectrum vanco, zosyn - adjust per ID. - improved source control as of 05/08 - On 2mcg/min of Levophed, wean as tolerated Soft tissue gas gangrene - due to above - broad spectrum ATB vanco, zosyn - s/p debridement again 05/17 per Gen Surg Perirectal abscess - ATB per ID - surgical debridement X 6 Acute Hypoxic Respiratory failure- resolving. - post op - extubated 05/16, but history of post-op resp failure given deconditioning. may have prolonged post-op mechanical ventilation today. BRAYDON- - Slight worsening of creat1.70 to 1.85 - s/p aggressive i.v. fluids resuscitation - strict I&O - Dobutamine off. - Good urine output - Electrolyte protocol - On Lasix and Diamox-Hold Lasix NUTRITION - Glucerna and Benepro TFs 65/hr - Check prealbumin qweek. DM - hold p.o. meds while in the ICU - ISS A.Fib - rate now controlled with occasional digoxin - telemetry Overall impression: Septic shock and now back on Levophed. Improved infection source control, wound slowly being closed. high risk for decompensation. CCT 35 MIN Problem Qualifiers (1) Acute renal failure: Qualified Code: N17.9 - Acute renal failure, unspecified acute renal failure type Jose Mays MD May 18, 2016 07:05
[2016-05-18] MEDS: CHLORHEXIDINE 0.12% (ORAL KIT) 15 ML CUP MT SCH ×2 (08:00→19:42)
[2016-05-18] MEDS: BENEPROTEIN POWDER 1 PACK G-TUBE SCH ×3 (08:19→17:49)
[2016-05-18] MEDS: PANTOPRAZOLE SODIUM 40 MG VIAL IV SCH (08:20)
[2016-05-18] MEDS: LACTULOSE SYRUP 20 GM/30 ML CUP PO SCH (08:20)
[2016-05-18] MEDS: SODIUM CHLORIDE 0.9% FLUSH 5 ML FLUSH IV FLUSH SCH ×2 (08:20→19:42)
--- NOTE | 2016-05-18 08:20 | RADRPT ---
EXAM DATE/TIME: 05/18/2016 07:06 [facility] COMPARISON: CHEST SINGLE AP, May 15, 2016, 9:32. INDICATIONS : Respiratory failure. MEDICAL HISTORY : None. SURGICAL HISTORY : None. ENCOUNTER: Subsequent ACUITY: 1 week PAIN SCORE: Non-responsive. LOCATION: Bilateral chest FINDINGS: PICC line and nasogastric tube are across the GE junction. ET tube is in the right main bronchus. T he heart is enlarged. Minimal consolidative changes present in the left base. CONCLUSION: 1. ET tube in the right main bronchus. 2. Film is angulated because of the patient position. Chandan Foley MD FACR on May 18, 2016 at 7:27 Board Certified Radiologist. This report was verified electronically.
[2016-05-18 08:57] LABS: BLOOD GAS BASE EXCESS 0.6 mmol/L (-2-2); BLOOD GAS CARBOXYHEMOGLOBIN 0.8 % (0-4); BLOOD GAS HCO3 24 mmol/L (22-26); BLOOD GAS METHEMOGLOBIN 0.7 % (0-2); BLOOD GAS O2 HGB SATURATION 97 % (90-100); BLOOD GAS OXYGEN CONTENT 13.4 Vol % (12.0-20.0); BLOOD GAS PCO2 36 mmHg (38-42); BLOOD GAS PO2 144 mmHg (61-120); BLOOD GAS TOTAL HGB 9.6 G/DL (12.0-16.0); CRITICAL VALUE NO; OXYGEN DEVICE VENTILATOR; TEMP CORR TO 98.6
[2016-05-18 08:58] LABS: DRAW SITE LT RADIAL; FIO2 35 %; NUMBER OF ARTERIAL PUNCTURES 1; STAT NO; ULNAR PULSE PRESENT
[2016-05-18] MEDS: POTASSIUM CL 40 MEQ/30 ML LIQ UDC PO/TUBE PRN (10:25)
[2016-05-18] MEDS: DOCUSATE SODIUM 100 MG/10 ML UDC G-TUBE SCH ×2 (12:42→23:51)
--- NOTE | 2016-05-18 12:55 | HHI.PR ---
Subjective Subjective Notes Resting in bed Complains of pain at wound site but pain medication helps Objective Vitals/I&O Vital Signs Date Time Temp Pulse Resp B/P Pulse Ox O2 Delivery O2 Flow Rate FiO2 05/18/16 12:00 97.1 90 19 121/58 100 05/18/16 11:10 Nasal Cannula 4 05/18/16 09:02 35 Labs Laboratory Tests Test 05/17/16 05/18/16 05/18/16 21:50 05:20 08:44 Sodium Level 142 143 Potassium Level 3.5 3.5 Chloride Level 105 106 Carbon Dioxide Level 25.1 26.5 Anion Gap 12 11 Blood Urea Nitrogen 18 19 Creatinine 1.79 1.85 Estimat Glomerular Filtration 37 35 Rate Random Glucose 239 149 Calcium Level 8.1 8.3 White Blood Count 5.4 Red Blood Count 2.93 Hemoglobin 8.8 Hematocrit 27.6 Mean Corpuscular Volume 94.2 Mean Corpuscular Hemoglobin 30.2 Mean Corpuscular Hemoglobin 32.1 Concent Red Cell Distribution Width 15.7 Platelet Count 247 Mean Platelet Volume 9.4 Blood Gas Puncture Site LT RADIAL Blood Gas Patient Temperature 98.6 Blood Gas HCO3 24 Blood Gas Base Excess 0.6 Blood Gas Oxygen Saturation 97 Arterial Blood pH 7.45 Arterial Blood Partial 36 Pressure CO2 Arterial Blood Partial 144 Pressure O2 Arterial Blood Oxygen Content 13.4 Arterial Blood 0.8 Carboxyhemoglobin Arterial Blood Methemoglobin 0.7 Blood Gas Hemoglobin 9.6 Oxygen Delivery Device VENTILATOR Blood Gas Ventilator Setting PEEP5,PS5 Blood Gas Inspired Oxygen 35 Cardiovascular: Regular Lungs: Clear Abdomen: Non-distended, Non-tender Narrative Exam perirectal and right posterior thigh wound vac in place with good seal Flexiseal in place A/P Assessment and Plan 80 year old male with NF with soft tissue gas gangrene; ?? origin perirectal abscess -POD1 Irrigation and wide debridement of right buttock and right thigh with vac change -Plan to return to OR likely next week -Regular diet pending swallow eval -Continue antibiotics -Seal check on Wound Vac shows no leak -Continue Flexiseal to keep wound clean -AMANDA Shepherd at bedside Attending Statement pt seen at bedside no acute issues Attestation The exam, history, and the medical decision-making described in the above note were completed with the assistance of the mid-level provider. I reviewed and agree with the findings presented. I attest that I had a [id number] encounter with the patient on the same day, and personally performed and documented my assessment and findings in the medical record. Roula Grayson May 18, 2016 12:55 Trey Marcos MD May 23, 2016 12:55
[2016-05-18] MEDS: MELATONIN 5 MG TAB PO SCH (19:41)
[2016-05-18] MEDS: HEPARIN SODIUM - SQ 10,000 UNITS/ML VIAL SQ SCH (23:51)
[2016-05-19] VITALS (13 sets, daily range): BP systolic 98–123; BP diastolic 55–79; PULSE 85–136; RESP 15–23; TEMP 97.7–98.7; O2SAT 99–100
[2016-05-19] MEDS: CHLORHEXIDINE GLUCONATE 2 % 1 PACK (2 CLOTHS) TOP SCH (03:08)
[2016-05-19] MEDS: HIGH DOSE INSULIN NOVOLOG SUPPLEMENTAL SCALE SQ SCH ×5 (03:20→23:49)
[2016-05-19 04:35] LABS: HEMATOCRIT 24.9 % (39.0-51.0); MEAN CELL VOLUME 93.9 FL (80.0-100.0); MEAN CORPUSCULAR HEMOGLOBIN 30.6 PG (27.0-34.0); MEAN CORPUSCULAR HGB CONC 32.6 % (32.0-36.0); PLATELET COUNT 226 TH/MM3 (150-450); RED BLOOD COUNT 2.66 MIL/MM3 (4.50-5.90); RED CELL DISTRIBUTION WIDTH 15.6 % (11.6-17.2); REVIEW FLAG FINAL; WHITE BLOOD COUNT 6.2 TH/MM3 (4.0-11.0)
[2016-05-19] MEDS: PIPERACIL-TAZO 3.375 GM PREMIX 50 ML IV SCH ×4 (04:48→23:49)
[2016-05-19 05:04] LABS: BICARBONATE 25.5 MEQ/L (21.0-32.0)
[2016-05-19 05:14] LABS: POTASSIUM 2.6 MEQ/L (3.5-5.1)
[2016-05-19] MEDS: POTASSIUM CHLOR 40 MEQ PREMIX 100 ML IV PRN ×2 (05:33→20:50)
--- NOTE | 2016-05-19 07:47 | HHI.PR ---
Subjective Subjective Notes stable overnight, extubated,vac no leak Objective Vitals/I&O Vital Signs Date Time Temp Pulse Resp B/P Pulse Ox O2 Delivery O2 Flow Rate FiO2 05/19/16 07:32 100 Nasal Cannula 2.00 05/19/16 04:00 97.9 85 15 119/59 05/18/16 09:02 35 Labs Laboratory Tests Test 05/18/16 05/19/16 08:44 03:45 Blood Gas Puncture Site LT RADIAL Blood Gas Patient Temperature 98.6 Blood Gas HCO3 24 Blood Gas Base Excess 0.6 Blood Gas Oxygen Saturation 97 Arterial Blood pH 7.45 Arterial Blood Partial 36 Pressure CO2 Arterial Blood Partial 144 Pressure O2 Arterial Blood Oxygen Content 13.4 Arterial Blood 0.8 Carboxyhemoglobin Arterial Blood Methemoglobin 0.7 Blood Gas Hemoglobin 9.6 Oxygen Delivery Device VENTILATOR Blood Gas Ventilator Setting PEEP5,PS5 Blood Gas Inspired Oxygen 35 White Blood Count 6.2 Red Blood Count 2.66 Hemoglobin 8.1 Hematocrit 24.9 Mean Corpuscular Volume 93.9 Mean Corpuscular Hemoglobin 30.6 Mean Corpuscular Hemoglobin 32.6 Concent Red Cell Distribution Width 15.6 Platelet Count 226 Mean Platelet Volume 9.1 Sodium Level 143 Potassium Level 2.6 Chloride Level 108 Carbon Dioxide Level 25.5 Anion Gap 10 Blood Urea Nitrogen 18 Creatinine 1.77 Estimat Glomerular Filtration 37 Rate Random Glucose 71 Calcium Level 8.3 Cardiovascular: Regular Lungs: Upper airway course sound Abdomen: Non-distended, Non-tender Wound Wound : Wound Location: Right leg (vac with good seal) A/P Assessment and Plan 80 year old male with NF with soft tissue gas gangrene; ?? origin perirectal abscess -s/p Irrigation and wide debridement of right buttock and right thigh with vac change - ok for diet, protein shakes, NPO after mn -off vent isc mgnt -Continue antibiotics -Seal check on Wound Vac shows no leak -Plan for repeat I&D and wound vac change likely tomorrow Trey Marcos MD May 19, 2016 07:47
[2016-05-19] MEDS: CHLORHEXIDINE 0.12% (ORAL KIT) 15 ML CUP MT SCH ×2 (08:00→20:13)
[2016-05-19] MEDS ORDERED: POTASSIUM CHLORIDE 20 MEQ CONTROLLED RELEASE TAB PO ONE (08:15)
--- NOTE | 2016-05-19 08:22 | HHI.CCPN ---
Subjective Remarks/Hospital Course Hospital Course: 80-year-old male came to the emergency room with history of dizziness, lightheadedness, generalized weakness and right buttock pain. CT scan revealed soft tissue gas gangrene originated most probably as a perirectal abscess. He was taken emergently to OR for debridement. Subjective: 05/01: Ongoing septic shock. Requires additional debridement today for source control. 05/02: Back from OR after debridement right buttocks and thigh last night. Minimal necrotic tissue found. Vac in place. Clearly still septic, but vasopresors requirements are decreasing. 05/03: Persistent septic picture. 05/04: Vasopressor requirements now declining finally. Gas exchange acceptable. 05/05: Gas exchange a little better after desaturation last evening. 05/06: Start more ambitious weaning trials. TFs to goal. General perfusion improved. 05/07: Persistent leukocytosis, likely from necrotic wound. Will replace CVL after OR just to be cautious. 05/08: Extensive peripheral edema. Should tolerate gentle diuresis at this point. 05/09: Mobilizing excess water well. Source control of sepsis presently appears adequate. 05/10: Stable for return to OR today for ongoing debridement. 05/11: Good response to diuretics. New PICC placed and CVL removed. 05/12: Alert, tolerates SBT. Try to extubate today. 05/13: Remains orally intubated on mechanical ventilation. Possible OR tomorrow. 05/14: Remains sedated, orally intubated on mechanical ventilation. Scheduled for OR today. 05/15: Remains sedated, orally intubated on mechanical ventilation. Failed C Pap trial yesterday following surgery. 05/16: remains intubated. per report, more awake today. 2: extubated yesterday. doing well on room air today. plan for debridement of wound today in OR. 05/18: Re intubated in OR for wound debridement/VAC change. Patient is alert awake , takes a while to follow commands. On 2mcg/min of Levophed 05/19: Extubated yesterday tolerating well. Potassium 2.6 getting replaced. Follows commands but very weak. Plan for OR tomorrow. UO adequate, creat improving Objective Vital Signs Date Time Temp Pulse Resp B/P Pulse Ox O2 Delivery O2 Flow Rate FiO2 05/19/16 07:32 100 Nasal Cannula 2.00 05/19/16 04:00 97.9 85 15 119/59 05/18/16 09:02 35 Intake and Output 05/18/16 05/18/16 05/19/16 08:00 16:00 00:00 Intake Total 355 ml 209 ml 110 ml Output Total 450 ml 625 ml 500 ml Balance -95 ml -416 ml -390 ml Result Diagram: 05/19/16 0345 05/19/16 0345 Other Results Laboratory Tests Test 05/18/16 08:44 Blood Gas Puncture Site LT RADIAL Blood Gas Patient Temperature 98.6 Blood Gas HCO3 24 mmol/L (22-26) Blood Gas Base Excess 0.6 mmol/L (-2-2) Blood Gas Oxygen Saturation 97 % (90-100) Arterial Blood pH 7.45 (7.380-7.420) Arterial Blood Partial 36 mmHg (38-42) Pressure CO2 Arterial Blood Partial 144 mmHg Pressure O2 (61-120) Arterial Blood Oxygen Content 13.4 Vol % (12.0-20.0) Arterial Blood 0.8 % (0-4) Carboxyhemoglobin Arterial Blood Methemoglobin 0.7 % (0-2) Blood Gas Hemoglobin 9.6 G/DL (12.0-16.0) Oxygen Delivery Device VENTILATOR Blood Gas Ventilator Setting PEEP5,PS5 Blood Gas Inspired Oxygen 35 % Imaging Last 24 hours Impressions Chest X-Ray 04/28/16818 Signed Impressions: Service Date/Time: Thursday, April 28, 2016 08:21 - CONCLUSION: Normal examination. Lawson Howard MD Abdomen/Pelvis CT 04/28/16818 Signed Impressions: Service Date/Time: Thursday, April 28, 2016 09:05 - CONCLUSION: 1. Significant inflammation, presumed infection, in the right gluteal region including numerous tiny locules of air not only in the gluteus janny muscle but extending anterior into the ischiorectal fossa on the right. There are two distinct collections around the rectum suspicious for a perirectal abscess both right anteriorly and left posterolaterally. 2. Gallstones versus sludge. Lawson Howard MD Lower Extremity CT 04/28/16 0000 Signed Impressions: Service Date/Time: Thursday, April 28, 2016 09:05 - CONCLUSION: There is extensive dissecting air throughout the gluteus janny muscle also dissecting into the lower posterior RIGHT thigh. There is air within the semi-tendinosis , semimembranosus, and biceps femoris muscles. There is also tiny amount of air along the abductor longus muscle. I don't see any drainable abscess or fluid collection. There is a small amount of fluid between the subcutaneous fat in the muscular fascia not an unusual finding in patient's with soft tissue edema. Lawson Howard MD Objective Remarks GENERAL: critically ill elderly gentleman. On NC not on continuous sedation SKIN: Warm. Well perfused. HEAD: Normocephalic. Atraumatic. NECK: Supple, trachea midline. ETT: Oral cavity is moist CARDIOVASCULAR: Irreg Irreg, rate controlled 90s. No JVD. RESPIRATORY: Good adriel air entry on vent. No wheezes GASTROINTESTINAL: Abdomen soft, non-tender, nondistended. No peritoneal irritation. MUSCULOSKELETAL: Warm, well perfused. Generalized 1+ edema. NEURO: Follows commands, but delayed response. No focal deficits A/P Problem List: (1) Septic shock ICD Code: A41.9 Status: Acute (2) Acute hypoxemic respiratory failure ICD Code: J96.01 Status: Acute (3) Gas gangrene of lower extremity ICD Code: A48.0 Status: Acute (4) Acute renal failure ICD Code: N17.9 Status: Acute (5) Encephalopathy, metabolic ICD Code: G93.41 Status: Acute Assessment and Plan Assessment: 80yM with sacral nec fasc. given his age and comorbidities, he is still at high risk for mortality and morbidity. extubated 05/16. re intubated for repeat debridement in OR for I&D. given deconditioning, he remained intubated post-operatively. Septic shock - perirectal abscess with extension to right thigh - debridement in the OR 04/28, 04/29, 05/04, 05/10, 05/14, 05/17. OR planned for 05/20 - broad spectrum vanco, Zosyn - adjust per ID. - improved source control as of 05/08 Soft tissue gas gangrene - due to above - broad spectrum ATB vanco, zosyn - s/p debridement again 05/20 per Gen Surg Perirectal abscess - ATB per ID - surgical debridement X 6 Acute Hypoxic Respiratory failure- resolving. - post op resp failure, extubated 2/3 doing well - Previously extubated 2/, but history of post-op resp failure given deconditioning. BRAYDON- - Slight improvement in creatinine - s/p aggressive i.v. fluids resuscitation - strict I&O - Dobutamine, Levophed off. - Good urine output - Electrolyte protocol - Discontinued Diamox, start Lasix 20 mg IV daily, with potassium replacement NUTRITION - Diet per speech recommendation - Check prealbumin qweek. DM - hold p.o. meds while in the ICU - ISS A.Fib - rate now controlled with occasional digoxin - telemetry Overall impression: Septic shock improved infection source control, wound slowly being closed. high risk for decompensation. Level 3 Problem Qualifiers (1) Acute renal failure: Qualified Code: N17.9 - Acute renal failure, unspecified acute renal failure type Jose Mays MD May 19, 2016 08:22
[2016-05-19] MEDS: PANTOPRAZOLE SODIUM 40 MG VIAL IV SCH (08:58)
[2016-05-19] MEDS: LACTULOSE SYRUP 20 GM/30 ML CUP PO SCH (08:59)
[2016-05-19] MEDS: FUROSEMIDE 20 MG/2 ML VIAL IV PUSH SCH (08:59)
[2016-05-19] MEDS: SODIUM CHLORIDE 0.9% FLUSH 5 ML FLUSH IV FLUSH SCH ×2 (08:59→20:14)
[2016-05-19] MEDS: POTASSIUM CHLORIDE 10 MEQ CONTROLLED RELEASE TAB PO SCH (08:59)
[2016-05-19] MEDS: BENEPROTEIN POWDER 1 PACK G-TUBE SCH ×3 (09:00→18:00)
[2016-05-19] MEDS: DOCUSATE SODIUM 100 MG/10 ML UDC G-TUBE SCH ×2 (12:00→23:49)
--- NOTE | 2016-05-19 12:11 | MB ---
cc: REENA BERMAN DATE OF CONSULTATION: 05/19/2016 REASON FOR CONSULTATION: This is a 80-year-old white male who was seen per request Dr. Marcos for evaluation of his depression. The patient was not cooperative. He does not want to talk, he claimed that he is not depressed and just nodded his head. The detailed of full psychiatric evaluation could not be performed. When he is more eager able to psychiatric assessment please reconsult psychiatry. The chart was reviewed. If he becomes a management or behavior problem you can reconsult psychiatry or if he is talking about suicide. At the present time the patient nods his head and negative for any symptoms and refuses to talk. Sorry and thank you for allowing me to participate in the care of this patient. Reena Childress /10:50 AM /12:10 PM
--- NOTE | 2016-05-19 19:45 | HHI.IDPN ---
Note Infectious Disease Note Patient is extubated. Still lethargic. Not on sedation. No distress. Afebrile. WBC nl. Grew gram variable org in 05/17 admission clx, anaerobic bottles only. Not further identified. ANTIBIOTICS: Zosyn. Past Medical History Diabetes Mellitus. Allergies: Coded Allergies: *MDRO Multi-Drug Resistant Organism (Verified Adverse Reaction, Unknown, ) MRSA PCR Screeen POSITIVE - 04/28/2016 Objective Vital Signs Date Time Temp Pulse Resp B/P Pulse Ox O2 Delivery O2 Flow Rate FiO2 05/19/16 19:32 100 Nasal Cannula 2.00 05/19/16 18:00 93 05/19/16 17:00 98.0 102 23 98/55 100 05/19/16 16:00 136 05/19/16 14:00 128 05/19/16 14:00 97.7 128 18 110/79 100 05/19/16 12:00 112 05/19/16 10:00 97.9 99 21 121/79 100 05/19/16 10:00 99 05/19/16 08:00 98.3 96 19 122/66 100 05/19/16 08:00 96 05/19/16 07:32 100 Nasal Cannula 2.00 05/19/16 04:00 97.9 85 15 119/59 100 05/19/16 00:00 97.9 100 23 123/63 99 05/18/16 20:00 97.9 109 24 122/80 100 05/18/16 19:53 100 Nasal Cannula 2.00 05/18/16 05/18/16 05/19/16 15:00 23:00 07:00 Intake Total 209 ml 110 ml 114 ml Output Total 625 ml 500 ml 700 ml Balance -416 ml -390 ml -586 ml Intake Oral 120 ml IV Total 89 ml 110 ml 114 ml Output Urine Total 400 ml 300 ml 400 ml Stool Total 100 ml 50 ml 100 ml Drainage Total 125 ml 150 ml 200 ml Laboratory Tests Test 05/18/16 05/19/16 05:20 03:45 White Blood Count 5.4 TH/MM3 6.2 TH/MM3 Red Blood Count 2.93 MIL/MM3 2.66 MIL/MM3 Hemoglobin 8.8 GM/DL 8.1 GM/DL Hematocrit 27.6 % 24.9 % Mean Corpuscular Volume 94.2 FL 93.9 FL Mean Corpuscular Hemoglobin 30.2 PG 30.6 PG Mean Corpuscular Hemoglobin 32.1 % 32.6 % Concent Red Cell Distribution Width 15.7 % 15.6 % Platelet Count 247 TH/MM3 226 TH/MM3 Mean Platelet Volume 9.4 FL 9.1 FL Laboratory Tests Test 05/17/16 05/18/16 05/19/16 05/19/16 21:50 05:20 03:45 15:20 Sodium Level 142 MEQ/L 143 MEQ/L 143 MEQ/L Potassium Level 3.5 MEQ/L 3.5 MEQ/L 2.6 MEQ/L 3.5 MEQ/L Chloride Level 105 MEQ/L 106 MEQ/L 108 MEQ/L Carbon Dioxide Level 25.1 MEQ/L 26.5 MEQ/L 25.5 MEQ/L Anion Gap 12 MEQ/L 11 MEQ/L 10 MEQ/L Blood Urea Nitrogen 18 MG/DL 19 MG/DL 18 MG/DL Creatinine 1.79 MG/DL 1.85 MG/DL 1.77 MG/DL Estimat Glomerular Filtration 37 ML/MIN 35 ML/MIN 37 ML/MIN Rate Random Glucose 239 MG/DL 149 MG/DL 71 MG/DL Calcium Level 8.1 MG/DL 8.3 MG/DL 8.3 MG/DL Imaging Last 72 hours Impressions Chest X-Ray 05/18/16 0000 Signed Impressions: Service Date/Time: Wednesday, May 18, 2016 07:06 - CONCLUSION: 1. ET tube in the right main bronchus. 2. Film is angulated because of the patient position. Chandan Foley MD FACR Chest X-Ray 05/10/16 0000 Signed Impressions: Service Date/Time: April 13:58 - CONCLUSION: 1. PICC in good position. 2. Endotracheal tube in good position. 3. Consolidation and effusion at the left lung base. Chase Foley MD Chest X-Ray 05/01/16 0600 Signed Impressions: Service Date/Time: Sunday, May 01, 2016 05:35 - CONCLUSION: Slight improvement in aeration. Davon Stokes MD Abdomen/Pelvis CT 04/28/16 0819 Signed Impressions: Service Date/Time: Thursday, April 28, 2016 09:05 - CONCLUSION: 1. Significant inflammation, presumed infection, in the right gluteal region including numerous tiny locules of air not only in the gluteus janny muscle but extending anterior into the ischiorectal fossa on the right. There are two distinct collections around the rectum suspicious for a perirectal abscess both right anteriorly and left posterolaterally. 2. Gallstones versus sludge. Lawson Howard MD Lower Extremity CT 04/28/16 0000 Signed Impressions: Service Date/Time: Thursday, April 28, 2016 09:05 - CONCLUSION: There is extensive dissecting air throughout the gluteus janny muscle also dissecting into the lower posterior RIGHT thigh. There is air within the semi-tendinosis , semimembranosus, and biceps femoris muscles. There is also tiny amount of air along the abductor longus muscle. I don't see any drainable abscess or fluid collection. There is a small amount of fluid between the subcutaneous fat in the muscular fascia not an unusual finding in patient's with soft tissue edema. Lawson Howard MD Physical Exam GENERAL: Lethargic. HEENT: Mild scleral icterus. Slightly Dry mucosa. CARDIOVASCULAR: Irregular S1S2 without murmurs, gallops, or rubs. RESPIRATORY/CHEST: Bibasilar rhonchi. GASTROINTESTINAL: Abdomen soft, mildly distended. Non tender. Decreased bowel sounds. GENITOURINARY: Han in place with clear yellow urine MUSCULOSKELETAL: VAC in place at the R buttock - serous sanguinous drainage. Extremities has 3+ at RLE. 2+ at LLE edema. SKIN: No rash. Warm and moist. NEUROLOGICAL: Non focal. Assessment & Plan Remarks Perirectal abscess and gas gangrene R buttock. E. coli and strep. Necrotizing fascitis R buttock Severe sepsis on admission - leukocytosis, bandemia, fever, lactic acidosis ( 4.0), hypotension, tachycardia and ARF, Source abscess, gas gangrene. Leukocytosis related to fascitis. WBC now normal. ? Anaerobic sepsis - from presenting condition. Repeat blood culture negative. Continue Zosyn Culture if temp spikes. Follow clinical status. Ha Pelaez MD May 19, 2016 19:45
[2016-05-19] MEDS: MELATONIN 5 MG TAB PO SCH (20:14)
[2016-05-20] VITALS (11 sets, daily range): BP systolic 104–136; BP diastolic 53–67; PULSE 76–106; RESP 15–21; TEMP 97.6–97.9; O2SAT 99–100
[2016-05-20] MEDS: CHLORHEXIDINE GLUCONATE 2 % 1 PACK (2 CLOTHS) TOP SCH (04:00)
[2016-05-20] MEDS: HIGH DOSE INSULIN NOVOLOG SUPPLEMENTAL SCALE SQ SCH ×6 (04:00→23:41)
[2016-05-20 05:42] LABS: AUTOMATED NEUTROPHIL # 3.8 TH/MM3 (1.8-7.7); BASOPHIL % 0.5 % (0.0-2.0); EOSINOPHIL # 0.1 TH/MM3 (0-0.4); EOSINOPHIL % 1.1 % (0.0-4.0); HEMATOCRIT 25.5 % (39.0-51.0); LYMPH % 22.9 % (9.0-44.0); LYMPHOCYTE # 1.5 TH/MM3 (1.0-4.8); MEAN CELL VOLUME 92.8 FL (80.0-100.0); MEAN CORPUSCULAR HEMOGLOBIN 30.5 PG (27.0-34.0); MEAN CORPUSCULAR HGB CONC 32.9 % (32.0-36.0); MONO % 19.1 % (0.0-8.0); NEUT % 56.4 % (16.0-70.0); PLATELET COUNT 234 TH/MM3 (150-450); RED BLOOD COUNT 2.75 MIL/MM3 (4.50-5.90); RED CELL DISTRIBUTION WIDTH 15.6 % (11.6-17.2); WHITE BLOOD COUNT 6.7 TH/MM3 (4.0-11.0)
[2016-05-20 05:46] LABS: ALKALINE PHOSPHATASE 61 U/L (45-117); ALT (GPT) 17 U/L (12-78); ANION GAP 12 MEQ/L (5-15); AST (GOT) 28 U/L (15-37); BICARBONATE 21.1 MEQ/L (21.0-32.0); BLOOD UREA NITROGEN 18 MG/DL (7-18); CHLORIDE 111 MEQ/L (98-107); GLOMERULAR FILTRATION RATE 39 ML/MIN (>89); POTASSIUM 3.4 MEQ/L (3.5-5.1); SODIUM (NA) 144 MEQ/L (136-145); TOTAL BILIRUBIN ADULT 0.5 MG/DL (0.2-1.0)
[2016-05-20 05:52] LABS: HEMO FLAGS AUTO DIFF
[2016-05-20] MEDS: PIPERACIL-TAZO 3.375 GM PREMIX 50 ML IV SCH ×4 (06:02→23:41)
--- NOTE | 2016-05-20 06:34 | RADRPT ---
EXAM DATE/TIME: 05/20/2016 05:14 [place] COMPARISON: CHEST SINGLE AP, May 15, 2016, 9:32. CHEST SINGLE AP, May 18, 2016, 7:06. INDICATIONS : Shortness of breath, possible pulmonary disease. MEDICAL HISTORY : None. SURGICAL HISTORY : None. ENCOUNTER: Subsequent ACUITY: 1 week PAIN SCORE: Non-responsive. LOCATION: Bilateral chest FINDINGS: Portable AP view of the chest demonstrates a normal-sized cardiac silhouette. Right upper extremity P ICC remains present. Lungs are underinflated with hazy opacity at the left lung base but with overall improved aeration. No effusion or pneumothorax is appreciated. CONCLUSION: Improved aeration at the left lung base with some residual opacity present that could represent atele ctasis or consolidation. Davon Pugh MD on May 20, 2016 at 6:31 Board Certified Radiologist. This report was verified electronically.
[2016-05-20] MEDS: CHLORHEXIDINE 0.12% (ORAL KIT) 15 ML CUP MT SCH ×2 (08:00→20:00)
[2016-05-20] MEDS ORDERED: SODIUM BICARBONATE 8.4% INJ 50 MEQ/50 ML SYR ONE (08:21)
[2016-05-20] MEDS ORDERED: LIDOCAINE 1%/EPINEPHrine 1:100,000 SOLN 30 ML VIAL ONE (08:21)
[2016-05-20] MEDS ORDERED: ACETAMINOPHEN 1000 MG/100 ML VIAL IV ONE (08:35)
[2016-05-20] MEDS ORDERED: fentaNYL CITRATE 250 MCG/5 ML AMP ONE (08:35)
[2016-05-20] MEDS: LACTULOSE SYRUP 20 GM/30 ML CUP PO SCH (09:00)
[2016-05-20] MEDS: SODIUM CHLORIDE 0.9% FLUSH 5 ML FLUSH IV FLUSH SCH ×2 (09:00→20:26)
[2016-05-20] MEDS: POTASSIUM CHLORIDE 10 MEQ CONTROLLED RELEASE TAB PO SCH (09:00)
[2016-05-20] MEDS: FUROSEMIDE 20 MG/2 ML VIAL IV PUSH SCH (09:00)
[2016-05-20] MEDS: PANTOPRAZOLE SODIUM 40 MG VIAL IV SCH (09:00)
[2016-05-20] MEDS: BENEPROTEIN POWDER 1 PACK G-TUBE SCH ×4 (09:00→18:00)
--- NOTE | 2016-05-20 09:26 | MP ---
cc: TREY MARCOS MD DATE OF SURGERY: 05/17/2016 PREOPERATIVE DIAGNOSIS Right buttock, right thigh soft tissue fasciitis status post multiple debridements. POSTOPERATIVE DIAGNOSIS Right buttock, right thigh soft tissue fasciitis status post multiple debridements. PROCEDURE PERFORMED Incision and drainage of right buttock, right thigh, with partial closure and VAC change. SURGEON Dr. Trey Marcos [employer] See OR sheet. ANESTHESIA General endotracheal. IV FLUIDS 450 cc. ESTIMATED BLOOD LOSS 20 cc. DRAINS VAC. COMPLICATIONS None. WOUND CLASSIFICATION Dirty. FINDINGS More healthy bleeding muscular tissue. No evidence of undrained fluid cavities. SPECIMEN None. INDICATION The patient is a 80-year-old male who presented with a necrotizing soft tissue infection of the right buttock, right side. He came in with septic shock, critical condition, and underwent emergent debridement with findings of fasciitis and florid infection. He has been under the care of [facility] and is to undergo multiple wound debridements with VAC changes. The patient recently underwent a VAC change and is here for planned reexploration with VAC change. DETAILS OF PROCEDURE The patient was taken into the operating suite, placed in a prone position. He was prepped and draped in the usual sterile fashion after induction of general endotracheal anesthesia. A brief timeout was done stating the correct patient, procedure and surgical site, and all were in agreement. Attention was directed to the right thigh, right buttock. The VAC dressing was removed in its entirety including the plastic and sponge. On observation there was noted to be good bleeding healthy muscular tissue. No evidence of undrained abscess. There was noted to be in the medial gluteal cleft some slightly necrotic skin. The wound was irrigated with antibiotic solution pulse irrigation with three liter saline bag. Bovie electrocautery was used to achieve hemostasis. Next, VAC sponges were placed, one perimuscular, intramuscular and directed to the open end of the wound. Several other sponges were placed deep perirectal as well. The medial portion of the wound was re-approximated with #1 nylon sutures in vertical mattress. There were three open portions now, superior buttock, mid posterior thigh and then distal thigh proximal popliteal region. Small sponges were placed in these areas and sponges placed deep in the gutters of these areas. Next, the plastic dressing was placed after a Mastisol was placed. Tract pads were placed at the superior buttock sponge and the medial and inferior were bridged superficially with a sponge. All lap and instrument counts were correct at the end of the procedure. The patient tolerated the procedure well. There was no intraoperative complication. The patient was taken back to [facility]. MD ARUN Jenkins/WARNER /6:26 PM /9:12 AM
[2016-05-20] MEDS ORDERED: NEOMYCIN/POLYMYXIN 1 ML G.U. IRRIGANT IR ONE (09:36)
[2016-05-20] MEDS ORDERED: DO NOT ADM ANY ANTICOAGULANT DRUGS XX PRN (10:06)
[2016-05-20 10:51] LABS: BANDS 21 % (0-6); EOSINOPHILS 1 % (0-4); NEUTROPHIL # MANUAL DIFF 4.6 TH/MM3 (1.8-7.7); POLYS (SEG NEUTROPHILS) 48 % (16-70); WBC DIFF SAMPLE 100
[2016-05-20 10:52] LABS: PLATELET ESTIMATE SMEAR NORMAL (NORMAL); PLATELET MORPHOLOGY NORMAL (NORMAL); SCAN/DIFF FINAL DIFF MANUAL
[2016-05-20] MEDS: DOCUSATE SODIUM 100 MG/10 ML UDC G-TUBE SCH ×2 (11:19→23:41)
--- NOTE | 2016-05-20 12:24 | HHI.CCPN ---
Subjective Remarks/Hospital Course Hospital Course: 80-year-old male came to the emergency room with history of dizziness, lightheadedness, generalized weakness and right buttock pain. CT scan revealed soft tissue gas gangrene originated most probably as a perirectal abscess. He was taken emergently to OR for debridement. Subjective: 05/01: Ongoing septic shock. Requires additional debridement today for source control. 05/02: Back from OR after debridement right buttocks and thigh last night. Minimal necrotic tissue found. Vac in place. Clearly still septic, but vasopresors requirements are decreasing. 05/03: Persistent septic picture. 05/04: Vasopressor requirements now declining finally. Gas exchange acceptable. 05/05: Gas exchange a little better after desaturation last evening. 05/06: Start more ambitious weaning trials. TFs to goal. General perfusion improved. 05/07: Persistent leukocytosis, likely from necrotic wound. Will replace CVL after OR just to be cautious. 05/08: Extensive peripheral edema. Should tolerate gentle diuresis at this point. 05/09: Mobilizing excess water well. Source control of sepsis presently appears adequate. 05/10: Stable for return to OR today for ongoing debridement. 05/11: Good response to diuretics. New PICC placed and CVL removed. 05/12: Alert, tolerates SBT. Try to extubate today. 05/13: Remains orally intubated on mechanical ventilation. Possible OR tomorrow. 05/14: Remains sedated, orally intubated on mechanical ventilation. Scheduled for OR today. 05/15: Remains sedated, orally intubated on mechanical ventilation. Failed C Pap trial yesterday following surgery. 05/16: remains intubated. per report, more awake today. 2: extubated yesterday. doing well on room air today. plan for debridement of wound today in OR. 05/18: Re intubated in OR for wound debridement/VAC change. Patient is alert awake , takes a while to follow commands. On 2mcg/min of Levophed 05/19: Extubated yesterday tolerating well. Potassium 2.6 getting replaced. Follows commands but very weak. Plan for OR tomorrow. UO adequate, creat improving 05/20: Extubated after all of reading comfortably. Follows commands weakly. White count normal, creatinine improving 1.69 today, urine output adequate Objective Vital Signs Date Time Temp Pulse Resp B/P Pulse Ox O2 Delivery O2 Flow Rate FiO2 05/20/16 10:55 97.4 114 20 97/73 99 Nasal Cannula 2 05/18/16 09:02 35 Intake and Output 05/19/16 05/19/16 05/20/16 08:00 16:00 00:00 Intake Total 114 ml 792 ml Output Total 700 ml 1400 ml Balance -586 ml -608 ml Result Diagram: 05/20/16 0459 05/20/16 0459 Imaging Last 24 hours Impressions Chest X-Ray 04/28/16818 Signed Impressions: Service Date/Time: Thursday, April 28, 2016 08:21 - CONCLUSION: Normal examination. Lawson Howard MD Abdomen/Pelvis CT 04/28/16818 Signed Impressions: Service Date/Time: Thursday, April 28, 2016 09:05 - CONCLUSION: 1. Significant inflammation, presumed infection, in the right gluteal region including numerous tiny locules of air not only in the gluteus janny muscle but extending anterior into the ischiorectal fossa on the right. There are two distinct collections around the rectum suspicious for a perirectal abscess both right anteriorly and left posterolaterally. 2. Gallstones versus sludge. Lawson Howard MD Lower Extremity CT 04/28/16 0000 Signed Impressions: Service Date/Time: Thursday, April 28, 2016 09:05 - CONCLUSION: There is extensive dissecting air throughout the gluteus janny muscle also dissecting into the lower posterior RIGHT thigh. There is air within the semi-tendinosis , semimembranosus, and biceps femoris muscles. There is also tiny amount of air along the abductor longus muscle. I don't see any drainable abscess or fluid collection. There is a small amount of fluid between the subcutaneous fat in the muscular fascia not an unusual finding in patient's with soft tissue edema. Lawson Howard MD Objective Remarks GENERAL: Elderly gentleman appears ill, weak. On NC not on continuous sedation SKIN: Warm. Well perfused. HEAD: Normocephalic. Atraumatic. NECK: Supple, trachea midline. ETT: Oral cavity is moist CARDIOVASCULAR: Irreg Irreg, rate controlled 90s. No JVD. RESPIRATORY: Good adriel air entry on vent. No wheezes GASTROINTESTINAL: Abdomen soft, non-tender, nondistended. No peritoneal irritation. MUSCULOSKELETAL: Warm, well perfused. Generalized 1+ edema. Right leg vac with good seal NEURO: Follows commands weakly, but delayed response. No focal deficits A/P Problem List: (1) Septic shock ICD Code: A41.9 Status: Acute (2) Acute hypoxemic respiratory failure ICD Code: J96.01 Status: Acute (3) Gas gangrene of lower extremity ICD Code: A48.0 Status: Acute (4) Acute renal failure ICD Code: N17.9 Status: Acute (5) Encephalopathy, metabolic ICD Code: G93.41 Status: Acute Assessment and Plan Assessment: 80yM with sacral nec fasc. given his age and comorbidities, he is still at high risk for mortality and morbidity. extubated 05/16. re intubated for repeat debridement in OR for I&D. given deconditioning, he remained intubated post-operatively. Septic shock - perirectal abscess with extension to right thigh - debridement in the OR 04/28, 04/29, 05/04, 05/10, 05/14, 05/17, 05/20 - broad spectrum vanco, Zosyn - adjust per ID. - improved source control as of 05/08 Soft tissue gas gangrene - due to above - broad spectrum ATB vanco, zosyn - s/p debridement again 05/20 per Gen Surg Perirectal abscess - ATB per ID - surgical debridement X 7 Acute Hypoxic Respiratory failure- resolved - post op resp failure, extubated 2/3 doing well, (today 2/5 was extubated post op itself) - DuoNeb q6 and PRN, IS, EzPAP BRAYDON- - Slight improvement in creatinine - s/p aggressive i.v. fluids resuscitation - strict I&O - Dobutamine, Levophed off. - Good urine output - Electrolyte protocol - Discontinued Diamox, continue Lasix 20 mg IV daily, with potassium replacement NUTRITION - Diet per speech recommendation - Check prealbumin qweek. DM - hold p.o. meds while in the ICU - ISS A.Fib - rate now controlled with occasional digoxin - telemetry Overall impression: Septic shock improved infection source control, wound slowly being closed. high risk for decompensation. Level 2 Consult [facility] Dr. Levy to assume care 2/6/17 Problem Qualifiers (1) Acute renal failure: Qualified Code: N17.9 - Acute renal failure, unspecified acute renal failure type Jose Mays MD May 20, 2016 12:24
[2016-05-20] MEDS: HYDROmorphone HCL PF 1 MG/ML VIAL IV PUSH PRN (12:37)
[2016-05-20] MEDS ORDERED: PROPOFOL 200 MG/20 ML AMP IV ONE (12:53)
[2016-05-20] MEDS ORDERED: ONDANSETRON HCL 4 MG/2 ML VIAL IV PUSH ONE (12:53)
[2016-05-20] MEDS ORDERED: NEOSTIGMINE 3 MG/3 ML SYR IV ONE (12:53)
[2016-05-20] MEDS ORDERED: ePHEDrine/NS 25 MG/5 ML SYR IV ONE (12:53)
[2016-05-20] MEDS ORDERED: PHENYLEPH/NS 1000 MCG/10 ML SYR IV ONE (12:53)
[2016-05-20] MEDS: MELATONIN 5 MG TAB PO SCH (20:28)
[2016-05-21] VITALS (12 sets, daily range): BP systolic 113–138; BP diastolic 58–69; PULSE 77–95; RESP 16–25; TEMP 96.8–98.8; O2SAT 94–100
[2016-05-21] MEDS: HYDROmorphone HCL PF 1 MG/ML VIAL IV PUSH PRN ×2 (00:29→09:18)
[2016-05-21 04:00] LABS: MEAN CELL VOLUME 92.8 FL (80.0-100.0); MEAN CORPUSCULAR HEMOGLOBIN 30.8 PG (27.0-34.0); MEAN CORPUSCULAR HGB CONC 33.2 % (32.0-36.0); PLATELET COUNT 190 TH/MM3 (150-450); RED BLOOD COUNT 2.58 MIL/MM3 (4.50-5.90); REVIEW FLAG FINAL; WHITE BLOOD COUNT 5.1 TH/MM3 (4.0-11.0)
[2016-05-21] MEDS: HIGH DOSE INSULIN NOVOLOG SUPPLEMENTAL SCALE SQ SCH ×4 (04:00→18:48)
[2016-05-21] MEDS: CHLORHEXIDINE GLUCONATE 2 % 1 PACK (2 CLOTHS) TOP SCH (04:00)
[2016-05-21 04:25] LABS: BICARBONATE 23.2 MEQ/L (21.0-32.0); POTASSIUM 3.1 MEQ/L (3.5-5.1)
[2016-05-21] MEDS: PIPERACIL-TAZO 3.375 GM PREMIX 50 ML IV SCH ×3 (04:56→18:37)
[2016-05-21] MEDS: POTASSIUM CHLOR 40 MEQ PREMIX 100 ML IV PRN ×2 (05:04→09:05)
[2016-05-21] MEDS: LACTULOSE SYRUP 20 GM/30 ML CUP PO SCH (08:27)
[2016-05-21] MEDS: DOCUSATE SODIUM 100 MG/10 ML UDC G-TUBE SCH (08:27)
[2016-05-21] MEDS: BENEPROTEIN POWDER 1 PACK G-TUBE SCH ×3 (08:27→18:00)
[2016-05-21] MEDS: POTASSIUM CHLORIDE 10 MEQ CONTROLLED RELEASE TAB PO SCH (08:59)
[2016-05-21] MEDS: SODIUM CHLORIDE 0.9% FLUSH 5 ML FLUSH IV FLUSH SCH (09:00)
[2016-05-21] MEDS: PANTOPRAZOLE SODIUM 40 MG VIAL IV SCH (09:04)
[2016-05-21] MEDS: FUROSEMIDE 20 MG/2 ML VIAL IV PUSH SCH (09:05)
[2016-05-21] MEDS: CHLORHEXIDINE 0.12% (ORAL KIT) 15 ML CUP MT SCH ×2 (09:05→20:00)
[2016-05-21] MEDS: HEPARIN SODIUM - SQ 10,000 UNITS/ML VIAL SQ SCH (11:27)
--- NOTE | 2016-05-21 14:00 | HHI.PR ---
Subjective Subjective Notes no acute issues, vac with good seal Objective Vitals/I&O Vital Signs Date Time Temp Pulse Resp B/P Pulse Ox O2 Delivery O2 Flow Rate FiO2 05/21/16 12:14 100 Nasal Cannula 2.00 05/21/16 12:00 97.8 88 24 113/63 05/18/16 09:02 35 Labs Laboratory Tests Test 05/21/16 03:51 White Blood Count 5.1 Red Blood Count 2.58 Hemoglobin 7.9 Hematocrit 24.0 Mean Corpuscular Volume 92.8 Mean Corpuscular Hemoglobin 30.8 Mean Corpuscular Hemoglobin 33.2 Concent Red Cell Distribution Width 16.0 Platelet Count 190 Mean Platelet Volume 8.9 Sodium Level 145 Potassium Level 3.1 Chloride Level 113 Carbon Dioxide Level 23.2 Anion Gap 9 Blood Urea Nitrogen 16 Creatinine 1.46 Estimat Glomerular Filtration 47 Rate Random Glucose 159 Calcium Level 8.1 Abdomen: Non-distended, Non-tender Wound Wound : Wound Location: Back (vac to thigh and buttock good seal) A/P Assessment and Plan 80 year old male with NF with soft tissue gas gangrene; ?? origin perirectal abscess -s/p Irrigation and wide debridement of right buttock and right thigh with vac change - ok for diet, protein shakes, -off vent isc mgnt- ok to transfer to surgical floor -Continue antibiotics -Seal check on Wound Vac shows no leak -Plan for repeat I&D and wound vac change likely saturday Trey Marcos MD May 21, 2016 14:00
--- NOTE | 2016-05-21 16:51 | HHI.PR ---
Subjective Remarks Patient appears in nad. Sleepy. Family at bedside/ Patient appears improved per family he is more awake and alert. He did ate better today. No n/v/d/c. Patient is alert and oriented by full name and . Per family his baseline mentation is A&O x 4. Objective Vitals Vital Signs Date Time Temp Pulse Resp B/P Pulse Ox O2 Delivery O2 Flow Rate FiO2 05/21/16 16:00 94 05/21/16 16:00 97.6 94 16 117/69 100 05/21/16 14:00 86 05/21/16 12:14 100 Nasal Cannula 2.00 05/21/16 12:00 97.8 88 24 113/63 100 05/21/16 12:00 88 05/21/16 10:00 95 05/21/16 08:00 77 05/21/16 08:00 98.2 77 16 138/67 100 05/21/16 06:00 86 05/21/16 04:00 82 05/21/16 04:00 98.1 82 16 137/65 100 05/21/16 02:00 86 05/21/16 00:00 88 05/21/16 00:00 98.8 88 25 113/58 100 05/20/16 22:00 92 05/20/16 20:00 90 05/20/16 20:00 97.6 90 21 116/60 100 05/20/16 18:00 76 I/O 05/20/16 05/20/16 05/20/16 05/21/16 05/21/16 05/21/16 07:00 15:00 23:00 07:00 15:00 23:00 Intake Total 127 ml 1280 ml 290 ml 180 ml 508 ml Output Total 450 ml 1145 ml 525 ml 400 ml 1510 ml Balance -323 ml 135 ml -235 ml -220 ml -1002 ml Intake Oral 40 ml 240 ml 150 ml 40 ml 240 ml IV Total 87 ml 340 ml 140 ml 140 ml 268 ml Other 700 ml Output Urine Total 300 ml 1100 ml 425 ml 300 ml 1400 ml Stool Total 0 ml 0 ml 0 ml 0 ml 10 ml Drainage Total 150 ml 25 ml 100 ml 100 ml 100 ml Estimated Blood Loss 20 ml Result Diagram: 05/21/16 0351 05/21/16 0351 Imaging Last Impressions Chest X-Ray 05/20/16 0600 Signed Impressions: Service Date/Time: Friday, May 20, 2016 05:14 - CONCLUSION: Improved aeration at the left lung base with some residual opacity present that could represent atelectasis or consolidation. Davon Pugh MD Abdomen/Pelvis CT 04/28/16 0819 Signed Impressions: Service Date/Time: Thursday, April 28, 2016 09:05 - CONCLUSION: 1. Significant inflammation, presumed infection, in the right gluteal region including numerous tiny locules of air not only in the gluteus janny muscle but extending anterior into the ischiorectal fossa on the right. There are two distinct collections around the rectum suspicious for a perirectal abscess both right anteriorly and left posterolaterally. 2. Gallstones versus sludge. Lawson Howard MD Lower Extremity CT 04/28/16 0000 Signed Impressions: Service Date/Time: Thursday, April 28, 2016 09:05 - CONCLUSION: There is extensive dissecting air throughout the gluteus janny muscle also dissecting into the lower posterior RIGHT thigh. There is air within the semi-tendinosis , semimembranosus, and biceps femoris muscles. There is also tiny amount of air along the abductor longus muscle. I don't see any drainable abscess or fluid collection. There is a small amount of fluid between the subcutaneous fat in the muscular fascia not an unusual finding in patient's with soft tissue edema. Lawson Howard MD Objective Remarks GENERAL: Elderly gentleman appears ill, weak. On NC not on continuous sedation SKIN: Warm. Well perfused. HEAD: Normocephalic. Atraumatic. NECK: Supple, trachea midline. ETT: Oral cavity is moist CARDIOVASCULAR: Irreg Irreg, rate controlled 90s. No JVD. RESPIRATORY: Good adriel air entry on vent. No wheezes GASTROINTESTINAL: Abdomen soft, non-tender, nondistended. No peritoneal irritation. MUSCULOSKELETAL: Warm, well perfused. Generalized 1+ edema. Right leg vac with good seal NEURO: Follows commands weakly, but delayed response. No focal deficits A/P Assessment and Plan Assessment: 80yM with sacral nec fasc. given his age and comorbidities, he is still at high risk for mortality and morbidity. extubated 05/16. re intubated for repeat debridement in OR for I&D. given deconditioning, he remained intubated post-operatively. Septic shock - perirectal abscess with extension to right thigh - debridement in the OR 04/28, 04/29, 05/04, 05/10, 05/14, 05/17, 05/20 - broad spectrum vanco, Zosyn - adjust per ID. - improved source control as of 05/08 Soft tissue gas gangrene - due to above - broad spectrum ATB vanco, zosyn - s/p debridement again 05/20 per Gen Surg Perirectal abscess - ATB per ID - surgical debridement X 7 Acute Hypoxic Respiratory failure- resolved - post op resp failure, extubated 2/ doing well, (today 05/20 was extubated post op itself) - DuoNeb q6 and PRN, IS, EzPAP BRAYDON- - Slight improvement in creatinine - s/p aggressive i.v. fluids resuscitation - strict I&O - Dobutamine, Levophed off. - Good urine output - Electrolyte protocol - Discontinued Diamox, continue Lasix 20 mg IV daily, with potassium replacement NUTRITION - Diet per speech recommendation - Check prealbumin qweek. DM - hold p.o. meds while in the ICU - ISS A.Fib - rate now controlled with occasional digoxin - telemetry Hypokalemia: Replace as need. Keep K > 4 as patient with afib Overall impression: Septic shock improved infection source control, wound slowly being closed. high risk for decompensation. Improving. Plan to transfer to med surg floor. Discussed with the patient, nurse, family at bedside. Kelli Jacobs MD May 21, 2016 16:51
[2016-05-21 18:34] LABS: BICARBONATE 21.3 MEQ/L (21.0-32.0); POTASSIUM 3.5 MEQ/L (3.5-5.1)
[2016-05-21] MEDS: MELATONIN 5 MG TAB PO SCH (21:00)
[2016-05-22] VITALS (9 sets, daily range): BP systolic 122–152; BP diastolic 64–98; PULSE 75–102; RESP 18–20; TEMP 96.7–98.9; O2SAT 92–99
[2016-05-22] MEDS: SODIUM CHLORIDE 0.9% FLUSH 5 ML FLUSH IV FLUSH SCH ×3 (00:05→21:33)
[2016-05-22] MEDS: PIPERACIL-TAZO 3.375 GM PREMIX 50 ML IV SCH ×4 (00:07→16:39)
[2016-05-22] MEDS: HEPARIN SODIUM - SQ 10,000 UNITS/ML VIAL SQ SCH ×3 (00:07→22:48)
[2016-05-22] MEDS: CHLORHEXIDINE GLUCONATE 2 % 1 PACK (2 CLOTHS) TOP SCH (00:07)
[2016-05-22] MEDS: HIGH DOSE INSULIN NOVOLOG SUPPLEMENTAL SCALE SQ SCH ×6 (00:20→21:39)
[2016-05-22 07:05] LABS: HEMATOCRIT 22.9 % (39.0-51.0); MEAN CELL VOLUME 92.7 FL (80.0-100.0); MEAN CORPUSCULAR HEMOGLOBIN 30.6 PG (27.0-34.0); PLATELET COUNT 197 TH/MM3 (150-450); RED BLOOD COUNT 2.47 MIL/MM3 (4.50-5.90); RED CELL DISTRIBUTION WIDTH 15.6 % (11.6-17.2); REVIEW FLAG FINAL; WHITE BLOOD COUNT 5.1 TH/MM3 (4.0-11.0)
[2016-05-22 07:40] LABS: BICARBONATE 20.8 MEQ/L (21.0-32.0)
[2016-05-22 07:53] LABS: POTASSIUM 2.8 MEQ/L (3.5-5.1)
[2016-05-22] MEDS: CHLORHEXIDINE 0.12% (ORAL KIT) 15 ML CUP MT SCH ×2 (08:00→20:00)
--- NOTE | 2016-05-22 08:16 | HHI.PR ---
Subjective Remarks Appears chronically ill. No n/v/d/c. Denies cp, sob, n/v/d/c. Lytes repleted. Plan for repeat I&D and wound vac change tomorrow per surgeon. Objective Vitals Vital Signs Date Time Temp Pulse Resp B/P Pulse Ox O2 Delivery O2 Flow Rate FiO2 05/22/16 04:00 98.1 101 20 123/98 99 05/22/16 00:39 98.9 98 18 123/64 92 05/21/16 21:03 96.8 81 20 127/67 94 05/21/16 18:00 92 05/21/16 16:00 94 05/21/16 16:00 97.6 94 16 117/69 100 05/21/16 14:00 86 05/21/16 12:14 100 Nasal Cannula 2.00 05/21/16 12:00 97.8 88 24 113/63 100 05/21/16 12:00 88 05/21/16 10:00 95 I/O 05/21/16 05/21/16 05/21/16 05/22/16 05/22/16 05/22/16 06:59 14:59 22:59 06:59 14:59 22:59 Intake Total 180 ml 508 ml 220 ml Output Total 400 ml 1510 ml 500 ml Balance -220 ml -1002 ml -280 ml Intake Oral 40 ml 240 ml 0 ml IV Total 140 ml 268 ml 220 ml Output Urine Total 300 ml 1400 ml 400 ml Stool Total 0 ml 10 ml Drainage Total 100 ml 100 ml 100 ml # Bowel Movements 0 Result Diagram: 05/22/16 0630 05/22/16 0630 Imaging Last Impressions Chest X-Ray 05/20/16 0600 Signed Impressions: Service Date/Time: Friday, May 20, 2016 05:14 - CONCLUSION: Improved aeration at the left lung base with some residual opacity present that could represent atelectasis or consolidation. Davon Pugh MD Abdomen/Pelvis CT 04/28/16 0819 Signed Impressions: Service Date/Time: Thursday, April 28, 2016 09:05 - CONCLUSION: 1. Significant inflammation, presumed infection, in the right gluteal region including numerous tiny locules of air not only in the gluteus janny muscle but extending anterior into the ischiorectal fossa on the right. There are two distinct collections around the rectum suspicious for a perirectal abscess both right anteriorly and left posterolaterally. 2. Gallstones versus sludge. Lawson Howard MD Lower Extremity CT 04/28/16 0000 Signed Impressions: Service Date/Time: Thursday, April 28, 2016 09:05 - CONCLUSION: There is extensive dissecting air throughout the gluteus janny muscle also dissecting into the lower posterior RIGHT thigh. There is air within the semi-tendinosis , semimembranosus, and biceps femoris muscles. There is also tiny amount of air along the abductor longus muscle. I don't see any drainable abscess or fluid collection. There is a small amount of fluid between the subcutaneous fat in the muscular fascia not an unusual finding in patient's with soft tissue edema. Lawson Howard MD Objective Remarks GENERAL: Elderly gentleman appears ill, weak. On NC not on continuous sedation SKIN: Warm. Well perfused. HEAD: Normocephalic. Atraumatic. NECK: Supple, trachea midline. ETT: Oral cavity is moist CARDIOVASCULAR: Irreg Irreg, rate controlled 90s. No JVD. RESPIRATORY: Good adriel air entry on vent. No wheezes GASTROINTESTINAL: Abdomen soft, non-tender, nondistended. No peritoneal irritation. MUSCULOSKELETAL: Warm, well perfused. Generalized 1+ edema. Right leg vac with good seal NEURO: Follows commands weakly, but delayed response. No focal deficits A/P Assessment and Plan Assessment: 80yM with sacral nec fasc. given his age and comorbidities, he is still at high risk for mortality and morbidity. extubated 05/16. re intubated for repeat debridement in OR for I&D. given deconditioning, he remained intubated post-operatively. Septic shock - perirectal abscess with extension to right thigh - debridement in the OR 04/28, 04/29, 05/04, 05/10, 05/14, 05/17, 05/20 - broad spectrum vanco, Zosyn - adjust per ID. - improved source control as of 05/08 Soft tissue gas gangrene - due to above - broad spectrum ATB vanco, zosyn - s/p debridement again 05/20 per Gen Surg - Plan for repeat I&D and wound vac change 05/23/16 Perirectal abscess - ATB per ID - surgical debridement X 7 Acute Hypoxic Respiratory failure- resolved - post op resp failure, extubated 2/3 doing well, (today 2/5 was extubated post op itself) - DuoNeb q6 and PRN, IS, EzPAP BRAYDON- - Slight improvement in creatinine - s/p aggressive i.v. fluids resuscitation - strict I&O - Dobutamine, Levophed off. - Good urine output - Electrolyte protocol - Discontinued Diamox, continue Lasix 20 mg IV daily, with potassium replacement DM - hold p.o. meds while in the ICU - ISS A.Fib - rate now controlled with occasional digoxin - telemetry NUTRITION - Diet per speech recommendation - Check prealbumin qweek. Hypokalemia: Replace as need. Keep K > 4 as patient with afib Hypocalcemia: Replete with IC Ca gluconate Severe protein jericho malnutrition: Prealbumin 10. Ensure. [employer] consulted. ST also following. Overall impression: Septic shock improved infection source control, wound slowly being closed. high risk for decompensation. Improving. Discussed with the patient, nurse, family at bedside. Kelli Jacobs MD May 22, 2016 08:16
[2016-05-22 08:28] LABS: CALCIUM-PROTEIN CORRECTED 7.6 MG/DL (8.5-10.1)
[2016-05-22] MEDS: BENEPROTEIN POWDER 1 PACK G-TUBE SCH ×3 (09:00→16:39)
[2016-05-22] MEDS: LACTULOSE SYRUP 20 GM/30 ML CUP PO SCH (09:00)
[2016-05-22] MEDS ORDERED: CALCIUM GLUCONATE INJ 1 GM in SODIUM CHLORIDE 0.9% INJ 100 ML IV ONE (09:00)
[2016-05-22] MEDS: FUROSEMIDE 20 MG/2 ML VIAL IV PUSH SCH (09:04)
[2016-05-22] MEDS: PANTOPRAZOLE SODIUM 40 MG VIAL IV SCH (09:05)
--- NOTE | 2016-05-22 09:14 | MP ---
cc: BING MARCOS MD DATE OF SURGERY 05/20/2016 PREOPERATIVE DIAGNOSIS Right buttock, right thigh soft tissue necrotizing soft tissue infection. POSTOPERATIVE DIAGNOSIS Right buttock, right thigh soft tissue necrotizing soft tissue infection. PROCEDURE PERFORMED Incision wide debridement of right buttock and right thigh with partial closure and Vac change. SURGEON Dr. Bing Marcos TREATMENT SPECIALIST See OR sheet ANESTHESIA GETA IV FLUIDS 700 cc's ESTIMATED BLOOD LOSS 10 cc's DRAINS Vac SPECIMENS None COMPLICATIONS None WOUND CLASSIFICATION Dirty INDICATION The patient is a 80-year-old male diabetic with a history of perirectal abscess with development of necrotizing soft tissue infection. He was taken emergently to the operating room for incision and wide debridement with Vac placement. He has undergone multiple Vac changes and progressive closures. He presents for Vac closure. FINDINGS Better healing tissue, some minimal necrotic skin medially and superiorly that warrant resection. DETAILS OF THE PROCEDURE The patient was taken to the operating room suite, placed in the prone position. He was prepped and draped in the usual sterile fashion after induction of general endotracheal anesthesia. A brief time-out done stating correct patient, procedure, and surgical site and all were in agreement with this. Attention directed to the Vac. The Vac removed. Lisa removed. Sponges were removed. Noted to healthier tissue. There was evidence of necrotic skin medial to and superior to the wound that warrants further resection. This was resected to healthy appearing skin. This was done with a scalpel and electro Bovie cautery. Hemostasis was obtained with electro Bovie cautery. The abscess cavity and wound was irrigated thoroughly with pulse lavage antibacterial antibiotic solution two liters. Progressive closure of the distal end of the wound was done with a 0-Prolene, also progressive medial closure was done with placement of vertical mattress 4-0 Prolene. Sponges placed in three places, one distally and tracking medially, followed by a mid sponge tract also medially. The superior portion of the sponge was placed perirectal and exposed out the side of the wound. The other sponge was cut to size to approximate wound closure. A Vac was then placed. Two tract pads placed with bridging. The patient tolerated the procedure well. There were no intraoperative complications. The patient was taken stable to PACU. All instrument counts were correct. MD ARUN Jenkins/SHLOMO /10:01 AM /9:06 AM
[2016-05-22] MEDS: POTASSIUM CHLOR 20 MEQ PREMIX 100 ML IV SCH ×2 (09:16→11:52)
[2016-05-22] MEDS: CALCIUM GLUCONATE 500 MG TAB PO SCH (09:18)
[2016-05-22] MEDS: POTASSIUM BICARBONATE 25 MEQ EFFERVESCENT TAB PO SCH (09:18)
--- NOTE | 2016-05-22 11:21 | HHI.PR ---
Subjective Subjective Notes no acute issues, discomfort with sitting, no fevers Objective Vitals/I&O Vital Signs Date Time Temp Pulse Resp B/P Pulse Ox O2 Delivery O2 Flow Rate FiO2 05/22/16 08:00 96.7 99 18 138/80 99 05/21/16 12:14 Nasal Cannula 2.00 05/18/16 09:02 35 Labs Laboratory Tests Test 05/21/16 05/22/16 17:55 06:30 Sodium Level 143 145 Potassium Level 3.5 2.8 Chloride Level 111 112 Carbon Dioxide Level 21.3 20.8 Anion Gap 11 12 Blood Urea Nitrogen 15 12 Creatinine 1.56 1.22 Estimat Glomerular Filtration 43 57 Rate Random Glucose 245 131 Calcium Level 7.9 7.0 White Blood Count 5.1 Red Blood Count 2.47 Hemoglobin 7.6 Hematocrit 22.9 Mean Corpuscular Volume 92.7 Mean Corpuscular Hemoglobin 30.6 Mean Corpuscular Hemoglobin 33.0 Concent Red Cell Distribution Width 15.6 Platelet Count 197 Mean Platelet Volume 8.7 Protein Corrected Calcium 7.6 Total Protein 6.0 Prealbumin 10 Cardiovascular: Regular Lungs: Clear Narrative Exam right buttock vac with good seal A/P Assessment and Plan 80 year old male with NF with soft tissue gas gangrene; ?? origin perirectal abscess, anemia of blood loss -transfuse 1 u prbc s/p Irrigation and wide debridement of right buttock and right thigh with vac change - ok for diet, protein shakes, -Continue antibiotics -Seal check on Wound Vac shows no leak -Plan for repeat I&D and wound vac change tomorrow npo at Trey Rivas MD May 22, 2016 11:21
[2016-05-22] MEDS: DOCUSATE SODIUM 100 MG/10 ML UDC G-TUBE SCH ×3 (11:55→22:48)
[2016-05-22] MEDS: MELATONIN 5 MG TAB PO SCH (21:00)
[2016-05-23] VITALS: BP 145/86; PULSE 89; RESP 18; TEMP 97.6; O2SAT 99
[2016-05-23] MEDS: PIPERACIL-TAZO 3.375 GM PREMIX 50 ML IV SCH ×5 (00:42→23:47)
[2016-05-23] MEDS: CHLORHEXIDINE GLUCONATE 2 % 1 PACK (2 CLOTHS) TOP SCH (04:00)
[2016-05-23] MEDS: HIGH DOSE INSULIN NOVOLOG SUPPLEMENTAL SCALE SQ SCH ×5 (04:00→15:09)
[2016-05-23 06:59] LABS: HEMATOCRIT 29.4 % (39.0-51.0); MEAN CELL VOLUME 90.5 FL (80.0-100.0); MEAN CORPUSCULAR HEMOGLOBIN 30.4 PG (27.0-34.0); MEAN CORPUSCULAR HGB CONC 33.6 % (32.0-36.0); PLATELET COUNT 235 TH/MM3 (150-450); RED BLOOD COUNT 3.25 MIL/MM3 (4.50-5.90); RED CELL DISTRIBUTION WIDTH 15.8 % (11.6-17.2); REVIEW FLAG FINAL; WHITE BLOOD COUNT 5.8 TH/MM3 (4.0-11.0)
[2016-05-23 07:44] LABS: BICARBONATE 20.5 MEQ/L (21.0-32.0); POTASSIUM 3.1 MEQ/L (3.5-5.1)
[2016-05-23 08:00] VITALS: BP 142/83; PULSE 82; RESP 18; TEMP 96.6; O2SAT 100
[2016-05-23] MEDS: CHLORHEXIDINE 0.12% (ORAL KIT) 15 ML CUP MT SCH ×2 (08:00→20:00)
[2016-05-23] MEDS: CALCIUM GLUCONATE 500 MG TAB PO SCH (08:26)
[2016-05-23] MEDS: BENEPROTEIN POWDER 1 PACK G-TUBE SCH ×3 (08:28→17:18)
[2016-05-23] MEDS: PANTOPRAZOLE SODIUM 40 MG VIAL IV SCH (08:28)
[2016-05-23] MEDS: FUROSEMIDE 20 MG/2 ML VIAL IV PUSH SCH (08:29)
[2016-05-23] MEDS: SODIUM CHLORIDE 0.9% FLUSH 5 ML FLUSH IV FLUSH SCH ×2 (08:29→23:47)
[2016-05-23] MEDS: POTASSIUM BICARBONATE 25 MEQ EFFERVESCENT TAB PO SCH (08:30)
[2016-05-23] MEDS: LACTULOSE SYRUP 20 GM/30 ML CUP PO SCH (08:30)
--- NOTE | 2016-05-23 09:30 | HHI.PR ---
Subjective Remarks Patient is in nad. Plan to go for I%D eval by gen surg. He is more alert and awake. Poor judgment. No fever or chills overnight. Has no pain. Denies chest pain, shortness of breath, nausea, vomiting, diarrhea or constipation. Objective Vitals Vital Signs Date Time Temp Pulse Resp B/P Pulse Ox O2 Delivery O2 Flow Rate FiO2 05/23/16 08:00 96.6 82 18 142/83 100 05/23/16 00:00 97.6 89 18 145/86 99 05/22/16 21:30 98 Nasal Cannula 2.00 05/22/16 20:00 98.6 75 18 152/78 98 05/22/16 18:09 21 05/22/16 16:00 97.9 101 20 140/83 99 05/22/16 14:33 98.7 101 20 122/73 97 05/22/16 14:08 97.4 98 20 126/93 97 05/22/16 12:00 97.4 102 20 141/85 97 05/22/16 11:39 96 Nasal Cannula 1.00 I/O 05/22/16 05/22/16 05/22/16 05/23/16 05/23/16 05/23/16 07:00 15:00 23:00 07:00 15:00 23:00 Intake Total 220 ml 462 ml 342 ml 128 ml Output Total 200 ml 2100 ml 0 ml 550 ml Balance 20 ml -1638 ml 342 ml -422 ml Intake Oral 0 ml 0 ml 240 ml Oral Supplement 2 ml IV Total 220 ml 462 ml 100 ml 128 ml Output Urine Total 100 ml 2000 ml 550 ml Stool Total 0 ml Drainage Total 100 ml 100 ml 0 ml # Bowel Movements 0 Result Diagram: 05/23/1630 05/23/1630 Imaging Last Impressions Chest X-Ray 05/20/16 06 Signed Impressions: Service Date/Time: Friday, May 20, 2016 05:14 - CONCLUSION: Improved aeration at the left lung base with some residual opacity present that could represent atelectasis or consolidation. Davon Pugh MD Abdomen/Pelvis CT 04/28/16 0819 Signed Impressions: Service Date/Time: Thursday, April 28, 2016 09:05 - CONCLUSION: 1. Significant inflammation, presumed infection, in the right gluteal region including numerous tiny locules of air not only in the gluteus janny muscle but extending anterior into the ischiorectal fossa on the right. There are two distinct collections around the rectum suspicious for a perirectal abscess both right anteriorly and left posterolaterally. 2. Gallstones versus sludge. Lawson Howard MD Lower Extremity CT 04/28/16 0000 Signed Impressions: Service Date/Time: Thursday, April 28, 2016 09:05 - CONCLUSION: There is extensive dissecting air throughout the gluteus janny muscle also dissecting into the lower posterior RIGHT thigh. There is air within the semi-tendinosis , semimembranosus, and biceps femoris muscles. There is also tiny amount of air along the abductor longus muscle. I don't see any drainable abscess or fluid collection. There is a small amount of fluid between the subcutaneous fat in the muscular fascia not an unusual finding in patient's with soft tissue edema. Lawson Howard MD Objective Remarks GENERAL: Elderly gentleman appears ill, weak. On NC not on continuous sedation SKIN: Warm. Well perfused. HEAD: Normocephalic. Atraumatic. NECK: Supple, trachea midline. ETT: Oral cavity is moist CARDIOVASCULAR: Irreg Irreg, rate controlled 90s. No JVD. RESPIRATORY: Good adriel air entry on vent. No wheezes GASTROINTESTINAL: Abdomen soft, non-tender, nondistended. No peritoneal irritation. MUSCULOSKELETAL: Warm, well perfused. Generalized 1+ edema. Right leg vac with good seal NEURO: Follows commands weakly, but delayed response. No focal deficits A/P Assessment and Plan Assessment: 80yM with sacral nec fasc. given his age and comorbidities, he is still at high risk for mortality and morbidity. extubated 05/16. re intubated for repeat debridement in OR for I&D. given deconditioning, he remained intubated post-operatively. Septic shock. Improved. - perirectal abscess with extension to right thigh - debridement in the OR 04/28, 04/29, 05/04, 05/10, 05/14, 05/17, 05/20, 05/23 - broad spectrum vanco, Zosyn - Continue abx per ID recommendations. 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 fluids resuscitation - strict I&O - Dobutamine, Levophed off. - Good urine output - Electrolyte protocol - Discontinued Diamox, continue Lasix 20 mg IV daily, with potassium replacement DM - hold p.o. meds while in the ICU - ISS A.Fib - rate now controlled with occasional digoxin - telemetry NUTRITION - Diet per speech recommendation - Check prealbumin qweek. Hypokalemia: Replace as need. Keep K > 4 as patient with afib Hypocalcemia: Replete with IC Ca gluconate Severe protein jericho malnutrition: Prealbumin 10. Ensure. [employer] consulted. ST also following. Overall impression: Septic shock improved infection source control, wound slowly being closed. high risk for decompensation. Improving. Discussed with the patient, nurse Kelli Jacobs MD May 23, 2016 09:30
[2016-05-23] MEDS ORDERED: NEOSTIGMINE 3 MG/3 ML SYR IV ONE (09:40)
[2016-05-23] MEDS ORDERED: PROPOFOL 200 MG/20 ML AMP IV ONE (09:40)
[2016-05-23] MEDS ORDERED: PHENYLEPH/NS 1000 MCG/10 ML SYR IV ONE (09:40)
[2016-05-23] MEDS ORDERED: ONDANSETRON HCL 4 MG/2 ML VIAL IV PUSH ONE (09:40)
[2016-05-23 12:00] VITALS: BP 158/83; PULSE 100; RESP 17; TEMP 96.8; O2SAT 99
[2016-05-23] MEDS: DOCUSATE SODIUM 100 MG/10 ML UDC G-TUBE SCH ×2 (12:00→22:59)
[2016-05-23] MEDS: HEPARIN SODIUM - SQ 10,000 UNITS/ML VIAL SQ SCH ×2 (12:00→23:46)
[2016-05-23] MEDS ORDERED: GENTAMICIN SULFATE 80 MG/2 ML VIAL ONE (13:00)
--- NOTE | 2016-05-23 13:16 | HHI.PR ---
Immediate Post Op Note Procedure Date: May 23, 2016 Pre Op Diagnosis: necrotizing soft tissue infection of right buttock and thigh Post Op Diagnosis: same Surgeon: Trey Marcos MD Risk Engineer(s): see or sheet Procedure: I and D right thigh and buttock Findings: healing granulation tissue, no undrained fluid collection Complications: none Specimen(s) removed: none Estimated blood loss: 5cc Anesthesia: General Drains: Other (vac) Patient to: PACU Patient Condition: Good Trey Marcos MD May 23, 2016 13:16
[2016-05-23] MEDS ORDERED: DO NOT ADM ANY ANTICOAGULANT DRUGS XX PRN (14:35)
[2016-05-23] MEDS ORDERED: fentaNYL CITRATE 250 MCG/5 ML AMP ONE (14:42)
[2016-05-23] MEDS ORDERED: DIMETHICONE/OXYBENZONE/PADMIATE LIP BALM 4.25 GM ONE (14:56)
[2016-05-23 16:00] VITALS: BP 133/81; PULSE 100; RESP 19; TEMP 96.3; O2SAT 97
[2016-05-23 20:06] VITALS: BP 129/79; PULSE 88; RESP 17; TEMP 96.5; O2SAT 99
[2016-05-23] MEDS: MELATONIN 5 MG TAB PO SCH (21:00)
[2016-05-24 00:04] VITALS: BP 149/82; PULSE 91; RESP 17; TEMP 96.7; O2SAT 99
[2016-05-24] MEDS: HIGH DOSE INSULIN NOVOLOG SUPPLEMENTAL SCALE SQ SCH ×5 (04:00→11:47)
[2016-05-24] MEDS: CHLORHEXIDINE GLUCONATE 2 % 1 PACK (2 CLOTHS) TOP SCH (04:00)
[2016-05-24] MEDS: SODIUM CHLORIDE 0.9% FLUSH 5 ML FLUSH IV FLUSH PRN (05:29)
[2016-05-24] MEDS: PIPERACIL-TAZO 3.375 GM PREMIX 50 ML IV SCH ×2 (05:29→11:47)
[2016-05-24 06:57] LABS: AUTOMATED NEUTROPHIL # 3.3 TH/MM3 (1.8-7.7); BASOPHIL % 0.3 % (0.0-2.0); EOSINOPHIL # 0.2 TH/MM3 (0-0.4); EOSINOPHIL % 3.3 % (0.0-4.0); HEMATOCRIT 29.7 % (39.0-51.0); HEMO FLAGS DIFF FINAL; LYMPHOCYTE # 1.7 TH/MM3 (1.0-4.8); MEAN CELL VOLUME 91.3 FL (80.0-100.0); MEAN CORPUSCULAR HEMOGLOBIN 30.6 PG (27.0-34.0); MEAN CORPUSCULAR HGB CONC 33.5 % (32.0-36.0); MONO % 22.1 % (0.0-8.0); NEUT % 49.3 % (16.0-70.0); PLATELET COUNT 213 TH/MM3 (150-450); RED BLOOD COUNT 3.25 MIL/MM3 (4.50-5.90); WHITE BLOOD COUNT 6.6 TH/MM3 (4.0-11.0)
[2016-05-24 07:05] LABS: BICARBONATE 21.3 MEQ/L (21.0-32.0); POTASSIUM 3.1 MEQ/L (3.5-5.1)
--- NOTE | 2016-05-24 07:57 | HHI.PR ---
Subjective Subjective Notes pt seen sleeping, no acute issues, low po intake Objective Vitals/I&O Vital Signs Date Time Temp Pulse Resp B/P Pulse Ox O2 Delivery O2 Flow Rate FiO2 05/24/16 00:04 96.7 91 17 149/82 99 05/23/16 22:42 Nasal Cannula 2.00 05/23/16 18:45 21 Labs Laboratory Tests Test 05/24/16 06:00 White Blood Count 6.6 Red Blood Count 3.25 Hemoglobin 9.9 Hematocrit 29.7 Mean Corpuscular Volume 91.3 Mean Corpuscular Hemoglobin 30.6 Mean Corpuscular Hemoglobin 33.5 Concent Red Cell Distribution Width 16.0 Platelet Count 213 Mean Platelet Volume 9.0 Neutrophils (%) (Auto) 49.3 Lymphocytes (%) (Auto) 25.0 Monocytes (%) (Auto) 22.1 Eosinophils (%) (Auto) 3.3 Basophils (%) (Auto) 0.3 Neutrophils # (Auto) 3.3 Lymphocytes # (Auto) 1.7 Monocytes # (Auto) 1.5 Eosinophils # (Auto) 0.2 Basophils # (Auto) 0.0 CBC Comment DIFF FINAL Differential Comment Sodium Level 140 Potassium Level 3.1 Chloride Level 107 Carbon Dioxide Level 21.3 Anion Gap 12 Blood Urea Nitrogen 13 Creatinine 1.39 Estimat Glomerular Filtration 49 Rate Random Glucose 176 Calcium Level 8.3 Cardiovascular: Regular Lungs: Clear Narrative Exam right buttock vac with good seal Wound Wound : Wound Location: Right leg (vac good seal serosang output) A/P Assessment and Plan 80 year old male with NF with soft tissue gas gangrene; ?? origin perirectal abscess, anemia of blood loss stable, progressive closure - stable s/p Irrigation and wide debridement of right buttock and right thigh with vac change- progressive closure, small deep proximal area remain the rest of leg is closed - ok for diet, protein shakes, -Continue antibiotics -Seal check on Wound Vac shows no leak -Patient is OK to go to [facility] from surgery stand point as long as he can get q2 -3vac changes does not appear he needs further debridement -If pt is here through will plan to do vac change saturday f/u with Dr Marcos 2 weeks after discharge Trey Marcos MD May 24, 2016 07:57
[2016-05-24 08:00] VITALS: BP 138/73; PULSE 94; RESP 16; TEMP 98; O2SAT 99
[2016-05-24] MEDS: CHLORHEXIDINE 0.12% (ORAL KIT) 15 ML CUP MT SCH (08:00)
[2016-05-24] MEDS: BENEPROTEIN POWDER 1 PACK G-TUBE SCH ×2 (09:00→11:47)
[2016-05-24] MEDS ORDERED: MUPIROCIN 2% OINT 1 APPLIC/GM SYR EACH NARE SCH (09:45)
[2016-05-24] MEDS ORDERED: POTASSIUM CL 40 MEQ/30 ML LIQ UDC PO ONE (09:45)
[2016-05-24] MEDS: LACTULOSE SYRUP 20 GM/30 ML CUP PO SCH (10:06)
[2016-05-24] MEDS: CALCIUM GLUCONATE 500 MG TAB PO SCH (10:07)
[2016-05-24] MEDS: SODIUM CHLORIDE 0.9% FLUSH 5 ML FLUSH IV FLUSH SCH (10:07)
[2016-05-24] MEDS: PANTOPRAZOLE SODIUM 40 MG VIAL IV SCH (10:07)
[2016-05-24] MEDS: POTASSIUM BICARBONATE 25 MEQ EFFERVESCENT TAB PO SCH (10:08)
[2016-05-24] MEDS: FUROSEMIDE 20 MG/2 ML VIAL IV PUSH SCH (10:09)
--- NOTE | 2016-05-24 10:55 | HHI.PR ---
Subjective Remarks Patient is in nad. Appears chronically ill. Per and nurse he is not eating. Calorie count in process. Patient. is thinking regarding G tube placement. Denies chest pain, n/v/d/c. Patient says he doesn't have any appetite. Objective Vitals Vital Signs Date Time Temp Pulse Resp B/P Pulse Ox O2 Delivery O2 Flow Rate FiO2 05/24/16 00:04 96.7 91 17 149/82 99 05/23/16 22:42 99 Nasal Cannula 2.00 05/23/16 20:06 96.5 88 17 129/79 99 05/23/16 18:45 21 05/23/16 16:00 96.3 100 19 133/81 97 05/23/16 15:00 82 16 140/88 96 Nasal Cannula 3 05/23/16 14:45 84 16 130/84 97 Nasal Cannula 3 05/23/16 14:30 97.6 54 16 140/89 99 Nasal Cannula 3 05/23/16 12:00 96.8 100 17 158/83 99 I/O 05/23/16 05/23/16 05/23/16 05/24/16 05/24/16 05/24/16 07:00 15:00 23:00 07:00 15:00 23:00 Intake Total 128 ml 160 ml 380 ml 480 ml Output Total 550 ml 2350 ml 700 ml 500 ml Balance -422 ml -2190 ml -320 ml -20 ml Intake Oral 0 ml 380 ml 380 ml IV Total 128 ml 160 ml 100 ml Output Urine Total 550 ml 2350 ml 600 ml 500 ml Stool Total 0 ml 50 ml 0 ml Drainage Total 50 ml # Bowel Movements 0 Result Diagram: 05/24/16 0605/24/16 06 Imaging Last Impressions Chest X-Ray 05/20/16599 Signed Impressions: Service Date/Time: Friday, May 20, 2016 05:14 - CONCLUSION: Improved aeration at the left lung base with some residual opacity present that could represent atelectasis or consolidation. Davon Pugh MD Abdomen/Pelvis CT 04/28/16 0819 Signed Impressions: Service Date/Time: Thursday, April 28, 2016 09:05 - CONCLUSION: 1. Significant inflammation, presumed infection, in the right gluteal region including numerous tiny locules of air not only in the gluteus janny muscle but extending anterior into the ischiorectal fossa on the right. There are two distinct collections around the rectum suspicious for a perirectal abscess both right anteriorly and left posterolaterally. 2. Gallstones versus sludge. Lawson Howard MD Lower Extremity CT 04/28/16 0000 Signed Impressions: Service Date/Time: Thursday, April 28, 2016 09:05 - CONCLUSION: There is extensive dissecting air throughout the gluteus janny muscle also dissecting into the lower posterior RIGHT thigh. There is air within the semi-tendinosis , semimembranosus, and biceps femoris muscles. There is also tiny amount of air along the abductor longus muscle. I don't see any drainable abscess or fluid collection. There is a small amount of fluid between the subcutaneous fat in the muscular fascia not an unusual finding in patient's with soft tissue edema. Lawson Howard MD Objective Remarks GENERAL: Elderly gentleman appears ill, weak. On NC not on continuous sedation SKIN: Warm. Well perfused. HEAD: Normocephalic. Atraumatic. NECK: Supple, trachea midline. ETT: Oral cavity is moist CARDIOVASCULAR: Irreg Irreg, rate controlled 90s. No JVD. RESPIRATORY: Good adriel air entry on vent. No wheezes GASTROINTESTINAL: Abdomen soft, non-tender, nondistended. No peritoneal irritation. MUSCULOSKELETAL: Warm, well perfused. Generalized 1+ edema. Right leg vac with good seal NEURO: Follows commands weakly, but delayed response. No focal deficits A/P Assessment and Plan 80yM with sacral nec fasc. given his age and comorbidities, he is still at high risk for mortality and morbidity. extubated 05/16. re intubated for repeat debridement in OR for I&D. given deconditioning, he remained intubated post- operatively. Septic shock. Improved. - perirectal abscess with extension to right thigh - debridement in the OR 04/28, 04/29, 05/04, 05/10, 05/14, 05/17, 05/20, 05/23 - broad spectrum vanco, Zosyn - Continue abx per ID recommendations. 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 fluids resuscitation - strict I&O - Dobutamine, Levophed off. - Good urine output - Electrolyte protocol - Discontinued Diamox, continue Lasix 20 mg IV daily, with potassium replacement DM - hold p.o. meds while in the ICU - ISS A.Fib - rate now controlled with occasional digoxin - telemetry NUTRITION - Diet per speech recommendation - Check prealbumin qweek. Hypokalemia: Replace as need. Keep K > 4 as patient with afib Hypocalcemia: Replete with IC Ca gluconate Severe protein jericho malnutrition: Prealbumin 10. Ensure. [employer] consulted. ST also following. Dietary count for 3 days. Patient might need feeding tube, he and his is thinking about this possibility if he fails the test. Add megace and MVT. Overall impression: Septic shock improved infection source control, wound slowly being closed. high risk for decompensation. Improving. Discussed with the patient, nurse Kelli Jacobs MD May 24, 2016 10:55
--- NOTE | 2016-05-24 11:37 | MP ---
cc: BING MARCOS MD DATE OF SURGERY 05/23/2016 PREOPERATIVE DIAGNOSIS Necrotizing soft tissue infection right buttock, right thigh, open abdominal wound. POSTOPERATIVE DIAGNOSIS Necrotizing soft tissue infection right buttock, right thigh, open abdominal wound. PROCEDURE PERFORMED Incision and wide debridement of right buttock, right thigh with VAC change and partial closure. SURGEON Dr. Bing Marcos [employer] LEAK TESTER See OR sheet. ANESTHESIA GETA. IV FLUIDS See anesthesia sheet. ESTIMATED BLOOD LOSS 5 cc. DRAINS VAC. COMPLICATIONS None. WOUND CLASSIFICATION Dirty. SPECIMENS None. FINDINGS Well-healing granulation tissue, minimal necrotic medial superior tissue. INDICATION The patient is a 80-year-old male who presented with necrotizing soft tissue infection. He has poorly controlled diabetes and was initially in septic shock. He underwent emergent debridement. He is currently undergoing multiple debridements, VAC change and washouts. He has progressively improved. DETAILS OF PROCEDURE The patient was taken to the operating suite, placed in the prone position. He was prepped and draped in the usual sterile fashion after induction of general endotracheal anesthesia. Brief time-out was done stating correct patient, procedure, surgical site. We were all in agreement with this. Our attention was directed to the VAC. VAC dressing removed, dimitry removed, sponges removed. Wide prep with Betadine prep was done. The wound was examined. Distal wound looked healthy with good bleeding tissue. Asepto irrigation was used with minimal irrigation. The distal part of the wound was closed with #1 nylon sutures in vertical mattress fashion. The midportion of the wound was also closed in this fashion with three nylon sutures. The superior wound was evaluated again. 1 liter of saline was used for irrigation. The wound still went deep per rectally. Good healthy bleeding tissue laterally. The medial tissue - some of the skin was resected due to minimal necrosis on the skin. Hemostasis was obtained with electro Bovie cautery. Sponge then cut to size, sponge also placed deep ramona-rectally. [place] placed on the sponge to adhered to the skin and then a VAC was placed down the midline of the incision. Plastic was placed first and then bridging VAC was then placed over the distal aspect, a thin strip. The plastic was placed at the proximal portion, track pad placed as well. Suction indicated on evidence of leaking. The patient tolerated procedure well. All lap and instrument counts were correct at the end of the procedure. No intraoperative complication. The patient was extubated and taken stable to the PACU. MD ARUN Jenkins/DAJA /3:26 PM /11:24 AM
[2016-05-24] MEDS: DOCUSATE SODIUM 100 MG/10 ML UDC G-TUBE SCH (11:45)
[2016-05-24] MEDS: HEPARIN SODIUM - SQ 10,000 UNITS/ML VIAL SQ SCH (11:45)
[2016-05-24 12:00] VITALS: BP 113/61; PULSE 99; RESP 16; TEMP 97.5; O2SAT 98
[2016-05-24] MEDS ORDERED: FURO10IN IV PUSH (12:31)
[2016-05-24] MEDS ORDERED: MELA1TAB22 PO (12:31)
[2016-05-24] MEDS ORDERED: BACTOIN EACH NARE (12:31)
[2016-05-24] MEDS ORDERED: PIPE1INJ IV (12:31)
[2016-05-24] MEDS ORDERED: LACT10SO PO (12:31)
[2016-05-24] MEDS ORDERED: ADEKS PO (12:34)
[2016-05-24] MEDS ORDERED: MEGE40S PO (12:34)
--- NOTE | 2016-05-24 12:34 | HHI.DS ---
Discharge Summary Admission Date Apr 28, 2016 at 09:40 Discharge Date: May 24, 2016 Admitting Diagnosis sepsis, gas gangrene (1) Septic shock ICD Code: A41.9 Diagnosis: Principal (2) Acute renal failure ICD Code: N17.9 Diagnosis: Principal (3) Encephalopathy, metabolic ICD Code: G93.41 Diagnosis: Principal (4) Severe sepsis ICD Code: A41.9 Diagnosis: Principal (5) Left shoulder strain ICD Code: S46.912A Diagnosis: Secondary (6) Gas gangrene of lower extremity ICD Code: A48.0 Diagnosis: Principal (7) Acute hypoxemic respiratory failure ICD Code: J96.01 Diagnosis: Principal Procedures multiple I&D (x7) Brief History - From Admission 80-year-old male came to the emergency room with history of dizziness, lightheadedness, generalized weakness and right buttock pain. CT scan revealed soft tissue gas gangrene originated most probably as a perirectal abscess. He wa taken emergently to OR for debridement. CBC/BMP: 05/24/16 0600 05/24/16 0600 Significant Findings Laboratory Tests Test 05/21/16 05/22/16 05/23/16 05/24/16 17:55 06:30 06:30 06:00 Chloride Level 111 MEQ/L 112 MEQ/L 111 MEQ/L (98-107) (98-107) (98-107) Creatinine 1.56 MG/DL 1.40 MG/DL 1.39 MG/DL (0.60-1.30) (0.60-1.30) (0.60-1.30) Estimat Glomerular Filtration 43 ML/MIN (>89) 57 ML/MIN (>89) 49 ML/MIN (>89) 49 ML/MIN (>89) Rate Random Glucose 245 MG/DL 131 MG/DL 149 MG/DL 176 MG/DL (74-106) (74-106) (74-106) (74-106) Calcium Level 7.9 MG/DL 7.0 MG/DL 8.3 MG/DL 8.3 MG/DL (8.5-10.1) (8.5-10.1) (8.5-10.1) (8.5-10.1) Red Blood Count 2.47 MIL/MM3 3.25 MIL/MM3 3.25 MIL/MM3 (4.50-5.90) (4.50-5.90) (4.50-5.90) Hemoglobin 7.6 GM/DL 9.9 GM/DL 9.9 GM/DL (13.0-17.0) (13.0-17.0) (13.0-17.0) Hematocrit 22.9 % 29.4 % 29.7 % (39.0-51.0) (39.0-51.0) (39.0-51.0) Potassium Level 2.8 MEQ/L 3.1 MEQ/L 3.1 MEQ/L (3.5-5.1) (3.5-5.1) (3.5-5.1) Carbon Dioxide Level 20.8 MEQ/L 20.5 MEQ/L (21.0-32.0) (21.0-32.0) Protein Corrected Calcium 7.6 MG/DL (8.5-10.1) Total Protein 6.0 GM/DL (6.4-8.2) Prealbumin 10 MG/DL (20-40) Monocytes (%) (Auto) 22.1 % (0.0-8.0) Monocytes # (Auto) 1.5 TH/MM3 (0-0.9) Imaging Last Impressions Chest X-Ray 05/20/16 0600 Signed Impressions: Service Date/Time: Friday, May 20, 2016 05:14 - CONCLUSION: Improved aeration at the left lung base with some residual opacity present that could represent atelectasis or consolidation. Davon Pugh MD Abdomen/Pelvis CT 04/28/16 0819 Signed Impressions: Service Date/Time: Thursday, April 28, 2016 09:05 - CONCLUSION: 1. Significant inflammation, presumed infection, in the right gluteal region including numerous tiny locules of air not only in the gluteus janny muscle but extending anterior into the ischiorectal fossa on the right. There are two distinct collections around the rectum suspicious for a perirectal abscess both right anteriorly and left posterolaterally. 2. Gallstones versus sludge. Lawson Howard MD Lower Extremity CT 04/28/16 0000 Signed Impressions: Service Date/Time: Thursday, April 28, 2016 09:05 - CONCLUSION: There is extensive dissecting air throughout the gluteus janny muscle also dissecting into the lower posterior RIGHT thigh. There is air within the semi-tendinosis , semimembranosus, and biceps femoris muscles. There is also tiny amount of air along the abductor longus muscle. I don't see any drainable abscess or fluid collection. There is a small amount of fluid between the subcutaneous fat in the muscular fascia not an unusual finding in patient's with soft tissue edema. Lawson Howard MD PE at Discharge GENERAL: Elderly gentleman appears ill, weak. On NC not on continuous sedation SKIN: Warm. Well perfused. HEAD: Normocephalic. Atraumatic. NECK: Supple, trachea midline. ETT: Oral cavity is moist CARDIOVASCULAR: Irreg Irreg, rate controlled 90s. No JVD. RESPIRATORY: Good adriel air entry on vent. No wheezes GASTROINTESTINAL: Abdomen soft, non-tender, nondistended. No peritoneal irritation. MUSCULOSKELETAL: Warm, well perfused. Generalized 1+ edema. Right leg vac with good seal NEURO: Follows commands weakly, but delayed response. No focal deficits Hospital Course 80yM with sacral nec fasc. given his age and comorbidities, he is still at high risk for mortality and morbidity. extubated 05/16. re intubated for repeat debridement in OR for I&D. given deconditioning, he remained intubated post- operatively. Septic shock. Resolved. - perirectal abscess with extension to right thigh - debridement in the OR 04/28, 04/29, 05/04, 05/10, 05/14, 2, 05/20, 05/23 - broad spectrum vanco, Zosyn - Continue abx per ID recommendations. 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 fluids resuscitation - strict I&O - Dobutamine, Levophed off. - Good urine output - Electrolyte protocol - Discontinued Diamox, continue Lasix 20 mg IV daily, with potassium replacement DM - hold p.o. meds while in the ICU - ISS A.Fib - rate now controlled with occasional digoxin - telemetry NUTRITION - Diet per speech recommendation - Check prealbumin qweek. Hypokalemia: Replace as need. Keep K > 4 as patient with afib Hypocalcemia: Replete with IC Ca gluconate Severe protein jericho malnutrition: Prealbumin 10. Ensure. Geographic Information Systems Manager consulted. ST also following. Dietary count for 3 days. Patient might need feeding tube, he and his is thinking about this possibility if he fails the test. Add megace and MVT. Overall impression: Septic shock improved infection source control, wound slowly being closed. high risk for decompensation. Improved. Patient is accepted to [facility] Condition on Discharge: Stable Discharge Disposition: Trnsfr to Other Facility Discharge Time: > 30 minutes Discharge Instructions DIET: Follow Instructions for: As Tolerated, No Restrictions Speech Therapy-Diet Recommends: Pureed Activities you can perform: Regular-No Restrictions Follow up Referrals: Infectious Disease - 2-3 Days PCP Follow-up - 2-3 Days SNF/[facility]/ with [facility] Surgical - 2 Weeks with Trey Marcos MD New Medications: Megestrol Liq (Megace Liq) 40 Mg/Ml Susp 400 MG PO BID Improve Appetite #60 Ref 0 ML Multivitamin Liq Drops (Aquadeks Liq Drops) 60 Ml Liqd 1 ML PO DAILY Nutritional Supplement #1 Ref 0 BOTTLE Piperacillin-Tazobactam Inj (Piperacillin-Tazobactam Inj) 3-0.375 Mg Inj 3.375 GM IV Q6HR Infection Days 7 Ref 0 BAG Furosemide Inj (Furosemide Inj) 10 Mg/Ml Inj 20 MG IV PUSH DAILY le edema #7 INJECTION Lactulose Liq (Lactulose Liq) 10 Gm/15 Ml Soln 30 ML PO DAILY Constipation #30 ML Melatonin (Melatonin) 5 Mg Tab 5 MG PO HS insomnia #30 TAB Mupirocin Nasal Oint (Bactroban Nasal Oint) 2% Oint 1 APPLIC EACH NARE BID mrsa intranasal #14 TUBE Continued Medications: Digoxin (Digoxin) 0.125 Mg Tab 0.125 MG PO DAILY Regulate Heart Beat #30 Ref 0 TAB Glipizide (Glipizide) 5 Mg Tab 5 MG PO BID Take 30 minutes before a meal Blood Sugar Management #30 Ref 0 TAB Hydrocortisone Rectal (Anusol-Hc Rectal) 2.5% Cream 1 APPLIC RECTAL BID PRN ITCHING/INFLAMMATION #30 Ref 0 GM Kelli Jacobs MD May 24, 2016 12:34
[2016-05-24 16:00] VITALS: BP 113/70; PULSE 92; RESP 18; TEMP 98.5; O2SAT 98
== END 2016-05-24 17:40 | DRG 853 ==
LOC: NEPC 08:12 → NEDA 09:40 → N03A 16:10 → N07A 05-21 20:43
PROVIDERS: ADMIT Internal Medicine Critical Care Medicine; ATTEND Hospitalist
PROC: 0JBL0ZZ Excision of Right Upper Leg Subcutaneous Tissue and Fascia, Open Approach (ICD-10-PCS; 2016-04-28)
PROC: 0JBB0ZZ Excision of Perineum Subcutaneous Tissue and Fascia, Open Approach (ICD-10-PCS; 2016-04-28)
PROC: 5A1955Z Respiratory Ventilation, Greater than 96 Consecutive Hours (ICD-10-PCS; 2016-04-28)
PROC: 0KBN0ZZ Excision of Right Hip Muscle, Open Approach (ICD-10-PCS; principal; 2016-04-28 13:09)
PROC: 0KBM0ZZ Excision of Perineum Muscle, Open Approach (ICD-10-PCS; 2016-04-29)
PROC: 0KBQ0ZZ Excision of Right Upper Leg Muscle, Open Approach (ICD-10-PCS; 2016-04-29)
PROC: 02HV33Z Insertion of Infusion Device into Superior Vena Cava, Percutaneous Approach (ICD-10-PCS; 2016-04-29)
PROC: 03HY32Z Insertion of Monitoring Device into Upper Artery, Percutaneous Approach (ICD-10-PCS; 2016-04-29)
PROC: 03HY32Z Insertion of Monitoring Device into Upper Artery, Percutaneous Approach (ICD-10-PCS; 2016-04-30)
PROC: 0JD90ZZ Extraction of Buttock Subcutaneous Tissue and Fascia, Open Approach (ICD-10-PCS; 2016-05-01)
PROC: 0JDL0ZZ Extraction of Right Upper Leg Subcutaneous Tissue and Fascia, Open Approach (ICD-10-PCS; 2016-05-01)
PROC: 30233R1 Transfusion of Nonautologous Platelets into Peripheral Vein, Percutaneous Approach (ICD-10-PCS; 2016-05-01)
PROC: 0JD90ZZ Extraction of Buttock Subcutaneous Tissue and Fascia, Open Approach (ICD-10-PCS; 2016-05-04)
PROC: 0JDL0ZZ Extraction of Right Upper Leg Subcutaneous Tissue and Fascia, Open Approach (ICD-10-PCS; 2016-05-04)
PROC: 30233N1 Transfusion of Nonautologous Red Blood Cells into Peripheral Vein, Percutaneous Approach (ICD-10-PCS; 2016-05-06)
PROC: 0JD90ZZ Extraction of Buttock Subcutaneous Tissue and Fascia, Open Approach (ICD-10-PCS; 2016-05-07)
PROC: 0JDL0ZZ Extraction of Right Upper Leg Subcutaneous Tissue and Fascia, Open Approach (ICD-10-PCS; 2016-05-07)
PROC: 0KBN0ZZ Excision of Right Hip Muscle, Open Approach (ICD-10-PCS; 2016-05-10)
PROC: 0KBQ0ZZ Excision of Right Upper Leg Muscle, Open Approach (ICD-10-PCS; 2016-05-10)
PROC: 02HV33Z Insertion of Infusion Device into Superior Vena Cava, Percutaneous Approach (ICD-10-PCS; 2016-05-10)
PROC: 0JD90ZZ Extraction of Buttock Subcutaneous Tissue and Fascia, Open Approach (ICD-10-PCS; 2016-05-14)
PROC: 0JDL0ZZ Extraction of Right Upper Leg Subcutaneous Tissue and Fascia, Open Approach (ICD-10-PCS; 2016-05-14)
PROC: 0HD8XZZ Extraction of Buttock Skin, External Approach (ICD-10-PCS; 2016-05-17)
PROC: 0HDHXZZ Extraction of Right Upper Leg Skin, External Approach (ICD-10-PCS; 2016-05-17)
PROC: 0HB8XZZ Excision of Buttock Skin, External Approach (ICD-10-PCS; 2016-05-20)
PROC: 0HBHXZZ Excision of Right Upper Leg Skin, External Approach (ICD-10-PCS; 2016-05-20)
PROC: 0HB8XZZ Excision of Buttock Skin, External Approach (ICD-10-PCS; 2016-05-23)
DX: A41.4 Sepsis due to anaerobes (principal); R65.21 Severe sepsis with septic shock; J95.821 Acute postprocedural respiratory failure; M72.6 Necrotizing fasciitis; N17.9 Acute kidney failure, unspecified; E43 Unspecified severe protein-calorie malnutrition; G93.41 Metabolic encephalopathy; A48.0 Gas gangrene; E87.2 Acidosis; K61.3 Ischiorectal abscess; L02.31 Cutaneous abscess of buttock; E11.65 Type 2 diabetes mellitus with hyperglycemia; B96.20 Unspecified Escherichia coli [E. coli] as the cause of diseases classified elsewhere; B95.4 Other streptococcus as the cause of diseases classified elsewhere; E86.0 Dehydration; E83.51 Hypocalcemia; E87.6 Hypokalemia; I10 Essential (primary) hypertension; I48.91 Unspecified atrial fibrillation; R60.0 Localized edema; R53.1 Weakness; D50.0 Iron deficiency anemia secondary to blood loss (chronic); Z79.84 Long term (current) use of oral hypoglycemic drugs; Z68.34 Body mass index [BMI] 34.0-34.9, adult
CPT/HCPCS: 36430; 36556; 36569; 36600; 51702; 71010; 73700; 74176; 76937; 80048; 80053; 80162; 80202; 81001; 82550; 82552; 82805; 82948; 83605; 83735; 84100; 84132; 84134; 84155; 85007; 85025; 85027; 85610; 85730; 86022; 86403; 86850; 86900; 86901; 86920; 87015; 87040; 87070; 87077; 87086; 87102; 87116; 87176; 87186; 87205; 87206; 87641; 93005; 94002; 94003; 94640; 94664; 94667; 94668; 96365; 96375; C9113; J0131; J0171; J0461; J0610; J0690; J1120; J1160; J1170; J1250; J1580; J1642; J1644; J1720; J1815; J1940; J2250; J2270; J2370; J2405; J2543; J2710; J3010; J3370; J3475; J3480; J7030; J7040; J7050; J7060; J7120; J7613; P9016; P9035; P9045

== ENCOUNTER 2016-07-17 11:08 | Inpatient (IN) | payer MEDICARE, OTHER ==
[2016-07-17] VITALS (13 sets, daily range): BP systolic 82–138; BP diastolic 50–79; PULSE 56–90; RESP 16–18; TEMP 97.9–98.3; O2SAT 96–99
[~2016-07-17] VITALS: Ht 177.8 cm; Wt 101.2 kg
[~2016-07-17 11:08] MED LIST changes: +ADEKS PO; -ATEN100T7 PO; -BACL10TA PO; +BACTOIN EACH NARE; +DIGO0.12 PO; +FURO10IN IV PUSH; +HYDR2.5%T RECTAL; +LACT10SO PO; +MEGE40S PO; +MELA1TAB22 PO; +PIPE1INJ IV
[2016-07-17] MEDS ORDERED: PANTOPRAZOLE SODIUM 40 MG VIAL IVP ONE (11:30)
[2016-07-17] MEDS ORDERED: SODIUM CHLORIDE 0.9% FLUSH 10 ML FLUSH IVF PRN (11:30)
[2016-07-17] MEDS ORDERED: DILT120T PO (11:35)
[2016-07-17] MEDS ORDERED: MILKSUS PO (11:35)
[2016-07-17] MEDS ORDERED: HUMALOG SQ (11:35)
[2016-07-17] MEDS ORDERED: IPRASOL INH (11:35)
[2016-07-17] MEDS ORDERED: ACET1CAP18 PO (11:35)
[2016-07-17] MEDS ORDERED: CHLO.12%30 SWISH-SPIT (11:35)
[2016-07-17] MEDS ORDERED: ZYVO600T PO (11:35)
[2016-07-17] MEDS ORDERED: OMEP20TA PO (11:35)
[2016-07-17] MEDS ORDERED: TAMS0.4C4 PO (11:35)
[2016-07-17] MEDS ORDERED: HYDR-3516 PO (11:35)
[2016-07-17] MEDS ORDERED: CARV6.25 PO (11:35)
[2016-07-17] MEDS ORDERED: APIX5TAB PO (11:35)
[2016-07-17] MEDS ORDERED: TEMA15CA PO (11:35)
[2016-07-17] MEDS ORDERED: FLUO40CA PO (11:35)
--- NOTE | 2016-07-17 11:41 | PD ---
HPI Chief Complaint: Syncope/Near-Syncope Time Seen by Provider: 11:32 Travel History International Travel<30 days: No Contact w/Intl Traveler<30days: No Traveled to known affect area: No History of Present Illness HPI Patient is a 80-year-old male sent by the rehabilitation facility for evaluation of possible GI bleed. Patient states that he felt as if he was going to pass out during physical therapy this morning. Per the long term report patient's hemoglobin has dropped and patient's blood pressure was low. According to medical records sent patient had 2 positive stools for occult blood on on 07/16. On 07/12 patient's hemoglobin was 8, when it was reassessed on 07/16 it was 7.8 per the records. Patient denies any pain, shortness of breath, headache, abdominal pain, nausea, vomiting, fevers. PFSH Past Medical History Hx Anticoagulant Therapy: Yes (ON ELIQUIS) Anemia: Yes Atrial Fibrillation: Yes Depression: Yes Diabetes: Yes GERD: Yes Hypertension: Yes Medical other: Yes (BPH) Neurologic: Yes (metabolic encephalopathy) Integumentary: Yes (necrotizing fasciitis to right buttock status post I&D'S) Renal Failure: Yes Past Surgical History Abdominal Surgery: Yes (colostomy) Appendectomy: Yes Joint Replacement: Yes (HIP REPLACEMENT) Neurologic Surgery: Yes (PITUITARY GLAND) Other Surgery: Yes (I&D 7 to right buttock) Social History Alcohol Use: No Tobacco Use: No Substance Use: No Allergies-Medications (Allergen,Severity, Reaction): Coded Allergies: *MDRO Multi-Drug Resistant Organism (Verified Adverse Reaction, Unknown, ) MRSA PCR Screeen POSITIVE - 04/28/2016 Reported Meds & Prescriptions Reported Meds & Active Scripts Active Aquadeks Liq Drops (Multivitamins) 60 Ml Liqd 1 Ml PO DAILY Reported Humalog Inj (Insulin Human Lispro) 1,000 Unit/10 Ml Vial 2-12 Units SQ ACHS Max dose at bedtime:( )units; sugars < 70,(0)units; sugars 150-199,(2)units; sugars 200-249,(4)units; sugars 250-299,(7)units; sugars 300-349,(10)units; sugars more than 349,(12)units. Chlorhexidine Gluconate (Mouth) Liq (Chlorhexidine Gluconate) 0.12% Soln 15 Ml SWISH-SPIT BID Diltiazem (Diltiazem HCl) 120 Mg Tab 120 Mg PO QID Eliquis (Apixaban) 5 Mg Tab 5 Mg PO BID Omeprazole 20 Mg Tab 20 Mg PO DAILY Fluoxetine (Fluoxetine HCl) 40 Mg Cap 40 Cap PO DAILY Tamsulosin (Tamsulosin HCl) 0.4 Mg Cap 0.4 Mg PO HS Milk of Magnesia Liq (Magnesium Hydroxide) 400 Mg/5 Ml Susp 30 Ml PO DAILY PRN Temazepam 15 Mg Cap 15 Mg PO HS PRN Hydrocodone-Acetaminophen 5-325 mg Tab 1 Tab PO Q6H PRN Tylenol (Acetaminophen) 325 Mg Cap 325 Mg PO Q6H PRN Duoneb (Ipratropium-Albuterol Neb) 0.5-2.5 Mg/3 Ml Neb 1 Nebule INH DAILY Zyvox (Linezolid) 600 Mg Tab 600 Mg PO Q12H Coreg (Carvedilol) 6.25 Mg Tab 6.25 Mg PO BID Glipizide 5 Mg Tab 5 Mg PO BID Take 30 minutes before a meal Review of Systems Except as stated in HPI: all other systems reviewed are Neg HENT: No: Headaches Cardiovascular: No: Chest Pain or Discomfort Respiratory: No: Shortness of Breath Gastrointestinal: No: Nausea, Vomiting, Diarrhea, Abdominal Pain Musculoskeletal: Positive: Myalgias (right buttock) Skin: Positive Other (incision to right buttock) Neurologic: Positive: Weakness, Dizziness, No: Focal Abnormalities, Change in Mentation Physical Exam Narrative GENERAL: Obese, well-developed, alert elderly gentleman. Resting comfortably in no acute distress. SKIN: Focused skin assessment warm/dry. 6 inch open incision to right buttock, no fell odor, drainage noted. No surrounding erythema. HEAD: Atraumatic. Normocephalic. EYES: Pupils equal and round. No scleral icterus. No injection or drainage. Conjunctival pallor. ENT: No nasal bleeding or discharge. Mucous membranes pink and moist. NECK: Trachea midline. No JVD. CARDIOVASCULAR: Irregularly irregular. No murmur appreciated. RESPIRATORY: No accessory muscle use. Clear to auscultation. Breath sounds equal bilaterally. GASTROINTESTINAL: Abdomen soft, non-tender, nondistended. Hepatic and splenic margins not palpable. Positive bowel sounds, colostomy in place. MUSCULOSKELETAL: No obvious deformities. No clubbing. No cyanosis. No edema. NEUROLOGICAL: Awake and alert. No obvious cranial nerve deficits. Motor grossly within normal limits. Normal speech. PSYCHIATRIC: Appropriate mood and affect; insight and judgment normal. Data Data Last Documented VS Vital Signs Date Time Temp Pulse Resp B/P Pulse Ox O2 Delivery O2 Flow Rate FiO2 07/17/16 12:29 82 18 134/78 98 Room Air 07/17/16 11:11 98.1 Orders Complete Blood Count With Diff (07/17/16 11:30) Comprehensive Metabolic Panel (07/17/16 11:30) Prothrombin Time / Inr (Pt) (07/17/16 11:30) Act Partial Throm Time (Ptt) (07/17/16 11:30) Urinalysis - C+S If Indicated (07/17/16 11:30) Type And Screen (07/17/16 11:30) Cath For Specimen (07/17/16 11:30) Ecg Monitoring (07/17/16 11:30) Iv Access Insert/Monitor (07/17/16 11:30) Oximetry (07/17/16 11:30) Pantoprazole Inj (Protonix Inj) (07/17/16 11:30) Sodium Chloride 0.9% Flush (Ns Flush) (07/17/16 11:30) C Diff Toxin Pcr (07/17/16 11:30) Admit Order (Ed Use Only) (07/17/16 13:02) Place In Observation (07/17/16 ) Vital Signs (Adult) Q4H (07/17/16 13:02) Activity Oob With Assistance (07/17/16 13:02) Diet Npo (07/17/16 Lunch) Sodium Chlor 0.9% 1000 Ml Inj (Ns 1000 M (07/17/16 13:02) Sodium Chloride 0.9% Flush (Ns Flush) (07/17/16 13:15) Sodium Chloride 0.9% Flush (Ns Flush) (07/17/16 21:00) Acetaminophen (Tylenol) (07/17/16 13:15) Ondansetron Inj (Zofran Inj) (07/17/16 13:15) Docusate Sodium (Colace) (07/17/16 13:15) Magnesium Hydroxide Liq (Milk Of Magnesi (07/17/16 13:15) Temazepam (Restoril) (07/17/16 13:15) Basic Metabolic Panel (Bmp) (07/18/16 06:00) Complete Blood Count With Diff (07/18/16 06:00) Resp Oxygen Asad C Titrat 1-4 L (07/17/16 ) Pt Request For Service (07/17/16 13:02) Case Management Consult (07/17/16 13:02) Scd Bilateral/Knee High MORENA.BID (07/17/16 13:02) Javier Bilateral/Knee High MORENA.QSHIFT (07/17/16 13:02) Pharmacologic Contraindication (07/17/16 13:02) Labs Laboratory Tests Test 07/17/16 07/17/16 11:30 11:36 Urine Color YELLOW Urine Turbidity CLEAR Urine pH 6.0 Urine Specific [place] 1.015 Urine Protein TRACE mg/dL Urine Glucose (UA) NEG mg/dL Urine Ketones NEG mg/dL Urine Occult Blood NEG Urine Nitrite NEG Urine Bilirubin NEG Urine Urobilinogen LESS THAN 2.0 MG/DL Urine Leukocyte Esterase NEG Urine RBC LESS THAN 1 /hpf Urine WBC 1 /hpf Urine Mucus FEW /lpf Microscopic Urinalysis Comment CULT NOT INDICATED White Blood Count 6.8 TH/MM3 Red Blood Count 2.64 MIL/MM3 Hemoglobin 8.1 GM/DL Hematocrit 24.1 % Mean Corpuscular Volume 91.1 FL Mean Corpuscular Hemoglobin 30.8 PG Mean Corpuscular Hemoglobin 33.8 % Concent Red Cell Distribution Width 18.5 % Platelet Count 311 TH/MM3 Mean Platelet Volume 8.3 FL Neutrophils (%) (Auto) % Lymphocytes (%) (Auto) % Monocytes (%) (Auto) % Eosinophils (%) (Auto) % Basophils (%) (Auto) % Neutrophils # (Auto) TH/MM3 Lymphocytes # (Auto) TH/MM3 Monocytes # (Auto) TH/MM3 Eosinophils # (Auto) TH/MM3 Basophils # (Auto) TH/MM3 CBC Comment AUTO DIFF Differential Total Cells 100 Counted Neutrophils % (Manual) 47 % Band Neutrophils % 1 % Lymphocytes % 30 % Monocytes % 17 % Eosinophils % 2 % Basophils % 2 % Neutrophils # (Manual) 3.3 TH/MM3 Myelocytes 1 % Differential Comment FINAL DIFF MANUAL Platelet Estimate NORMAL Platelet Morphology Comment NORMAL Prothrombin Time 12.0 SEC Prothromb Time International 1.1 RATIO Ratio Activated Partial 33.9 SEC Thromboplast Time Sodium Level 135 MEQ/L Potassium Level 3.9 MEQ/L Chloride Level 102 MEQ/L Carbon Dioxide Level 23.9 MEQ/L Anion Gap 9 MEQ/L Blood Urea Nitrogen 14 MG/DL Creatinine 0.96 MG/DL Estimat Glomerular Filtration 76 ML/MIN Rate Random Glucose 160 MG/DL Calcium Level 8.8 MG/DL Total Bilirubin 0.3 MG/DL Aspartate Amino Transf 14 U/L (AST/SGOT) Alanine Aminotransferase 28 U/L (ALT/SGPT) Alkaline Phosphatase 76 U/L Total Protein 7.0 GM/DL Albumin 2.6 GM/DL Blood Type A POSITIVE Antibody Screen NEGATIVE MDM Medical Decision Making Medical Screen Exam Complete: Yes Emergency Medical Condition: Yes Medical Record Reviewed: Yes Interpretation(s) Laboratory Tests Test 07/17/16 07/17/16 11:30 11:36 Urine Color YELLOW Urine Turbidity CLEAR Urine pH 6.0 Urine Specific [place] 1.015 Urine Protein TRACE mg/dL Urine Glucose (UA) NEG mg/dL Urine Ketones NEG mg/dL Urine Occult Blood NEG Urine Nitrite NEG Urine Bilirubin NEG Urine Urobilinogen LESS THAN 2.0 MG/DL Urine Leukocyte Esterase NEG Urine RBC LESS THAN 1 /hpf Urine WBC 1 /hpf Urine Mucus FEW /lpf Microscopic Urinalysis Comment CULT NOT INDICATED White Blood Count 6.8 TH/MM3 Red Blood Count 2.64 MIL/MM3 Hemoglobin 8.1 GM/DL Hematocrit 24.1 % Mean Corpuscular Volume 91.1 FL Mean Corpuscular Hemoglobin 30.8 PG Mean Corpuscular Hemoglobin 33.8 % Concent Red Cell Distribution Width 18.5 % Platelet Count 311 TH/MM3 Mean Platelet Volume 8.3 FL Neutrophils (%) (Auto) % Lymphocytes (%) (Auto) % Monocytes (%) (Auto) % Eosinophils (%) (Auto) % Basophils (%) (Auto) % Neutrophils # (Auto) TH/MM3 Lymphocytes # (Auto) TH/MM3 Monocytes # (Auto) TH/MM3 Eosinophils # (Auto) TH/MM3 Basophils # (Auto) TH/MM3 CBC Comment AUTO DIFF Differential Total Cells 100 Counted Neutrophils % (Manual) 47 % Band Neutrophils % 1 % Lymphocytes % 30 % Monocytes % 17 % Eosinophils % 2 % Basophils % 2 % Neutrophils # (Manual) 3.3 TH/MM3 Myelocytes 1 % Differential Comment FINAL DIFF MANUAL Platelet Estimate NORMAL Platelet Morphology Comment NORMAL Prothrombin Time 12.0 SEC Prothromb Time International 1.1 RATIO Ratio Activated Partial 33.9 SEC Thromboplast Time Sodium Level 135 MEQ/L Potassium Level 3.9 MEQ/L Chloride Level 102 MEQ/L Carbon Dioxide Level 23.9 MEQ/L Anion Gap 9 MEQ/L Blood Urea Nitrogen 14 MG/DL Creatinine 0.96 MG/DL Estimat Glomerular Filtration 76 ML/MIN Rate Random Glucose 160 MG/DL Calcium Level 8.8 MG/DL Total Bilirubin 0.3 MG/DL Aspartate Amino Transf 14 U/L (AST/SGOT) Alanine Aminotransferase 28 U/L (ALT/SGPT) Alkaline Phosphatase 76 U/L Total Protein 7.0 GM/DL Albumin 2.6 GM/DL Blood Type A POSITIVE Antibody Screen NEGATIVE Vital Signs Date Time Temp Pulse Resp B/P Pulse Ox O2 Delivery O2 Flow Rate FiO2 07/17/16 11:18 90 18 138/79 98 Room Air 07/17/16 11:11 98.1 84 18 138/79 Differential Diagnosis GI bleed versus coagulopathy versus deconditioning versus orthostatic hypotension versus other Narrative Course Patient is a 80-year-old male brought into the emergency department the EMS for evaluation of a possible GI bleed. Additionally patient has had weakness and hypotensive episodes at the [facility] facility where he [facility]. IV access initiated, patient placed on telemetry monitoring, continuous pulse oximetry. Labs ordered and pending. Hemoccult was positive for blood. CBC with a hemoglobin of 8.1/21.4 Chemistry is unremarkable Urinalysis is not indicative of a urinary tract infection Stool for CDT pending Patient's vital signs have been stable in the emergency department. Discussed lab findings with my attending physician. Also discussed labs and patient presentation with Vasquez GLASS for Dr. Medina at the long term. He would prefer patient be evaluated in the hospital. He states that he has had several episodes of hypotension as well as hemoglobin is been trending down. Dr. Jacobs accepted admission. [facility] Point of Care Fecal Specimen Occult Blood: Positive Diagnosis Primary Impression: GI (gastrointestinal bleed) Qualified Code: K92.2 - Gastrointestinal hemorrhage, unspecified gastrointestinal hemorrhage type Additional Impressions: Anticoagulated Orthostatic hypotension Weakness generalized Admitting Information Admitting Physician Requests: Admit Condition: Stable Brie Eduardo [facility] Jul 17, 2016 11:41
[2016-07-17 11:53] LABS: HEMATOCRIT 24.1 % (39.0-51.0); MEAN CELL VOLUME 91.1 FL (80.0-100.0); MEAN CORPUSCULAR HEMOGLOBIN 30.8 PG (27.0-34.0); MEAN CORPUSCULAR HGB CONC 33.8 % (32.0-36.0); PLATELET COUNT 311 TH/MM3 (150-450); RED BLOOD COUNT 2.64 MIL/MM3 (4.50-5.90); RED CELL DISTRIBUTION WIDTH 18.5 % (11.6-17.2); WHITE BLOOD COUNT 6.8 TH/MM3 (4.0-11.0)
[2016-07-17 11:57] LABS: HEMO FLAGS AUTO DIFF
[2016-07-17 12:00] LABS: APTT (PATIENT) 33.9 SEC (24.3-30.1); INTERNATIONAL NORMALIZED RATIO 1.1 RATIO
[2016-07-17 12:04] LABS: ALT (GPT) 28 U/L (12-78); ANION GAP 9 MEQ/L (5-15); AST (GOT) 14 U/L (15-37); BICARBONATE 23.9 MEQ/L (21.0-32.0); BLOOD UREA NITROGEN 14 MG/DL (7-18); CHLORIDE 102 MEQ/L (98-107); GLOMERULAR FILTRATION RATE 76 ML/MIN (>89); POTASSIUM 3.9 MEQ/L (3.5-5.1); SODIUM (NA) 135 MEQ/L (136-145)
[2016-07-17 12:06] LABS: ALKALINE PHOSPHATASE 76 U/L (45-117); TOTAL BILIRUBIN ADULT 0.3 MG/DL (0.2-1.0)
[2016-07-17 12:25] LABS: BLOOD, URINE NEG (NEG); COMMENT (UR) CULT NOT INDICATED; CULTURE IF INDICATED CULT NOT INDICATED; GLUCOSE,URINE NEG (NEG); KETONE, URINE NEG (NEG); MUCUS URINE FEW /lpf (OCC); NITRITE,URINE NEG (NEG); URINE COLOR YELLOW (YELLW/STRAW)
[2016-07-17 12:30] LABS: BANDS 1 % (0-6); BASOPHILS 2 % (0-2); EOSINOPHILS 2 % (0-4); MYELOCYTES 1 % (0-0); NEUTROPHIL # MANUAL DIFF 3.3 TH/MM3 (1.8-7.7); PLATELET ESTIMATE SMEAR NORMAL (NORMAL); PLATELET MORPHOLOGY NORMAL (NORMAL); POLYS (SEG NEUTROPHILS) 47 % (16-70); SCAN/DIFF FINAL DIFF MANUAL; WBC DIFF SAMPLE 100
--- NOTE | 2016-07-17 13:11 | HHI.HP ---
HPI Service [facility] Primary Care Physician No Primary Care Physician Admission Diagnosis GI BLEED, HYPOTENSION, WEAKNESS Diagnoses: Chief Complaint: ligheadedness Travel History International Travel<30 Days: No Contact w/Intl Traveler <30 Da: No Traveled to Known Affected Are: No History of Present Illness 80-year-old male with PMH of HTN, AFib on eliquis, recent wound infection / necrotizing fasciitis on zyvox, diabetes mellitus, BPH. The patient was sent by the rehabilitation facility for evaluation of possible GI bleed. FOBT was positive and they noticed a drop in HGB ayt 7.8. Patient states that he felt as if he was going to pass out during physical therapy this morning. Per the assisted report patient's hemoglobin has dropped and patient's blood pressure was low. According to medical records sent patient had 2 positive stools for occult blood on on 07/16. On 07/12 patient's hemoglobin was 8, when it was reassessed on 07/16 it was 7.8 per the records. Patient denies any pain, shortness of breath, headache, abdominal pain, nausea, vomiting, fevers. Family at bedside . Review of Systems Except as stated in HPI: all other systems reviewed are Neg Past Family Social History Past Medical History HTN, AFib on eliquis, recent wound infection /necrotizing fasciitis Diabetes mellitus BPH Past Surgical History Hip replacement Pituitary gland surgery Rectal/ pelvic wound incision and debridement Reported Medications Reported Meds & Active Scripts Active Aquadeks Liq Drops (Multivitamins) 60 Ml Liqd 1 Ml PO DAILY Reported Humalog Inj (Insulin Human Lispro) 1,000 Unit/10 Ml Vial 2-12 Units SQ ACHS Max dose at bedtime:( )units; sugars < 70,(0)units; sugars 150-199,(2)units; sugars 200-249,(4)units; sugars 250-299,(7)units; sugars 300-349,(10)units; sugars more than 349,(12)units. Chlorhexidine Gluconate (Mouth) Liq (Chlorhexidine Gluconate) 0.12% Soln 15 Ml SWISH-SPIT BID Diltiazem (Diltiazem HCl) 120 Mg Tab 120 Mg PO QID Eliquis (Apixaban) 5 Mg Tab 5 Mg PO BID Omeprazole 20 Mg Tab 20 Mg PO DAILY Fluoxetine (Fluoxetine HCl) 40 Mg Cap 40 Cap PO DAILY Tamsulosin (Tamsulosin HCl) 0.4 Mg Cap 0.4 Mg PO HS Milk of Bakari Liq (Magnesium Hydroxide) 400 Mg/5 Ml Susp 30 Ml PO DAILY PRN Temazepam 15 Mg Cap 15 Mg PO HS PRN Hydrocodone-Acetaminophen 5-325 mg Tab 1 Tab PO Q6H PRN Tylenol (Acetaminophen) 325 Mg Cap 325 Mg PO Q6H PRN Duoneb (Ipratropium-Albuterol Neb) 0.5-2.5 Mg/3 Ml Neb 1 Nebule INH DAILY Zyvox (Linezolid) 600 Mg Tab 600 Mg PO Q12H Coreg (Carvedilol) 6.25 Mg Tab 6.25 Mg PO BID Glipizide 5 Mg Tab 5 Mg PO BID Take 30 minutes before a meal Allergies: Coded Allergies: *MDRO Multi-Drug Resistant Organism (Verified Adverse Reaction, Unknown, ) MRSA PCR Screeen POSITIVE - 04/28/2016 Family History Diabetes mellitus Anthony his family history, doesn't remember parents medical problems. Social History Smoked 1 pack per day for 10 years, quit 50 years ago. Denies alcohol use or illicit drug use Physical Exam Vital Signs Vital Signs Date Time Temp Pulse Resp B/P Pulse Ox O2 Delivery O2 Flow Rate FiO2 07/17/16 12:29 82 18 134/78 98 Room Air 07/17/16 11:44 98 Room Air 07/17/16 11:18 90 18 138/79 98 Room Air 07/17/16 11:11 98.1 84 18 138/79 Physical Exam GENERAL: This is a well-nourished, well-developed patient, in no apparent distress. SKIN: No rashes, ecchymoses or lesions. Cool and dry. HEAD: Atraumatic. Normocephalic. No temporal or scalp tenderness. EYES: Pupils equal round and reactive. Extraocular motions intact. No scleral icterus. No injection or drainage. ENT: Nose without bleeding, purulent drainage or septal hematoma. Throat without erythema, tonsillar hypertrophy or exudate. Uvula midline. Airway patent. NECK: Trachea midline. No JVD or lymphadenopathy. Supple, nontender, no meningeal signs. CARDIOVASCULAR: Regular rate and rhythm without murmurs, gallops, or rubs. RESPIRATORY: Clear to auscultation. Breath sounds equal bilaterally. No wheezes , rales, or rhonchi. GASTROINTESTINAL: Abdomen soft, non-tender, nondistended. No hepato-splenomegaly , or palpable masses. No guarding. MUSCULOSKELETAL: Extremities without clubbing, cyanosis, or edema. No joint tenderness, effusion, or edema noted. No calf tenderness. Negative Homans sign bilaterally. NEUROLOGICAL: Awake and alert. Cranial nerves II through XII intact. Motor and sensory grossly within normal limits. Five out of 5 muscle strength in all muscle groups. Normal speech. Laboratory Laboratory Tests Test 07/17/16 07/17/16 11:30 11:36 Urine Color YELLOW Urine Turbidity CLEAR Urine pH 6.0 Urine Specific [place] 1.015 Urine Protein TRACE Urine Glucose (UA) NEG Urine Ketones NEG Urine Occult Blood NEG Urine Nitrite NEG Urine Bilirubin NEG Urine Urobilinogen LESS THAN 2.0 Urine Leukocyte Esterase NEG Urine RBC LESS THAN 1 Urine WBC 1 Urine Mucus FEW Microscopic Urinalysis Comment CULT NOT INDICATED White Blood Count 6.8 Red Blood Count 2.64 Hemoglobin 8.1 Hematocrit 24.1 Mean Corpuscular Volume 91.1 Mean Corpuscular Hemoglobin 30.8 Mean Corpuscular Hemoglobin 33.8 Concent Red Cell Distribution Width 18.5 Platelet Count 311 Mean Platelet Volume 8.3 Neutrophils (%) (Auto) Lymphocytes (%) (Auto) Monocytes (%) (Auto) Eosinophils (%) (Auto) Basophils (%) (Auto) Neutrophils # (Auto) Lymphocytes # (Auto) Monocytes # (Auto) Eosinophils # (Auto) Basophils # (Auto) CBC Comment AUTO DIFF Differential Total Cells 100 Counted Neutrophils % (Manual) 47 Band Neutrophils % 1 Lymphocytes % 30 Monocytes % 17 Eosinophils % 2 Basophils % 2 Neutrophils # (Manual) 3.3 Myelocytes 1 Differential Comment FINAL DIFF MANUAL Platelet Estimate NORMAL Platelet Morphology Comment NORMAL Prothrombin Time 12.0 Prothromb Time International 1.1 Ratio Activated Partial 33.9 Thromboplast Time Sodium Level 135 Potassium Level 3.9 Chloride Level 102 Carbon Dioxide Level 23.9 Anion Gap 9 Blood Urea Nitrogen 14 Creatinine 0.96 Estimat Glomerular Filtration 76 Rate Random Glucose 160 Calcium Level 8.8 Total Bilirubin 0.3 Aspartate Amino Transf 14 (AST/SGOT) Alanine Aminotransferase 28 (ALT/SGPT) Alkaline Phosphatase 76 Total Protein 7.0 Albumin 2.6 Blood Type A POSITIVE Antibody Screen NEGATIVE Result Diagram: 07/17/16 1136 07/17/16 1136 Assessment and Plan Assessment and Plan 80-year-old male with GI bleed possible acute on chronic, possible septic secondary to Eliquis which was recently started for A. fib Fecal occult blood positive H&H so far stable hemoglobin 8.1, will hold transfusion at this time hold Eliquis Monitor H&H and transfuse if symptomatic or if hemoglobin less than 7 Start Protonix 40 mg IV twice a day Consult GI Nothing by mouth A. fib with rate control, restart home medications. Hold Eliquis at this time. Diabetes mellitus, insulin sliding scale, Accu-Cheks. Monitor blood sugar and adjust as needed medications Hypertension, restart home medications. Also will do orthostatics as patient says lightheadedness with physical therapy today. History of necrotizing fasciitis, continue Zyvox, continue wound care dressings. Consult wound care for evaluation and recommendations. BPH. Continue tamsulosin in Discussed Condition With Discussed with the patient, nurse, ED physician, family at bedside Kelli Jacobs MD Jul 17, 2016 13:11
[2016-07-17] MEDS: DOCUSATE SODIUM 100 MG CAP PO SCH ×2 (13:13→20:16)
[2016-07-17] MEDS: SODIUM CHLOR 0.9% 1000 ML INJ 1,000 ML IV SCH ×2 (13:13→23:22)
[2016-07-17] MEDS ORDERED: ACETAMINOPHEN 325 MG TAB PO PRN (13:15)
[2016-07-17] MEDS ORDERED: SODIUM CHLORIDE 0.9% FLUSH 10 ML FLUSH IV FLUSH PRN (13:15)
[2016-07-17] MEDS ORDERED: ONDANSETRON HCL 4 MG/2 ML VIAL IVP PRN (13:15)
[2016-07-17] MEDS ORDERED: TEMAZEPAM 15 MG CAP PO PRN (13:15)
[2016-07-17] MEDS ORDERED: MAGNESIUM HYDROXIDE SUSP 30 ML CUP PO PRN (13:15)
[2016-07-17] MEDS ORDERED: ACETAMINOPHEN/HYDROcodone 325 MG/5 MG TAB PO PRN (13:15)
[2016-07-17] MEDS ORDERED: DEXTROSE 50% IN WATER 50 ML VIAL(D50) IV PUSH PRN (13:30)
[2016-07-17] MEDS ORDERED: GLUCAGON 1 MG/ML VIAL OTHER PRN (13:30)
[2016-07-17] MEDS: LINEZOLID 600 MG TAB PO SCH (13:54)
[2016-07-17 15:59] LABS: C. DIFF EPI 027 PRESUMPTIVE NEGATIVE (NEGATIVE); C. DIFF TOXIN PCR NEGATIVE (NEGATIVE)
[2016-07-17] MEDS: INSULIN ASPART SUPPLEMENTAL SCALE SQ SCH ×2 (16:00→20:17)
[2016-07-17] MEDS: DILTIAZEM HCL 60 MG TAB PO SCH (17:09)
[2016-07-17] MEDS: TAMSULOSIN HCL 0.4 MG CAP PO SCH (20:16)
[2016-07-17] MEDS: PANTOPRAZOLE SODIUM 40 MG VIAL IV SCH (20:17)
[2016-07-17] MEDS: TEMAZEPAM 15 MG CAP PO PRN (20:17)
[2016-07-17] MEDS: SODIUM CHLORIDE 0.9% FLUSH 10 ML FLUSH IV FLUSH SCH (20:18)
[2016-07-17] MEDS: CARVEDILOL 6.25 MG TAB PO SCH (21:00)
[2016-07-18] VITALS (12 sets, daily range): BP systolic 101–150; BP diastolic 61–86; PULSE 61–103; RESP 16–20; TEMP 97.3–98.5; O2SAT 96–99
[2016-07-18 00:31] LABS: REVIEW FLAG FINAL
[2016-07-18 00:34] LABS: HEMATOCRIT 20.6 % (39.0-51.0)
[2016-07-18] MEDS: LINEZOLID 600 MG TAB PO SCH ×2 (01:56→14:12)
[2016-07-18] MEDS: INSULIN ASPART SUPPLEMENTAL SCALE SQ SCH ×4 (06:24→21:00)
[2016-07-18] MEDS ORDERED: FUROSEMIDE 20 MG/2 ML VIAL IV SCH (07:30)
[2016-07-18] MEDS ORDERED: SODIUM CHLOR 0.9% 250 ML INJ 250 ML IV ONE (07:30)
[2016-07-18] MEDS ORDERED: ACETAMINOPHEN 325 MG TAB PO PRN (07:30)
[2016-07-18] MEDS ORDERED: diphenhydrAMINE HCL 25 MG CAP PO PRN (07:30)
--- NOTE | 2016-07-18 07:30 | HHI.PR ---
Subjective Remarks HGB of 7, low HTC Transfuse 2 U prbc pretreat Patient feels weak. He did not go out of bed. No lightheadedness however he did not move out of bed. No fever or chills. Denies abdominal pain. Denies shortness of breath, chest pain, nausea, vomiting diarrhea or constipation. Family is also requested Dr. Vasquez cardiology for evaluation. Objective Vitals Vital Signs Date Time Temp Pulse Resp B/P Pulse Ox O2 Delivery O2 Flow Rate FiO2 07/18/16 04:00 97.3 90 18 108/64 97 07/18/16 01:42 96 07/17/16 23:30 98.2 74 18 109/62 96 07/17/16 20:32 98.2 56 16 102/62 98 07/17/16 19:38 98.3 68 18 102/62 98 07/17/16 16:10 98.1 75 17 111/63 99 07/17/16 14:55 97.9 84 16 120/70 99 136/64 07/17/16 13:56 66 18 122/66 99 Room Air 07/17/16 13:34 100 18 82/50 07/17/16 13:33 70 18 134/75 07/17/16 12:29 82 18 134/78 98 Room Air 07/17/16 11:44 98 Room Air 07/17/16 11:18 90 18 138/79 98 Room Air 07/17/16 11:11 98.1 84 18 138/79 I/O 07/17/16 07/17/16 07/17/16 07/18/16 07/18/16 07/18/16 07:00 15:00 23:00 07:00 15:00 23:00 Intake Total 1000 ml 0 ml Output Total 100 ml 350 ml Balance 900 ml -350 ml Intake Oral 0 ml 0 ml IV Total 1000 ml Output Urine Total 100 ml 350 ml # Bowel Movements 0 0 Result Diagram: 07/18/16 0023 07/17/16 1136 Objective Remarks GENERAL: This is a well-nourished, well-developed patient, in no apparent distress. SKIN: Large wound sacral. Dressing in place. HEAD: Atraumatic. Normocephalic. No temporal or scalp tenderness. EYES: Pupils equal round and reactive. Extraocular motions intact. No scleral icterus. No injection or drainage. ENT: Nose without bleeding, purulent drainage or septal hematoma. Throat without erythema, tonsillar hypertrophy or exudate. Uvula midline. Airway patent. NECK: Trachea midline. No JVD or lymphadenopathy. Supple, nontender, no meningeal signs. CARDIOVASCULAR: Regular rate and rhythm without murmurs, gallops, or rubs. RESPIRATORY: Clear to auscultation. Breath sounds equal bilaterally. No wheezes , rales, or rhonchi. GASTROINTESTINAL: Abdomen soft, colostomy bag in place, non-tender, nondistended. No hepato-splenomegaly, or palpable masses. No guarding. MUSCULOSKELETAL: Extremities without clubbing, cyanosis, or edema. No joint tenderness, effusion, or edema noted. No calf tenderness. Negative Homans sign bilaterally. NEUROLOGICAL: Awake and alert. Cranial nerves II through XII intact. Motor and sensory grossly within normal limits. Five out of 5 muscle strength in all muscle groups. Normal speech. A/P Assessment and Plan 80-year-old male with GI bleed possible acute on chronic, possible septic secondary to Eliquis which was recently started for A. fib Fecal occult blood positive H&H so far stable hemoglobin 8.1, will hold transfusion at this time Hold Eliquis Monitor H&H and transfuse if symptomatic or if hemoglobin less than 7 Start Protonix 40 mg IV twice a day Consult GI Nothing by mouth 4/5 transfuse 2 U prbs , pretreat. HGB 7 , HTC of 20, symptomatic patient. Seen by GI service, appreciate recommendations. Plan for EGD/Colonoscopy via colostomy/Sigmoidoscopy in am A. fib with rate control, restart home medications. Hold Eliquis at this time. Family requested Dr. Vasquez cardiology for evaluation. We'll consult Dr. Vasquez. Diabetes mellitus, insulin sliding scale, Accu-Cheks. Monitor blood sugar and adjust as needed medications Hypertension, restart home medications. Also will do orthostatics as patient says lightheadedness with physical therapy today. History of necrotizing fasciitis, continue Zyvox, continue wound care dressings. Consult wound care for evaluation and recommendations. BPH. Continue tamsulosin in Discussed Condition With Discussed with the patient, nurse, family at bedside - Kelli Jacobs Jul 18, 2016 07:30
[2016-07-18 07:45] LABS: AUTOMATED NEUTROPHIL # 2.1 TH/MM3 (1.8-7.7); BASOPHIL % 0.7 % (0.0-2.0); EOSINOPHIL # 0.1 TH/MM3 (0-0.4); EOSINOPHIL % 1.1 % (0.0-4.0); HEMO FLAGS DIFF FINAL; LYMPH % 31.9 % (9.0-44.0); LYMPHOCYTE # 1.7 TH/MM3 (1.0-4.8); MEAN CELL VOLUME 91.7 FL (80.0-100.0); MEAN CORPUSCULAR HEMOGLOBIN 30.1 PG (27.0-34.0); MEAN CORPUSCULAR HGB CONC 32.8 % (32.0-36.0); NEUT % 40.3 % (16.0-70.0); PLATELET COUNT 241 TH/MM3 (150-450); RED CELL DISTRIBUTION WIDTH 18.8 % (11.6-17.2); WHITE BLOOD COUNT 5.2 TH/MM3 (4.0-11.0)
[2016-07-18 08:15] LABS: BICARBONATE 22.4 MEQ/L (21.0-32.0); POTASSIUM 3.9 MEQ/L (3.5-5.1)
--- NOTE | 2016-07-18 10:24 | PD.CONS ---
HPI History of Present Illness This is a 80 year old male who is on Eliquis for atrial fibrillation and was sent from a local nursing facility for evaluation of possible GI bleeding. He was recently hospitalized for necrotizing fasciitis/gangrene of lower extremity , sepsis, acute renal failure, and respiratory failure from 05/01/16-05/24/16. During that hospitalization, he underwent I&D of his right buttock and thigh and was treated with antibiotics. He was discharged to the rehab center on 05/24 on Zosyn. While at [facility], he had a Diverting Colostomy placed (about a month ago). He was sent to the ER for evaluation of anemia with hemoccult (+) stool. The patient reports that he was found to have anemia on routine blood draws. They then checked his stool and found this to be Hemoccult positive. He denies any history of GI bleeding. He denies any history of peptic ulcer disease. He denies any nausea or vomiting. He occasionally has heartburn but states this is well controlled with his PPI. He denies any abdominal pain. He denies any bowel changes or having black stool or red blood in his stool. He is on liquids for atrial fibrillation but has not had this since 07/16. His last colonoscopy was about 5 years ago and he reports that he had several polyps removed at that time. (Chrystal Carrero) PFSH Past Medical History HTN AFib on eliquis Recent wound infection /necrotizing fasciitis Diabetes mellitus BPH History of acute renal failure Acute history of acute respiratory failure Past Surgical History Hip replacement Pituitary gland surgery Buttock/pelvic wound incision and debridement Diverting colostomy (about 1 month ago) (Chrystal Carrero) Coded Allergies: *MDRO Multi-Drug Resistant Organism (Verified Adverse Reaction, Unknown, ) MRSA PCR Screeen POSITIVE - 04/28/2016 Medications Allergies Coded Allergies Type Severity Reaction Last Updated Verified *MDRO Multi-Drug Resistant Organism Adverse Reaction Unknown 07/17/16 Yes Active Scripts Medications Dose Route/Sig Days Date Category Dose Instructions Humalog Inj (Insulin Human Lispro) 1,000 Unit/10 Ml Vial 2-12 Units SQ ACHS 07/17/16 Reported Max dose at bedtime:( )units; sugars < 70,(0)units ; sugars 150-199,(2)units; sugars 200-249,(4)units; sugars 250-299,(7)units; sugars 300-349,(10)units; sugars more than 349,(12)units. Chlorhexidine Gluconate (Mouth) Liq (Chlorhexidine Gluconate) 0.12% Soln 15 Ml SWISH-SPIT BID 07/17/16 Reported Diltiazem (Diltiazem HCl) 120 Mg Tab 120 Mg PO QID 07/17/16 Reported Eliquis (Apixaban) 5 Mg Tab 5 Mg PO BID 07/17/16 Reported Omeprazole 20 Mg Tab 20 Mg PO DAILY 07/17/16 Reported Fluoxetine (Fluoxetine HCl) 40 Mg Cap 40 Cap PO DAILY 07/17/16 Reported Tamsulosin (Tamsulosin HCl) 0.4 Mg Cap 0.4 Mg PO HS 07/17/16 Reported Milk of Magnesia Liq (Magnesium Hydroxide) 400 Mg/5 Ml Susp 30 Ml PO DAILY PRN 07/17/16 Reported Temazepam 15 Mg Cap 15 Mg PO HS PRN 07/17/16 Reported Hydrocodone-Acetaminophen 5-325 mg Tab 1 Tab PO Q6H PRN 07/17/16 Reported Tylenol (Acetaminophen) 325 Mg Cap 325 Mg PO Q6H PRN 07/17/16 Reported Duoneb (Ipratropium-Albuterol Neb) 0.5-2.5 Mg/3 Ml Neb 1 Nebule INH DAILY 07/17/16 Reported Zyvox (Linezolid) 600 Mg Tab 600 Mg PO Q12H 07/17/16 Reported Coreg (Carvedilol) 6.25 Mg Tab 6.25 Mg PO BID 07/17/16 Reported Aquadeks Liq Drops (Multivitamins) 60 Ml Liqd 1 Ml PO DAILY 05/24/16 Rx Glipizide 5 Mg Tab 5 Mg PO BID 03/09/16 Reported Take 30 minutes before a meal Family History Diabetes mellitus Anthony his family history, doesn't remember parents medical problems. Social History Smoked 1 pack per day for 10 years, quit 50 years ago. Denies alcohol use or illicit drug use (Chrystal Carrero) Review of Systems Constitutional: COMPLAINS OF: Fatigue, Weight loss, DENIES: Change in appetite Respiratory: DENIES: Cough Cardiovascular: DENIES: Chest pain Gastrointestinal: COMPLAINS OF: Heartburn, DENIES: Abdominal pain, Black stools, Bloody stools, Constipation, Diarrhea, Nausea, Vomiting, Swelling of Abdomen, Hematemesis Hematologic/lymphatic: DENIES: Bruising Neurologic: DENIES: Headache Psychiatric: DENIES: Confusion (Chrystal Carrero) GI Exam Vitals I&O Vital Signs Date Time Temp Pulse Resp B/P Pulse Ox O2 Delivery O2 Flow Rate FiO2 07/18/16 08:08 98.0 97 18 137/71 96 07/18/16 04:00 97.3 90 18 108/64 97 07/18/16 01:42 96 07/17/16 23:30 98.2 74 18 109/62 96 07/17/16 20:55 68 07/17/16 20:32 98.2 56 16 102/62 98 07/17/16 19:38 98.3 68 18 102/62 98 07/17/16 16:10 98.1 75 17 111/63 99 07/17/16 14:55 97.9 84 16 120/70 99 136/64 07/17/16 13:56 66 18 122/66 99 Room Air 07/17/16 13:34 100 18 82/50 07/17/16 13:33 70 18 134/75 07/17/16 12:29 82 18 134/78 98 Room Air 07/17/16 11:44 98 Room Air 07/17/16 11:18 90 18 138/79 98 Room Air 07/17/16 11:11 98.1 84 18 138/79 I/O 07/17/16 07/17/16 07/17/16 07/18/16 07/18/16 07/18/16 07:00 15:00 23:00 07:00 15:00 23:00 Intake Total 1000 ml 0 ml Output Total 100 ml 350 ml Balance 900 ml -350 ml Intake Oral 0 ml 0 ml IV Total 1000 ml Output Urine Total 100 ml 350 ml # Bowel Movements 0 0 Laboratory Test 07/17/16 07/17/16 07/18/16 07/18/16 11:30 11:36 00:23 07:08 Urine Color YELLOW Urine Turbidity CLEAR Urine pH 6.0 Urine Specific [place] 1.015 Urine Protein TRACE mg/dL Urine Glucose (UA) NEG mg/dL Urine Ketones NEG mg/dL Urine Occult Blood NEG Urine Nitrite NEG Urine Bilirubin NEG Urine Urobilinogen LESS THAN 2.0 MG/DL Urine Leukocyte Esterase NEG Urine RBC LESS THAN 1 /hpf Urine WBC 1 /hpf Urine Mucus FEW /lpf Microscopic Urinalysis Comment CULT NOT INDICATED Stool C. difficile Toxin (PCR) NEGATIVE Stl C. difficile Toxin PRESUMPTIVE Epiderm 027 NEGATIVE White Blood Count 6.8 TH/MM3 5.2 TH/MM3 Red Blood Count 2.64 MIL/MM3 2.40 MIL/MM3 Hemoglobin 8.1 GM/DL 7.0 GM/DL 7.2 GM/DL Hematocrit 24.1 % 20.6 % 22.0 % Mean Corpuscular Volume 91.1 FL 91.7 FL Mean Corpuscular Hemoglobin 30.8 PG 30.1 PG Mean Corpuscular Hemoglobin 33.8 % 32.8 % Concent Red Cell Distribution Width 18.5 % 18.8 % Platelet Count 311 TH/MM3 241 TH/MM3 Mean Platelet Volume 8.3 FL 7.9 FL Neutrophils (%) (Auto) % 40.3 % Lymphocytes (%) (Auto) % 31.9 % Monocytes (%) (Auto) % 26.0 % Eosinophils (%) (Auto) % 1.1 % Basophils (%) (Auto) % 0.7 % Neutrophils # (Auto) TH/MM3 2.1 TH/MM3 Lymphocytes # (Auto) TH/MM3 1.7 TH/MM3 Monocytes # (Auto) TH/MM3 1.3 TH/MM3 Eosinophils # (Auto) TH/MM3 0.1 TH/MM3 Basophils # (Auto) TH/MM3 0.0 TH/MM3 CBC Comment AUTO DIFF DIFF FINAL Differential Total Cells 100 Counted Neutrophils % (Manual) 47 % Band Neutrophils % 1 % Lymphocytes % 30 % Monocytes % 17 % Eosinophils % 2 % Basophils % 2 % Neutrophils # (Manual) 3.3 TH/MM3 Myelocytes 1 % Differential Comment FINAL DIFF MANUAL Platelet Estimate NORMAL Platelet Morphology Comment NORMAL Prothrombin Time 12.0 SEC Prothromb Time International 1.1 RATIO Ratio Activated Partial 33.9 SEC Thromboplast Time Sodium Level 135 MEQ/L 136 MEQ/L Potassium Level 3.9 MEQ/L 3.9 MEQ/L Chloride Level 102 MEQ/L 104 MEQ/L Carbon Dioxide Level 23.9 MEQ/L 22.4 MEQ/L Anion Gap 9 MEQ/L 10 MEQ/L Blood Urea Nitrogen 14 MG/DL 11 MG/DL Creatinine 0.96 MG/DL 0.97 MG/DL Estimat Glomerular Filtration 76 ML/MIN 75 ML/MIN Rate Random Glucose 160 MG/DL 138 MG/DL Calcium Level 8.8 MG/DL 8.6 MG/DL Total Bilirubin 0.3 MG/DL Aspartate Amino Transf 14 U/L (AST/SGOT) Alanine Aminotransferase 28 U/L (ALT/SGPT) Alkaline Phosphatase 76 U/L Total Protein 7.0 GM/DL Albumin 2.6 GM/DL Blood Type A POSITIVE Antibody Screen NEGATIVE Test 07/18/16 08:06 Blood Type A POSITIVE Crossmatch Leukocyte-Reduced Red Blood Cells Blood Bank Comment Physical Examination HEENT: Normocephalic; atraumatic; no jaundice. CHEST: CTA CARDIAC: Irregular, rate controlled ABDOMEN: Soft, nondistended, nontender; no hepatosplenomegaly; bowel sounds are present in all four quadrants. Left sided colostomy- brown stool EXTREMITIES: No clubbing, cyanosis, or edema. [employer]ES: No focal deficits; alert and oriented times three. (Chrystal Carrero) Assessment and Plan Plan ASSESSMENT: - Anemia, Hemoccult (+) Stool. Denies hx of GI Bleeding/PUD. Has diverting colostomy (placed about a month ago). Last colonoscopy 5 years ago- had several polyps removed. He has occasional GERD, controlled with PPI. No other GI symptoms. He has been tired/fatigued for several weeks. HH 7.2/22.0. Hes on #1/2 PRBC. GI consulted for endoscopic evaluation. He is on Eliquis for atrial fibrillation, but this has been held since 07/16. - Atrial fibrillation, Eliquis on hold. - DM, HTN, BPH per primary - Hx necrotizing fasciitis/gangrene buttock/thigh. S/P I&D. He was discharged to [facility] on 05/24 on Zosyn. He then had a diverting colostomy placed about a month ago while at [facility]. Wound care per primary PLAN: - Plan for EGD/Colonoscopy via colostomy/Sigmoidoscopy in am - Obtain consents - Clear liquids - NPO after MN - Golytely prep - SSE x 1 in am - Monitor HH - Transfuse as necessary - Supportive care - Further recommendations to follow based on results of above - Pt seen and examined by Dr. Christian and myself and this note is written on his behalf (Chrystal Carrero) Physician Comments Seen and examined with OIL GAUGER< gi bleeding, egd/colonoscopy through colostomy and sigmoidoscopy planned for tomorrow. Prep orders written. Will follow, thank you (Katya Christian MD) Chrystal Carrero Jul 18, 2016 10:24 Katya Christian MD Jul 18, 2016 19:34
[2016-07-18] MEDS: SODIUM CHLORIDE 0.9% FLUSH 10 ML FLUSH IV FLUSH SCH ×2 (10:47→22:39)
[2016-07-18] MEDS: PANTOPRAZOLE SODIUM 40 MG VIAL IV SCH ×2 (10:47→22:39)
[2016-07-18] MEDS: CARVEDILOL 6.25 MG TAB PO SCH ×2 (10:48→22:40)
[2016-07-18] MEDS: FLUoxetine HCL 20 MG CAP PO SCH (10:48)
[2016-07-18] MEDS: DOCUSATE SODIUM 100 MG CAP PO SCH ×2 (10:48→22:40)
[2016-07-18] MEDS: DILTIAZEM HCL 60 MG TAB PO SCH ×3 (10:48→18:00)
[2016-07-18] MEDS ORDERED: PEG (High)/E-LYTE SOLN 4000 ML BTL PO ONE (16:00)
[2016-07-18] MEDS: SODIUM CHLOR 0.9% 1000 ML INJ 1,000 ML IV SCH (22:38)
[2016-07-18] MEDS: TAMSULOSIN HCL 0.4 MG CAP PO SCH (22:40)
--- NOTE | 2016-07-18 22:44 | MB ---
cc: [address] DATE OF CONSULTATION 07/18/16 DATE OF 1935 REASON FOR CONSULTATION Atrial fibrillation. HISTORY OF PRESENT ILLNESS The patient is a 80-year-old white male with a history of paroxysmal atrial fibrillation, diabetes, hypertension, benign prostatic hypertrophy, long hospitalization in April through May of this year due to severe necrotizing fasciitis who presented to the hospital with dizziness, lightheadedness. He was found to be severely anemic and is to undergo GI endoscopic evaluation tomorrow. In the hospital he has been in atrial fibrillation with overall controlled rates. The patient denies palpitations, syncope, chest pain, shortness of breath, pedal edema, paroxysmal nocturnal dyspnea, orthopnea. PAST MEDICAL HISTORY 1. Rectal abscess, necrotizing fasciitis of the right buttock and right posterior thigh status post a number of surgeries April through May of this year for incisions and extensive debridement. 2. Paroxysmal atrial fibrillation; he does have an EKG from April 2016 demonstrating atrial fibrillation. EKGs from 2016 show sinus rhythm. 3. Diabetes. 4. Hypertension. 5. Benign prostatic hypertrophy. PAST SURGICAL HISTORY 1. Pituitary gland neurosurgery. 2. Left hip replacement. MEDICATIONS His cardiac medications at home included: 1. Diltiazem 120 milligrams q.i.d. 2. Eliquis 5 milligrams b.i.d. 3. Coreg 6.25 milligrams b.i.d. ALLERGIES No known drug allergies. FAMILY HISTORY Noncontributory. SOCIAL HISTORY The patient denies alcohol or tobacco abuse. REVIEW OF SYSTEMS The review of systems as in the history of present illness otherwise negative or noncontributory. He also denies headache, visual changes, unilateral weakness or numbness, abdominal pain, dyspepsia, fevers. PHYSICAL EXAMINATION VITAL SIGNS: Blood pressure 141/71 with a pulse of 70, respirations 15. GENERAL: In general he is a well-developed, well-nourished white male in no acute distress HEENT: Examination jugular venous pressure is normal. Carotid pulses are 2+ bilaterally and without bruits. CHEST: Examination of the chest reveals clear lung le anteriorly. CARDIAC: On cardiac examination he has an irregular irregular rhythm without S3 or murmur. ABDOMEN: On abdominal examination he has a soft, nontender abdomen. Bowel sounds are present. There is no definite hepatosplenomegaly. EXTREMITIES: Examination of the extremities reveals no clubbing, cyanosis or edema. Lad Laboratory data includes WBC 5.2, hemoglobin 7.2, platelets 241, potassium 3.9, BUN 11, creatinine 0.97, INR 1.1. CARDIOLOGY STUDIES EKG has not been done. IMPRESSION Atrial fibrillation in this 80-year-old white male with a history of paroxysmal atrial fibrillation dating back to at least April 2016, diabetes, hypertension, status post prolonged admission earlier this year for severe necrotizing fasciitis of the right buttock and right posterior thigh. He is now admitted with severe anemia, GI bleeding, transient hypotension. At this time his heart rates are under control on carvedilol and diltiazem. His thromboembolic risk with the atrial fibrillation is high given his history of diabetes, hypertension, advanced age. Needless to say he is not a candidate for resuming anticoagulation therapy at this time given the probable acute GI bleeding. RECOMMENDATIONS 1. Continue beta kamaljit and calcium channel kamaljit therapy. 2. When okay from a GI standpoint would at least resume daily baby aspirin to help reduce his risk of stroke. When possible, resume Eliquis. 3. Check a 2-D echo to assess his left ventricular function. MD EMMA Gordon/SADA /8:28 PM /10:28 PM MTDSocrates
[2016-07-18 23:35] LABS: HEMATOCRIT 27.6 % (39.0-51.0); REVIEW FLAG FINAL
[2016-07-19] VITALS (9 sets, daily range): BP systolic 115–141; BP diastolic 64–73; PULSE 67–81; RESP 16–20; TEMP 97.5–98.2; O2SAT 96–99
[2016-07-19] MEDS: LINEZOLID 600 MG TAB PO SCH ×2 (00:58→18:43)
[2016-07-19] MEDS: SODIUM CHLOR 0.9% 1000 ML INJ 1,000 ML IV SCH ×2 (02:43→20:52)
[2016-07-19] MEDS: INSULIN ASPART SUPPLEMENTAL SCALE SQ SCH ×4 (05:54→21:01)
[2016-07-19 06:17] LABS: AUTOMATED NEUTROPHIL # 2.2 TH/MM3 (1.8-7.7); BASOPHIL % 0.4 % (0.0-2.0); EOSINOPHIL # 0.1 TH/MM3 (0-0.4); HEMATOCRIT 27.6 % (39.0-51.0); HEMO FLAGS DIFF FINAL; LYMPH % 30.7 % (9.0-44.0); LYMPHOCYTE # 1.7 TH/MM3 (1.0-4.8); MEAN CELL VOLUME 88.5 FL (80.0-100.0); MEAN CORPUSCULAR HEMOGLOBIN 30.4 PG (27.0-34.0); MEAN CORPUSCULAR HGB CONC 34.4 % (32.0-36.0); MONO % 28.6 % (0.0-8.0); NEUT % 39.3 % (16.0-70.0); PLATELET COUNT 240 TH/MM3 (150-450); RED BLOOD COUNT 3.12 MIL/MM3 (4.50-5.90); RED CELL DISTRIBUTION WIDTH 17.6 % (11.6-17.2); WHITE BLOOD COUNT 5.5 TH/MM3 (4.0-11.0)
[2016-07-19 06:40] LABS: BICARBONATE 21.2 MEQ/L (21.0-32.0); MAGNESIUM 1.8 MG/DL (1.5-2.5); POTASSIUM 3.5 MEQ/L (3.5-5.1)
--- NOTE | 2016-07-19 07:04 | HHI.PR ---
Subjective Remarks He is in bed. Says he feels tired. Denies chest pain , sob, abd pain. Did not have a BM. No n/v/d/c. Plan to scope today per GI Objective Vitals Vital Signs Date Time Temp Pulse Resp B/P Pulse Ox O2 Delivery O2 Flow Rate FiO2 07/19/16 04:00 98.2 81 20 137/67 97 07/19/16 00:00 98.0 69 18 116/64 98 07/18/16 20:57 97 Nasal Cannula 2.00 07/18/16 20:30 97.7 96 18 135/77 98 07/18/16 20:00 70 07/18/16 20:00 98.1 68 16 129/69 98 07/18/16 18:25 141/71 07/18/16 16:09 98.2 61 18 101/61 97 07/18/16 12:07 98.1 90 19 125/63 96 07/18/16 11:10 97.8 94 20 139/77 99 07/18/16 10:55 97.8 94 20 141/86 98 07/18/16 10:43 98.5 103 18 150/86 98 07/18/16 08:08 98.0 97 18 137/71 96 I/O 07/18/16 07/18/16 07/18/16 07/19/16 07/19/16 07/19/16 07:00 15:00 23:00 07:00 15:00 23:00 Intake Total 0 ml 120 ml 480 ml 2150 ml Output Total 350 ml 1150 ml 375 ml 250 ml Balance -350 ml -1030 ml 105 ml 1900 ml Intake Oral 0 ml 120 ml 480 ml 0 ml IV Total 2150 ml Output Urine Total 350 ml 1150 ml 375 ml 250 ml # Bowel Movements 0 0 0 Result Diagram: 07/19/16 0548 07/19/16 0548 Objective Remarks GENERAL: This is a well-nourished, well-developed patient, in no apparent distress. SKIN: Large sacral wound. Wound measures 13 cm x 2 cm x 3 cm with serous draiange. Wound bed is beefy red with ~ 10% sluogh to the coccyx. HEAD: Atraumatic. Normocephalic. No temporal or scalp tenderness. EYES: Pupils equal round and reactive. Extraocular motions intact. No scleral icterus. No injection or drainage. ENT: Nose without bleeding, purulent drainage or septal hematoma. Throat without erythema, tonsillar hypertrophy or exudate. Uvula midline. Airway patent. NECK: Trachea midline. No JVD or lymphadenopathy. Supple, nontender, no meningeal signs. CARDIOVASCULAR: Regular rate and rhythm without murmurs, gallops, or rubs. RESPIRATORY: Clear to auscultation. Breath sounds equal bilaterally. No wheezes , rales, or rhonchi. GASTROINTESTINAL: Abdomen soft, colostomy bag in place, non-tender, nondistended. No hepato-splenomegaly, or palpable masses. No guarding. MUSCULOSKELETAL: Extremities without clubbing, cyanosis, or edema. No joint tenderness, effusion, or edema noted. No calf tenderness. Negative Homans sign bilaterally. NEUROLOGICAL: Awake and alert. Cranial nerves II through XII intact. Motor and sensory grossly within normal limits. Five out of 5 muscle strength in all muscle groups. Normal speech. Procedures colonoscopy 08/18/16 1. Moderate diverticulosis was noted in the sigmoid colon 2. A sessile polyp ranging between 3-7mm in size was found in the ascending colon; biopsy was performed using cold forceps 3. Significant colitis seen near the colostomy. Unusaual appearance of the colon 90 cm from the coloctomy. ? stricture vs. herniation. Scope frist advanced from the coloctomy to this area. Then from the rectum for about 40cm to the surgical site 4. Retroflexed views revealed internal hemorrhoids 5. Retroflexed views revealed medium internal hemorrhoids 6. Revealed external hemorrhoids RECOMMENDATIONS: 1. Await biopsy results. Biopsy results will not be ready for 7-10 days. If you don't hear from us in two weeks, call our office for results. 2. Yearly hemoccult 3. Xray for Small bowel follow through RECALL: Return 1 year Colonoscopy, pending biopsy results A/P Assessment and Plan 80-year-old male with GI bleed possible acute on chronic, possible septic secondary to Eliquis which was recently started for A. fib Fecal occult blood positive H&H so far stable hemoglobin 8.1, will hold transfusion at this time Hold Eliquis Monitor H&H and transfuse if symptomatic or if hemoglobin less than 7 Protonix 40 mg IV twice a day Consult GI Nothing by mouth 4/5 transfuse 2 U prbs , pretreat. HGB 7 , HTC of 20, symptomatic patient. Seen by GI service, appreciate recommendations. S/P EGD/Colonoscopy via colostomy/Sigmoidoscopy moderate diverticulosis sig colon Sessile polyp 37 mm ascending colon , biopsy with cold forceps Significant colitis near colostomy Internal hemorrhoids Patie t to have yearly hemocult- X ray for small bowel folllow through To have colonoscopy in one year A. fib with rate control, restart home medications. Hold Eliquis at this time. Family requested Dr. Vasquez cardiology for evaluation. We'll consult Dr. Vasquez. Seen by his partener Dr Christine, recommends restarting eliquis when cleared by GI. Diabetes mellitus, insulin sliding scale, Accu-Cheks. Monitor blood sugar and adjust as needed medications Hypertension, restart home medications. Also will do orthostatics as patient says lightheadedness with physical therapy today. History of necrotizing fasciitis, continue Zyvox, continue wound care dressings. Consult wound care for evaluation and recommendations. Wound measures 13 cm x 2 cm x 3 cm with serous draiange. Wound bed is beefy red with ~ 10% sluogh to the coccyx. Every 3 days and PRN for saturation or dislodgement. Cleasne Right Buttock wound with NS. Loosly apply calcium alginate to wound. Apply adhevive foam. Discussed with Yady from wound care BPH. Continue tamsulosin in Discussed Condition With Discussed with the patient, nurse Kelli Jacobs MD Jul 19, 2016 07:04
--- NOTE | 2016-07-19 07:33 | PD.CARD.PN ---
Subjective Subjective Remarks Denies palpitations, dizziness, CP, dyspnea. Slept poorly. No N/V/abdominal pain. Objective Medications Item Value Date Time Carvedilol 6.25 mg 07/17/16 2100 (Coreg) BID/PO 07/18/16 2240 Diltiazem HCl 120 mg 07/17/16 1800 (Cardizem) TID/PO 07/18/16 1800 Vital Signs / I&O Vital Signs Date Time Temp Pulse Resp B/P Pulse Ox O2 Delivery O2 Flow Rate FiO2 07/19/16 04:00 98.2 81 20 137/67 97 07/19/16 00:00 98.0 69 18 116/64 98 07/18/16 20:57 97 Nasal Cannula 2.00 07/18/16 20:30 97.7 96 18 135/77 98 07/18/16 20:00 70 07/18/16 20:00 98.1 68 16 129/69 98 07/18/16 18:25 141/71 07/18/16 16:09 98.2 61 18 101/61 97 07/18/16 12:07 98.1 90 19 125/63 96 07/18/16 11:10 97.8 94 20 139/77 99 07/18/16 10:55 97.8 94 20 141/86 98 07/18/16 10:43 98.5 103 18 150/86 98 07/18/16 08:08 98.0 97 18 137/71 96 I/O 07/18/16 07/18/16 07/18/16 07/19/16 07/19/16 07/19/16 07:00 15:00 23:00 07:00 15:00 23:00 Intake Total 0 ml 120 ml 480 ml 2150 ml Output Total 350 ml 1150 ml 375 ml 250 ml Balance -350 ml -1030 ml 105 ml 1900 ml Intake Oral 0 ml 120 ml 480 ml 0 ml IV Total 2150 ml Output Urine Total 350 ml 1150 ml 375 ml 250 ml # Bowel Movements 0 0 0 Physical Exam GENERAL: Well developed, well nourished. No acute distress. HEENT: Jugular venous pressure is normal. CHEST: Lungs clear to auscultation anteriorly. CARDIAC: Irregular rate and rhythm without S3, S4, or murmur. ABDOMEN: Soft, nontender, no hepatosplenomegaly. Bowel sounds present. EXTREMITIES: No clubbing, cyanosis, or edema. Laboratory Laboratory Tests Test 07/18/16 07/18/16 07/19/16 08:06 22:55 05:48 Blood Type A POSITIVE Crossmatch Leukocyte-Reduced Red Blood Cells Blood Bank Comment Hemoglobin 9.4 GM/DL 9.5 GM/DL Hematocrit 27.6 % 27.6 % White Blood Count 5.5 TH/MM3 Red Blood Count 3.12 MIL/MM3 Mean Corpuscular Volume 88.5 FL Mean Corpuscular Hemoglobin 30.4 PG Mean Corpuscular Hemoglobin 34.4 % Concent Red Cell Distribution Width 17.6 % Platelet Count 240 TH/MM3 Mean Platelet Volume 7.6 FL Neutrophils (%) (Auto) 39.3 % Lymphocytes (%) (Auto) 30.7 % Monocytes (%) (Auto) 28.6 % Eosinophils (%) (Auto) 1.0 % Basophils (%) (Auto) 0.4 % Neutrophils # (Auto) 2.2 TH/MM3 Lymphocytes # (Auto) 1.7 TH/MM3 Monocytes # (Auto) 1.6 TH/MM3 Eosinophils # (Auto) 0.1 TH/MM3 Basophils # (Auto) 0.0 TH/MM3 CBC Comment DIFF FINAL Differential Comment Sodium Level 136 MEQ/L Potassium Level 3.5 MEQ/L Chloride Level 102 MEQ/L Carbon Dioxide Level 21.2 MEQ/L Anion Gap 13 MEQ/L Blood Urea Nitrogen 12 MG/DL Creatinine 1.01 MG/DL Estimat Glomerular Filtration 71 ML/MIN Rate Random Glucose 148 MG/DL Calcium Level 8.7 MG/DL Magnesium Level 1.8 MG/DL Assessment and Plan Problem List: (1) Paroxysmal atrial fibrillation Assessment and Plan: Remains in atrial fibrillation, controlled HR's. No symptoms attributable to the dysrhythmia. His thromboembolic risk with the atrial fib is high. REC await GI evaluation when OK from GI standpoint, resume Eliquis or at least baby aspirin as his risk of stroke is high continue carvedilol, diltiazem will f/u PRN rest of hospital stay; he can f/u with me in the office in 3-4 weeks (2) Hypertension Assessment and Plan: Stable. Normotensive. Code Status full code Discussed Condition With patient Problem Qualifiers (1) Hypertension: Qualified Code: I10 - Essential hypertension Jamie Christine MD Jul 19, 2016 07:33
[2016-07-19] MEDS: SODIUM CHLORIDE 0.9% FLUSH 10 ML FLUSH IV FLUSH SCH ×2 (09:15→20:51)
[2016-07-19] MEDS: DILTIAZEM HCL 60 MG TAB PO SCH ×3 (09:15→18:00)
[2016-07-19] MEDS: PANTOPRAZOLE SODIUM 40 MG VIAL IV SCH ×2 (09:16→20:51)
[2016-07-19] MEDS: FLUoxetine HCL 20 MG CAP PO SCH (09:16)
[2016-07-19] MEDS: DOCUSATE SODIUM 100 MG CAP PO SCH ×2 (09:16→20:51)
[2016-07-19] MEDS: CARVEDILOL 6.25 MG TAB PO SCH ×2 (09:16→20:51)
[2016-07-19] MEDS ORDERED: OMEP20TA PO (09:35)
[2016-07-19] MEDS ORDERED: HYDR-3516 PO (09:35)
--- NOTE | 2016-07-19 09:36 | HHI.DS ---
Discharge Summary Admission Date Jul 17, 2016 at 13:04 Discharge Date: Jul 20, 2016 Admitting Diagnosis GI BLEED, HYPOTENSION, WEAKNESS (1) GI (gastrointestinal bleed) ICD Code: K92.2 Diagnosis: Principal (2) Hypertension ICD Code: I10 Diagnosis: Secondary (3) Paroxysmal atrial fibrillation ICD Code: I48.0 Diagnosis: Secondary (4) Weakness generalized ICD Code: R53.1 Diagnosis: Secondary (5) Septic shock ICD Code: A41.9 Diagnosis: Secondary (6) Orthostatic hypotension ICD Code: I95.1 Diagnosis: Secondary (7) Anticoagulated ICD Code: Z79.01 Diagnosis: Secondary Procedures colonoscopy Brief History - From Admission 80-year-old male with PMH of HTN, AFib on eliquis, recent wound infection / necrotizing fasciitis on zyvox, diabetes mellitus, BPH. The patient was sent by the rehabilitation facility for evaluation of possible GI bleed. FOBT was positive and they noticed a drop in HGB ayt 7.8. Patient states that he felt as if he was going to pass out during physical therapy this morning. Per the retirement report patient's hemoglobin has dropped and patient's blood pressure was low. According to medical records sent patient had 2 positive stools for occult blood on on 07/16. On 07/12 patient's hemoglobin was 8, when it was reassessed on 07/16 it was 7.8 per the records. Patient denies any pain, shortness of breath, headache, abdominal pain, nausea, vomiting, fevers. Family at bedside . CBC/BMP: 07/19/16 0548 07/19/16 0548 Significant Findings Laboratory Tests Test 07/17/16 07/17/16 07/18/16 07/18/16 11:30 11:36 00:23 07:08 Urine Mucus FEW /lpf (OCC) Red Blood Count 2.64 MIL/MM3 2.40 MIL/MM3 (4.50-5.90) (4.50-5.90) Hemoglobin 8.1 GM/DL 7.0 GM/DL 7.2 GM/DL (13.0-17.0) (13.0-17.0) (13.0-17.0) Hematocrit 24.1 % 20.6 % 22.0 % (39.0-51.0) (39.0-51.0) (39.0-51.0) Red Cell Distribution Width 18.5 % 18.8 % (11.6-17.2) (11.6-17.2) Monocytes % 17 % (0-8) Myelocytes 1 % (0-0) Prothrombin Time 12.0 SEC (9.8-11.6) Activated Partial 33.9 SEC Thromboplast Time (24.3-30.1) Sodium Level 135 MEQ/L (136-145) Estimat Glomerular Filtration 76 ML/MIN (>89) 75 ML/MIN (>89) Rate Random Glucose 160 MG/DL 138 MG/DL (74-106) (74-106) Aspartate Amino Transf 14 U/L (15-37) (AST/SGOT) Albumin 2.6 GM/DL (3.4-5.0) Monocytes (%) (Auto) 26.0 % (0.0-8.0) Monocytes # (Auto) 1.3 TH/MM3 (0-0.9) Test 07/18/16 07/19/16 22:55 05:48 Hemoglobin 9.4 GM/DL 9.5 GM/DL (13.0-17.0) (13.0-17.0) Hematocrit 27.6 % 27.6 % (39.0-51.0) (39.0-51.0) Red Blood Count 3.12 MIL/MM3 (4.50-5.90) Red Cell Distribution Width 17.6 % (11.6-17.2) Monocytes (%) (Auto) 28.6 % (0.0-8.0) Monocytes # (Auto) 1.6 TH/MM3 (0-0.9) Estimat Glomerular Filtration 71 ML/MIN (>89) Rate Random Glucose 148 MG/DL (74-106) Imaging Last Impressions Small Bowel X-Ray 07/20/16 0000 Signed Impressions: Service Date/Time: Wednesday, July 20, 2016 09:46 - CONCLUSION: Unremarkable small bowel examination. Chase Foley MD PE at Discharge GENERAL: This is a well-nourished, well-developed patient, in no apparent distress. SKIN: Large sacral wound. Wound measures 13 cm x 2 cm x 3 cm with serous draiange. Wound bed is beefy red with ~ 10% sluogh to the coccyx. HEAD: Atraumatic. Normocephalic. No temporal or scalp tenderness. EYES: Pupils equal round and reactive. Extraocular motions intact. No scleral icterus. No injection or drainage. ENT: Nose without bleeding, purulent drainage or septal hematoma. Throat without erythema, tonsillar hypertrophy or exudate. Uvula midline. Airway patent. NECK: Trachea midline. No JVD or lymphadenopathy. Supple, nontender, no meningeal signs. CARDIOVASCULAR: Regular rate and rhythm without murmurs, gallops, or rubs. RESPIRATORY: Clear to auscultation. Breath sounds equal bilaterally. No wheezes , rales, or rhonchi. GASTROINTESTINAL: Abdomen soft, colostomy bag in place, non-tender, nondistended. No hepato-splenomegaly, or palpable masses. No guarding. MUSCULOSKELETAL: Extremities without clubbing, cyanosis, or edema. No joint tenderness, effusion, or edema noted. No calf tenderness. Negative Homans sign bilaterally. NEUROLOGICAL: Awake and alert. Cranial nerves II through XII intact. Motor and sensory grossly within normal limits. Five out of 5 muscle strength in all muscle groups. Normal speech. Hospital Course 80-year-old male with GI bleed possible acute on chronic, possible septic secondary to Eliquis which was recently started for A. fib Fecal occult blood positive H&H so far stable hemoglobin 8.1, will hold transfusion at this time Hold Eliquis Monitor H&H and transfuse if symptomatic or if hemoglobin less than 7 Protonix 40 mg IV twice a day Consult GI Nothing by mouth 4/5 transfuse 2 U prbs , pretreat. HGB 7 , HTC of 20, symptomatic patient. Seen by GI service, appreciate recommendations. S/P EGD/Colonoscopy via colostomy/Sigmoidoscopy moderate diverticulosis sig colon Sessile polyp 37 mm ascending colon , biopsy with cold forceps Significant colitis near colostomy Internal hemorrhoids Patie t to have yearly hemocult- X ray for small bowel folllow through To have colonoscopy in one year A. fib with rate control, restart home medications. Hold Eliquis at this time. Family requested Dr. Vasquez cardiology for evaluation. We'll consult Dr. Vasquez. Seen by his partener Dr Christine, recommends restarting eliquis when cleared by GI. GI cleared the patient to restart eliquis at discharge. Diabetes mellitus, insulin sliding scale, Accu-Cheks. Monitor blood sugar and adjust as needed medications Hypertension, restart home medications. Also will do orthostatics as patient says lightheadedness with physical therapy today. History of necrotizing fasciitis, continue Zyvox, continue wound care dressings. Consult wound care for evaluation and recommendations. Wound measures 13 cm x 2 cm x 3 cm with serous draiange. Wound bed is beefy red with ~ 10% sluogh to the coccyx. Every 3 days and PRN for saturation or dislodgement. Cleasne Right Buttock wound with NS. Loosly apply calcium alginate to wound. Apply adhevive foam. Discussed with Yady from wound care BPH. Continue tamsulosin in Discussed Condition With Discussed with the patient, nurse, family Patient improved, cleared for Dc. To follow up as OP with PCP and consultants. Pt Condition on Discharge: Stable Discharge Disposition: Discharge to SNF Discharge Time: > 30 minutes Discharge Instructions DIET: Follow Instructions for: Heart Healthy Diet Activities you can perform: Regular-No Restrictions Follow up Referrals: Cardiology - 1 Week with Eliceo Vasquez MD Gastroenterology - 2 Weeks PCP Follow-up - 3-5 Days SNF/[facility]/ with [facility] Changed Medications: Omeprazole (Omeprazole) 20 Mg Tab 40 MG PO DAILY GI #30 Ref 0 TAB (Changed from: 20 MG) Continued Medications: Acetaminophen (Tylenol) 325 Mg Cap 325 MG PO Q6H PRN PAIN SCALE 1 TO 4 Ref 0 CAP Apixaban (Eliquis) 5 Mg Tab 5 MG PO BID Blood Clot Prevention #60 Ref 0 TAB Carvedilol (Coreg) 6.25 Mg Tab 6.25 MG PO BID #60 Ref 0 TAB Chlorhexidine Gluconate (Mouth) Liq (Chlorhexidine Gluconate (Mouth) Liq) 0.12% Soln 15 ML SWISH-SPIT BID #473 Ref 0 ML Diltiazem (Diltiazem) 120 Mg Tab 120 MG PO QID Angina #120 Ref 0 TAB Fluoxetine (Fluoxetine) 40 Mg Cap 40 CAP PO DAILY #30 Ref 0 CAP Glipizide (Glipizide) 5 Mg Tab 5 MG PO BID Take 30 minutes before a meal Blood Sugar Management #30 Ref 0 TAB Hydrocodone-Acetaminophen (Hydrocodone-Acetaminophen) 5-325 mg Tab 1 TAB PO Q6H PRN PAIN #15 Ref 0 TAB (This prescription has been renewed) Insulin Lispro (Human) Inj (Humalog Inj) 1,000 Unit/10 Ml Vial 2-12 UNITS SQ ACHS Max dose at bedtime:( )units; sugars < 70,(0)units; sugars 150-199,(2)units; sugars 200-249,(4)units; sugars 250-299,(7)units; sugars 300- 349,(10)units; sugars more than 349,(12)units. Blood Sugar Management #1 Ref 0 VIAL Ipratropium-Albuterol Neb (Duoneb) 0.5-2.5 Mg/3 Ml Neb 1 NEBULE INH DAILY Breathing Treatment #30 Ref 0 NEBULE Linezolid (Zyvox) 600 Mg Tab 600 MG PO Q12H Infection Ref 0 TAB Magnesium Hydroxide Liq (Milk of Magnesia Liq) 400 Mg/5 Ml Susp 30 ML PO DAILY PRN INDIGESTION OR UPSET STOMACH #1 Ref 0 BOTTLE Multivitamin Liq Drops (Aquadeks Liq Drops) 60 Ml Liqd 1 ML PO DAILY Nutritional Supplement #1 Ref 0 BOTTLE Tamsulosin (Tamsulosin) 0.4 Mg Cap 0.4 MG PO HS Manage Prostate Problems #30 Ref 0 CAP Temazepam (Temazepam) 15 Mg Cap 15 MG PO HS PRN INSOMNIA #30 Ref 0 CAP Kelli Jacobs MD Jul 19, 2016 09:36
[2016-07-19] MEDS ORDERED: MAGNESIUM CITRATE SOLN 300 ML BTL PO ONE ×2 (12:00→18:00)
[2016-07-19] MEDS ORDERED: PROPOFOL 200 MG/20 ML AMP IV ONE (15:49)
[2016-07-19] MEDS ORDERED: DO NOT ADM ANY ANTICOAGULANT DRUGS PRN (16:10)
--- NOTE | 2016-07-19 16:17 | GIPROC ---
[facility] [address] [facility]. [facility], [address] COLONOSCOPY PROCEDURE REPORT EXAM DATE: 07/19/2016 PATIENT NAME: Bert Bethea MR #: [id number] BIRTHDATE: 1935 ENDOSCOPIST: Katya Christian MD ORDER #: [id number] BATTER DEPOSITOR: Leonard Coughlin and Michelle Borrego STATUS: inpatient INDICATIONS: The patient is a 80 yr old male here for a colonoscopy due to iron deficiency anemia and hematochezia PROCEDURE PERFORMED: Colonoscopy via stoma and biopsy MEDICATIONS: None and Per Anesthesia. PREP QUALITY: good PREP TYPE:GoLytely ESTIMATED BLOOD LOSS: None CONSENT: The patient understands the risks and benefits of the procedure and understands that these risks include, but are not limited to: sedation, allergic reaction, infection, perforation and/or bleeding. Alternative means of evaluation and treatment include, among others: physical exam, x-rays, and/or surgical intervention. The patient elects to proceed with this endoscopic procedure. medical equipment was checked for proper function. Hand hygiene and appropriate measures for infection prevention was taken. After the risks, benefits and alternatives of the procedure were thoroughly explained, Informed consent was verified, confirmed and timeout was successfully executed by the treatment team. A digital exam revealed external hemorrhoids The Pentax [id number] endoscope was introduced through the anus and advanced to the cecum, which was identified by both the appendix and ileocecal valve. The instrument was then slowly withdrawn as the colon was fully examined. COLON FINDINGS: Moderate diverticulosis was noted in the sigmoid colon. A polypoid shaped sessile polyp ranging between 3-7mm in size was found in the ascending colon. A biopsy was performed using cold forceps. Significant colitis seen near the colostomy. Unusaual appearance of the colon 90 cm from the coloctomy. ? stricture vs. herniation. Scope frist advanced from the coloctomy to this area. Then from the rectum for about 40cm to the surgical site. Retroflexed views revealed internal hemorrhoids and Retroflexed views revealed medium internal hemorrhoids The scope was then completely withdrawn from the patient and the procedure terminated. PROCEDURE WITHDRAWAL TIME:10minutes ADVERSE EVENTS: There were no complications. IMPRESSIONS: 1. Moderate diverticulosis was noted in the sigmoid colon 2. A sessile polyp ranging between 3-7mm in size was found in the ascending colon; biopsy was performed using cold forceps 3. Significant colitis seen near the colostomy. Unusaual appearance of the colon 90 cm from the coloctomy. ? stricture vs. herniation. Scope frist advanced from the coloctomy to this area. Then from the rectum for about 40cm to the surgical site 4. Retroflexed views revealed internal hemorrhoids 5. Retroflexed views revealed medium internal hemorrhoids 6. Revealed external hemorrhoids RECOMMENDATIONS: 1. Await biopsy results. Biopsy results will not be ready for 7-10 days. If you don't hear from us in two weeks, call our office for results. 2. Yearly hemoccult 3. Xray for Small bowel follow through RECALL: Return 1 year Colonoscopy, pending biopsy results Katya Christian MD eSigned: Katya Christian MD 07/19/2016 4:17 PM cc: PATIENT NAME: Bert Bethea MR#: [id number]
--- NOTE | 2016-07-19 16:47 | EC ---
Study Study Date:07/19/2016 STUDY CONCLUSIONS SUMMARY - Left ventricle: The cavity size was normal. Wall thickness was increased in a pattern of mild LVH. Systolic function was normal. The estimated ejection fraction was in the range of 55% to 60%. Wall motion was normal; there were no regional wall motion abnormalities. - Aortic valve: Valve area: 1.87cm^2(VTI). Valve area: 2cm^2 (Vmax). - Mitral valve: Mild regurgitation. - Tricuspid valve: Mild regurgitation. If LV function is below 40, please consider prescribing an ACEI or ARB or document rationale for non-use. PROCEDURE DATA STUDY STATUS: Elective. Procedure: Transthoracic echocardiography. Image quality was good. Scanning was performed from the parasternal, apical, and subcostal acoustic windows. Study completion: The patient tolerated the procedure well. Transthoracic echocardiography. M-mode, complete 2D, complete spectral Doppler, and color Doppler. Height: Height: 70in. Weight: Weight: 224.5lb. Body mass index: BMI: 32.3kg/m^2. Body surface area: BSA: 2.19m^2. Patient status: Inpatient. CARDIAC ANATOMY LEFT VENTRICLE: The cavity size was normal. Wall thickness was increased in a pattern of mild LVH. Systolic function was normal. The estimated ejection fraction was in the range of 55% to 60%. Wall motion was normal; there were no regional wall motion abnormalities. AORTIC VALVE: Trileaflet; normal thickness leaflets. Doppler: Transvalvular velocity was within the normal range. There was no stenosis. No regurgitation. Valve area: 1.87cm^2(VTI). Indexed valve area: 0.85cm^2/m^2 (VTI). Valve area: 2cm^2 (Vmax). Indexed valve area: 0.91cm^2/m^2 (Vmax). Mean gradient: 3mm Hg (S). AORTA: Aortic root: The aortic root was normal in size. MITRAL VALVE: Structurally normal valve. Doppler: Transvalvular velocity was within the normal range. There was no evidence for stenosis. Mild regurgitation. Peak gradient: 2mm Hg (D). LEFT ATRIUM: The atrium was normal in size. RIGHT VENTRICLE: The cavity size was normal. Wall thickness was normal. PULMONIC VALVE: Doppler: Transvalvular velocity was within the normal range. There was no evidence for stenosis. No regurgitation. TRICUSPID VALVE: Structurally normal valve. Doppler: Transvalvular velocity was within the normal range. Mild regurgitation. PULMONARY ARTERY: The main pulmonary artery was normal-sized. Systolic pressure was within the normal range. RIGHT ATRIUM: The atrium was normal in size. PERICARDIUM: There was no pericardial effusion. SYSTEMIC VEINS: Inferior vena cava: The vessel was normal in size. Patient weight: 224.5lb _Ejection fraction:_ 65-75% _Fractional shortening:_ 32% up to 5Kg 5-11.5Kg 11.6-22.9Kg 23-45Kg 45-57Kg Aortic Root 7-13 <17 13-22 17-27 17-27 LA diam 6-13 <23 24-38 33-47 37-40 RVID 10-17 7-15 7-15 7-18 8-17 LVIDd 12-22 <32 24-38 33-47 37-40 LVPW 2-4 3-6 5-7 6-8 7-8 IVS 2-4 3-6 5-7 6-8 7-8 BASIC MEASUREMENTS ADULT NORMAL Left ventricle LV internal dimension, ED, chordal 45.4 mm 43-52 level, PLAX LV internal dimension, ES, chordal 24.9 mm 23-38 level, PLAX Fractional shortening, chordal level, 45 % >29 PLAX LV posterior wall thickness, ED 10.2 mm IVS/LVPW ratio, ED 1.16 <1.3 Ventricular septum Septal thickness, ED 11.8 mm Aortic valve Leaflet separation 22 mm 15-26 Aorta Root diameter, ED 29 mm Left atrium Anterior-posterior dimension 37 mm Anterior-posterior dimension index 1.69 cm/m^2 <2.2 BASIC MEASUREMENTS ADULT NORMAL Aortic valve Leaflet separation 22 mm 15-26 DOPPLER MEASUREMENTS ADULT NORMAL Aortic valve Peak velocity, S 103 cm/s Mean velocity, S 81.1 cm/s VTI, S 18.6 cm Mean gradient, S 3 mm Hg Valve area, VTI 1.87 cm^2 Valve area index, VTI 0.85 cm^2/m^2 Valve area, Vmax 2 cm^2 Valve area index, Vmax 0.91 cm^2/m^2 Mitral valve Peak E-wave velocity 71.8 cm/s Deceleration time 201 ms 150-230 Peak gradient, D 2 mm Hg Tricuspid valve Regurgitant peak velocity 297 cm/s Peak RV-RA gradient, S 35 mm Hg Maximal regurgitant velocity 297 cm/s Pulmonic valve Peak velocity, S 68.5 cm/s LEGEND: Mean values are shown as u=mean value. Asterisk (*) sofia values outside specified normal range. Prepared and signed by Lawson Elliott [id number]
[2016-07-19] MEDS: BISACODYL EC 5 MG TABEC PO SCH ×2 (18:49→20:51)
[2016-07-19] MEDS: TAMSULOSIN HCL 0.4 MG CAP PO SCH (20:51)
[2016-07-19] MEDS: TEMAZEPAM 15 MG CAP PO PRN (20:51)
[2016-07-20 00:01] VITALS: BP 120/67; PULSE 80; RESP 19; TEMP 97.6; O2SAT 96
[2016-07-20] MEDS: LINEZOLID 600 MG TAB PO SCH ×2 (03:08→14:56)
[2016-07-20 04:00] VITALS: BP 138/76; PULSE 71; RESP 18; TEMP 98.3; O2SAT 97
[2016-07-20] MEDS: INSULIN ASPART SUPPLEMENTAL SCALE SQ SCH ×3 (06:21→14:59)
[2016-07-20 08:00] VITALS: BP 124/70; PULSE 92; RESP 20; TEMP 98.7; O2SAT 98
[2016-07-20] MEDS: DOCUSATE SODIUM 100 MG CAP PO SCH (09:00)
--- NOTE | 2016-07-20 10:17 | HHI.PR ---
Subjective Remarks Patient went for GI series, discussed with family at bedside, all questions answered. Patient was seen after GI series. Results normal , discussed with the patient/family Says he feels good. No n/v/d/c. HGB improved after transfusion. BM is normal color. Objective Vitals Vital Signs Date Time Temp Pulse Resp B/P Pulse Ox O2 Delivery O2 Flow Rate FiO2 07/20/16 08:00 98.7 92 20 124/70 98 07/20/16 04:00 98.3 71 18 138/76 97 07/20/16 00:01 97.6 80 19 120/67 96 07/19/16 20:28 97 07/19/16 20:00 97.6 80 18 138/73 96 07/19/16 17:00 97.5 71 18 137/69 99 07/19/16 16:30 76 16 120/68 99 07/19/16 16:20 74 16 115/65 98 07/19/16 16:11 98.4 77 16 110/67 98 07/19/16 14:55 98.0 78 16 141/73 98 07/19/16 12:00 98.0 67 18 115/65 97 I/O 07/19/16 07/19/16 07/19/16 07/20/16 07/20/16 07/20/16 07:00 15:00 23:00 07:00 15:00 23:00 Intake Total 2150 ml 0 ml 940 ml 0 ml Output Total 250 ml 600 ml 1150 ml 900 ml Balance 1900 ml -600 ml -210 ml -900 ml Intake Oral 0 ml 0 ml 240 ml 0 ml IV Total 2150 ml Other 700 ml Output Urine Total 250 ml 600 ml 700 ml 500 ml Stool Total 450 ml 400 ml # Bowel Movements 0 1 Result Diagram: 07/19/16 0548 07/19/16 0548 Imaging Last Impressions Small Bowel X-Ray 07/20/16 0000 Signed Impressions: Service Date/Time: Wednesday, July 20, 2016 09:46 - CONCLUSION: Unremarkable small bowel examination. Chase Foley MD Objective Remarks GENERAL: This is a well-nourished, well-developed patient, in no apparent distress. SKIN: Large sacral wound. Wound measures 13 cm x 2 cm x 3 cm with serous draiange. Wound bed is beefy red with ~ 10% sluogh to the coccyx. HEAD: Atraumatic. Normocephalic. No temporal or scalp tenderness. EYES: Pupils equal round and reactive. Extraocular motions intact. No scleral icterus. No injection or drainage. ENT: Nose without bleeding, purulent drainage or septal hematoma. Throat without erythema, tonsillar hypertrophy or exudate. Uvula midline. Airway patent. NECK: Trachea midline. No JVD or lymphadenopathy. Supple, nontender, no meningeal signs. CARDIOVASCULAR: Regular rate and rhythm without murmurs, gallops, or rubs. RESPIRATORY: Clear to auscultation. Breath sounds equal bilaterally. No wheezes , rales, or rhonchi. GASTROINTESTINAL: Abdomen soft, colostomy bag in place, non-tender, nondistended. No hepato-splenomegaly, or palpable masses. No guarding. MUSCULOSKELETAL: Extremities without clubbing, cyanosis, or edema. No joint tenderness, effusion, or edema noted. No calf tenderness. Negative Homans sign bilaterally. NEUROLOGICAL: Awake and alert. Cranial nerves II through XII intact. Motor and sensory grossly within normal limits. Five out of 5 muscle strength in all muscle groups. Normal speech. Procedures colonoscopy A/P Assessment and Plan 80-year-old male with GI bleed possible acute on chronic, possible septic secondary to Eliquis which was recently started for Jonah smith Fecal occult blood positive H&H so far stable hemoglobin 8.1, will hold transfusion at this time Hold Eliquis, discussed with GI after EGD and GI series , patient might resume eliquis at discharge . Monitor H&H and transfuse if symptomatic or if hemoglobin less than 7 Protonix 40 mg IV twice a day Consult GI, appreciate recommendations 4/5 transfuse 2 U prbs , pretreat. HGB 7 , HTC of 20, symptomatic patient. Seen by GI service, appreciate recommendations. S/P EGD/Colonoscopy via colostomy/Sigmoidoscopy moderate diverticulosis sig colon Sessile polyp 37 mm ascending colon, biopsy with cold forceps, results pending to followup as OP Significant colitis near colostomy Internal hemorrhoids Patiet to have yearly hemocult- X ray for small bowel folllow through 07/20/16 reviewed and normal To have colonoscopy in one year Plan fpr Capsule endoscopy as OP with GI. Cleared for WI by GI to follow up as OP . To restart eliquis at DC. A. fib with rate control, restart home medications. Hold Eliquis at this time. Family requested Dr. Vasquez cardiology for evaluation. We'll consult Dr. Vasquez. Seen by his partener Dr Christine, recommends restarting eliquis when cleared by GI. Diabetes mellitus, insulin sliding scale, Accu-Cheks. Monitor blood sugar and adjust as needed medications Hypertension, restart home medications. Also will do orthostatics as patient says lightheadedness with physical therapy today. History of necrotizing fasciitis, continue Zyvox, continue wound care dressings. Consult wound care for evaluation and recommendations. Wound measures 13 cm x 2 cm x 3 cm with serous draiange. Wound bed is beefy red with ~ 10% sluogh to the coccyx. Every 3 days and PRN for saturation or dislodgement. Cleasne Right Buttock wound with NS. Loosly apply calcium alginate to wound. Apply adhevive foam. Discussed with Yady from wound care BPH. Continue tamsulosin in Discussed Condition With Discussed with the patient, nurse Improved, cleared for DC by consultants. To follow as OP with PCP and consultants. Kelli Jacobs MD Jul 20, 2016 10:17
[2016-07-20 12:00] VITALS: BP 143/87; PULSE 87; RESP 18; TEMP 97.8; O2SAT 96
[2016-07-20] MEDS: CARVEDILOL 6.25 MG TAB PO SCH (12:15)
[2016-07-20] MEDS: SODIUM CHLOR 0.9% 1000 ML INJ 1,000 ML IV SCH (12:15)
[2016-07-20] MEDS: PANTOPRAZOLE SODIUM 40 MG VIAL IV SCH (12:15)
[2016-07-20] MEDS: DILTIAZEM HCL 60 MG TAB PO SCH ×3 (12:15→18:17)
[2016-07-20] MEDS: FLUoxetine HCL 20 MG CAP PO SCH (12:15)
[2016-07-20] MEDS: SODIUM CHLORIDE 0.9% FLUSH 10 ML FLUSH IV FLUSH SCH (12:16)
--- NOTE | 2016-07-20 12:36 | RADRPT ---
EXAM DATE/TIME: 07/20/2016 09:46 [facility] COMPARISON: CT ABDOMEN & PELVIS W/O CONTRAST, April 28, 2016, 9:05. CHEST SINGLE AP, May 20, 2016, 5:14. INDICATIONS : Anemia. FLUORO TIME: .5 minutes IMAGE COUNT: 13 CONTRAST: Entero Vu 24% Barium Sulfate (24% w/v, 20% w/w) IMAGING TIME(S): 15 min, 30 min, 45 min, 1 hr, 1.5 hrs, 2 hrs. MEDICAL HISTORY : None. SURGICAL HISTORY : Colostomy. ENCOUNTER: Initial ACUITY: 1 day PAIN SCORE: 2/10 LOCATION: Bilateral abdomen. FINDINGS: Four Slide Machine Operator radiograph: There are degenerative changes in the lower lumbar spine. The bowel gas pattern is unremarkable. Ther e is a colostomy in place overlying the midabdomen. There was prompt transit of barium from the stomach and into the small bowel. There was normal transi t of barium through the jejunum and down to the terminal ileum. Contrast was noted to be at the level of the colon on the two-hour film. Spot radiographs of the terminal ileum are provided. These are un remarkable. CONCLUSION: Unremarkable small bowel examination. Chase Foley MD on July 20, 2016 at 12:28 Board Certified Radiologist. This report was verified electronically.
--- NOTE | 2016-07-20 12:42 | HHI.GIFU ---
Subjective Remarks Pt tearful, states it has just been one thing after another since April and he just wants to get back to his regular life. No n/v. No abdominal pain. No bleeding. (Chrystal Carrero) Objective Vitals I&O Vital Signs Date Time Temp Pulse Resp B/P Pulse Ox O2 Delivery O2 Flow Rate FiO2 07/20/16 08:00 98.7 92 20 124/70 98 07/20/16 04:00 98.3 71 18 138/76 97 07/20/16 00:01 97.6 80 19 120/67 96 07/19/16 20:28 97 07/19/16 20:00 97.6 80 18 138/73 96 07/19/16 17:00 97.5 71 18 137/69 99 07/19/16 16:30 76 16 120/68 99 07/19/16 16:20 74 16 115/65 98 07/19/16 16:11 98.4 77 16 110/67 98 07/19/16 14:55 98.0 78 16 141/73 98 I/O 07/19/16 07/19/16 07/19/16 07/20/16 07/20/16 07/20/16 06:59 14:59 22:59 06:59 14:59 22:59 Intake Total 2150 ml 0 ml 940 ml 0 ml Output Total 250 ml 600 ml 1150 ml 900 ml Balance 1900 ml -600 ml -210 ml -900 ml Intake Oral 0 ml 0 ml 240 ml 0 ml IV Total 2150 ml Other 700 ml Output Urine Total 250 ml 600 ml 700 ml 500 ml Stool Total 450 ml 400 ml # Bowel Movements 0 1 Imaging Last Impressions Small Bowel X-Ray 07/20/16 0000 Signed Impressions: Service Date/Time: Wednesday, July 20, 2016 09:46 - CONCLUSION: Unremarkable small bowel examination. Chase Foley MD Physical Exam HEENT: Normocephalic; atraumatic; no jaundice. CHEST: CTA CARDIAC: Irregular, rate controlled ABDOMEN: Soft, nondistended, nontender; no hepatosplenomegaly; bowel sounds are present in all four quadrants. Left sided colostomy- brown stool EXTREMITIES: No clubbing, cyanosis, or edema. SUPERVISOR YARD: No focal deficits; alert and oriented times three. (Chrystal Carrero) Assessment and Plan Plan ASSESSMENT: - Anemia, Hemoccult (+) Stool. Denies hx of GI Bleeding/PUD. Has diverting colostomy (placed about a month ago). Last colonoscopy 5 years ago- had several polyps removed. He has occasional GERD, controlled with PPI. No other GI symptoms. He has been tired/fatigued for several weeks. S/P EGD/Colonoscopy/Sigmoid (07/19/16)----> erythematous gastritis in the gastric body, LA Class A esophagitis noted, Normal duodenal mucosa in the 2nd portion of the duodenum, retroflexed views revealed no abnormalities, 1. Moderate diverticulosis was noted in the sigmoid colon 2. A sessile polyp ranging between 3-7mm in size was found in the ascending colon; biopsy was performed using cold forceps 3. Significant colitis seen near the colostomy. Unusual appearance of the colon 90 cm from the coloctomy. ? stricture vs. herniation. Scope first advanced from the colostomy to this area. Then from the rectum for about 40cm to the surgical site 4. Retroflexed views revealed internal hemorrhoids 5. Retroflexed views revealed medium internal hemorrhoids 6. Revealed external hemorrhoids. Pathology pending. SBFT (07/20/16)-----> Unremarkable small bowel examination. HH 9.5/27.6. - Atrial fibrillation, Eliquis on hold. - DM, HTN, BPH per primary - Hx necrotizing fasciitis/gangrene buttock/thigh. S/P I&D. He was discharged to [facility] on 05/24 on Zosyn. He then had a diverting colostomy placed about a month ago while at [facility]. Wound care per primary PLAN: - ALLIE - Await pathology - PPI - Capsule endoscopy as outpt - Further recommendations to follow based on results of above - Pt seen and examined by Dr. Christian and myself and this note is written on his behalf (Chrystal Carrero) Physician Comments Seen and examined with ANTONIO, no bleeding. SBFT -ve. Biopsies-p. Can dc home with gi fu in 02 weeks. Thank you (Katya Christian MD) Chrystal Carrero Jul 20, 2016 12:42 Katya Christian MD Jul 20, 2016 18:56
[2016-07-20 15:15] VITALS: PULSE 80
[2016-07-20 16:00] VITALS: BP 128/79; PULSE 97; RESP 18; TEMP 97.2; O2SAT 98
--- NOTE | 2016-07-23 13:38 | PQ ---
Physician Query Response Document PATIENT: KIKO DUEÑAS : 1935 ADMIT DATE: 07/17/2016 1:04 PM DISCH DATE: 07/20/2016 7:45 PM RESPONDING PROVIDER #: tony QUERY TEXT: Clinical Validity Additional clinical indicators are required to support your documented diagnosis of _sept ic___ Please respond and also state in your next progress note whether: -- Condition exists and also please provide clinical indicators to support the diagnosis -- Condition does not exist and also please provide amended documentation in the medical record to cl chantel -- Unable to provide additional clarity regarding the diagnosis -- Other, please specify The patient's Clinical Indicators include: GI bleed possible acute on chronic, possible septic secondary to Eliquis which was recently started f or A. fib Query created by: Marisel Lea on 07/20/2016 3:30 PM RESPONSE TEXT: Please note: Sepsis is a typo mistake. GI bleed possible acute on chronic, possible secondary to Eliquis which was recently started for A. F ib. Electronically signed by: Kelli Jacobs MD 07/23/2016 1:35 PM
== END 2016-07-20 19:45 | DRG 378 ==
LOC: NEPA 13:03 → NEDA 13:04 → N04B 14:55
PROVIDERS: ADMIT Hospitalist; ATTEND Hospitalist
PROC: 30233N1 Transfusion of Nonautologous Red Blood Cells into Peripheral Vein, Percutaneous Approach (ICD-10-PCS; 2016-07-18)
PROC: 0DBN8ZX Excision of Sigmoid Colon, Via Natural or Artificial Opening Endoscopic, Diagnostic (ICD-10-PCS; 2016-07-19)
PROC: 0DBK8ZX Excision of Ascending Colon, Via Natural or Artificial Opening Endoscopic, Diagnostic (ICD-10-PCS; 2016-07-19)
PROC: 0DB58ZX Excision of Esophagus, Via Natural or Artificial Opening Endoscopic, Diagnostic (ICD-10-PCS; principal; 2016-07-19 15:35)
PROC: 0DB68ZX Excision of Stomach, Via Natural or Artificial Opening Endoscopic, Diagnostic (ICD-10-PCS; 2016-07-19 15:35)
DX: K92.2 Gastrointestinal hemorrhage, unspecified (principal); D62 Acute posthemorrhagic anemia; I48.0 Paroxysmal atrial fibrillation; E11.9 Type 2 diabetes mellitus without complications; I10 Essential (primary) hypertension; F32.9 Major depressive disorder, single episode, unspecified; D12.2 Benign neoplasm of ascending colon; T50.995A Adverse effect of other drugs, medicaments and biological substances, initial encounter; K29.70 Gastritis, unspecified, without bleeding; I95.1 Orthostatic hypotension; Y92.129 Unspecified place in nursing home as the place of occurrence of the external cause; K57.30 Diverticulosis of large intestine without perforation or abscess without bleeding; K52.9 Noninfective gastroenteritis and colitis, unspecified; Z79.02 Long term (current) use of antithrombotics/antiplatelets; N40.0 Benign prostatic hyperplasia without lower urinary tract symptoms; K21.0 Gastro-esophageal reflux disease with esophagitis; Z93.3 Colostomy status; Z96.642 Presence of left artificial hip joint; Z87.891 Personal history of nicotine dependence; K64.4 Residual hemorrhoidal skin tags; Z86.14 Personal history of Methicillin resistant Staphylococcus aureus infection; Z79.4 Long term (current) use of insulin; K64.8 Other hemorrhoids; S31.000D Unspecified open wound of lower back and pelvis without penetration into retroperitoneum, subsequent encounter; X58.XXXD Exposure to other specified factors, subsequent encounter
CPT/HCPCS: 36430; 74250; 80048; 80053; 81001; 82948; 83735; 85007; 85014; 85018; 85025; 85027; 85610; 85730; 86850; 86900; 86901; 86920; 87493; 88305; 88312; 93306; 96374; C9113; J1815; J1940; J7030; J7050; P9016